=== PATIENT | male | born 1955 | race Caucasian/White ===

== ENCOUNTER 2020-07-25 09:22 | Outpatient (CLI) | payer MEDICARE, SELFPAY ==
--- NOTE | ~2020-07-25 | US_ITS ---
EXAMINATION: US renal BI EXAM DATE: 07/25/2020 09:47 INDICATION: Acquired absence of kidney. TECHNIQUE: Multiple grayscale and Doppler images of the kidneys were obtained (by a technologist who performed the scan) and subsequently reviewed. There is no prior study for comparison. FINDINGS: Right kidney: There is normal contour and echogenicity. It measures 12.1 x 5.1 x 6.4 centimeters. T here are no focal renal lesions identified. There is no hydronephrosis. Left kidney: There is normal contour and echogenicity. It measures 13.0 x 6.0 x 5.0 centimeters. Th ere are no focal renal lesions identified. There is no hydronephrosis. Bladder unremarkable. IMPRESSION: 1. Sonographically unremarkable kidneys. Reviewed, dictated and finalized at location B.
== END 2020-07-25 09:23 | disposition home or self-care (01) ==
LOC: CHSIMG 09:25
PROVIDERS: PCP Nurse Practitioner Family; Visit Provider Nurse Practitioner Family
DX: Z90.5 Acquired absence of kidney (principal)
CPT/HCPCS: 76775

== ENCOUNTER 2020-10-17 15:56 | Outpatient (NON) | payer MEDICARE, SELFPAY ==
[2020-10-17 16:56] LABS: Hemoglobin A1C 7.2 % (<5.7)
[2020-10-17 16:59] LABS: Alanine Aminotransferase 38 U/L (16-63); Albumin Level 4.1 g/dL (3.4-5.0); Alkaline Phosphatase 94 U/L (46-116); Anion Gap 11 mmol/L (8-16); Aspartate Amino Transferase 36 U/L (15-37); Bilirubin,Total 0.7 mg/dL (0.00-1.00); Blood Urea Nitrogen 20 mg/dL (7-18); Calcium 9.2 mg/dL (8.5-10.1); Carbon Dioxide 28 mmol/L (21-32); Chloride 104 mmol/L (98-108); Estimated Glomerular Filt Rate > 60; Glucose 115 mg/dL (70-99); Osmolality Calculated 299 mOsm/kg (285-295); Potassium 3.3 mmol/L (3.5-5.1); Sodium 143 mmol/L (136-145); Total Protein 7.6 g/dL (6.4-8.2)
== END 2020-10-17 15:57 ==
LOC: CHSLAB 15:58
PROVIDERS: Visit Provider Nurse Practitioner Family
DX: E11.9 Type 2 diabetes mellitus without complications (principal)
CPT/HCPCS: 36415; 80053; 83036

== ENCOUNTER 2021-01-15 13:58 | Outpatient (NON) | payer MEDICARE, SELFPAY ==
[2021-01-15 14:12] LABS: Basophils Absolute Auto 0.06 K/mm3 (0.00-0.10); Basophils Percent Auto 0.7 % (0.0-1.0); Eosinophils Absolute Auto 0.12 K/mm3 (0.02-0.50); Eosinophils Percent Auto 1.5 % (1.0-6.0); Hematocrit 50.6 % (40.0-54.0); Hemoglobin 17.3 g/dL (14.0-18.0); Immature Granulocyte Absolute 0.02 K/mm3 (0.00-0.00); Immature Granulocyte Percent A 0.2 % (0.0-0.0); Lymphocytes Absolute Auto 1.41 K/mm3 (1.10-4.50); Lymphocytes Percent Auto 17.6 % (18.0-42.0); Mean Corpuscular HGB Conc 34.2 g/dL (32.0-36.0); Mean Corpuscular Hemoglobin 32.2 pg (27.0-31.0); Mean Corpuscular Volume 94.1 fL (78.0-102.0); Mean Platelet Volume 11.2 fl (8.7-11.0); Monocytes Absolute Auto 0.69 K/mm3 (0.10-0.90); Monocytes Percent Auto 8.6 % (2.0-11.0); Neutrophils Absolute Auto 5.7 K/mm3 (1.7-7.2); Neutrophils Percent Auto 71.4 % (50.0-70.0); Platelet Count Result 148 K/mm3 (150-420); Red Blood Count 5.38 M/mm3 (4.70-6.10); Red Cell Distribution Width 12.7 % (11.6-14.4)
[2021-01-15 14:26] LABS: Hemoglobin A1C 7.8 % (<5.7)
[2021-01-15 15:03] LABS: Alanine Aminotransferase 47 U/L (16-63); Albumin Level 3.7 g/dL (3.4-5.0); Alkaline Phosphatase 157 U/L (46-116); Bilirubin,Total 1.1 mg/dL (0.00-1.00); Blood Urea Nitrogen 21 mg/dL (7-18); Calcium 9.2 mg/dL (8.5-10.1); Carbon Dioxide 30 mmol/L (21-32); Cholesterol 195 mg/dL (0-200); Estimated Glomerular Filt Rate 58; Glucose 233 mg/dL (70-99); HDL Direct 28 mg/dL (40-60); Total Protein 7.5 g/dL (6.4-8.2)
[2021-01-15 15:13] LABS: Anion Gap 10 mmol/L (8-16); Chloride 102 mmol/L (98-108); Osmolality Calculated 304 mOsm/kg (285-295); Potassium 3.9 mmol/L (3.5-5.1); Sodium 142 mmol/L (136-145)
[2021-01-15 15:56] LABS: Aspartate Amino Transferase 36 U/L (15-37)
[2021-01-15 16:05] LABS: LDL Cholesterol Calculated 50 mg/dL (<130); Triglycerides 587 mg/dL (0-150)
[2021-01-15 16:07] LABS: LDL Cholesterol Direct 61 mg/dL (0-130)
== END 2021-01-15 13:59 ==
LOC: CHSLAB 13:59
PROVIDERS: Visit Provider Nurse Practitioner Family
DX: E78.5 Hyperlipidemia, unspecified (principal); I10 Essential (primary) hypertension; E11.9 Type 2 diabetes mellitus without complications
CPT/HCPCS: 36415; 80053; 80061; 83036; 83721; 85025

== ENCOUNTER 2021-03-21 12:32 | Outpatient (CLI) | payer MEDICARE, SELFPAY ==
--- NOTE | 2021-03-21 12:42 | ECG_ITS ---
Measurements Intervals Tibbie Rate: 75 P: 68 IA: 195 QRS: 39 QRSD: 91 T: 30 QT: 381 QTc: 428 Interpretive Statements SINUS RHYTHM ANTERIOR INFARCT, AGE INDETERMINATE ABNORMAL ECG Electronically Signed On 03-21-2021 14:17:50 CDT by Francois Kamara D.O.
== END 2021-03-21 12:33 | disposition home or self-care (01) ==
LOC: CHSCARD 12:36
PROVIDERS: PCP Nurse Practitioner Family; Visit Provider Nurse Practitioner Family
DX: T78.40XA Allergy, unspecified, initial encounter (principal); Z86.79 Personal history of other diseases of the circulatory system
CPT/HCPCS: 36415; 82785; 86003; 93005

== ENCOUNTER 2021-04-08 07:34 | Outpatient (CLI) | payer MEDICARE, SELFPAY ==
--- NOTE | ~2021-04-08 | US_ITS ---
US abdomen limited INDICATION: Abnormal liver function tests PROCEDURE: Realtime right upper abdominal ultrasound. COMPARISON: No prior studies for comparison. FINDINGS: The pancreas is normal without focal mass or pancreatic ductal dilation. Liver echotexture is increased, consistent with fatty infiltration. There is normal directional flow in the portal ve in. The gallbladder is normal without stones, gallbladder wall thickening or pericholecystic fluid. Comm on bile duct measures 5 mm. No sonographic Minaya's sign. IMPRESSION: 1: Hepatic steatosis. Reviewed, dictated and finalized at location B. IMPRESSION: 1: Hepatic steatosis.
[2021-04-08 08:50] LABS: Alanine Aminotransferase 37 U/L (16-63); Albumin Level 3.7 g/dL (3.4-5.0); Alkaline Phosphatase 136 U/L (46-116); Anion Gap 9 mmol/L (8-16); Bilirubin,Total 0.6 mg/dL (0.00-1.00); Blood Urea Nitrogen 16 mg/dL (7-18); Calcium 8.8 mg/dL (8.5-10.1); Carbon Dioxide 30 mmol/L (21-32); Chloride 103 mmol/L (98-108); Estimated Glomerular Filt Rate > 60; Glucose 127 mg/dL (70-99); Osmolality Calculated 297 mOsm/kg (285-295); Sodium 142 mmol/L (136-145); Total Protein 7.2 g/dL (6.4-8.2)
[2021-04-08 08:59] LABS: Aspartate Amino Transferase 34 U/L (15-37)
== END 2021-04-08 07:35 | disposition home or self-care (01) ==
PROVIDERS: PCP Nurse Practitioner Family; Visit Provider Nurse Practitioner Family
DX: R94.5 Abnormal results of liver function studies (principal)
CPT/HCPCS: 36415; 76705; 80053

== ENCOUNTER 2021-04-17 14:59 | Outpatient (CLI) | payer MEDICARE, SELFPAY ==
--- NOTE | ~2021-04-17 | XR_ITS ---
XR lumbar spine 2-3V DATE: 04/17/2021 15:21 INDICATION: Back pain for one year. No injury. TECHNIQUE: AP, lateral, coned lateral lumbosacral views COMPARISON: None FINDINGS: There are 4 functional lumbar vertebrae. There is moderately severe degenerative disc disease throughout the lumbar spine. These include loss of interspace height, vacuum phenomenon and degenerative spurring. No fracture or bone destruction is evident. The lumbar pedicles are intact. No spondylolisthesis. IMPRESSION: Moderately severe degenerative disease of the lumbar spine Reviewed, dictated and finalized at location A.
== END 2021-04-17 15:00 | disposition home or self-care (01) ==
LOC: CHSIMG 15:01
PROVIDERS: PCP Nurse Practitioner Family; Visit Provider Nurse Practitioner Family
DX: M54.9 Dorsalgia, unspecified (principal)
CPT/HCPCS: 72100

== ENCOUNTER 2021-06-06 15:11 | Outpatient (NON) | payer MEDICARE, SELFPAY ==
[2021-06-06 15:30] LABS: Basophils Absolute Auto 0.08 K/mm3 (0.00-0.10); Basophils Percent Auto 1.1 % (0.0-1.0); Eosinophils Absolute Auto 0.21 K/mm3 (0.02-0.50); Eosinophils Percent Auto 2.8 % (1.0-6.0); Hematocrit 52.2 % (37.0-46.0); Immature Granulocyte Absolute 0.01 K/mm3 (0.00-0.00); Immature Granulocyte Percent A 0.1 % (0.0-0.0); Lymphocytes Absolute Auto 1.74 K/mm3 (1.10-4.50); Lymphocytes Percent Auto 23.2 % (18.0-42.0); Mean Corpuscular HGB Conc 34.5 g/dL (32.0-36.0); Mean Corpuscular Volume 92.7 fL (78.0-102.0); Mean Platelet Volume 10.5 fl (8.7-11.0); Monocytes Absolute Auto 0.64 K/mm3 (0.10-0.90); Monocytes Percent Auto 8.5 % (2.0-11.0); Neutrophils Absolute Auto 4.8 K/mm3 (1.7-7.2); Neutrophils Percent Auto 64.3 % (50.0-70.0); Platelet Count Result 132 K/mm3 (150-420); Red Blood Count 5.63 M/mm3 (4.70-6.10); Red Cell Distribution Width 12.9 % (11.6-14.4); White Blood Count 7.5 K/mm3 (4.8-10.8)
[2021-06-06 15:46] LABS: Alanine Aminotransferase 31 U/L (16-63); Albumin Level 3.7 g/dL (3.4-5.0); Alkaline Phosphatase 134 U/L (46-116); Anion Gap 18 mmol/L (8-16); Bilirubin,Total 0.7 mg/dL (0.00-1.00); Blood Urea Nitrogen 16 mg/dL (7-18); Calcium 8.8 mg/dL (8.5-10.1); Carbon Dioxide 21 mmol/L (21-32); Chloride 104 mmol/L (98-108); Cholesterol 219 mg/dL (0-200); Estimated Glomerular Filt Rate 57; Glucose 230 mg/dL (70-99); HDL Direct 27 mg/dL (40-60); Osmolality Calculated 304 mOsm/kg (285-295); Potassium 3.3 mmol/L (3.5-5.1); Sodium 143 mmol/L (136-145); Total Protein 7.8 g/dL (6.4-8.2)
[2021-06-06 15:55] LABS: Aspartate Amino Transferase 33 U/L (15-37)
[2021-06-06 16:07] LABS: Triglycerides 661 mg/dL (0-150)
[2021-06-06 16:08] LABS: LDL Cholesterol Calculated 60 mg/dL (<130)
[2021-06-06 16:09] LABS: LDL Cholesterol Direct 61 mg/dL (0-130)
== END 2021-06-06 15:12 | disposition home or self-care (01) ==
LOC: CHSLAB 15:13
PROVIDERS: Visit Provider Nurse Practitioner Family
DX: E78.5 Hyperlipidemia, unspecified (principal); Z00.00 Encounter for general adult medical examination without abnormal findings; I10 Essential (primary) hypertension
CPT/HCPCS: 36415; 80053; 80061; 83721; 85025; 85055

== ENCOUNTER 2021-09-16 10:26 | Outpatient (CLI) | payer MEDICARE, SELFPAY ==
[2021-09-16 11:13] LABS: Alanine Aminotransferase 36 U/L (16-63); Albumin Level 3.5 g/dL (3.4-5.0); Alkaline Phosphatase 139 U/L (46-116); Anion Gap 11 mmol/L (8-16); Bilirubin,Total 0.6 mg/dL (0.00-1.00); Blood Urea Nitrogen 17 mg/dL (7-18); Calcium 9.4 mg/dL (8.5-10.1); Carbon Dioxide 28 mmol/L (21-32); Chloride 102 mmol/L (98-108); Estimated Glomerular Filt Rate > 60; Glucose 182 mg/dL (70-99); Magnesium 1.8 mg/dL (1.8-2.4); Osmolality Calculated 298 mOsm/kg (285-295); Potassium 3.3 mmol/L (3.5-5.1); Sodium 141 mmol/L (136-145); Total Protein 6.9 g/dL (6.4-8.2)
[2021-09-16 11:20] LABS: Aspartate Amino Transferase 29 U/L (15-37)
== END 2021-09-16 10:27 | disposition home or self-care (01) ==
LOC: CHSLAB 10:29
PROVIDERS: PCP Nurse Practitioner Family; Visit Provider Nurse Practitioner Family
DX: R25.2 Cramp and spasm (principal)
CPT/HCPCS: 36415; 80053; 83735

== ENCOUNTER 2021-11-04 11:54 | Outpatient (CLI) | payer MEDICARE, SELFPAY ==
--- NOTE | ~2021-11-04 | US_ITS ---
EXAMINATION: US soft tissue groin RT, US soft tissue groin LT DATE: 11/04/2021 12:20 INDICATION: Localized pain, swelling, mass and lump at both the left and right groin TECHNIQUE: Multiple grayscale and Doppler ultrasound images of the regions of concern at both the lef t groin and right groin were obtained. COMPARISON: None FINDINGS/IMPRESSION: Provided images demonstrate no abnormal masses, fluid collections or hernias at the region of concern at either the left or right groin. Reviewed, dictated and finalized at location B. [employer]
== END 2021-11-04 11:55 | disposition home or self-care (01) ==
PROVIDERS: PCP Nurse Practitioner Family; Visit Provider Nurse Practitioner Family
DX: R22.43 Localized swelling, mass and lump, lower limb, bilateral (principal)
CPT/HCPCS: 76882

== ENCOUNTER 2021-11-25 12:11 | Outpatient (CLI) | payer MEDICARE, SELFPAY ==
[2021-11-25 13:31] LABS: Cholesterol 115 mg/dL (0-200); HDL Direct 30 mg/dL (40-60); LDL Cholesterol Calculated 61 mg/dL (<130); Triglycerides 122 mg/dL (0-150)
== END 2021-11-25 12:12 | disposition home or self-care (01) ==
LOC: CHSLAB 12:13
PROVIDERS: PCP Nurse Practitioner Family; Visit Provider Nurse Practitioner Family
DX: E78.5 Hyperlipidemia, unspecified (principal)
CPT/HCPCS: 36415; 80061

== ENCOUNTER 2021-12-17 14:10 | Outpatient (CLI) | payer MEDICARE, SELFPAY ==
[2021-12-17 14:22] LABS: Basophils Absolute Auto 0.03 K/mm3 (0.00-0.10); Basophils Percent Auto 0.4 % (0.0-1.0); Eosinophils Absolute Auto 0.22 K/mm3 (0.02-0.50); Eosinophils Percent Auto 2.6 % (1.0-6.0); Hematocrit 51.6 % (37.0-46.0); Hemoglobin 17.5 g/dL (12.4-15.3); Immature Granulocyte Absolute 0.03 K/mm3 (0.00-0.00); Immature Granulocyte Percent A 0.4 % (0.0-0.0); Lymphocytes Absolute Auto 1.53 K/mm3 (1.10-4.50); Lymphocytes Percent Auto 18.2 % (18.0-42.0); Mean Corpuscular HGB Conc 33.9 g/dL (32.0-36.0); Mean Corpuscular Hemoglobin 31.8 pg (27.0-31.0); Mean Corpuscular Volume 93.6 fL (78.0-102.0); Mean Platelet Volume 10.9 fl (8.7-11.0); Monocytes Absolute Auto 0.65 K/mm3 (0.10-0.90); Monocytes Percent Auto 7.7 % (2.0-11.0); Neutrophils Absolute Auto 5.9 K/mm3 (1.7-7.2); Neutrophils Percent Auto 70.7 % (50.0-70.0); Platelet Count Result 118 K/mm3 (150-420); Red Blood Count 5.51 M/mm3 (4.70-6.10); Red Cell Distribution Width 13.1 % (11.6-14.4); White Blood Count 8.4 K/mm3 (4.8-10.8)
[2021-12-17 14:43] LABS: Hemoglobin A1C 8.7 % (<5.7)
[2021-12-17 14:49] LABS: Albumin Level 3.4 g/dL (3.4-5.0); Alkaline Phosphatase 166 U/L (46-116); Anion Gap 12 mmol/L (8-16); Bilirubin,Total 0.6 mg/dL (0.00-1.00); Blood Urea Nitrogen 24 mg/dL (7-18); Calcium 8.5 mg/dL (8.5-10.1); Carbon Dioxide 26 mmol/L (21-32); Chloride 102 mmol/L (98-108); Estimated Glomerular Filt Rate > 60; Glucose 255 mg/dL (70-99); Osmolality Calculated 303 mOsm/kg (285-295); Potassium 3.3 mmol/L (3.5-5.1); Sodium 140 mmol/L (136-145); Total Protein 6.6 g/dL (6.4-8.2)
[2021-12-17 15:50] LABS: Alanine Aminotransferase 46 U/L (16-63); Aspartate Amino Transferase 31 U/L (15-37)
== END 2021-12-17 14:11 | disposition home or self-care (01) ==
LOC: CHSLAB 14:12
PROVIDERS: PCP Nurse Practitioner Family; Visit Provider Nurse Practitioner Family
DX: E11.9 Type 2 diabetes mellitus without complications (principal); I10 Essential (primary) hypertension; Z00.00 Encounter for general adult medical examination without abnormal findings
CPT/HCPCS: 36415; 80053; 83036; 85025; 85055

== ENCOUNTER 2022-02-20 12:40 | Outpatient (CLI) | payer MEDICARE, SELFPAY ==
--- NOTE | ~2022-02-20 | XR_ITS ---
EXAMINATION: XR lumbar spine 2-3V DATE: 02/20/2022 13:10 INDICATION: Low back pain TECHNIQUE: Anteroposterior and lateral views of the lumbar spine, and cone-down lateral view of the l umbosacral junction were obtained. COMPARISON: 04/17/2021 FINDINGS: There are 2 mm of stable retrolisthesis of L5 on S1. There is no fracture. There is mild ch ronic anterior wedging at L1 and L2. There is severe loss of intervertebral disc space height from L1 -2 through L5-S1. Small degenerative osteophytes project from the anterior endplates of multiple vert ebral bodies. There is moderate multilevel facet osteoarthritis. IMPRESSION: 1. Moderate to severe lumbar spondylosis without acute findings or significant interval change. Reviewed, dictated and finalized at location F.
== END 2022-02-20 12:41 | disposition home or self-care (01) ==
PROVIDERS: PCP Nurse Practitioner Family; Visit Provider Nurse Practitioner Family
DX: M54.50 Low back pain, unspecified (principal)
CPT/HCPCS: 72100

== ENCOUNTER 2022-02-28 08:14 | Outpatient (CLI) | payer MEDICARE, SELFPAY ==
--- NOTE | ~2022-02-28 | XR_ITS ---
EXAMINATION: XR barium swallow DATE: 02/28/2022 09:06 INDICATION: Dysphagia TECHNIQUE: The patient drank thick barium and gas producing crystals. Fluoroscopy of the hypopharynx and esophagus was performed. Fluoroscopy exposure time was 1.5 minutes. The DAP for this procedure wa s 15.29 Gycm2. COMPARISON: None. FINDINGS: There is no mass or stricture of the esophagus. Mild presbyesophagus is noted. There is no hiatal hernia. No gastroesophageal reflux was observed. Evaluation was limited due to patient mobilit y limitations. IMPRESSION: 1. Mild presbyesophagus. Reviewed, dictated and finalized at location B. IMPRESSION: 1. Mild presbyesophagus.
== END 2022-02-28 08:15 | disposition home or self-care (01) ==
LOC: CHSIMG 08:15
PROVIDERS: PCP Nurse Practitioner Family; Visit Provider Nurse Practitioner Family
DX: R13.10 Dysphagia, unspecified (principal)
CPT/HCPCS: 74220

== ENCOUNTER 2022-04-01 13:25 | Outpatient (CLI) | payer MEDICARE, SELFPAY ==
--- NOTE | ~2022-04-01 | CT_ITS ---
EXAMINATION: CT abdomen pelvis wo con DATE: 04/01/2022 13:57 INDICATION: Low abdominal pain. TECHNIQUE: Computed tomography (CT) of the abdomen and pelvis was performed without intravenous contr ast. Automated exposure control and iterative reconstruction technique were employed. The dose-length product was 1424.71 mGy-cm. COMPARISON: None. FINDINGS: The visualized portions of the lung bases demonstrate calcified right lung nodules and calc ified right hilar lymph nodes, consistent with old granulomatous disease. No pleural effusion. The he art size is normal. There are coronary artery calcifications. No pericardial effusion. The liver demo nstrates hypertrophy of left lateral segment and surface nodularity, consistent with cirrhosis. There are gallstones in the gallbladder, which is normal in size. There is mild splenomegaly. Calcificatio ns in the spleen are consistent with old granulomatous disease. There is a 13 mm rim-calcified saccul ar aneurysm of splenic artery. The pancreas, adrenal glands, and right kidney are normal. There are l ikely changes of partial left nephrectomy. There are small bilateral inguinal hernias containing fat. There are no dilated loops of bowel. The appendix is normal. Paraesophageal varices are noted. There are no pathologically enlarged lymph nodes. There is no free intraperitoneal fluid. There is severe lumbar spondylosis. IMPRESSION: 1. Bilateral inguinal hernias containing fat. 2. Cirrhosis of the liver with portal venous hypertension. Reviewed, dictated and finalized at location A.
[2022-04-01 13:59] LABS: Basophils Absolute Auto 0.05 K/mm3 (0.00-0.10); Basophils Percent Auto 0.6 % (0.0-1.0); Eosinophils Percent Auto 1.2 % (1.0-6.0); Hematocrit 53.4 % (37.0-46.0); Hemoglobin 18.6 g/dL (12.4-15.3); Immature Granulocyte Absolute 0.02 K/mm3 (0.00-0.00); Immature Granulocyte Percent A 0.2 % (0.0-0.0); Lymphocytes Absolute Auto 1.65 K/mm3 (1.10-4.50); Lymphocytes Percent Auto 19.3 % (18.0-42.0); Mean Corpuscular HGB Conc 34.8 g/dL (32.0-36.0); Mean Corpuscular Hemoglobin 31.7 pg (27.0-31.0); Mean Platelet Volume 9.6 fl (8.7-11.0); Monocytes Absolute Auto 0.64 K/mm3 (0.10-0.90); Monocytes Percent Auto 7.5 % (2.0-11.0); Neutrophils Absolute Auto 6.1 K/mm3 (1.7-7.2); Neutrophils Percent Auto 71.2 % (50.0-70.0); Platelet Count Result 155 K/mm3 (150-420); Red Blood Count 5.87 M/mm3 (4.70-6.10); Red Cell Distribution Width 12.2 % (11.6-14.4); White Blood Count 8.5 K/mm3 (4.8-10.8)
[2022-04-01 14:40] LABS: Alanine Aminotransferase 33 U/L (16-63); Albumin Level 3.9 g/dL (3.4-5.0); Alkaline Phosphatase 121 U/L (46-116); Anion Gap 7 mmol/L (8-16); Aspartate Amino Transferase 58 U/L (15-37); Bilirubin,Total 1.1 mg/dL (0.00-1.00); Blood Urea Nitrogen 11 mg/dL (7-18); Calcium 9.5 mg/dL (8.5-10.1); Carbon Dioxide 31 mmol/L (21-32); Chloride 99 mmol/L (98-108); Estimated Glomerular Filt Rate > 60; Free T4 Free Thyroxine 1.08 ng/dL (0.76-1.46); Glucose 150 mg/dL (70-99); Magnesium 1.7 mg/dL (1.8-2.4); Osmolality Calculated 286 mOsm/kg (285-295); Potassium 4.4 mmol/L (3.5-5.1); Sodium 137 mmol/L (136-145); Thyroid Stimulating Hormone 1.46 uIU/mL (0.36-3.74); Total Protein 7.6 g/dL (6.4-8.2)
[2022-04-03 19:31] LABS: Vitamin D 25 Hydroxy 14 ng/mL (30-100)
== END 2022-04-01 13:26 | disposition home or self-care (01) ==
LOC: CHSIMG 13:27
PROVIDERS: PCP Nurse Practitioner Family; Visit Provider Family Medicine
DX: R10.30 Lower abdominal pain, unspecified (principal); K40.90 Unilateral inguinal hernia, without obstruction or gangrene, not specified as recurrent; R53.83 Other fatigue; E11.9 Type 2 diabetes mellitus without complications; Z68.37 Body mass index [BMI] 37.0-37.9, adult
CPT/HCPCS: 36415; 74176; 80053; 82306; 83036; 83735; 84439; 84443; 85025

== ENCOUNTER 2022-06-24 13:39 | Outpatient (CLI) | payer MEDICARE, SELFPAY ==
[2022-06-24 13:53] LABS: Basophils Absolute Auto 0.05 K/mm3 (0.00-0.10); Basophils Percent Auto 0.6 % (0.0-1.0); Eosinophils Absolute Auto 0.11 K/mm3 (0.02-0.50); Eosinophils Percent Auto 1.4 % (1.0-6.0); Hematocrit 52.5 % (37.0-46.0); Hemoglobin 18.2 g/dL (12.4-15.3); Immature Granulocyte Absolute 0.05 K/mm3 (0.00-0.00); Immature Granulocyte Percent A 0.6 % (0.0-0.0); Lymphocytes Absolute Auto 1.65 K/mm3 (1.10-4.50); Lymphocytes Percent Auto 21.3 % (18.0-42.0); Mean Corpuscular HGB Conc 34.7 g/dL (32.0-36.0); Mean Corpuscular Hemoglobin 31.4 pg (27.0-31.0); Mean Corpuscular Volume 90.7 fL (78.0-102.0); Monocytes Absolute Auto 0.67 K/mm3 (0.10-0.90); Monocytes Percent Auto 8.7 % (2.0-11.0); Neutrophils Absolute Auto 5.2 K/mm3 (1.7-7.2); Neutrophils Percent Auto 67.4 % (50.0-70.0); Platelet Count Result 158 K/mm3 (150-420); Red Blood Count 5.79 M/mm3 (4.70-6.10); White Blood Count 7.7 K/mm3 (4.8-10.8)
[2022-06-24 14:10] LABS: Alanine Aminotransferase 25 U/L (16-63); Albumin Level 3.5 g/dL (3.4-5.0); Alkaline Phosphatase 131 U/L (46-116); Anion Gap 12 mmol/L (8-16); Aspartate Amino Transferase 16 U/L (15-37); Bilirubin,Total 0.6 mg/dL (0.00-1.00); Blood Urea Nitrogen 16 mg/dL (7-18); Calcium 9.3 mg/dL (8.5-10.1); Carbon Dioxide 25 mmol/L (21-32); Chloride 99 mmol/L (98-108); Estimated Glomerular Filt Rate > 60; Glucose 235 mg/dL (70-99); Osmolality Calculated 291 mOsm/kg (285-295); Potassium 3.6 mmol/L (3.5-5.1); Sodium 136 mmol/L (136-145); Total Protein 7.7 g/dL (6.4-8.2)
== END 2022-06-24 13:40 | disposition home or self-care (01) ==
LOC: CHSLAB 13:42
PROVIDERS: PCP Nurse Practitioner Family; Visit Provider Nurse Practitioner Family
DX: R53.83 Other fatigue (principal)
CPT/HCPCS: 36415; 80053; 85025

== ENCOUNTER 2022-07-22 13:53 | Outpatient (CLI) | payer MEDICARE, SELFPAY ==
[2022-07-22 14:17] LABS: Hematocrit 51.7 % (37.0-46.0); Hemoglobin 18.2 g/dL (12.4-15.3); Mean Corpuscular HGB Conc 35.2 g/dL (32.0-36.0); Mean Corpuscular Hemoglobin 32.6 pg (27.0-31.0); Mean Corpuscular Volume 92.5 fL (78.0-102.0); Platelet Count Result 151 K/mm3 (150-420); Red Blood Count 5.59 M/mm3 (4.70-6.10); Red Cell Distribution Width 12.7 % (11.6-14.4); White Blood Count 8.9 K/mm3 (4.8-10.8)
[2022-07-22 14:48] LABS: INR 1.1; Prothrombin Time 11.9 Seconds (9.50-12.10)
[2022-07-22 15:08] LABS: Alanine Aminotransferase 25 U/L (16-63); Albumin Level 3.7 g/dL (3.4-5.0); Alkaline Phosphatase 133 U/L (46-116); Anion Gap 8 mmol/L (8-16); Aspartate Amino Transferase 25 U/L (15-37); Bilirubin Direct 0.2 mg/dL (0-0.2); Bilirubin,Total 0.8 mg/dL (0.00-1.00); Blood Urea Nitrogen 15 mg/dL (7-18); Calcium 9.3 mg/dL (8.5-10.1); Carbon Dioxide 32 mmol/L (21-32); Chloride 100 mmol/L (98-108); Estimated Glomerular Filt Rate > 60; Ferritin 269 ng/mL (26-388); Glucose 200 mg/dL (70-99); Osmolality Calculated 296 mOsm/kg (285-295); Potassium 4.1 mmol/L (3.5-5.1); Sodium 140 mmol/L (136-145); Total Protein 7.6 g/dL (6.4-8.2)
[2022-07-22 15:13] LABS: Iron 101 ug/dL (65-175); Percent Iron Saturation 32 % (12-57)
[2022-07-24 11:32] LABS: Hepatitis A Antibody IgM Nonreactive; Hepatitis B Core Antibody Nonreactive (Nonreactive); Hepatitis B Surface Antigen Nonreactive (Nonreactive); Hepatitis C Signal to Cutoff 0.02 ratio (<1.00); Hepatitis C Virus Antibody Nonreactive (Nonreactive)
[2022-07-24 21:59] LABS: Mitochondrial (M2) Ab (IgG) <=20.0 U (<=20.0)
[2022-07-24 22:50] LABS: Actin Antibody (IgG) <20 U (<20); LKM 1 Antibody <=20.0 U (<=20.0)
[2022-07-25 19:46] LABS: Alpha-1-Antitrypsin, QN 164 mg/dL (83-199)
[2022-07-30 15:21] LABS: ALT 26 U/L (9-46); Alpha-2-Macroglobulin 351 mg/dL (106-279); Apolipoprotein A1 122 mg/dL (94-176); Fibrosis Score 0.78; Fibrosis Stage F4; GGT 57 U/L (3-70); Haptoglobin 97 mg/dL (43-212); Necroinflammat Act Grade A0-A1; Total Bilirubin 0.7 mg/dL (0.2-1.2)
== END 2022-07-22 13:54 | disposition home or self-care (01) ==
LOC: CHSLAB 13:54
PROVIDERS: PCP Nurse Practitioner Family; Visit Provider Nurse Practitioner
DX: K74.60 Unspecified cirrhosis of liver (principal); R94.5 Abnormal results of liver function studies
CPT/HCPCS: 36415; 80048; 80074; 80076; 81596; 82103; 82105; 82728; 83516; 83520; 83540; 83550; 85027; 85610; 86376

== ENCOUNTER 2022-08-29 07:04 | Outpatient (CLI) | payer MEDICARE, SELFPAY ==
--- NOTE | ~2022-08-29 | US_ITS ---
US abdomen limited INDICATION: Hepatic cirrhosis PROCEDURE: Realtime right upper abdominal ultrasound. COMPARISON: CT dated 04/01/2022 FINDINGS: The pancreas is normal without focal mass or pancreatic ductal dilation. Liver echotexture is increased, consistent with fatty infiltration. Liver is enlarged measuring 17.2 cm. There is norm al directional flow in the portal vein. There are small echogenic foci in the gallbladder lumen with subtle posterior shadowing, consistent w ith stones. Common bile duct measures 5 mm. No sonographic Minaya's sign. IMPRESSION: 1: Cholelithiasis. 2: Hepatomegaly. Reviewed, dictated and finalized at location B.
== END 2022-08-29 07:05 | disposition home or self-care (01) ==
LOC: CHSIMG 07:05
PROVIDERS: PCP Nurse Practitioner Family; Visit Provider Nurse Practitioner
DX: K74.60 Unspecified cirrhosis of liver (principal)
CPT/HCPCS: 76705

== ENCOUNTER 2022-09-08 00:38 | Day surgery (SDC) | payer MEDICARE, SELFPAY ==
[2022-09-02 10:10] VITALS: BMI 38.0
--- NOTE | 2022-09-02 12:18 | PC.NURSE ---
Spoke with pt. on phone regarding upcoming procedure. Very difficult to understand pt. Instructed on procedure date and time. Instructed to call medical provider, Lucia Paredes NP, to receive dosing instructions on insulin prior to procedure. Reiterated the importance of doing this due to no solid foods day before procedure. Pt. states he will call. Also instructed pt. on the need to take his Metroprolol the morning of procedure and to hold his Losartan the morning of procedure. Pt. understood directions to best of my knowledge. Pt seems to be a poor historian of his medical history when asked asked about health issues.
[2022-09-08 11:49] VITALS: BP 168/97; PULSE 107; RESP 20; TEMP 36.6; O2SAT 96; BMI 37.2
[2022-09-08 12:07] LABS: Glucose Point of Care 274 mg/dl (65-105)
[2022-09-08] MEDS: LACTATED RINGERS 1,000 ML 150 ML IV CONT (12:09)
--- NOTE | 2022-09-08 12:23 | WPDANESEPPF ---
Anes - Initial Pre Proc Eval Procedure: Operation Date: 09/08/22 13:00 Proposed Procedures p Esophagogastroduodenoscopy & Screening Colonoscopy - Valdemar Jones MD Date/Time: 09/08/22 12:23 Surgeon: Valdemar Jones MD Pre Op Diagnosis: GERD, Cirrhosis, Fam Hx of colon cancer Patient Data Age: 67 Gender: M Height: 1.75 m Weight: 114.4 kg Last Vital Signs Temp 97.9 F 09/08/22 11:49 Pulse 107 H 09/08/22 11:49 Resp 20 09/08/22 11:49 BP 168/97 H 09/08/22 11:49 Pulse Ox 96 09/08/22 11:49 O2 Del Method Room Air 09/08/22 11:49 Allergies Allergy/AdvReac Type Severity Reaction Status Date / Time tuna oil Allergy Severe Anaphylaxis Verified 09/08/22 11:47 Home Medications Medication Instructions Recorded Confirmed Type atorvastatin 40 mg tablet 40 mg PO DAILY 09/21/19 09/08/22 History metoprolol succinate 200 mg 200 mg PO DAILY 09/21/19 09/08/22 History tablet,extended release 24 hr acetaminophen 325 mg capsule 325 mg PO Q6H PRN Pain, Mild 09/27/19 09/08/22 History nitroglycerin 0.4 mg sublingual See Rx Instructions .Route 04/15/21 09/08/22 Rx tablet .COMPLEX #100 tabs ondansetron HCl 4 mg tablet 4 mg PO Q8H PRN nausea and 04/17/21 09/08/22 Rx (Zofran) vomiting #20 tabs budesonide 0.5 mg/2 mL suspension 0.5 mg (2 mL) inhalation BID #120 05/08/21 09/08/22 Rx for nebulization mL formoterol fumarate 20 mcg/2 mL 2 ml inhalation BID #120 mL 05/08/21 09/08/22 Rx solution for nebulization (Perforomist) mirtazapine 30 mg tablet See Rx Instructions .Route 08/22/21 09/08/22 Rx .COMPLEX #90 tabs albuterol sulfate 90 mcg/actuation 2 puff inhalation Q4H PRN 10/04/21 09/08/22 Rx aerosol inhaler (Ventolin HFA) shortness of breath or wheezing #8.5 grams hydrochlorothiazide 25 mg tablet See Rx Instructions .Route 12/09/21 09/08/22 Rx .COMPLEX #90 tabs ferrous sulfate 325 mg (65 mg See Rx Instructions .Route 01/08/22 09/08/22 Rx iron) tablet (FeroSul) .COMPLEX #180 tabs silver sulfadiazine 1 % topical 1 applic topical BID #50 grams 01/09/22 09/08/22 Rx cream (Silvadene) aspirin 81 mg tablet,delayed 81 mg PO DAILY 02/20/22 09/08/22 History release (Adult Aspirin Regimen) docusate sodium 100 mg capsule 100 mg PO BID 02/20/22 09/08/22 History dulaglutide 4.5 mg/0.5 mL 4.5 mg (0.5 mL) subcut WEEKLY #6 mL 02/25/22 09/08/22 Rx subcutaneous pen injector (Trulicity) empagliflozin 10 mg tablet See Rx Instructions .Route 02/25/22 09/08/22 Rx (Jardiance) .COMPLEX #90 tabs insulin glargine 100 unit/mL (3 See Rx Instructions .Route 02/25/22 09/08/22 Rx mL) subcutaneous pen (Basaglar .COMPLEX #15 mL KwikPen U-100 Insulin) lancets 30 gauge (TRUEplus Lancets) See Rx Instructions .Route 02/25/22 09/08/22 Rx .COMPLEX #200 ea losartan 50 mg tablet See Rx Instructions .Route 02/25/22 09/08/22 Rx .COMPLEX #90 tabs gabapentin 400 mg capsule See Rx Instructions .Route 03/17/22 09/08/22 Rx .COMPLEX #60 caps cholecalciferol (vitamin D3) 1,250 1,250 mcg PO WEEKLY #8 caps 04/07/22 09/08/22 Rx mcg (50,000 unit) capsule cyclobenzaprine 10 mg tablet 10 mg PO .HS PRN muscle spasm #30 04/14/22 09/08/22 Rx tabs diclofenac sodium 50 mg 50 mg PO TID PRN back pain #45 tabs 04/14/22 09/08/22 Rx tablet,delayed release famotidine 20 mg tablet See Rx Instructions .Route 06/13/22 09/08/22 Rx .COMPLEX #90 tabs nystatin 100,000 unit/gram topical 1 applic topical BID #30 grams 06/17/22 09/08/22 Rx cream niacin 50 mg tablet 50 mg PO BID #30 tabs 07/14/22 09/08/22 Rx duloxetine 60 mg capsule,delayed See Rx Instructions .Route 07/15/22 09/08/22 Rx release .COMPLEX #30 caps insulin aspart U-100 100 unit/mL See Rx Instructions .Route 07/16/22 09/08/22 Rx (3 mL) subcutaneous pen (Novolog .COMPLEX #15 mL Flexpen U-100 Insulin aspart) pantoprazole 40 mg tablet,delayed See Rx Instructions .Route 07/31/22 09/08/22 Rx release .COMPLEX #60 tabs
--- NOTE | 2022-09-08 12:34 | PM.HPGS ---
History of Present Illness History of Present Illness Consent: Risks, benefits, and alternatives have been discussed and questions answered. Patient agrees to proceed with procedure. Chief complaint: GERD, Cirrhosis, Fam Hx of colon cancer Narrative: Pawan Ibarra is a 67 year old male here for egd and colonoscopy, recent diagnosis of cirrhosis ? SWAN, also father had colon cancer. Review of Systems Constitutional: Constitutional: Denies headache(s) and Denies weakness Eyes: Eyes: Denies blurry vision ENT: Reports Normal hearing present, Denies headache(s) and Denies neck pain Cardiovascular: Cardiovascular: Denies chest pain and Denies dyspnea Respiratory: Respiratory: Denies dyspnea Gastrointestinal: Gastrointestinal: Reports no additional gastrointestinal complaints Genitourinary: Genitourinary: Denies dysuria Musculoskeletal: Musculoskeletal: Denies neck pain Integumentary/Breasts: Skin/Breast: Denies dry skin Neurologic: Reports Normal hearing present, Denies headache(s) and Denies weakness Psychiatric: Psychiatric: Denies anxiety Endocrine: Endocrine: Denies change in body appearance Hematologic/Lymphatic: Hematologic/Lymphatic: Denies easy bleeding Allergic/Immunologic: Allergic/Immunologic: Denies urticaria PMFSH Past Medical History Medical History Allergic reaction CAD (coronary artery disease) COPD (chronic obstructive pulmonary disease) Diabetes mellitus with neuropathy Family hx of colon cancer GERD (gastroesophageal reflux disease) Hyperlipemia Hypertension Overweight Parkinson disease Positive depression screening Type 2 diabetes mellitus Surgical History Surgical History H/O inguinal hernia repair right inguinal hernia repair H/O umbilical hernia repair History of heart bypass surgery Kidney mass hx of kidney mass removal Family History Family History Father Carcinoma of colon Social History Social History Smoking status: Never smoker Tobacco type: cigarettes Alcohol intake: former Substance use: never Substance use type: does not use Living arrangements: alone Spiritual care concerns: No Meds Home Medications and Allergies Home Medications Medication Instructions Recorded Confirmed Type atorvastatin 40 mg tablet 40 mg PO DAILY 09/21/19 09/08/22 History metoprolol succinate 200 mg 200 mg PO DAILY 09/21/19 09/08/22 History tablet,extended release 24 hr acetaminophen 325 mg capsule 325 mg PO Q6H PRN Pain, Mild 09/27/19 09/08/22 History nitroglycerin 0.4 mg sublingual See Rx Instructions .Route 04/15/21 09/08/22 Rx tablet .COMPLEX #100 tabs ondansetron HCl 4 mg tablet 4 mg PO Q8H PRN nausea and 04/17/21 09/08/22 Rx (Zofran) vomiting #20 tabs budesonide 0.5 mg/2 mL suspension 0.5 mg (2 mL) inhalation BID #120 05/08/21 09/08/22 Rx for nebulization mL formoterol fumarate 20 mcg/2 mL 2 ml inhalation BID #120 mL 05/08/21 09/08/22 Rx solution for nebulization (Perforomist) mirtazapine 30 mg tablet See Rx Instructions .Route 08/22/21 09/08/22 Rx .COMPLEX #90 tabs albuterol sulfate 90 mcg/actuation 2 puff inhalation Q4H PRN 10/04/21 09/08/22 Rx aerosol inhaler (Ventolin HFA) shortness of breath or wheezing #8.5 grams hydrochlorothiazide 25 mg tablet See Rx Instructions .Route 12/09/21 09/08/22 Rx .COMPLEX #90 tabs ferrous sulfate 325 mg (65 mg See Rx Instructions .Route 01/08/22 09/08/22 Rx iron) tablet (FeroSul) .COMPLEX #180 tabs silver sulfadiazine 1 % topical 1 applic topical BID #50 grams 01/09/22 09/08/22 Rx cream (Silvadene) aspirin 81 mg tablet,delayed 81 mg PO DAILY 02/20/22 09/08/22 History release (Adult Aspirin Regimen) docusate sodium 100 mg capsule 100 mg PO BID 02/20/22 09/08/22 History du
[2022-09-08 13:02] VITALS: BP 168/97; PULSE 88; RESP 18; TEMP 36.6; O2SAT 95
--- NOTE | 2022-09-08 13:02 | SUR.OPER ---
EGD START 1242, END 1245 COLONOSCOPY START 1249, END 125
[2022-09-08 13:12] VITALS: BP 151/88; PULSE 88; RESP 22; TEMP 36.6; O2SAT 95
[2022-09-08 13:22] VITALS: BP 165/67; PULSE 68; RESP 22; TEMP 36.6; O2SAT 100
[2022-09-08 13:53] LABS: Glucose Point of Care 224 mg/dl (65-105)
--- NOTE | 2022-09-08 14:05 | SUR.PHASEII ---
Discharge instructions given to pt. Instructed pt. to discontinue his Metroprolol per Dr. Morrison order and begin using Coreg instead. Instructed that new prescription is waiting at [facility] in [facility]. Pt. states understanding. Family members waiting outside. Assisted pt. to vehicle. Went over extensively his discharge instructions with Milo, his brother, and his [id number]. Instructed that Pawan needs to have his new medication picked up at pharmacy and for Pawan to stop using his Metroprolol. Discharge instructions and findings also explained to family members. Family verbalized understanding and states that his caregiver will be at house tomorrow to help with Pawan. No questions or concerns voiced.
== END 2022-09-08 14:04 | disposition home or self-care (01) ==
PROVIDERS: PCP Nurse Practitioner Family; Visit Provider Internal Medicine Gastroenterology
PROC: 0DJ08ZZ Inspection of Upper Intestinal Tract, Via Natural or Artificial Opening Endoscopic (ICD-10-PCS; CPT 43235; principal; 2022-09-08 13:00)
DX: Z12.11 Encounter for screening for malignant neoplasm of colon (principal); D12.0 Benign neoplasm of cecum; D12.3 Benign neoplasm of transverse colon; K64.8 Other hemorrhoids; Z80.0 Family history of malignant neoplasm of digestive organs; I85.00 Esophageal varices without bleeding; K29.70 Gastritis, unspecified, without bleeding; K21.9 Gastro-esophageal reflux disease without esophagitis; K31.7 Polyp of stomach and duodenum; K74.60 Unspecified cirrhosis of liver; I25.10 Atherosclerotic heart disease of native coronary artery without angina pectoris; J44.9 Chronic obstructive pulmonary disease, unspecified; E78.5 Hyperlipidemia, unspecified; I10 Essential (primary) hypertension; E11.40 Type 2 diabetes mellitus with diabetic neuropathy, unspecified; G20 Parkinson's disease
CPT/HCPCS: 43235; 45385; 82948; 88305; J2704; J7120

== ENCOUNTER 2022-09-10 11:20 | Outpatient (CLI) | payer MEDICARE, SELFPAY | END 2022-09-10 11:21 | disposition home or self-care (01) | PROVIDERS: PCP Nurse Practitioner Family; Visit Provider Otolaryngology | DX: H93.13 Tinnitus, bilateral (principal); H91.93 Unspecified hearing loss, bilateral | CPT/HCPCS: 92557; 92567 ==

== ENCOUNTER 2022-11-04 07:57 | Day surgery (SDC) | payer MEDICARE, MEDICAID, SELFPAY ==
--- NOTE | 2022-10-29 12:34 | PC.NURSE ---
Addendum entered by Lisa Paiz RN 10/29/22 13:07: PRE OP INSTRUCTIONS ALSO GIVEN TO BROTHER JONI PAT AND GIRLFRIEND ROSA ELENA Original Note: Report to the Outpatient Waiting Room, entrance under the green pavilion located off [facility], at time _1330 on date __11/04/22 . Planned Procedure Time: __1530 . Time changes happen often and if your time is changed the preop area will call you the afternoon before. - You and your visitor will be asked to self-screen and do not enter if you have any COVID symptoms. - Only one visitor is requested with a max of two and NO children visitors are allowed at this time. - The patient visitor may be requested to leave or wait in car when not with patient due to distancing restrictions. - A mask is optional within the hospital. Patients may have clear liquids (water, carbonated beverages, clear teas, apple juice) until 3 hours (12:30)prior to surgery with a maximum of 20 ounces. - No food from midnight until time of surgery - Infants may have breast milk until 4 hours before surgery, infant formula 6 hours prior to surgery. - Children will be allowed to drink immediately following surgery. If applicable, please bring a bottle or sippy cup to assist with drinking. Juice, water, soda, and popsicles are readily available. For infants on formula, please bring formula the day of surgery. Pacifiers are allowed. Take the following medications with a SIP of water the morning of surgery: _inhaler ,carvedilol,duloxetine,gabapentin Medications to discontinue per physician ____ALL VITAMINS AND SUPPLEMENTS 3 DAYS PRE OP LAST DOSE 10/31/22 Please no make-up, nail [place], hairspray, perfume, deodorant, or body powder the day of surgery. No jewelry (including any body piercings) or valuables the day of surgery, leave them at home. Please take a shower or bath the night before, or the morning of, surgery with an antibacterial soap. Wear comfortable, loose fitting clothing. Children are encouraged to wear pajamas. - Jewelry must be removed prior to entering the operating room. Rings and piercings that are not removed may be cut off. - The hospital will not accept responsibility for valuables. - Please leave all valuables, including medications, at home the day of surgery. If you are going home after surgery, a licensed personal driver must drive you home. - NO public transportation without another adult if you receive anesthesia. - We recommend that an adult stay with you for 24 hours following discharge. - We also recommend that you do not drive, make important decision, drink alcoholic beverages, or take any drugs that were not prescribed by your health care provider for at least 24 hours after your discharge time. Follow any additional instructions given to you from your surgeon. If you or anyone in your household have experienced Covid symptoms in the past week, please notify your surgeon or the nurse liaison at the phone number below for possible testing. Telephone instructions given to __PATIENT and asked if any additional questions and then verbalized understanding. Patient advised to call surgeon office or pre surgery nurse liaison [phone] if any additional questions.
[2022-10-29 13:13] VITALS: BMI 38.4
--- NOTE | 2022-10-29 13:24 | PC.NURSE ---
PT STATES NO LONGER TAKING CARBIDOPA-LEVODOPA. VERIFIED WITH [facility] [place]
--- NOTE | 2022-11-03 14:09 | PM.IMHP ---
H&P: HPI History of Present Illness Date/Time: 11/03/22 14:09 Chief Complaint: Eustachian tube dysfunction hearing loss Narrative: planned surgical procedure Review of Systems Review of Systems: All systems reviewed & are unremarkable except as noted in HPI and below [facility] Past Medical History Medical History Allergic reaction CAD (coronary artery disease) COPD (chronic obstructive pulmonary disease) Diabetes mellitus with neuropathy Esophageal varices Family hx of colon cancer GERD (gastroesophageal reflux disease) History of adenomatous polyp of colon Hyperlipemia Hypertension Obesity Overweight Parkinson disease Positive depression screening Type 2 diabetes mellitus Surgical History Surgical History H/O inguinal hernia repair right inguinal hernia repair H/O umbilical hernia repair History of heart bypass surgery Kidney mass hx of kidney mass removal Family History Family History Father Carcinoma of colon Social History Social History Smoking status: Never smoker Tobacco type: cigarettes Alcohol intake: former Substance use: never Substance use type: does not use Living arrangements: alone Spiritual care concerns: No Meds Home Medications and Allergies Home Medications Medication Instructions Recorded Confirmed Type atorvastatin 40 mg tablet 40 mg PO DAILY 09/21/19 10/28/22 History acetaminophen 325 mg capsule 325 mg PO Q6H PRN Pain, Mild 09/27/19 10/28/22 History nitroglycerin 0.4 mg sublingual See Rx Instructions .Route 04/15/21 10/28/22 Rx tablet .COMPLEX #100 tabs ondansetron HCl 4 mg tablet 4 mg PO Q8H PRN nausea and 04/17/21 10/28/22 Rx (Zofran) vomiting #20 tabs mirtazapine 30 mg tablet See Rx Instructions .Route 08/22/21 10/28/22 Rx .COMPLEX #90 tabs albuterol sulfate 90 mcg/actuation 2 puff inhalation Q4H PRN 10/04/21 10/28/22 Rx aerosol inhaler (Ventolin HFA) shortness of breath or wheezing #8.5 grams ferrous sulfate 325 mg (65 mg See Rx Instructions .Route 01/08/22 10/28/22 Rx iron) tablet (FeroSul) .COMPLEX #180 tabs silver sulfadiazine 1 % topical 1 applic topical BID #50 grams 01/09/22 10/28/22 Rx cream (Silvadene) aspirin 81 mg tablet,delayed 81 mg PO DAILY 02/20/22 10/28/22 History release (Adult Aspirin Regimen) docusate sodium 100 mg capsule 100 mg PO BID 02/20/22 10/28/22 History dulaglutide 4.5 mg/0.5 mL 4.5 mg (0.5 mL) subcut WEEKLY #6 mL 02/25/22 10/28/22 Rx subcutaneous pen injector (Trulicity) empagliflozin 10 mg tablet See Rx Instructions .Route 02/25/22 10/28/22 Rx (Jardiance) .COMPLEX #90 tabs lancets 30 gauge (TRUEplus Lancets) See Rx Instructions .Route 02/25/22 10/22/22 Rx .COMPLEX #200 ea losartan 50 mg tablet See Rx Instructions .Route 02/25/22 10/28/22 Rx .COMPLEX #90 tabs gabapentin 400 mg capsule See Rx Instructions .Route 03/17/22 10/28/22 Rx .COMPLEX #60 caps cholecalciferol (vitamin D3) 1,250 1,250 mcg PO WEEKLY #8 caps 04/07/22 10/28/22 Rx mcg (50,000 unit) capsule cyclobenzaprine 10 mg tablet 10 mg PO .HS PRN muscle spasm #30 04/14/22 10/28/22 Rx tabs nystatin 100,000 unit/gram topical 1 applic topical BID #30 grams 06/17/22 10/28/22 Rx cream niacin 50 mg tablet 50 mg PO BID #30 tabs 07/14/22 10/28/22 Rx insulin aspart U-100 100 unit/mL See Rx Instructions .Route 07/16/22 10/28/22 Rx (3 mL) subcutaneous pen (Novolog .COMPLEX #15 mL FlexPen U-100 Insulin aspart) pen needle, diabetic 32 gauge x #100 ea 07/31/22 10/22/22 Rx 1/4 (UltiCare Pen Needle) blood sugar diagnostic (OneTouch See Rx Instructions .Route 08/04/22 10/22/22 Rx Ultra Test strips) .COMPLEX #100 strips clotrimazole 1 % topical cream 1 applic topical Q12H 4 weeks #30 08/20/22
[2022-11-04] VITALS (11 sets, daily range): BP systolic 85–150; BP diastolic 52–76; PULSE 85–97; RESP 14–20; TEMP 36.4–37.4; O2SAT 94–98
--- NOTE | 2022-11-04 07:18 | WPDHPUPDATE1 ---
History and Physical Update Update Date/Time: 11/04/22 07:18 History and Physical has been reviewed, including an updated exam of the patient. There are NO changes in the patient's condition. Risks, benefits, and alternatives have been discussed and questions answered. Patient agrees to proceed with procedure.
--- NOTE | 2022-11-04 08:48 | WPDHPUPDATE1 ---
History and Physical Update Update Date/Time: 11/04/22 08:48 Only bmt, no nasal endoscopy, no eustachian tube balloon dilation
--- NOTE | 2022-11-04 10:11 | WPDANESEPPF ---
Anes - Initial Pre Proc Eval Procedure: Operation Date: 11/04/22 15:30 Proposed Procedures p Bilateral Myringotomy, Insertion Of Tubes - Leonides Shearer MD Date/Time: 11/04/22 10:11 Surgeon: Leonides Shearer MD Pre Op Diagnosis: bilat chronic otitis media Patient Data Age: 67 Gender: M Height: 1.75 m Weight: 117.95 kg Allergies Allergy/AdvReac Type Severity Reaction Status Date / Time tuna oil Allergy Severe Anaphylaxis Verified 11/04/22 14:18 Home Medications Medication Instructions Recorded Confirmed Type atorvastatin 40 mg tablet 40 mg PO DAILY 09/21/19 10/28/22 History acetaminophen 325 mg capsule 325 mg PO Q6H PRN Pain, Mild 09/27/19 10/28/22 History nitroglycerin 0.4 mg sublingual See Rx Instructions .Route 04/15/21 10/28/22 Rx tablet .COMPLEX #100 tabs ondansetron HCl 4 mg tablet 4 mg PO Q8H PRN nausea and 04/17/21 10/28/22 Rx (Zofran) vomiting #20 tabs mirtazapine 30 mg tablet See Rx Instructions .Route 08/22/21 10/28/22 Rx .COMPLEX #90 tabs albuterol sulfate 90 mcg/actuation 2 puff inhalation Q4H PRN 10/04/21 10/28/22 Rx aerosol inhaler (Ventolin HFA) shortness of breath or wheezing #8.5 grams ferrous sulfate 325 mg (65 mg See Rx Instructions .Route 01/08/22 10/28/22 Rx iron) tablet (FeroSul) .COMPLEX #180 tabs silver sulfadiazine 1 % topical 1 applic topical BID #50 grams 01/09/22 10/28/22 Rx cream (Silvadene) aspirin 81 mg tablet,delayed 81 mg PO DAILY 02/20/22 10/28/22 History release (Adult Aspirin Regimen) docusate sodium 100 mg capsule 100 mg PO BID 02/20/22 10/28/22 History dulaglutide 4.5 mg/0.5 mL 4.5 mg (0.5 mL) subcut WEEKLY #6 mL 02/25/22 10/28/22 Rx subcutaneous pen injector (Trulicity) empagliflozin 10 mg tablet See Rx Instructions .Route 02/25/22 10/28/22 Rx (Jardiance) .COMPLEX #90 tabs lancets 30 gauge (TRUEplus Lancets) See Rx Instructions .Route 02/25/22 10/22/22 Rx .COMPLEX #200 ea losartan 50 mg tablet See Rx Instructions .Route 02/25/22 10/28/22 Rx .COMPLEX #90 tabs gabapentin 400 mg capsule See Rx Instructions .Route 03/17/22 10/28/22 Rx .COMPLEX #60 caps cholecalciferol (vitamin D3) 1,250 1,250 mcg PO WEEKLY #8 caps 04/07/22 10/28/22 Rx mcg (50,000 unit) capsule cyclobenzaprine 10 mg tablet 10 mg PO .HS PRN muscle spasm #30 04/14/22 10/28/22 Rx tabs nystatin 100,000 unit/gram topical 1 applic topical BID #30 grams 06/17/22 10/28/22 Rx cream niacin 50 mg tablet 50 mg PO BID #30 tabs 07/14/22 10/28/22 Rx insulin aspart U-100 100 unit/mL See Rx Instructions .Route 07/16/22 10/28/22 Rx (3 mL) subcutaneous pen (Novolog .COMPLEX #15 mL FlexPen U-100 Insulin aspart) pen needle, diabetic 32 gauge x #100 ea 07/31/22 10/22/22 Rx 1/4 (UltiCare Pen Needle) blood sugar diagnostic (OneTouch See Rx Instructions .Route 08/04/22 10/22/22 Rx Ultra Test strips) .COMPLEX #100 strips clotrimazole 1 % topical cream 1 applic topical Q12H 4 weeks #30 08/20/22 10/28/22 Rx grams Melatonin Tab 5mg Sun 60 #1 ea 08/22/22 10/22/22 Rx fluticasone propionate 50 See Rx Instructions .Route 08/29/22 10/28/22 Rx mcg/actuation nasal .COMPLEX #16 grams spray,suspension carvedilol 12.5 mg tablet (Coreg) 12.5 mg PO Q12H #60 tabs 09/08/22 10/28/22 Rx hydrocortisone 1 % topical spray 1 applic topical TID PRN itching 09/11/22 10/28/22 Rx (Anti-Itch (hydrocortisone)) #85 grams budesonide 0.5 mg/2 mL suspension See Rx Instructions .Route 09/12/22 10/28/22 Rx for nebulization .COMPLEX #60 ea formoterol fumarate 20 mcg/2 mL See Rx Instructions .Route 09/12/22 10/28/22 Rx solution for nebulization .COMPLEX #60 ea (Perforomist) insulin glargine 100 unit/mL (3 See Rx Instructions .Route 09/23/22 10/28/22 Rx mL) subcutaneous pen (Basaglar .COMPLEX #15 mL KwikPen U-100 Insulin) pantoprazole 40 mg tablet,delayed See Rx Instructions .Route 10/02/22 10/28/22 Rx release .COMPLEX #60 tabs diclofenac sodium 50 mg See Rx Instructio
[2022-11-04 14:13] LABS: Glucose Point of Care 298 mg/dl (65-105)
[2022-11-04] MEDS: LACTATED RINGERS 1,000 ML 30 ML IV CONT ×2 (14:17→16:20)
--- NOTE | 2022-11-04 14:48 | SUR.PREOP ---
glcose [address] chowdary aware. no orders at this time.
[2022-11-04] MEDS: CIPROFLOXACIN HCL 0.3% OP SOLN 2.5 ML BTL 4 DROP EACH EAR (16:12)
--- NOTE | 2022-11-04 16:45 | SUR.PHASEI ---
1645- Notified TRACK MAINTAINER Mark Vences patient's BG remaining elevated at 286. Per TRACK MAINTAINER no new orders at this time, instruct patient to treat elevated blood glucose upon discharge home and follow closely.
[2022-11-04 16:47] LABS: Glucose Point of Care 286 mg/dl (65-105)
--- NOTE | 2022-11-04 17:04 | P.OP_ITS ---
Procedure Note - Detailed Date of Procedure 11/04/22 Pre-op Diagnosis bilat chronic otitis media, bilateral eustachian tube dysfunction Post-op Diagnosis Same Procedure Performed bilateral myringotomy tube insertion Surgeon Leonides Shearer MD Anesthesia General Indications see above Findings right severely retracted tube placed appropriately left severely retracted copious amounts of mucus middle ear. Tube placed appropriately. Description of Procedure Patient identified consent verified. Patient brought operating room. Time- out performed. General anesthesia induced. LMA secured. Patient prepped drape d position 2nd time-out performed. A microscope brought into the field right- sided viewed severely retracted myringotomy made difficult to place the tube deep to the eardrum given how retracted successful. Drops placed cotton ball placed. Left-sided myringotomy made copious amounts of lobe was retracted as well. Copious amounts of a thick mucus. Patient tolerated well. Drops placed cotton ball placed to placed successfully. T tubes. Care the patient given Anesthesiology no blood loss no complications I performed all dictated portions. Drains No Packing No Pathology None sent Complications No immediate complications Condition Stable Disposition PACU
== END 2022-11-04 18:18 | disposition home or self-care (01) ==
PROVIDERS: PCP Nurse Practitioner Family; Visit Provider Otolaryngology
PROC: (CPT 69436; principal; 2022-11-04 15:30)
DX: H66.93 Otitis media, unspecified, bilateral (principal); H69.83 Other specified disorders of Eustachian tube, bilateral; H91.93 Unspecified hearing loss, bilateral; I25.10 Atherosclerotic heart disease of native coronary artery without angina pectoris; J44.9 Chronic obstructive pulmonary disease, unspecified; K21.9 Gastro-esophageal reflux disease without esophagitis; K74.60 Unspecified cirrhosis of liver; G20 Parkinson's disease; E11.40 Type 2 diabetes mellitus with diabetic neuropathy, unspecified; E78.5 Hyperlipidemia, unspecified; E66.9 Obesity, unspecified; Z68.37 Body mass index [BMI] 37.0-37.9, adult; Z95.1 Presence of aortocoronary bypass graft; Z79.51 Long term (current) use of inhaled steroids; Z79.82 Long term (current) use of aspirin; Z79.899 Other long term (current) drug therapy; Z79.84 Long term (current) use of oral hypoglycemic drugs; Z79.4 Long term (current) use of insulin
CPT/HCPCS: 69436; 82948; J1100; J2250; J2405; J2704; J3010; J7120

== ENCOUNTER 2022-11-12 13:22 | Outpatient (CLI) | payer MEDICARE, MEDICAID, SELFPAY ==
[2022-11-12 13:40] LABS: Basophils Absolute Auto 0.05 K/mm3 (0.00-0.10); Basophils Percent Auto 0.7 % (0.0-1.0); Eosinophils Absolute Auto 0.11 K/mm3 (0.02-0.50); Eosinophils Percent Auto 1.5 % (1.0-6.0); Hematocrit 45.9 % (37.0-46.0); Hemoglobin 16.2 g/dL (12.4-15.3); Immature Granulocyte Absolute 0.02 K/mm3 (0.00-0.00); Immature Granulocyte Percent A 0.3 % (0.0-0.0); Immature Platelet Fraction Pct 3.1 % (1.0-7.0); Lymphocytes Absolute Auto 1.13 K/mm3 (1.10-4.50); Lymphocytes Percent Auto 15.9 % (18.0-42.0); Mean Corpuscular HGB Conc 35.3 g/dL (32.0-36.0); Mean Corpuscular Hemoglobin 32.6 pg (27.0-31.0); Mean Corpuscular Volume 92.4 fL (78.0-102.0); Mean Platelet Volume 10.3 fl (8.7-11.0); Monocytes Absolute Auto 0.52 K/mm3 (0.10-0.90); Monocytes Percent Auto 7.3 % (2.0-11.0); Neutrophils Absolute Auto 5.3 K/mm3 (1.7-7.2); Neutrophils Percent Auto 74.3 % (50.0-70.0); Platelet Count Result 121 K/mm3 (150-420); Red Blood Count 4.97 M/mm3 (4.70-6.10); Red Cell Distribution Width 12.6 % (11.6-14.4); White Blood Count 7.1 K/mm3 (4.8-10.8)
[2022-11-12 14:12] LABS: Alanine Aminotransferase 32 U/L (16-63); Albumin Level 3.5 g/dL (3.4-5.0); Alkaline Phosphatase 176 U/L (46-116); Anion Gap 7 mmol/L (8-16); Aspartate Amino Transferase 20 U/L (15-37); Bilirubin,Total 0.8 mg/dL (0.00-1.00); Blood Urea Nitrogen 13 mg/dL (7-18); Calcium 8.5 mg/dL (8.5-10.1); Carbon Dioxide 32 mmol/L (21-32); Chloride 97 mmol/L (98-108); Cholesterol 292 mg/dL (0-200); Estimated Glomerular Filt Rate > 60; HDL Direct 34 mg/dL (40-60); Osmolality Calculated 303 mOsm/kg (285-295); Potassium 3.7 mmol/L (3.5-5.1); Sodium 136 mmol/L (136-145); Total Protein 7.1 g/dL (6.4-8.2)
[2022-11-12 14:16] LABS: Glucose 473 mg/dL (70-99); LDL Cholesterol Calculated 129 mg/dL (<130); Triglycerides 643 mg/dL (0-150)
[2022-11-12 14:45] LABS: LDL Cholesterol Direct 104 mg/dL (0-130)
[2022-11-12 15:53] LABS: Hemoglobin A1C 9.4 % (<5.7)
[2022-11-16 17:29] LABS: Vitamin D 25 Hydroxy 15 ng/mL (30-100)
== END 2022-11-12 13:23 | disposition home or self-care (01) ==
LOC: CHSLAB 13:23
PROVIDERS: PCP Nurse Practitioner Family; Visit Provider Nurse Practitioner Family
DX: E78.5 Hyperlipidemia, unspecified (principal); E11.69 Type 2 diabetes mellitus with other specified complication; I10 Essential (primary) hypertension; I15.2 Hypertension secondary to endocrine disorders; E11.59 Type 2 diabetes mellitus with other circulatory complications; Z79.899 Other long term (current) drug therapy
CPT/HCPCS: 36415; 80053; 80061; 82306; 83036; 83721; 85025; 85055

== ENCOUNTER 2023-01-19 13:50 | Outpatient (CLI) | payer MEDICARE, MEDICAID, SELFPAY ==
[2023-01-19 14:13] LABS: Hematocrit 43.7 % (37.0-46.0); Immature Platelet Fraction Pct 2.9 % (1.0-7.0); Mean Corpuscular HGB Conc 34.3 g/dL (32.0-36.0); Mean Corpuscular Hemoglobin 32.5 pg (27.0-31.0); Mean Corpuscular Volume 94.6 fL (78.0-102.0); Mean Platelet Volume 9.8 fl (8.7-11.0); Platelet Count Result 130 K/mm3 (150-420); Red Blood Count 4.62 M/mm3 (4.70-6.10); Red Cell Distribution Width 12.6 % (11.6-14.4); White Blood Count 7.4 K/mm3 (4.8-10.8)
[2023-01-19 14:24] LABS: INR 1.1; Prothrombin Time 11.8 Seconds (9.50-12.10)
[2023-01-19 14:45] LABS: Alanine Aminotransferase 33 U/L (16-63); Albumin Level 3.8 g/dL (3.4-5.0); Alkaline Phosphatase 138 U/L (46-116); Aspartate Amino Transferase 27 U/L (15-37); Bilirubin Direct 0.3 mg/dL (0-0.2); Bilirubin,Total 1.2 mg/dL (0.00-1.00); Total Protein 7.4 g/dL (6.4-8.2)
[2023-01-21 21:17] LABS: Vitamin D 25 Hydroxy 27 ng/mL (30-100)
[2023-01-23 18:11] LABS: Alpha Fetoprotein Tumor Marker 3.4 ng/mL (<6.1)
== END 2023-01-19 13:51 | disposition home or self-care (01) ==
LOC: CHSAUDIO 13:55
PROVIDERS: Nurse Practitioner; PCP Nurse Practitioner Family; Visit Provider Otolaryngology
DX: K74.60 Unspecified cirrhosis of liver (principal); Z79.899 Other long term (current) drug therapy
CPT/HCPCS: 36415; 80076; 82105; 82306; 85027; 85055; 85610; 92557; 92567

== ENCOUNTER 2023-02-02 09:50 | Outpatient (CLI) | payer MEDICARE, MEDICAID, SELFPAY ==
--- NOTE | ~2023-02-02 | US_ITS ---
EXAMINATION: US abdomen limited DATE: 02/02/2023 10:50 INDICATION: Cirrhosis of the liver. TECHNIQUE: Multiple grayscale and Doppler ultrasound images of the abdomen were obtained. COMPARISON: Ultrasound 08/29/2022, CT abdomen and pelvis 04/01/22 FINDINGS: The pancreas is obscured by bowel gas. There is diffuse hepatic steatosis with focal sparin g in the gallbladder fossa. No visualized liver surface nodularity. There is normal flow in main port al vein. The gallbladder is normal in size and contains gallstones. No gallbladder wall thickening. T he common duct is normal and measures 5 mm . IMPRESSION: 1. Diffuse hepatic steatosis. 2. Cholelithiasis. No evidence of acute cholecystitis. Reviewed, dictated and finalized at location A.
--- NOTE | ~2023-02-02 | XR_ITS ---
EXAMINATION: XR barium swallow modified DATE: 02/02/2023 11:04 INDICATION: Dysphagia. TECHNIQUE: The patient was given barium-containing material of multiple consistencies to swallow by t he speech pathologist while I performed fluoroscopy. Fluoroscopy exposure time was 1.4 minutes. The n umber of fluoroscopy images saved to the PACS was 1. Dose-area product was 1 Gy-cm^2. FINDINGS: There is premature spill into the pharynx with solids. There is laryngeal penetration with thin fluid s. There is minimal vallecular residue. IMPRESSION: 1. Laryngeal penetration with thin liquids. 2. Please refer to the speech therapy report for recommendations. Reviewed, dictated and finalized at location A.
--- NOTE | 2023-02-02 12:47 | REHSTMBS ---
Assessment and note entered by Martha Guzman, SHELLFISH PROCESSING LABORER Modified Barium Swallow Evaluation Diagnosis Dysphagia Subjective Information Patient had some difficulty recalling history and current problem. Patient reported that he has had difficulty swallowing solid foods and ends up choking and having emesis. He reported that this does not occur daily but had difficulty reporting how often he has trouble. He reported no difficulty tolerating fluids but has difficulty swallowing pills occasionally. Feeding Type Recommended Oral Food Consistency Regular, Easy to Chew (7) Liquid Consistency Thin (0) Treatment Recommendations Effortful Swallow,Laryngeal Elevation Exerc,Tongue Base Exercise,Vocal Fold Adduction Exer ST Clinical Summary Patient was referred for a modified barium swallow study due to difficulty tolerating solids and pills. The patient had difficulty recalling detailed history but stated that he has been having trouble swallowing tough textured foods and has had some episodes of emesis due to difficulty . Patient was given trials of thin barium, puree and eleazar cracker during the study. Patient presented with deep laryngeal penetration with thin fluid via cup during the swallow but once modified to use of straw there was no laryngeal penetration noted. Premature spillage was noted with solid trials indicating decreased lingual base strength. Recommendation for patient to have outpatient ST to target compensatory techniques/ training and oral motor/laryngeal ex. to improve strength and decrease risk for swallowing difficulty. Handout was given to the patient with various compensatory techniques, recommendation for applesauce/pudding with pills and recommendation for outpatient ST.
== END 2023-02-02 09:51 | disposition home or self-care (01) ==
LOC: CHSIMG 09:51
PROVIDERS: PCP Nurse Practitioner Family; Visit Provider Nurse Practitioner
DX: R13.10 Dysphagia, unspecified (principal); R18.8 Other ascites; K74.60 Unspecified cirrhosis of liver; T17.320A Food in larynx causing asphyxiation, initial encounter; K76.0 Fatty (change of) liver, not elsewhere classified; K80.20 Calculus of gallbladder without cholecystitis without obstruction
CPT/HCPCS: 76705; 92611

== ENCOUNTER 2023-02-16 08:41 | Outpatient (RCR) | payer MEDICARE, MEDICAID, SELFPAY | END 2023-05-17 23:59 | disposition home or self-care (01) | LOC: CHSAUDIO 08:41 | PROVIDERS: PCP Nurse Practitioner Family; Visit Provider Otolaryngology | DX: Z46.1 Encounter for fitting and adjustment of hearing aid (principal) | CPT/HCPCS: 99199 ==

== ENCOUNTER 2023-02-16 09:28 | Outpatient (RCR) | payer MEDICARE, MEDICAID, SELFPAY ==
--- NOTE | 2023-02-16 12:52 | STOPEVAL1 ---
Assessment and note entered by Martha Guzman PLATE CONDITIONER Evaluation Information Assessment Status Evaluation Diagnosis Dysphagia R13.12 Onset a few years Subjective Information Patient reported that he is still having difficulty swallowing daily with potential nasopharyngeal reflux and residual stasis in valleculae. Patient reported that he is tolerating fluids better through use of a straw but still has trouble swallowing pills. Education regarding use of applesauce/pudding with pills to decrease risk for nasopharyngeal reflux. Reported Pain Level Pain Score 0: Self Report Assessment ST Clinical Summary Patient was referred for an ST evaluation for swallowing due to a recent MBS indicating deep laryngeal penetration with thin fluids and premature spillage with solid trials. Patient reported that he often has difficulty swallowing solids with residual sticking in the valleculae. He also has difficulty swallowing his medication with water (potential nasopharyngeal reflux due to previous cleft palate repair). Patient was seen with trials of cookie and thin water during the evaluation. He demonstrated decreased mastication strength with excessive mastication time, required 4+ swallows with single solid bolus, and reported that food felt stuck post deglutition with trials . Use of effortful swallow, straw with thin fluids , and head back position with fluids to clear stasis. Recommendation for ST to target oropharyngeal dysphagia R13.12 to improve patient' s ability to swallow solids/fluids and decrease risk for aspiration. Recommendation for ST 1x/week for 10 sessions. Plan of Care Interventions Treatment of Swallowing D ST Services Indicated Yes Treatment Frequency and 1x/week for 10 sessions Duration These treatments will address the objective and functional deficits as defined above. The patient will be advanced safely and appropriately in order for the patient to progress towards his/her prior level of function. Additional exercises will be introduced and as well as a comprehensive home exercise program upon discharge, if needed, ?to ensure carryover of functional gains achieved in the clinic. This treatment plan has been reviewed and agreement upon by the patient.
--- NOTE | 2023-02-26 14:33 | PCSTNOTE ---
Patient did not show up for scheduled appointment this date. He had car problems and called at 1400 today to reschedule.
--- NOTE | 2023-03-26 17:00 | BUSTOPDC ---
Assessment and note entered by OCTAVIO Dumont Evaluation Information Assessment Status Discharge - Pt Not Presen Diagnosis Dysphagia R13.12 Subjective Information Patient report at initial evaluation: Patient reported that he is still having difficulty swallowing daily with potential nasopharyngeal reflux and residual stasis in valleculae. Patient reported that he is tolerating fluids better through use of a straw but still has trouble swallowing pills. Education regarding use of applesauce/pudding with pills to decrease risk for nasopharyngeal reflux. Reported Pain Level Pain Score 0: Self Report Pain Score 0: Self Report Assessment ST Clinical Summary Patient was referred for an evaluation for swallowing due to a recent MBS indicating deep laryngeal penetration with thin fluids and premature spillage with solid trials. Patient reported that he often has difficulty swallowing solids with residual sticking in the valleculae. He also has difficulty swallowing his medication with water (potential nasopharyngeal reflux due to previous cleft palate repair). Patient was seen with trials of cookie and thin water during the evaluation. He demonstrated decreased mastication strength with excessive mastication time, required 4+ swallows with single solid bolus, and reported that food felt stuck post deglutition with trials . Use of effortful swallow, straw with thin fluids , and head back position with fluids to clear stasis. Patient was seen on 03-12-23 and demonstrated an improvement in tolerance of cookie with coughing noted 1x. Patient reported that he continues to have difficulty with pills but has not attempted pudding or applesauce with pills. Patient reported that he has had difficulty managing the drive to [facility] due to money and distance. Spoke with patient's care assistant and discussed patient transitioning to [facility] or care because it is closer. Patient will be seen for an initial evaluation for swallowing at [facility] next Thursday. Patient is discharged from at this location at this time. Plan of Care Interventions Treatment of Swallowing D Treatment Frequency and discharged Duration
== END 2023-03-12 18:44 | disposition home or self-care (01) ==
LOC: CHSST 09:28
PROVIDERS: Visit Provider Nurse Practitioner
DX: R13.12 Dysphagia, oropharyngeal phase (principal); T17.320A Food in larynx causing asphyxiation, initial encounter
CPT/HCPCS: 92526; 92610

== ENCOUNTER 2023-05-12 12:43 | Outpatient (CLI) | payer MEDICARE, SELFPAY ==
[2023-05-12 13:06] LABS: Basophils Absolute Auto 0.05 K/mm3 (0.00-0.10); Basophils Percent Auto 0.7 % (0.0-1.0); Eosinophils Absolute Auto 0.15 K/mm3 (0.02-0.50); Eosinophils Percent Auto 2.1 % (1.0-6.0); Hematocrit 45.5 % (37.0-46.0); Hemoglobin 15.6 g/dL (12.4-15.3); Immature Granulocyte Absolute 0.01 K/mm3 (0.00-0.00); Immature Granulocyte Percent A 0.1 % (0.0-0.0); Immature Platelet Fraction Pct 2.6 % (1.0-7.0); Lymphocytes Absolute Auto 1.29 K/mm3 (1.10-4.50); Lymphocytes Percent Auto 18.5 % (18.0-42.0); Mean Corpuscular HGB Conc 34.3 g/dL (32.0-36.0); Mean Corpuscular Hemoglobin 32.4 pg (27.0-31.0); Mean Corpuscular Volume 94.4 fL (78.0-102.0); Mean Platelet Volume 9.5 fl (8.7-11.0); Monocytes Absolute Auto 0.58 K/mm3 (0.10-0.90); Monocytes Percent Auto 8.3 % (2.0-11.0); Neutrophils Absolute Auto 4.9 K/mm3 (1.7-7.2); Neutrophils Percent Auto 70.3 % (50.0-70.0); Platelet Count Result 152 K/mm3 (150-420); Red Blood Count 4.82 M/mm3 (4.70-6.10); Red Cell Distribution Width 12.7 % (11.6-14.4)
[2023-05-12 13:12] LABS: Hemoglobin A1C 5.6 % (<5.7)
[2023-05-12 13:17] LABS: Prothrombin Time 11.3 Seconds (9.50-12.10)
[2023-05-12 13:53] LABS: Alanine Aminotransferase 38 U/L (16-63); Albumin Level 3.6 g/dL (3.4-5.0); Alkaline Phosphatase 129 U/L (46-116); Anion Gap 9 mmol/L (8-16); Aspartate Amino Transferase 28 U/L (15-37); Bilirubin,Total 0.6 mg/dL (0.00-1.00); Blood Urea Nitrogen 7 mg/dL (7-18); Calcium 8.7 mg/dL (8.5-10.1); Carbon Dioxide 30 mmol/L (21-32); Chloride 104 mmol/L (98-108); Cholesterol 226 mg/dL (0-200); Estimated Glomerular Filt Rate > 60; Glucose 70 mg/dL (70-99); HDL Direct 29 mg/dL (40-60); LDL Cholesterol Calculated 114 mg/dL (<130); Osmolality Calculated 292 mOsm/kg (285-295); Potassium 3.5 mmol/L (3.5-5.1); Sodium 143 mmol/L (136-145); Total Protein 8.1 g/dL (6.4-8.2); Triglycerides 416 mg/dL (0-150)
[2023-05-12 13:55] LABS: LDL Cholesterol Direct 106 mg/dL (0-130)
[2023-05-17 15:32] LABS: Alpha Fetoprotein Tumor Marker 2.8 ng/mL (<6.1)
[2023-05-17 17:29] LABS: Vitamin D 25 Hydroxy 28 ng/mL (30-100)
== END 2023-05-12 12:44 | disposition home or self-care (01) ==
LOC: CHSLAB 12:48
PROVIDERS: PCP Nurse Practitioner Family; Visit Provider Nurse Practitioner
DX: E11.59 Type 2 diabetes mellitus with other circulatory complications (principal); I10 Essential (primary) hypertension; I15.2 Hypertension secondary to endocrine disorders; Z79.899 Other long term (current) drug therapy; E11.69 Type 2 diabetes mellitus with other specified complication; E78.5 Hyperlipidemia, unspecified; Z13.6 Encounter for screening for cardiovascular disorders; K74.60 Unspecified cirrhosis of liver
CPT/HCPCS: 36415; 80053; 80061; 82105; 82306; 83036; 83721; 85025; 85055; 85610

== ENCOUNTER 2023-06-10 12:27 | Outpatient (CLI) | payer MEDICARE, MEDICAID, SELFPAY ==
--- NOTE | ~2023-06-10 | US_ITS ---
EXAMINATION: US soft tissue groin LT DATE: 06/10/2023 12:47 INDICATION: Intermittent left groin pain TECHNIQUE: Multiple grayscale and Doppler ultrasound images of the left groin were obtained. COMPARISON: CT dated 04/01/2022 FINDINGS: Normal appearance to the subcutaneous fat at the region of concern. No abnormal masses or fluid colle ctions identified. The small fat-containing direct inguinal hernia seen on prior CT is not appreciate d on the provided images. IMPRESSION: 1. Unremarkable study. The small fat-containing direct left inguinal hernia seen on prior CT is not i ilan in the current study. Reviewed, dictated and finalized at location B. IMPRESSION: 1. Unremarkable study. The small fat-containing direct left inguinal hernia see n on prior CT is not imaged in the current study.
== END 2023-06-10 12:28 | disposition home or self-care (01) ==
LOC: CHSIMG 12:28
PROVIDERS: PCP Nurse Practitioner Family; Visit Provider Nurse Practitioner Family
DX: R29.898 Other symptoms and signs involving the musculoskeletal system (principal); R10.32 Left lower quadrant pain; K40.90 Unilateral inguinal hernia, without obstruction or gangrene, not specified as recurrent
CPT/HCPCS: 76882

== ENCOUNTER 2023-06-10 14:41 | Emergency (ER) | payer MEDICARE, SELFPAY ==
[2023-06-10] VITALS (17 sets, daily range): BP systolic 98–129; BP diastolic 64–79; PULSE 76–84; RESP 18–20; TEMP 36.6–36.9; O2SAT 91–94
--- NOTE | ~2023-06-10 | XR_ITS ---
EXAMINATION: XR chest 1V portable Exam Date/Time: 06/10/2023 15:10 CDT HISTORY: LOW BP/NO CHEST COMPLAINTS Comparison: 04/04/2019. RESULT: Lines, tubes, and devices: None. Lungs and pleura: Mild senescent change, lungs otherwise clear. Right midlung granuloma. Cardiomediastinal silhouette: Stable. Right hilar granulomas. Other: No acute osseous or upper abdominal finding. IMPRESSION: No acute cardiopulmonary process. Reviewed, dictated and finalized at location K.
--- NOTE | 2023-06-10 14:59 | ED.GENADULT ---
HPI - General Adult General Chief complaint: Abdominal Pain Stated complaint: SOB/low BP Time Seen by Provider: 06/10/23 14:50 Source: patient Mode of arrival: ambulatory Limitations: no limitations History of Present Illness HPI narrative: 68-year-old male with a history of SWAN cirrhosis with portal hypertension, GERD, adenomatous polyp, CAD status post stents, COPD, diabetes mellitus, Parkinson's, cleft lip/ cleft palate status post repair,JESSE presented to his outpatient physician for -- erythematous rash on the back of his left extending over his shoulder and left back. He states he has had this rash for 2-3 weeks. Rash is itchy. 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 -- Difficulty swallowing which is chronic. he has a diagnosis of presbyesophagus The patient denies any chest pain or shortness of breath. No nausea/ vomiting /abdominal pain or diarrhea. No fever or chills patient had an ultrasound of the left groin which revealed fat containing direct left inguinal hernia. Onset (ago): week(s) Location: left and upper extremity Severity: moderate Quality: other ( itchy) Relieving factors: none Exacerbating factors: none Associated symptoms: denies other symptoms and rash Related Data Home Medications Medication Instructions Recorded Confirmed atorvastatin 40 mg tablet 40 mg PO DAILY 09/21/19 06/10/23 acetaminophen 325 mg capsule 325 mg PO Q6H PRN Pain, Mild 09/27/19 06/10/23 aspirin 81 mg tablet,delayed 81 mg PO DAILY 02/20/22 06/10/23 release (Adult Aspirin Regimen) docusate sodium 100 mg capsule 100 mg PO BID 02/20/22 06/10/23 flash glucose scanning reader 02/02/23 06/10/23 (FreeStyle Jan 2 [place]) flash glucose sensor (FreeStyle 02/02/23 06/10/23 Jan 2 Sensor kit) Allergies Allergy/AdvReac Type Severity Reaction Status Date / Time tuna oil Allergy Severe Anaphylaxis Verified 06/10/23 14:24 Review of Systems Review of Systems: All systems reviewed & are unremarkable except as noted in HPI and below Constitutional: Constitutional: Reports as per HPI and Reports no additional constitutional complaints Eyes: Eyes: Reports as per HPI and Reports no additional eye complaints ENT: Reports system reviewed and no additional complaints, except as documented and Reports as per HPI Cardiovascular: Cardiovascular: Reports as per HPI and Reports no additional cardiovascular complaints Respiratory: Respiratory: Reports as per HPI and Reports no additional respiratory complaints Gastrointestinal: Gastrointestinal: Reports as per HPI and Reports no additional gastrointestinal complaints Comments: difficulty swallowing Genitourinary: Genitourinary: Reports no additional male genitourinary complaints and Reports as per HPI Musculoskeletal: Musculoskeletal: Reports no additional musculoskeletal complaints and Reports as per HPI Integumentary/Breasts: Skin/Breast: Reports system reviewed and no additional complaints, except as docu and Reports as per HPI Comments: erythematous rash on the back of his left arm extending to the left shoulder and the left back. Itchy Neurologic: Reports system reviewed and no additional complaints, except as documented and Reports as per HPI Psychiatric: Psychiatric: Reports no additional psychiatric complaints and Reports as per HPI Endocrine: Endocrine: Reports no additional endocrine complaints and Reports as per HPI Hematologic/Lymphatic: Hematologic/Lymphatic: Reports no additional hematologic/lymphatic complaints and Reports as per HPI Allergic/Immunologic: Allergic/Immunologic: Reports no additional allergic/immunologic complaints PMFSH Past Medical History Medical History Abnormal liver function test Allergic reaction Ascites CAD (coronary artery disease) Choking due to food in larynx Cirrhosis COPD (chronic obstructive pulmonary
[2023-06-10 15:32] LABS: Basophils Absolute Auto 0.06 K/mm3 (0.00-0.10); Basophils Percent Auto 0.8 % (0.0-1.0); Eosinophils Absolute Auto 0.17 K/mm3 (0.02-0.50); Eosinophils Percent Auto 2.2 % (1.0-6.0); Hematocrit 45.5 % (37.0-46.0); Hemoglobin 15.4 g/dL (12.4-15.3); Immature Granulocyte Absolute 0.02 K/mm3 (0.00-0.00); Immature Granulocyte Percent A 0.3 % (0.0-0.0); Immature Platelet Fraction Pct 2.5 % (1.0-7.0); Lymphocytes Absolute Auto 1.79 K/mm3 (1.10-4.50); Lymphocytes Percent Auto 22.7 % (18.0-42.0); Mean Corpuscular HGB Conc 33.8 g/dL (32.0-36.0); Mean Corpuscular Hemoglobin 32.4 pg (27.0-31.0); Mean Corpuscular Volume 95.6 fL (78.0-102.0); Monocytes Absolute Auto 0.72 K/mm3 (0.10-0.90); Monocytes Percent Auto 9.1 % (2.0-11.0); Neutrophils Absolute Auto 5.1 K/mm3 (1.7-7.2); Neutrophils Percent Auto 64.9 % (50.0-70.0); Platelet Count Result 143 K/mm3 (150-420); Red Blood Count 4.76 M/mm3 (4.70-6.10); Red Cell Distribution Width 13.1 % (11.6-14.4); White Blood Count 7.9 K/mm3 (4.8-10.8)
[2023-06-10 15:44] LABS: Prothrombin Time 11.4 Seconds (9.50-12.10)
[2023-06-10 15:53] LABS: Alanine Aminotransferase 26 U/L (16-63); Albumin Level 3.5 g/dL (3.4-5.0); Alkaline Phosphatase 120 U/L (46-116); Anion Gap 11 mmol/L (8-16); Aspartate Amino Transferase 32 U/L (15-37); Bilirubin,Total 0.7 mg/dL (0.00-1.00); Blood Urea Nitrogen 24 mg/dL (7-18); Carbon Dioxide 26 mmol/L (21-32); Chloride 103 mmol/L (98-108); Estimated CRCL calculation 57 ml/min; Estimated Glomerular Filt Rate 51; Glucose 153 mg/dL (70-99); Osmolality Calculated 297 mOsm/kg (285-295); Potassium 3.8 mmol/L (3.5-5.1); Sodium 140 mmol/L (136-145); Total Protein 7.2 g/dL (6.4-8.2)
[2023-06-10 15:54] LABS: Ammonia 24 umol/L (11-32)
--- NOTE | 2023-06-10 16:42 | PC.NURSE ---
spoke with [facility] in [place]. states they were setting up medications. informed for order to stop diclofenac and hctz. will inform pharmacist
--- NOTE | 2023-06-10 16:59 | PC.NURSE ---
called brother kayce, spoke with him regarding medications. kayce states he is old enough he needs to take care of himself, we dont talk to him any more . call to [facility] to speak with darlene graham, message with staff and MED, SQUEEGEE TENDER will call to speak with dr wilian hollis
--- NOTE | 2023-06-10 17:13 | PC.NURSE ---
extensive instructions per doctor and this check writer for med changes and labs next week . pt voiced understanding.
== END 2023-06-10 17:15 | disposition home or self-care (01) ==
LOC: CHSED 16:39
PROVIDERS: Emergency Provider Internal Medicine Critical Care Medicine; PCP Nurse Practitioner Family
DX: R21 Rash and other nonspecific skin eruption (principal); N17.9 Acute kidney failure, unspecified; K74.60 Unspecified cirrhosis of liver; I25.10 Atherosclerotic heart disease of native coronary artery without angina pectoris; J44.9 Chronic obstructive pulmonary disease, unspecified; E11.9 Type 2 diabetes mellitus without complications; G20 Parkinson's disease; E78.5 Hyperlipidemia, unspecified; I10 Essential (primary) hypertension; Z79.82 Long term (current) use of aspirin; Z87.891 Personal history of nicotine dependence
CPT/HCPCS: 36415; 71045; 80053; 82140; 85025; 85055; 85610; 99283

== ENCOUNTER 2023-06-15 11:57 | Outpatient (CLI) | payer MEDICARE, SELFPAY ==
[2023-06-15 12:16] LABS: Appearance Urine Clear (Clear); Bilirubin Urine Negative (Negative); Blood Urine Negative (Negative); Color Urine Yellow (Yellow); Glucose Urine UA 3+ (Negative); Ketones Urine Negative (Negative); Leukocyte Esterase Ur Negative (Negative); Nitrate Urine Negative (Negative); Protein Urine Negative (Negative)
[2023-06-15 12:39] LABS: Add Urine Microscopic? YES; Bacteria Urine Trace /hpf; RBC Urine None seen /hpf (0-2); Squamous Epithelial Cell Urine Rare /hpf (Few); WBC Urine None seen /hpf (0-3)
== END 2023-06-15 11:58 | disposition home or self-care (01) ==
LOC: CHSLAB 11:59
PROVIDERS: PCP Nurse Practitioner Family; Visit Provider Nurse Practitioner Family
DX: N17.9 Acute kidney failure, unspecified (principal); R82.90 Unspecified abnormal findings in urine; Z91.148 Patient's other noncompliance with medication regimen for other reason
CPT/HCPCS: 81001; 87086; 87088

== ENCOUNTER 2023-06-17 14:03 | Outpatient (CLI) | payer MEDICARE, SELFPAY ==
[2023-06-17 14:18] LABS: Basophils Absolute Auto 0.05 K/mm3 (0.00-0.10); Basophils Percent Auto 0.7 % (0.0-1.0); Eosinophils Absolute Auto 0.14 K/mm3 (0.02-0.50); Eosinophils Percent Auto 1.9 % (1.0-6.0); Hematocrit 45.6 % (37.0-46.0); Hemoglobin 15.3 g/dL (12.4-15.3); Immature Granulocyte Absolute 0.03 K/mm3 (0.00-0.00); Immature Granulocyte Percent A 0.4 % (0.0-0.0); Lymphocytes Absolute Auto 1.38 K/mm3 (1.10-4.50); Lymphocytes Percent Auto 18.3 % (18.0-42.0); Mean Corpuscular HGB Conc 33.6 g/dL (32.0-36.0); Mean Corpuscular Hemoglobin 31.9 pg (27.0-31.0); Mean Corpuscular Volume 95.2 fL (78.0-102.0); Mean Platelet Volume 9.8 fl (8.7-11.0); Monocytes Absolute Auto 0.62 K/mm3 (0.10-0.90); Monocytes Percent Auto 8.2 % (2.0-11.0); Neutrophils Absolute Auto 5.3 K/mm3 (1.7-7.2); Neutrophils Percent Auto 70.5 % (50.0-70.0); Platelet Count Result 142 K/mm3 (150-420); Red Blood Count 4.79 M/mm3 (4.70-6.10); Red Cell Distribution Width 12.8 % (11.6-14.4); White Blood Count 7.6 K/mm3 (4.8-10.8)
[2023-06-17 14:28] LABS: Hemoglobin A1C 5.3 % (<5.7)
[2023-06-17 14:40] LABS: MALB Creatinine Ratio 10.7 mg/g (0-30); Microalbumin Urine Random 15.1 mg/L
[2023-06-17 14:50] LABS: Alanine Aminotransferase 32 U/L (16-63); Albumin Level 3.5 g/dL (3.4-5.0); Alkaline Phosphatase 132 U/L (46-116); Anion Gap 11 mmol/L (8-16); Aspartate Amino Transferase 27 U/L (15-37); Bilirubin,Total 0.7 mg/dL (0.00-1.00); Blood Urea Nitrogen 8 mg/dL (7-18); Calcium 8.6 mg/dL (8.5-10.1); Carbon Dioxide 27 mmol/L (21-32); Chloride 107 mmol/L (98-108); Cholesterol 220 mg/dL (0-200); Estimated Glomerular Filt Rate > 60; Glucose 72 mg/dL (70-99); HDL Direct 36 mg/dL (40-60); LDL Cholesterol Calculated 141 mg/dL (<130); Osmolality Calculated 297 mOsm/kg (285-295); Phosphorus 3.2 mg/dL (2.6-4.7); Potassium 3.6 mmol/L (3.5-5.1); Sodium 145 mmol/L (136-145); Total Protein 6.9 g/dL (6.4-8.2); Triglycerides 215 mg/dL (0-150)
[2023-06-22 21:16] LABS: Vitamin D 25 Hydroxy 29 ng/mL (30-100)
== END 2023-06-17 14:04 | disposition home or self-care (01) ==
LOC: CHSLAB 14:04
PROVIDERS: Nurse Practitioner Family; PCP Nurse Practitioner Family; Visit Provider Nurse Practitioner Family
DX: E78.5 Hyperlipidemia, unspecified (principal); E11.69 Type 2 diabetes mellitus with other specified complication; I15.2 Hypertension secondary to endocrine disorders; I10 Essential (primary) hypertension; E11.59 Type 2 diabetes mellitus with other circulatory complications; Z79.899 Other long term (current) drug therapy
CPT/HCPCS: 36415; 80053; 80061; 82043; 82306; 83036; 84100; 85025

== ENCOUNTER 2023-07-24 07:34 | Outpatient (CLI) | payer MEDICARE, MEDICAID, SELFPAY ==
--- NOTE | ~2023-07-24 | US_ITS ---
Limited Abdominal Sonogram: Real-time sonographic imaging of the right upper quadrant was performed. Clinical History: Cirrhosis Findings: The liver appears echogenic, with no evidence of mass lesion or bile duct dilatation. Main portal vein demonstrates normal direction of flow. The gallbladder is partially distended with proba ble small gallstone. No gallbladder wall thickening. The common bile duct measures 6 mm. The pancrea s, aorta, and IVC are obscured by bowel gas shadowing. Impression: Probable diffuse fatty infiltration of liver versus possibly other chronic liver disease. Correlate c linically. Probable small gallstone. Reviewed, dictated and finalized at location . Impression: Probable diffuse fatty infiltration of liver versus possibly other chronic live r disease. Correlate clinically. Probable small gallstone.
== END 2023-07-24 07:35 | disposition home or self-care (01) ==
LOC: CHSIMG 07:35
PROVIDERS: PCP Nurse Practitioner Family; Visit Provider Nurse Practitioner
DX: K74.60 Unspecified cirrhosis of liver (principal); R93.2 Abnormal findings on diagnostic imaging of liver and biliary tract
CPT/HCPCS: 76705

== ENCOUNTER 2023-09-10 10:56 | Outpatient (CLI) | payer MEDICARE, MEDICAID, SELFPAY ==
[2023-09-10 11:24] LABS: Hemoglobin A1C 6.5 % (<5.7)
[2023-09-10 11:59] LABS: Alanine Aminotransferase 25 U/L (16-63); Albumin Level 3.3 g/dL (3.4-5.0); Alkaline Phosphatase 133 U/L (46-116); Anion Gap 8 mmol/L (8-16); Aspartate Amino Transferase 21 U/L (15-37); Bilirubin Direct 0.2 mg/dL (0-0.2); Bilirubin,Total 0.7 mg/dL (0.00-1.00); Blood Urea Nitrogen 9 mg/dL (7-18); Calcium 9.1 mg/dL (8.5-10.1); Carbon Dioxide 30 mmol/L (21-32); Chloride 105 mmol/L (98-108); Cholesterol 152 mg/dL (0-200); Estimated Glomerular Filt Rate > 60; Glucose 150 mg/dL (70-99); HDL Direct 36 mg/dL (40-60); LDL Cholesterol Calculated 74 mg/dL (<130); Osmolality Calculated 297 mOsm/kg (285-295); Sodium 143 mmol/L (136-145); Total Protein 6.7 g/dL (6.4-8.2); Triglycerides 209 mg/dL (0-150)
[2023-09-10 13:13] LABS: Acetone Negative (Negative)
[2023-09-10 13:31] LABS: Appearance Urine Clear (Clear); Bilirubin Urine Negative (Negative); Blood Urine Negative (Negative); Color Urine Yellow (Yellow); Glucose Urine UA 3+ (Negative); Ketones Urine Negative (Negative); Leukocyte Esterase Ur Negative LEU/UL (Negative); Nitrate Urine Negative (Negative); Protein Urine Negative (Negative); Specific Grav Ur 1.015 (1.010-1.020); Urobilinogen Urine 0.2 mg/dL (0.2-1.0)
[2023-09-10 13:34] LABS: Lipase 27 U/L (16-77)
[2023-09-10 13:41] LABS: Add Urine Microscopic? YES; Bacteria Urine None seen /hpf; RBC Urine None seen /hpf (0-2); WBC Urine None seen /hpf (0-3)
== END 2023-09-10 10:57 | disposition home or self-care (01) ==
PROVIDERS: PCP Nurse Practitioner Family; Visit Provider Nurse Practitioner
DX: E11.9 Type 2 diabetes mellitus without complications (principal); E78.5 Hyperlipidemia, unspecified; R10.9 Unspecified abdominal pain; R53.83 Other fatigue; R82.4 Acetonuria
CPT/HCPCS: 36415; 80053; 80061; 81001; 82010; 82248; 83036; 83690

== ENCOUNTER 2023-09-29 12:11 | Outpatient (CLI) | payer MEDICARE, MEDICAID, SELFPAY ==
--- NOTE | ~2023-09-29 | US_ITS ---
EXAMINATION: US soft tissue groin LT DATE: 09/29/2023 12:45 INDICATION: Left inguinal hernia. TECHNIQUE: Multiple grayscale and Doppler ultrasound images of the left groin were obtained. COMPARISON: CT abdomen and pelvis 04/01/2022 FINDINGS: There is no abnormal mass, lymphadenopathy, or hernia in left inguinal region. IMPRESSION: 1. No abnormality visualized in left inguinal region. Reviewed, dictated and finalized at location A. WORKER
--- NOTE | ~2023-09-29 | US_ITS ---
EXAMINATION: US soft tissue groin RT DATE: 09/29/2023 12:45 INDICATION: Right inguinal hernia. TECHNIQUE: Multiple grayscale and Doppler ultrasound images of the right groin were obtained. COMPARISON: CT abdomen and pelvis 04/01/2022 FINDINGS: There is no abnormal mass, lymphadenopathy, or hernia in right inguinal region. IMPRESSION: 1. No abnormality in right inguinal region. Reviewed, dictated and finalized at location A. ITIAN THERAPEUTIC
== END 2023-09-29 12:12 | disposition home or self-care (01) ==
LOC: CHSIMG 12:13
PROVIDERS: PCP Nurse Practitioner Family; Visit Provider Nurse Practitioner Family
DX: K40.20 Bilateral inguinal hernia, without obstruction or gangrene, not specified as recurrent (principal)
CPT/HCPCS: 76882

== ENCOUNTER 2023-10-06 13:30 | Outpatient (RCR) | payer MEDICARE, MEDICAID, SELFPAY ==
--- NOTE | 2023-09-08 11:56 | OPREHPOC ---
Outpatient Therapy Plan of Care This is a Multidisciplinary Plan of Care that may contain components documented by all disciplines (PT, OT, and ST.) ST Problem 1 ST Problem #[address] Goal 1 Goal Patient will participate in education to improve carryover of home program in order to target swallowing deficits. Target Visit [address] Problem #[address] Goal 1 Goal Patient will complete home exercise program (per self report) by completing each prescribed exercise 10x each, 3x/day. Target Visit 4 ST Goal 2 Goal Patient will complete exercises targeting base of tongue strength with minimal cues to improve base of tongue retraction to reduce vallecular residue. Target Visit [address] Problem #[address] Goal 1 Goal Patient will complete laryngeal elevation exercises with minimal cues to improve laryngeal vestibule closure and reduce laryngeal penetration . Target Visit 4 ST Goal 2 Goal Patient will complete chin tuck against resistance exercises with minimal cues to improve bolus propulsion and increase efficiency and safety of swallow. Target Visit 4
--- NOTE | 2023-09-08 11:56 | STOPEVAL1 ---
Assessment and note entered by Anai Brownlee AWNING CRAFTSPERSON Evaluation Information Diagnosis Dysphagia Subjective Information Patient arrived to clinic and attended evaluation independently. Patient a poor historian to onset and details of swallowing difficulty, but was otherwise attentive throughout entire evaluation. Reported Pain Level Pain Score 0: Self Report Assessment ST Clinical Summary Pawan Ibarra is a 68 year old male with a medical history significant for Parkinson's disease, cleft palate and COPD. Pawan was referred to complete a swallowing evaluation due to continued difficulty consuming meals. Patient a poor historian for date of onset, but describes current difficulties in regurgitation ( approximately 1x/week), food getting stuck in throat, and occasional nasal cavity penetration when consuming medication. Patient was seen for outpatient ST services at [facility] and received a Modified Barium Swallow Study. Patient demonstrated no aspiration, but deep laryngeal penetration on thin liquid by cup. Laryngeal penetration was greatly reduced when using a straw . During the instrumental assessment, patient also demonstrated premature spillage and vallecular residue. It was recommended that he follow up with skilled treatment in order to improve base of tongue strength, base of tongue retraction, and laryngeal elevation. However, patient reported that he did not follow up, but could not explain why. Patient was re-educated on findings of the Modified Barium Swallow Study. Additionally, patient completed the EAT-10 Eating Assessment Tool with a score of 15, placing him outside of normal limits. Patient reported some instances of losing weight, going out to eat less often, requiring extra effort to eat/drink, and food sticking in throat due to swallowing problem. He also reported that the pleasure of eating is affected by his swallowing. Patient was provided a home exercise program on this date and was educated on each exercise. Patient to complete these exercises 10x each, 3x/ day. Patient was also
--- NOTE | 2023-10-06 13:39 | STOPDC ---
Assessment and note entered by Anai Brownlee SEWING SUPERVISOR Evaluation Information Assessment Status Discharge Reported Pain Level Pain Score 0: Self Report Assessment ST Clinical Summary Patient has completed 2 out of 4 scheduled treatment sessions for R13.12 Oropharyngeal dysphagia. Patient reports successful completion of home exercise program (10-15x each, 2-3x/day) and reports improvement in consuming meals. When asked what current difficulties he has, he reports approximately 1x/month water comes back up into his mouth that he is able to swallow successfully. He was advised to discuss this with his physician who may refer him to a gastrointestinal doctor. Patient participated in education regarding safe swallow strategies that were determined by his modified barium swallow study. Strategies included taking smaller bites and drinks, alternating bites and drinks, drinking from a straw only, and reducing distractions. To improve taking medications, he was advised to drink water before taking medications, placing whole pills in applesauce, and following chewable tablets with more water or applesauce. Patient was also educated on importance of oral care to reduce aspiration pneumonia and was advised to brush 2-3x /day for oral care rather than only rely on mouthwash to reduce bacteria. Patient has been provided a copy of all education and home exercise program to continue to follow. Patient will d/c from skilled ST services due to meeting/exceeding all set goals to improve swallow safety. Thank you for this referral. Plan of Care ST Services Indicated No
== END 2023-10-06 14:17 | disposition home or self-care (01) ==
LOC: ANHST 13:30
PROVIDERS: PCP Nurse Practitioner Family; Visit Provider Nurse Practitioner
DX: R13.12 Dysphagia, oropharyngeal phase (principal); T17.320A Food in larynx causing asphyxiation, initial encounter
CPT/HCPCS: 92526; 92610

== ENCOUNTER 2023-10-14 14:40 | Outpatient (NON) | payer MEDICARE, MEDICAID, SELFPAY | END 2023-10-14 14:41 | disposition home or self-care (01) | LOC: CHSLAB 14:42 | PROVIDERS: Visit Provider Family Medicine | DX: L98.9 Disorder of the skin and subcutaneous tissue, unspecified (principal); L82.1 Other seborrheic keratosis | CPT/HCPCS: 88305 ==

== ENCOUNTER 2023-12-07 10:16 | Outpatient (CLI) | payer MEDICARE, MEDICAID, SELFPAY ==
--- NOTE | 2023-12-07 10:31 | ECG_ITS ---
Measurements Intervals [place] Rate: 82 P: 79 AR: 193 QRS: 96 QRSD: 90 T: 62 QT: 347 QTc: 406 Interpretive Statements SINUS RHYTHM WITH OCCASIONAL SUPRAVENTRICULAR PREMATURE COMPLEXES PREVIOUS ANTERIOR WALL NC ABNORMAL ECG COMPARED TO ECG 03/21/2021 13:03:03 PREMATURE ATRIAL CONTRACTIONS ARE NOTED Electronically Signed On 12-07-2023 17:10:09 JIGGER CROWN POUNCING MACHINE OPERATOR by Mike Warner M.D.
[2023-12-07 10:35] LABS: Hematocrit 50.6 % (37.0-46.0); Hemoglobin 17.3 g/dL (12.4-15.3); Immature Platelet Fraction Pct 3.2 % (1.0-7.0); Mean Corpuscular HGB Conc 34.2 g/dL (32.0-36.0); Mean Corpuscular Hemoglobin 30.6 pg (27.0-31.0); Mean Corpuscular Volume 89.4 fL (78.0-102.0); Mean Platelet Volume 10.2 fl (8.7-11.0); Platelet Count Result 119 K/mm3 (150-420); Red Blood Count 5.66 M/mm3 (4.70-6.10); Red Cell Distribution Width 13.2 % (11.6-14.4); White Blood Count 7.6 K/mm3 (4.8-10.8)
[2023-12-07 10:47] LABS: INR 1.1; Prothrombin Time 11.9 Seconds (9.50-12.10)
[2023-12-07 10:50] LABS: Hemoglobin A1C 6.7 % (<5.7); Partial Thromboplastin Time 29.3 SEC (23.90-30.70)
[2023-12-07 11:07] LABS: Alanine Aminotransferase 28 U/L (16-63); Albumin Level 3.3 g/dL (3.4-5.0); Alkaline Phosphatase 144 U/L (46-116); Amylase 26 U/L (25-115); Anion Gap 10 mmol/L (8-16); Aspartate Amino Transferase 23 U/L (15-37); Bilirubin Direct 0.2 mg/dL (0-0.2); Bilirubin,Total 0.7 mg/dL (0.00-1.00); Blood Urea Nitrogen 11 mg/dL (7-18); Calcium 8.5 mg/dL (8.5-10.1); Carbon Dioxide 28 mmol/L (21-32); Chloride 104 mmol/L (98-108); Estimated Glomerular Filt Rate > 60; Glucose 143 mg/dL (70-99); Lipase 25 U/L (16-77); Osmolality Calculated 295 mOsm/kg (285-295); Potassium 3.6 mmol/L (3.5-5.1); Sodium 142 mmol/L (136-145); Total Protein 6.7 g/dL (6.4-8.2)
[2023-12-09 12:20] LABS: Vitamin D 25 Hydroxy 29 ng/mL (30-100)
== END 2023-12-07 10:17 | disposition home or self-care (01) ==
LOC: CHSLAB 10:19
PROVIDERS: Anesthesiology; PCP Nurse Practitioner Family; Visit Provider Surgery
DX: K80.20 Calculus of gallbladder without cholecystitis without obstruction (principal); K74.60 Unspecified cirrhosis of liver; E55.9 Vitamin D deficiency, unspecified; E11.69 Type 2 diabetes mellitus with other specified complication; Z79.4 Long term (current) use of insulin; I10 Essential (primary) hypertension; R94.31 Abnormal electrocardiogram [ECG] [EKG]
CPT/HCPCS: 36415; 80053; 82150; 82248; 82306; 83036; 83690; 85027; 85055; 85610; 85730; 93005

== ENCOUNTER 2023-12-15 12:52 | Observation (INO) | payer MEDICARE, MEDICAID, SELFPAY ==
[2023-12-02 08:17] VITALS: BMI 36.2
--- NOTE | 2023-12-02 08:31 | PC.NURSE ---
PRE-OP INSTRUCTIONS, PLEASE READ CAREFULLY Report to the Outpatient Waiting Room, entrance under the green pavilion located off [facility], at time _1000_ on date _12/14/23_. Planned Procedure Time: _1200_. PACK A SMALL OVERNIGHT BAG Time changes happen often and if your time is changed the preop area will call you the afternoon before. - You and your visitor will be asked to self-screen and do not enter if you have any COVID symptoms. - A mask is optional within the hospital at this time. -VISITING HOURS 8AM-8PM Patients may have clear liquids (water, carbonated beverages, clear teas, apple juice) until 3 hours prior to surgery with a maximum of 20 ounces. - No food from midnight until time of surgery Take the following medications with a SIP of water the morning of surgery: _CARVEDILOL, *1/2 OF AM INSULIN DOSE*, DULOXETINE, GABAPENTIN, NEBULIZER, NASAL SPRAY, & INHALER, PAIN MED IF NEEDED_ DO NOT STOP ANY OF YOUR OTHER PRESCRIPTION MEDICATIONS PRIOR TO SURGERY ?EXCEPT THE FOLLOWING Medications to discontinue per ANESTHESIA - _VITAMINS/SUPPLEMENTS 3 DAYS PRIOR TO SURGERY, Date to take last dose 12/10/23_ Please no make-up, nail north korean, hairspray, perfume, deodorant, or body powder the day of surgery. No jewelry (including any body piercings) or valuables the day of surgery, leave them at home. Please take a shower or bath the night before, or the morning of, surgery with an antibacterial soap. Wear comfortable, loose fitting clothing. - Jewelry must be removed prior to entering the operating room. Rings and piercings that are not removed may be cut off. - The hospital will not accept responsibility for valuables. - Please leave all valuables, including medications, at home the day of surgery. If you are going home after surgery, a licensed escort car driver must drive you home. - NO public transportation without another adult if you receive anesthesia. - We recommend that an adult stay with you for 24 hours following discharge. - We also recommend that you do not drive, make important decision, drink alcoholic beverages, or take any drugs that were not prescribed by your health care provider for at least 24 hours after your discharge time. Follow any additional instructions given to you from your surgeon. If you or anyone in your household have experienced Covid symptoms in the past week, please notify your surgeon or the nurse liaison at the phone number below for possible testing. Telephone instructions given/FAXED to _CARE COORDINATOR Dylan ARCOS_and asked if any additional questions and then verbalized understanding. Patient advised to call surgeon office or pre surgery nurse liaison [phone] if any additional questions.
[2023-12-14] VITALS (14 sets, daily range): BP systolic 142–175; BP diastolic 79–94; PULSE 82–102; RESP 12–24; TEMP 36.9–37.4; O2SAT 92–98
--- NOTE | 2023-12-14 08:31 | WPDANESEPPF ---
Anes - Initial Pre Proc Eval Procedure: Operation Date: 12/14/23 12:00 Proposed Procedures p Laparoscopic Cholecystectomy Possible Open - Bola Blanco DO Date/Time: 12/14/23 08:31 Surgeon: Bola Blanco DO Pre Op Diagnosis: symptomatic cholelithiasis Patient Data Age: 68 Gender: M Height: 1.75 m Weight: 111.3 kg Allergies Allergy/AdvReac Type Severity Reaction Status Date / Time tuna oil Allergy Severe Anaphylaxis Verified 12/14/23 09:48 Home Medications Medication Instructions Recorded Confirmed Type nitroglycerin 0.4 mg sublingual See Rx Instructions .Route 04/15/21 12/02/23 Rx tablet .COMPLEX #100 tabs aspirin 81 mg tablet,delayed 81 mg PO DAILY 02/20/22 12/02/23 History release (Adult Aspirin Regimen) flash glucose scanning reader 02/02/23 12/02/23 History (FreeStyle Jan 2 [place]) insulin glargine 100 unit/mL (3 See Rx Instructions .Route 05/11/23 12/02/23 Rx mL) subcutaneous pen (Lantus .COMPLEX #30 mL Solostar U-100 Insulin) lancets 30 gauge (TRUEplus Lancets) #200 ea 06/09/23 12/02/23 Rx pantoprazole 40 mg tablet,delayed See Rx Instructions .Route 06/09/23 12/02/23 Rx release .COMPLEX #60 tabs ferrous sulfate 325 mg (65 mg See Rx Instructions .Route 06/12/23 12/02/23 Rx iron) tablet (FeroSul) .COMPLEX #180 tabs blood sugar diagnostic (FreeStyle #100 ea 06/17/23 12/02/23 Rx Test strips) albuterol sulfate 90 mcg/actuation 2 puff inhalation Q4H PRN 07/02/23 12/02/23 Rx aerosol inhaler (Ventolin HFA) shortness of breath or wheezing #8.5 grams losartan 50 mg tablet See Rx Instructions .Route 07/14/23 12/02/23 Rx .COMPLEX #90 tabs budesonide 0.5 mg/2 mL suspension See Rx Instructions .Route 07/31/23 12/02/23 Rx for nebulization .COMPLEX #60 ea formoterol fumarate 20 mcg/2 mL See Rx Instructions .Route 07/31/23 12/02/23 Rx solution for nebulization .COMPLEX #60 ea (Perforomist) Melatonin Tab 5mg Sun 60 See Rx Instructions .Route 08/07/23 12/02/23 Rx .COMPLEX #30 ea blood sugar diagnostic (OneTouch #100 strips 08/07/23 12/02/23 Rx Ultra Test strips) insulin lispro 100 unit/mL See Rx Instructions .Route 08/07/23 12/02/23 Rx subcutaneous pen .COMPLEX #30 mL pen needle, diabetic 32 gauge x #100 ea 08/07/23 12/02/23 Rx 1/4 (UltiCare Pen Needle) carvedilol 12.5 mg tablet See Rx Instructions .Route 09/04/23 12/02/23 Rx .COMPLEX #60 tabs cholecalciferol (vitamin D3) 50 See Rx Instructions .Route 09/04/23 12/02/23 Rx mcg (2,000 unit) capsule .COMPLEX #30 caps cyclobenzaprine 10 mg tablet See Rx Instructions .Route 09/04/23 12/02/23 Rx .COMPLEX #30 tabs dulaglutide 4.5 mg/0.5 mL See Rx Instructions .Route 09/10/23 12/02/23 Rx subcutaneous pen injector .COMPLEX #6 mL (Trulicity) dicyclomine 10 mg capsule See Rx Instructions .Route 09/22/23 12/02/23 Rx .COMPLEX #120 caps flash glucose sensor (FreeStyle #1 ea 09/22/23 12/02/23 Rx Jan 14 Day Sensor kit) duloxetine 60 mg capsule,delayed See Rx Instructions .Route 11/04/23 12/02/23 Rx release .COMPLEX #30 caps empagliflozin 25 mg tablet See Rx Instructions .Route 11/04/23 12/02/23 Rx (Jardiance) .COMPLEX #90 tabs atorvastatin 80 mg tablet See Rx Instructions .Route 12/03/23 Rx .COMPLEX #90 tabs gabapentin 400 mg capsule See Rx Instructions .Route 12/03/23 Rx .COMPLEX #60 caps fluticasone propionate 50 See Rx Instructions .Route 12/09/23 Rx mcg/actuation nasal .COMPLEX #16 grams spray,suspension Patient hx anesthesia problems: none Family hx anesthesia problems: none Results Review: All pre-operative results and documents have been reviewed as part of the pre-operative evaluation. [facility] Past Medical History Medical History Abdominal pain Abnormal liver function test Allergic reaction Ascites CAD (coronary artery disease) Choking due to food in larynx Cholelithiasis Cirrhosis
[2023-12-14] MEDS: ACETAMINOPHEN 500 MG TABLET 1000 MG PO (09:55)
[2023-12-14] MEDS: LACTATED RINGERS 1,000 ML 30 ML IV CONT ×2 (10:17→14:03)
[2023-12-14] MEDS: KETOROLAC 15 MG/ML VIAL (*BKC) IV PUSH (10:18)
--- NOTE | 2023-12-14 11:28 | SUR.PREOP ---
Discussed delay of about an hour with patient. Says he understands.
[2023-12-14 11:42] LABS: Glucose Point of Care 135 mg/dl (65-105)
--- NOTE | 2023-12-14 12:16 | PM.IMHP ---
H&P: HPI History of Present Illness Date/Time: 12/14/23 12:16 Chief Complaint: Symptomatic cholelithiasis Narrative: 68 yo man presents for lap abelino. He reports no changes since last seen in office. Review of Systems Review of Systems: All systems reviewed & are unremarkable except as noted in HPI and below Constitutional: Constitutional: Denies chills, Denies fever(s), Denies headache(s) and Denies weight loss Eyes: Eyes: Denies change in vision ENT: Denies dizziness, Denies headache(s), Denies neck mass and Denies throat swelling Cardiovascular: Cardiovascular: Denies chest pain, Denies lightheadedness and Denies dyspnea Respiratory: Respiratory: Denies cough, Denies dyspnea and Denies wheezing Gastrointestinal: Gastrointestinal: Denies abdominal pain, Denies change in bowel habits, Denies nausea and Denies vomiting Genitourinary: Genitourinary: Denies hematuria and Denies dysuria Musculoskeletal: Musculoskeletal: Reports as per HPI Integumentary/Breasts: Skin/Breast: Reports as per HPI Neurologic: Denies dizziness and Denies headache(s) Allergic/Immunologic: Allergic/Immunologic: Denies throat swelling and Denies wheezing [facility] Past Medical History Medical History Abdominal pain Abnormal liver function test Allergic reaction Ascites CAD (coronary artery disease) Choking due to food in larynx Cholelithiasis Cirrhosis COPD (chronic obstructive pulmonary disease) Diabetes mellitus with neuropathy Dysphagia, oropharyngeal phase Esophageal varices Family hx of colon cancer Gallstone GERD (gastroesophageal reflux disease) History of adenomatous polyp of colon History of atrial fibrillation Hyperlipidemia associated with type 2 diabetes mellitus Hypertension associated with diabetes IBS (irritable bowel syndrome) Obesity Parkinson disease Positive depression screening Sleep apnea Type 2 diabetes mellitus Surgical History Surgical History H/O inguinal hernia repair right inguinal hernia repair H/O umbilical hernia repair History of heart bypass surgery Kidney mass hx of kidney mass removal Family History Family History Father Carcinoma of colon Social History Social History Smoking status: Never smoker Tobacco type: cigarettes Second hand tobacco smoke exposure: No Alcohol intake: former Substance use: never Substance use type: does not use Lack of Transportation: No Lack of Food: Never True Current Housing: I Have Housing Concerned About Future Housing: No Difficulty Paying Gas/Electric Bills: No Difficulty Paying for Meds: No Currently Unemployed: No Education: High School Diploma/GED Difficulty w/ Childcare or Family Care: No Living arrangements: alone Additional living arrangements comments: 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 Occupation/Education: retired Spiritual care concerns: No Meds Home Medications and Allergies Home Medications Medication Instructions Recorded Confirmed Type nitroglycerin 0.4 mg sublingual See Rx Instructions .Route 04/15/21 12/02/23 Rx tablet .COMPLEX #100 tabs aspirin 81 mg tablet,delayed 81 mg PO DAILY 02/20/22 12/02/23 History release (Adult Aspirin Regimen) flash glucose scanning reader 02/02/23 12/02/23 History (FreeStyle Jan 2 [place]) insulin glargine 100 unit/mL (3 See Rx Instructions .Route 05/11/23 12/02/23 Rx mL) subcutaneous pen (Lantus .COMPLEX #30 mL Solostar U-100 Insulin) lancets 30 gauge (TRUEplus Lancets) #200 ea 06/09/23 12/02/23 Rx pantoprazole 40 mg tablet,delayed See Rx Instructions .Route 06/09/23 12/02/23 Rx release .COMPLEX #60 tabs ferrous sulfate 325 mg (65 mg See Rx Instructions .Route 06/12/23 12/02/23 Rx iron) tablet (FeroSul) .COMPLEX #180 tabs
--- NOTE | 2023-12-14 12:21 | WPDHPUPDATE1 ---
History and Physical Update Update Date/Time: 12/14/23 12:21 History and Physical has been reviewed, including an updated exam of the patient. There are NO changes in the patient's condition. Risks, benefits, and alternatives have been discussed and questions answered. Patient agrees to proceed with procedure.
[2023-12-14] MEDS: ceFAZolin 2 GM/D5W 50 ML 2 GM/50 ML BAG IVPB (12:49)
[2023-12-14] MEDS: BUPIVACAINE/EPINEPHRINE 0.5% 30 ML VIAL INFILTRATE (13:12)
--- NOTE | 2023-12-14 13:57 | W.PM.PROC2 ---
Procedure Note - Detailed Date of Procedure 12/14/23 Pre-op Diagnosis symptomatic cholelithiasis Post-op Diagnosis Same Procedure Performed Laparoscopic Cholecystectomy Surgeon Bola Blanco, DO Anesthesia General and Local (0.5% bupivacaine) Indications This is a 68-year-old man who presented with recurrent right upper quadrant abdominal pains. This has been going on for about 4 or 5 months. He underwent right upper quadrant ultrasound which showed evidence of probable gallstone. Discussions were made with the patient about treatment options and decision was made to proceed with laparoscopic cholecystectomy, possible open. Findings Laparoscopic cholecystectomy was performed. The patient did have some adhesions up to the midline abdominal wall just superior to the umbilicus. May initial port was placed in the superior umbilical region, but there were omental adhesions all around this area. I then placed another port in the left upper quadrant was able to visualize the upper abdomen which appeared free of adhesions. I then moved my umbilical port just a little further superior and was able to be clear of any other adhesions. The patient's liver appeared to have evidence of cirrhosis. There were otherwise no other significant abdominal findings. The gallbladder was slightly distended and appeared to likely contain a gallstone. The cystic duct appeared normal in size. The gallbladder was removed and sent to the lab for pathology. Description of Procedure Procedure as well as risks, benefits, and alternatives were discussed with patient. Written consent was obtained and placed in chart prior to procedure. The patient was brought back to surgical suite. Patient was placed in supine position on operating table. Time-out was done to confirm patient and procedure. Patient was then intubated by the anesthesia department. Abdomen was prepped and draped in sterile fashion using chlorhexidine prep. 0.5% bupivacaine with epinephrine was infiltrated at each site of incision. A 5 millimeter incision was made near the umbilicus, and a 5 millimeter Optiview trocar was advanced through the abdominal layers under direct visualization. Once inside the abdominal cavity, carbon dioxide was insufflated to create a pneumoperitoneum. The camera was inserted and the abdomen was inspected. There were adhesions which limited my visualization with the port this region. I then placed another 5 mm incision and 5 mm port in the left upper quadrant and then was able to identify an area free of adhesions in the upper abdomen. I then moved the 5 mm superior umbilical port about 3 more cm cephalad in an area that was free of adhesions. The patient was placed in reverse Trendelenburg position and rotated slightly to the left. An 11 millimeter incision was made in the subxiphoid region, and an 11 millimeter trocar was inserted under direct visualization. Two 5 millimeter incisions were made in the right upper quadrant, and two 5 millimeter trocars were inserted under direct visualization. The gallbladder was identified and grasped at the fundus and retracted superiorly. It was then grasped at the infundibulum retracted laterally. Careful dissection around the neck of the gallbladder was performed using blunt dissection with a [place] grasper and hook electrocautery. The cystic duct was identified, and a window was created behind it. The cystic artery was also identified and a window was created behind it. The critical view of safety was identified, visualizing the cystic duct running directly into the neck of the gallbladder, and the cystic artery running directly into the wall of the gallbladder. A 5 millimeter clip mast maker was then used to place 2 clips proximally and 1 clip distally on both the cystic duct and cystic artery. They were then both transected using endoscopic scissors. Once safely away from the becki hepatitis, the gallbladder was dissected free from the l
[2023-12-14 14:14] LABS: Glucose Point of Care 182 mg/dl (65-105)
--- NOTE | 2023-12-14 15:48 | ADMGEN ---
This patient, Pawan Ibarra, was admitted to 3 [facility] Surg Room 307-01. Patient/family oriented to hospital policies and general routines including ID bracelet, bed and alarms, visiting hours, pain management, procedures, bathroom and other care routines, personal items, smoking policy, room service/diet, and visiting hours. Information on how to activate the Rapid Response Team has been discussed. Patient/Family are encouraged to report perceived risks to care and to ask questions if they do not understand what they are told or what they should do.
[2023-12-14 16:23] LABS: Glucose Point of Care 210 mg/dl (65-105)
[2023-12-14] MEDS: HYDROcodone/acetaminophen (*CRX) 5-325 MG TABLET 1 TAB PO ×2 (17:00→22:30)
--- NOTE | 2023-12-14 21:14 | WPDCN ---
Assessment and Plan Assessment and plan (1) Symptomatic cholelithiasis: Code(s): K80.20 - Calculus of gallbladder without cholecystitis without obstruction Status: Acute Assessment and Plan: Postoperative day 0 status post laparoscopic cholecystectomy. Wound care, pain control, and DVT prophylaxis deferred to Dr. Blanco. 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 Resume basal insulin. Initiate sliding scale insulin, Accu-Cheks, and hypoglycemic protocol. (3) Hypertension: Code(s): I10 - Essential (primary) hypertension Status: Acute Assessment and Plan: Blood pressures were reviewed and they have been running in the 140s to 150s postoperatively. Continue losartan 50 mg daily and monitor closely. (4) Obstructive sleep apnea on CPAP: Code(s): G47.33 - Obstructive sleep apnea (adult) (pediatric) Status: Acute Assessment and Plan: CPAP will be provided for the patient to use while hospitalized. (5) Chronic obstructive pulmonary disease: Code(s): J44.9 - Chronic obstructive pulmonary disease, unspecified Status: Acute Assessment and Plan: No evidence of acute exacerbation. Continue maintenance inhalers. Plan Thank you for allowing us to participate in this patient's care. Please do not hesitate to contact us with any questions. HPI Data of Consult Date/Time: 12/14/23 22:15 Requesting Physician: Bola Blanco DO Consult Narrative Reason for consult: Medical management. Narrative: This is a 68-year-old male with coronary artery disease, hypertension, chronic obstructive pulmonary disease, obstructive sleep apnea on CPAP, cirrhosis, chronic anemia, type 2 diabetes mellitus, and other comorbidities who presented today for elective cholecystectomy per Dr. Blanco for symptomatic cholelithiasis. The hospitalist service has been consulted in this setting for help managing her medical conditions. Surgery was performed under general and local anesthesia with no immediate complications documented an estimated blood loss of 10 mL. At the time my evaluation he is resting comfortably. He tells me that he has no pain whatsoever. He denies postoperative fever, chills, sweats, chest pain, shortness a breath, nausea, and vomiting. Regarding his chronic medical conditions: He believes his hypertension and diabetes are well controlled. He is compliant with his CPAP at nighttime. Review of Systems Review of Systems: Twelve systems were reviewed and are negative except for as per HPI. [facility] Past Medical History Medical History (Updated 12/14/23 @ 23:34 by Tracy Covarrubias PA-C) Adenomatous colon polyp Cholelithiasis Chronic obstructive pulmonary disease Cirrhosis Secondary to SWAN. Coronary artery disease Diabetic peripheral neuropathy Esophageal varices Gastroesophageal reflux disease Hyperlipidemia Hypertension Irritable bowel syndrome Non-alcoholic fatty liver disease Obesity Obstructive sleep apnea on CPAP Paroxysmal atrial fibrillation Type 2 diabetes mellitus Surgical History Surgical History (Updated 12/14/23 @ 21:22 by Tracy Covarrubias PA-C) History of bilateral inguinal hernia repair History of cardiac catheterization History of colonoscopy with polypectomy History of coronary artery stent placement History of laparoscopic cholecystectomy (12/14/23) History of partial nephrectomy Removal of benign left kidney tumor. History of repair of congenital cleft palate History of umbilical he
[2023-12-14 22:28] LABS: Glucose Point of Care 290 mg/dl (65-105)
[2023-12-14] MEDS: carvediloL 12.5 MG TABLET BY MOUTH (22:30)
[2023-12-14] MEDS: MELATONIN 5 MG TABLET PO (22:31)
[2023-12-14] MEDS: INSULIN ASPART (*BKC) 100 UNITS/ML SUB-Q (22:35)
[2023-12-14] MEDS: INSULIN GLARGINE (*BKC) 100 UNITS/ML 50 UNITS SUB-Q (22:35)
[2023-12-14] MEDS: PANTOPRAZOLE 40 MG TABLET BY MOUTH (22:35)
[2023-12-15] VITALS (11 sets, daily range): BP systolic 119–144; BP diastolic 67–81; PULSE 72–89; RESP 17–22; TEMP 36.2–37.1; O2SAT 92–97
[2023-12-15 07:06] LABS: Hematocrit 50.8 % (42.0-52.0); Immature Platelet Fraction Pct 4.5 % (0.9-11.2); Mean Corpuscular HGB Conc 33.5 g/dl (32-36); Mean Corpuscular Hemoglobin 30.7 pg (26-34); Mean Corpuscular Volume 91.7 fl (80-100); Mean Platelet Volume 10.1 fl (7.4-10.4); Platelet Count Result 115 k/mm3 (150-375); Red Blood Count 5.54 M/mm3 (4.6-6.20); Red Cell Distribution Width 13.2 % (11.5-14.5); White Blood Count 8.9 K/mm3 (4.5-10.0)
[2023-12-15 07:18] LABS: Alanine Aminotransferase 24 U/L (6-50); Albumin Level 3.7 g/dL (3.5-5.1); Alkaline Phosphatase 100 U/L (38-126); Anion Gap 5 mmol/L (8-16); Aspartate Amino Transferase 34 U/L (17-59); Blood Urea Nitrogen 12 mg/dL (9-20); Calcium 8.9 mg/dL (8.4-10.2); Carbon Dioxide 28 mmol/L (22-30); Chloride 107 mmol/L (98-107); Estimated CRCL calculation 108 ml/min; Estimated Glomerular Filt Rate > 60; Glucose 142 mg/dL (65-110); Magnesium 1.8 mg/dL (1.6-2.3); Potassium 3.6 mmol/L (3.4-5.0); Sodium 140 mmol/L (137-145)
[2023-12-15 07:58] LABS: Glucose Point of Care 166 mg/dl (65-105)
[2023-12-15] MEDS: ASPIRIN 81 MG ENTERIC TABLET PO (09:02)
[2023-12-15] MEDS: HYDROcodone/acetaminophen (*CRX) 5-325 MG TABLET 2 TAB PO ×3 (09:02→18:40)
[2023-12-15] MEDS: carvediloL 12.5 MG TABLET BY MOUTH ×2 (09:03→20:10)
[2023-12-15] MEDS: LOSARTAN POTASSIUM 50 MG TABLET BY MOUTH (09:03)
[2023-12-15] MEDS: PANTOPRAZOLE 40 MG TABLET BY MOUTH ×2 (09:03→18:41)
[2023-12-15] MEDS: EMPAGLIFLOZIN 25 MG TABLET PO (09:03)
[2023-12-15] MEDS: DULoxetine HCL 60 MG CAPSULE.DR PO (09:03)
[2023-12-15] MEDS: INSULIN GLARGINE (*BKC) 100 UNITS/ML 50 UNITS SUB-Q ×2 (09:05→20:36)
[2023-12-15] MEDS: BUDESONIDE RESPULE NEB 0.5 MG/2 ML AMP INHALATION ×2 (09:36→22:27)
[2023-12-15 11:15] LABS: Glucose Point of Care 204 mg/dl (65-105)
--- NOTE | 2023-12-15 11:18 | PM.PNGS ---
Progress Note: A&P Assessment and Plan (1) Symptomatic cholelithiasis: Code(s): K80.20 - Calculus of gallbladder without cholecystitis without obstruction Status: Acute Assessment and Plan: Doing well postop day 1. Advanced to a low-fat diet. Will increase activity and ambulation today. Patient lives at home alone. Nursing is going to ambulate patient and may need to get PT/OT to evaluate him prior to discharge if needed. Possibly discharge in the next 1-2 days if he continues to improve. Plan I have discussed the patient's case and plan of care with Dr. Blanco. Subjective Subjective Date/Time Seen: 12/15/23 11:18 Post Op day: 1 (Laparoscopic cholecystectomy) Patient reports: tolerating liquids well (Full liquids), voiding w/o difficulty, flatus, no bowel movement and afebrile Interval history: Patient doing well today. He does report some right upper quadrant abdominal pain. Per nursing, he has some swelling in his right lateral trocar incision. No nausea or vomiting. He was able to get up to the chair and tolerated this well. He did feel shaky and a little weak. Review of Systems Review of Systems: All systems reviewed & are unremarkable except as noted in HPI and below Exam Const: General: comfortable and no acute distress GI: Inspection: non-distended GI Palp: Yes Soft to palpation, Yes Tenderness to palpation present (GI) (Tenderness in the right upper quadrant near the right lateral incision) and No Guarding due to palpation present (GI) Auscultation: normal bowel sounds Other: Right upper quadrant trocar incision with swelling and slight bruising, glue intact with no drainage. All other incisions healing well and dry. Neuro: General: moves all extremities and no focal motor deficits Extrem: General: no calf tenderness and no edema Psych: Mental Status: mental status grossly normal Insight: Good insight present (Psych) Objective Data Vital Signs Vital Signs: Vital Signs - 24 hr 12/14/23 14:03 12/14/23 14:20 12/14/23 14:35 Temperature 99.2 F Pulse Rate 82 89 93 Respiratory Rate 24 H 22 H 18 Blood Pressure 142/79 H 162/86 H 157/91 H Pulse Oximetry 92 95 93 Oxygen Delivery Simple Face Mask Simple Face Mask Nasal Cannula Oxygen Flow Rate 8 8 3 12/14/23 14:50 12/14/23 15:05 12/14/23 15:20 Temperature Pulse Rate 91 88 92 Respiratory Rate 16 12 16 Blood Pressure 153/94 H 154/89 H 153/89 H Pulse Oximetry 95 95 93 Oxygen Delivery Nasal Cannula Nasal Cannula Nasal Cannula Oxygen Flow Rate 2 2 2 12/14/23 15:31 12/14/23 15:47 12/14/23 16:17 Temperature 98.4 F 98.4 F Pulse Rate 91 102 H 89 Respiratory Rate 14 15 16 Blood Pressure 157/86 H 147/85 H 149/94 H Pulse Oximetry 94 92 98 Oxygen Delivery Nasal Cannula Oxygen Flow Rate 2 12/14/23 17:42 12/14/23 20:00 12/14/23 21:17 Temperature 98.4 F Pulse Rate 89 89 96 Respiratory Rate 16 16 20 Blood Pressure 152/90 H Pulse Oximetry 98 98 98 Oxygen Delivery Nasal Cannula Nasal Cannula Oxygen Flow Rate 2 2 12/15/23 01:17 12/14/23 21:26 12/15/23 05:17 Temperature 98.7 F 97.1 F L Pulse Rate 76 89 Respiratory Rate 20 23 H 18 Blood Pressure 144/81 H 119/73 Pulse Oximetry 93 92 92 Oxygen Delivery CPAP Oxygen Flow Rate 12/15/23 09:03 12/15/23 09:39 Temperature Pulse Rate 88 72 Respiratory Rate 20 Blood Pressure Pulse Oximetry Oxygen Delivery Oxygen Flow Rate Intake/Output Intake/Output: Intake & Output 12/12/23 12/13/23 12/14/23 12/15/23 23:59 23:59 23:59 23:59 Intake Total 990 1800 Output Total 1200 1200 Balance -210 600 Meds/Results Medications: Active Medications Generic Name Dose Route Start Last Admin Trade Name Freq PRN Reason Stop Dose Admin Acetaminophen 500 mg 12/14/23 15:32 Acetaminophen 500 Mg Tablet PO Q6H PRN Mild Pain (1-3) or Fever Hydrocodone Bitart/Acetaminophen 1 tab 12/14/23 15:32 12/14/23 22:30
--- NOTE | 2023-12-15 11:40 | PM.IMCN ---
Assessment and Plan Assessment and plan (1) Symptomatic cholelithiasis: Code(s): K80.20 - Calculus of gallbladder without cholecystitis without obstruction Status: Acute Assessment and Plan: Postoperative day 1 status post laparoscopic cholecystectomy. Wound care, pain control, and DVT prophylaxis deferred to Dr. Blanco. (2) Type 2 diabetes mellitus: Qualifiers: Diabetes mellitus bed bug exterminator insulin use: with bed bug exterminator use Diabetes mellitus complication status: with other specified complication Qualified Code(s): E11.69 - Type 2 diabetes mellitus with other specified complication; Z79.4 - ocean transportation intermediary (current) use of insulin Code(s): E11.9 - Type 2 diabetes mellitus without complications Status: Chronic Assessment and Plan: Recent hemoglobin A1c was 6.1%. Resume basal insulin. Initiate sliding scale insulin, Accu-Cheks, and hypoglycemic protocol. (3) Hypertension: Code(s): I10 - Essential (primary) hypertension Status: Chronic Assessment and Plan: Blood pressures were reviewed and they have been running in the 140s to 150s postoperatively. Continue losartan 50 mg daily and monitor closely. (4) Obstructive sleep apnea on CPAP: Code(s): G47.33 - Obstructive sleep apnea (adult) (pediatric) Status: Chronic Assessment and Plan: CPAP will be provided for the patient to use while hospitalized. (5) Chronic obstructive pulmonary disease: Code(s): J44.9 - Chronic obstructive pulmonary disease, unspecified Status: Chronic Assessment and Plan: No evidence of acute exacerbation. Continue maintenance inhalers. Plan Thank you for allowing us to participate in this patient's care. Please do not hesitate to contact us with any questions. Hospitalist Medicine is signing off. If any further needs, please do not hesitate to contact us. HPI Date of Consult Consult date: 12/15/23 Requesting Physician: Bola Blanco DO Primary Care Provider: Marry Villafuerte APRN Consult Narrative Narrative: Pawan Ibarra is a 68 year old male who is POD #1 and is examined at the bedside today in interval assessment. He has some post-operative pain but is tolerating Full Liquid diet without difficulty. He has no other complaints at this time. 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 Coronary artery disease Diabetic peripheral neuropathy Esophageal varices Gastroesophageal reflux disease Hyperlipidemia Hypertension Irritable bowel syndrome Non-alcoholic fatty liver disease Obesity Obstructive sleep apnea on CPAP Paroxysmal atrial fibrillation Type 2 diabetes mellitus Surgical History Surgical History History of bilateral inguinal hernia repair History of cardiac catheterization History of colonoscopy with polypectomy History of coronary artery stent placement History of laparoscopic cholecystectomy (12/14/23) History of partial nephrectomy Removal of benign left kidney tumor. History of repair of congenital cleft palate History of umbilical hernia repair Family History Family History Father Carcinoma of colon Social History Social History Social History: Surrogate medical decision maker: Milo Ibarra, sibling. Code status: Full code Smoking status: Never smoker Second hand tobacco smoke exposure: No Alcohol intake: former Substance use: never Substance use type: does not use Do You Feel Safe in your Home?: Yes Lack of Tr
--- NOTE | 2023-12-15 11:42 | WPDANESPN ---
Anes - Prog Note Post-Op Date/Time: 12/15/23 11:42 Cardiovascular status: normal Respiratory status: normal Airway patency: baseline Mental status: baseline Post-Op hydration status: normal Vital Signs: Last Vital Signs Temp 36.2 C L 12/15/23 05:17 Pulse 72 12/15/23 09:39 Resp 20 12/15/23 09:39 BP 119/73 12/15/23 05:17 Pulse Ox 92 12/15/23 05:17 O2 Del Method CPAP 12/14/23 21:26 O2 Flow Rate 2 12/14/23 20:00 Pain Score (VAS): 01/09 I/O: Intake & Output 12/14/23 12/15/23 12/15/23 23:59 07:59 15:59 Intake Total 840 1800 Output Total 400 700 500 Balance 440 -700 1300 Laboratory Tests 12/15/23 06:58 12/15/23 06:58 12/14/23 12/14/23 12/14/23 11:40 14:08 16:11 WBC RBC Hgb Hct MCV MCH MCHC RDW Plt Count MPV % Immature Plt Fraction Sodium Potassium Chloride Carbon Dioxide Anion Gap BUN Creatinine Estim Creat Clear Calc Estimated GFR Glucose POC Capillary Glucose 135 H 182 H 210 H Calcium Magnesium Total Bilirubin Direct Bilirubin AST ALT Alkaline Phosphatase Total Protein Albumin 12/14/23 12/15/23 12/15/23 22:26 06:58 07:56 WBC 8.9 RBC 5.54 Hgb 17.0 Hct 50.8 MCV 91.7 MCH 30.7 MCHC 33.5 RDW 13.2 Plt Count 115 L MPV 10.1 % Immature Plt Fraction 4.5 Sodium 140 Potassium 3.6 Chloride 107 Carbon Dioxide 28 Anion Gap 5 L BUN 12 Creatinine 0.70 Estim Creat Clear Calc 108 Estimated GFR > 60 Glucose 142 H POC Capillary Glucose 290 H 166 H Calcium 8.9 Magnesium 1.8 Total Bilirubin 1.0 Direct Bilirubin 0.0 AST 34 ALT 24 Alkaline Phosphatase 100 Total Protein 7.0 Albumin 3.7 12/15/23 11:06 WBC RBC Hgb Hct MCV MCH MCHC RDW Plt Count MPV % Immature Plt Fraction Sodium Potassium Chloride Carbon Dioxide Anion Gap BUN Creatinine Estim Creat Clear Calc Estimated GFR Glucose POC Capillary Glucose 204 H Calcium Magnesium Total Bilirubin Direct Bilirubin AST ALT Alkaline Phosphatase Total Protein Albumin Post-procedural complaints: none Patient Feedback: Patient satisfied with anesthetic care.
[2023-12-15] MEDS: INSULIN ASPART (*BKC) 100 UNITS/ML SUB-Q (13:17)
[2023-12-15 16:21] LABS: Glucose Point of Care 153 mg/dl (65-105)
[2023-12-15] MEDS: GABAPENTIN 400 MG CAPSULE PO (18:40)
[2023-12-15] MEDS: CHOLECALCIFEROL 1,000 UNITS TABLET 2000 UNITS PO (18:41)
[2023-12-15] MEDS: ATORVASTATIN 40 MG TABLET 80 MG PO (18:41)
[2023-12-15] MEDS: MELATONIN 5 MG TABLET PO (20:10)
[2023-12-15 20:56] LABS: Glucose Point of Care 197 mg/dl (65-105)
[2023-12-16] VITALS (7 sets, daily range): BP systolic 136; BP diastolic 79–80; PULSE 67–89; RESP 18–19; TEMP 36.3–36.9; O2SAT 92–96
[2023-12-16] MEDS: HYDROcodone/acetaminophen (*CRX) 5-325 MG TABLET 2 TAB PO (06:50)
[2023-12-16 07:21] LABS: Glucose Point of Care 106 mg/dl (65-105)
[2023-12-16] MEDS: BUDESONIDE RESPULE NEB 0.5 MG/2 ML AMP INHALATION (08:04)
[2023-12-16] MEDS: ATORVASTATIN 40 MG TABLET 80 MG PO (08:54)
[2023-12-16] MEDS: DULoxetine HCL 60 MG CAPSULE.DR PO (08:54)
[2023-12-16] MEDS: carvediloL 12.5 MG TABLET BY MOUTH (08:54)
[2023-12-16] MEDS: CHOLECALCIFEROL 1,000 UNITS TABLET 2000 UNITS PO (08:54)
[2023-12-16] MEDS: GABAPENTIN 400 MG CAPSULE PO (08:54)
[2023-12-16] MEDS: LOSARTAN POTASSIUM 50 MG TABLET BY MOUTH (08:55)
[2023-12-16] MEDS: PANTOPRAZOLE 40 MG TABLET BY MOUTH (08:55)
[2023-12-16] MEDS: EMPAGLIFLOZIN 25 MG TABLET PO (08:55)
[2023-12-16] MEDS: ASPIRIN 81 MG ENTERIC TABLET PO (08:55)
[2023-12-16] MEDS: INSULIN GLARGINE (*BKC) 100 UNITS/ML 50 UNITS SUB-Q (08:56)
[2023-12-16] MEDS: FLUTICASONE PROPIONATE 0.05% NA SPR 16 GM BTL (*BKC) 2 SPRAY NASAL (08:56)
--- NOTE | 2023-12-16 11:11 | PM.DS ---
DS: Admitting Diagnosis Discharge Date 12/16/2023 Admitting Diagnosis Symptomatic cholelithiasis, obstructive sleep apnea, hypertension, coronary artery disease, type 2 diabetes with neuropathy DS: Discharge Diagnosis Discharge Diagnosis (1) Symptomatic cholelithiasis: Code(s): K80.20 - Calculus of gallbladder without cholecystitis without obstruction Status: Acute (2) Obstructive sleep apnea on CPAP: Code(s): G47.33 - Obstructive sleep apnea (adult) (pediatric) Status: Chronic (3) Coronary artery disease: Code(s): I25.10 - Atherosclerotic heart disease of [place] coronary artery without angina pectoris Status: Acute (4) Hypertension: Code(s): I10 - Essential (primary) hypertension Status: Chronic (5) Diabetes mellitus with neuropathy: Qualifiers: Diabetes mellitus type: type 2 Diabetes mellitus director long term care insulin use: with director long term care use Qualified Code(s): E11.40 - Type 2 diabetes mellitus with diabetic neuropathy, unspecified; Z79.4 - termite control servicer (current) use of insulin Code(s): E11.40 - Type 2 diabetes mellitus with diabetic neuropathy, unspecified Status: Chronic DS: Summary Hospital Course Reason for hospitalization: Recovery after laparoscopic cholecystectomy Hospital Course: This is a 68-year-old man who presented for laparoscopic cholecystectomy 12/14/2023. Patient has multiple comorbidities and was high risk for perioperative complications therefore he was placed in hospital postoperatively for recovery. Surgery was uncomplicated and he was placed in hospital for further treatment and recovery. His diet was slowly advanced as tolerated and his pain was controlled with IV and p.o. pain medication. On postop day 1 he was still experiencing some pain and had only advanced to a full liquid diet by lunch time. He was not ambulating much yet either. Decision was made to keep him 1 more day. On postop day 2 he was tolerating a low-fat diet is better controlled. He was discharged on postop day 2. Status at Discharge Functional status at discharge: uses cane/walker Overall status at discharge: patient is progressing back to baseline Time Spent with Patient Time attestation: Total time spent providing and/or coordinating discharge services: Time spent: Less than 30 minutes Exam Const: General: comfortable, no acute distress and alert Resp: Effort & Inspection: normal respiratory effort Auscultation: clear to auscultation bilaterally Cardio: Rate: regular rate Rhythm: regular rhythm Heart sounds: S1 normal heart sound present and S2 normal heart sound present GI: Inspection: incision (Intact with glue, mild bruising) and obesity GI Palp: Yes Soft to palpation, Yes Tenderness to palpation present (GI) (Incisional) and No Guarding due to palpation present (GI) Auscultation: normal bowel sounds DS: Data Data Completed and Pending Completed studies during hospitalization: Pending at discharge 12/14/23 13:05 Surgical [PTH] Routine Labs on day of discharge: Labs from last 24 hours 12/16/23 12/15/23 12/15/23 07:18 20:34 16:17 POC Capillary Glucose 106 H 197 H 153 H 12/15/23 11:06 POC Capillary Glucose 204 H Discharge Plan Discharge Attending physician on discharge: Bola Martinez Consulting providers: Brandi Collins; Tracy Covarrubias Discharging Clinician: Bola Martinez Patient Disposition: Home, Self-Care Activity: other - see discharge instructions Diet: low fat Wound Care Instructions: other - see discharge instructions Discharge Instructions: DISCHARGE INSTRUCTION SHEET FOR HERNIA, GALLBLADDER AND APPENDIX SURGERIES DR. MARTINEZ PATIENT TO TAKE HOME 1. May shower, no soaking in bath x 2weeks. 2. Call office for: Wound increasingly painful or bleeding Vomiting Fever of greater than 101 degrees 3. If no bowel movement for three days, take 1 oz. (30 ml) Milk
[2023-12-16 11:26] LABS: Glucose Point of Care 148 mg/dl (65-105)
== END 2023-12-16 15:25 | disposition home or self-care (01) ==
LOC: ANHSURGERY 12:55 → ANH3MEDSUR 12:56
PROVIDERS: Physician Assistant; Admitting Provider Surgery; PCP Nurse Practitioner Family; Referring Provider Nurse Practitioner Family; Visit Provider Surgery
PROC: 0FT44ZZ Resection of Gallbladder, Percutaneous Endoscopic Approach (ICD-10-PCS; CPT 47562; principal; 2023-12-14 12:00)
DX: K80.10 Calculus of gallbladder with chronic cholecystitis without obstruction (principal); G47.33 Obstructive sleep apnea (adult) (pediatric); Z99.89 Dependence on other enabling machines and devices; I25.10 Atherosclerotic heart disease of native coronary artery without angina pectoris; Z95.1 Presence of aortocoronary bypass graft; E11.40 Type 2 diabetes mellitus with diabetic neuropathy, unspecified; K74.60 Unspecified cirrhosis of liver; J44.9 Chronic obstructive pulmonary disease, unspecified; K21.9 Gastro-esophageal reflux disease without esophagitis; E78.5 Hyperlipidemia, unspecified; I10 Essential (primary) hypertension; D64.9 Anemia, unspecified; I48.91 Unspecified atrial fibrillation; E66.9 Obesity, unspecified; Z68.36 Body mass index [BMI] 36.0-36.9, adult; K58.9 Irritable bowel syndrome, unspecified; G20.A1 Parkinson's disease without dyskinesia, without mention of fluctuations; Z79.82 Long term (current) use of aspirin; Z79.4 Long term (current) use of insulin; Z79.51 Long term (current) use of inhaled steroids; Z79.85 Long-term (current) use of injectable non-insulin antidiabetic drugs; Z79.84 Long term (current) use of oral hypoglycemic drugs; Z79.899 Other long term (current) drug therapy
CPT/HCPCS: 47562; 36415; 80048; 80076; 82948; 83735; 85027; 85055; 88304; 94640; A9270; G0378; J0330; J0461; J0690; J1100; J1815; J1885; J2250; J2371; J2405; J2704; J3010; J7120

== ENCOUNTER 2023-12-28 15:01 | Outpatient (CLI) | payer MEDICARE, MEDICAID, SELFPAY ==
[2023-12-28 15:59] LABS: Hemoglobin A1C 6.4 % (<5.7)
[2023-12-28 16:24] LABS: Thyroid Stimulating Hormone 1.49 uIU/mL (0.36-3.74); Vitamin B12 325 pg/mL (193-986)
[2023-12-30 13:04] LABS: Red Blood Cell Folate 359 ng/mL RBC (>280)
[2023-12-31 11:28] LABS: Vitamin D 1,25 (OH)2 Total 41 pg/mL (18-72); Vitamin D2 1,25 (OH)2 <8 pg/mL; Vitamin D3 1,25 (OH)2 41 pg/mL
== END 2023-12-28 15:02 | disposition home or self-care (01) ==
LOC: CHSLAB 15:03
PROVIDERS: PCP Family Medicine; Visit Provider Psychiatry & Neurology Neurology
DX: E55.9 Vitamin D deficiency, unspecified (principal); Z79.4 Long term (current) use of insulin; R20.2 Paresthesia of skin; R13.10 Dysphagia, unspecified; M54.9 Dorsalgia, unspecified; M54.17 Radiculopathy, lumbosacral region; E11.40 Type 2 diabetes mellitus with diabetic neuropathy, unspecified; R29.898 Other symptoms and signs involving the musculoskeletal system
CPT/HCPCS: 36415; 82607; 82652; 82747; 83036; 84443

== ENCOUNTER 2023-12-31 10:53 | Outpatient (RCR) | payer MEDICARE, MEDICAID, SELFPAY ==
--- NOTE | 2023-12-31 11:50 | OPREHPOC ---
Outpatient Therapy Plan of Care This is a Multidisciplinary Plan of Care that may contain components documented by all disciplines (PT, OT, and ST.) PT Problem 1 PT Problem #1 Knowledge Deficit PT Goal 1 Goal 1. independent and compliant with HEP Target Visit 4 PT Problem 2 PT Problem #2 Pain PT Goal 1 Goal 1. decrease pain at worst to 4/10 or less in the lower back Target Visit 9 PT Problem 3 PT Problem #3 Impaired Flexibility PT Goal 1 Goal 1. improve bilateral hamstrings tightness to 30 degrees or less per the 90/90 test. 2. mild or less bilateral piriformis mm tightness Target Visit 9 PT Problem 4 PT Problem #4 Impaired Strength PT Goal 1 Goal 1. improve bilateral hip strength to 4/5 or better overall 2. improve bilateral knee strength to 4+/5 or better overall 3. improve bilateral ankle DF to 4+/5 or better Target Visit 9 PT Problem 5 PT Problem #5 Impaired Functional Mobil PT Goal 1 Goal 1. oswestry to display 2. patient to tolerate standing to 15 minutes in therapy prior to needing to sit Target Visit 9
--- NOTE | 2023-12-31 11:50 | PTOPEVAL1 ---
Assessment and note entered by JT File, PT Evaluation Information Assessment Status Evaluation Diagnosis lumbar radiculopathy, dorsalgia Onset 12/28/23 Subjective Information patient reports he is coming to therapy for his back. he reports he has some arthritis in his back . patient has difficulty with speech and is hard to understand. he does have orders for dysphagia. therapy will talk with speech therapist about taking on his case to improve his speech. he does report he has increased pain in the lower back when the weather is colder. he does report he has pain in both legs at times. patient reports he has seen a chiropractor in the past. Reported Pain Level Pain Score 3: Self Report Assessment PT Clinical Summary mr. bonilla is a 68 yo man who presents to skilled PT services for evaluation and treatment of lower back pain. he is a poor historian and a bit difficult to understand due to his dysphagia. however, he displays signs and symptoms consistent with lumbar stenosis/DDD. he displays decreased lumbar rom, poor posture, decreased core and LE strength (especially proximal LE strength), and pain that radiates into the bilateral LE's. he would benefit from continued skilled PT to address his objective/functional deficits and decrease pain to improve his quality of life. Plan of Care Interventions Electrical Stimulation,Gait Training,Hot Pack/Cold Pack,Manual Therapy,Mechanical Traction,Neuro Re- education,Patient/Caregiver Educati,Therapeutic Activities,Therapeutic Exercise PT Services Indicated Yes Treatment Frequency and 3x weekly for 9 visits Duration These treatments will address the objective and functional deficits as defined above. The patient will be advanced safely and appropriately in order for the patient to progress towards his/her prior level of function. Additional exercises will be introduced and as well as a comprehensive home exercise program upon discharge, if needed, ?to ensure carryover of functional gains achieved in the clinic. This treatment plan has been reviewed and agreement upon by the patient.
--- NOTE | 2024-01-22 13:45 | OPREHPOC ---
Outpatient Therapy Plan of Care This is a Multidisciplinary Plan of Care that may contain components documented by all disciplines (PT, OT, and ST.) PT Problem 1 PT Problem #1 Knowledge Deficit PT Goal 1 Goal 1. independent and compliant with HEP Target Visit 4 Progress Met PT Problem 2 PT Problem #2 Pain PT Goal 1 Goal 1. decrease pain at worst to 4/10 or less in the lower back Target Visit 9 Progress Not Met PT Problem 3 PT Problem #3 Impaired Flexibility PT Goal 1 Goal 1. improve bilateral hamstrings tightness to 30 degrees or less per the 90/90 test. 2. mild or less bilateral piriformis mm tightness Target Visit 9 Progress Not Met PT Problem 4 PT Problem #4 Impaired Strength PT Goal 1 Goal 1. improve bilateral hip strength to 4/5 or better overall 2. improve bilateral knee strength to 4+/5 or better overall 3. improve bilateral ankle DF to 4+/5 or better Target Visit 9 Progress Met PT Problem 5 PT Problem #5 Impaired Functional Mobil PT Goal 1 Goal 1. oswestry to display 2. patient to tolerate standing to 15 minutes in therapy prior to needing to sit Target Visit 9 Progress Not Met
--- NOTE | 2024-01-22 13:45 | PTOPDC ---
Assessment and note entered by JT File, PT Evaluation Information Assessment Status Discharge Diagnosis lumbar radiculopathy, dorsalgia Onset 12/28/23 Subjective Information patient reports he has not seen much improvement from therapy. he reports he still has pain in the lower back and down the L LE. he reports he is unsure of what makes it worse. Reported Pain Level Pain Score 5: Self Report Assessment PT Clinical Summary mr. boinlla presents to skilled PT services for his 9th skilled therapy visit today. his pain has continued at the same level, and subjectively he reports seeing no improvement. he has met goals for HEP education and mm strength improvements, but all other goals are unmet at this time. he will DC skilled PT today, and continue with HEP independent at home. he was instructed to follow up as needed with any regression in quality of life/increased symptoms. Plan of Care PT Services Indicated Yes
== END 2024-01-22 14:00 | disposition home or self-care (01) ==
LOC: CHSPT 10:53
PROVIDERS: Visit Provider Psychiatry & Neurology Neurology
DX: M54.17 Radiculopathy, lumbosacral region (principal); M54.9 Dorsalgia, unspecified; E11.40 Type 2 diabetes mellitus with diabetic neuropathy, unspecified; R13.10 Dysphagia, unspecified; R29.898 Other symptoms and signs involving the musculoskeletal system; R20.2 Paresthesia of skin
CPT/HCPCS: 97014; 97110; 97150; 97161; 97530; G0283

== ENCOUNTER 2024-01-09 09:37 | Outpatient (CLI) | payer MEDICARE, MEDICAID, SELFPAY ==
--- NOTE | ~2024-01-09 | MR_ITS ---
EXAMINATION: MR lumbar spine wo con DATE: 01/09/2024 13:06 INDICATION: Lumbosacral radiculopathy. Low back pain. TECHNIQUE: Magnetic resonance imaging (MRI) of the lumbar spine was performed without intravenous con trast. Sequences included sagittal T2-weighted FSE, sagittal T2-weighted FS FSE, sagittal T1-weighted FSE, and axial T2-weighted FSE. COMPARISON: Lumbar spine radiographs 02/20/22 FINDINGS: Bone alignment is normal. There is mild chronic anterior wedging of T12-L5 vertebral bodies associated with Schmorl's nodes. There is mildly decreased disc height at L1-L2, severely decreased disc height at L2-L3, moderately decreased disc height at L3-L4 and L4-L5, and severely decreased dis c at L5-S1. The distal spinal cord signal intensity is normal. The conus medullaris is at L1-L2. The following disc levels are specifically discussed: L1-L2: The disc is bulging. There is mild bilateral facet joint osteoarthritis. There is mild bilater al neural foraminal stenosis. There is mild central canal stenosis. L2-L3: The disc is bulging and has an annular fissure. There is mild right and moderate left facet yo int osteoarthritis. There is moderate right and severe left neural foraminal stenosis. There is moder ate central canal stenosis. L3-L4: The disc is bulging and has an annular fissure. There is severe bilateral facet joint osteoart hritis. There is moderate bilateral neural foraminal stenosis. There is mild central canal stenosis. L4-L5: The disc is bulging and has an annular fissure. There is severe bilateral facet joint osteoart hritis. There is moderate bilateral neural foraminal stenosis. There is mild central canal stenosis. L5-S1: The disc is bulging and has an annular fissure. There is severe bilateral facet joint osteoart hritis. There is moderate bilateral neural foraminal stenosis. There is mild central canal stenosis. IMPRESSION: 1. Severe lumbar spondylosis. Reviewed, dictated and finalized at location E. GRAM AND LETTER PASTER
== END 2024-01-09 09:38 | disposition home or self-care (01) ==
PROVIDERS: PCP Nurse Practitioner Family; Visit Provider Psychiatry & Neurology Neurology
DX: R29.898 Other symptoms and signs involving the musculoskeletal system (principal); R20.2 Paresthesia of skin; R13.10 Dysphagia, unspecified; M54.9 Dorsalgia, unspecified; E11.40 Type 2 diabetes mellitus with diabetic neuropathy, unspecified; M54.17 Radiculopathy, lumbosacral region; M43.06 Spondylolysis, lumbar region
CPT/HCPCS: 72148

== ENCOUNTER 2024-01-13 13:54 | Outpatient (NON) | payer MEDICARE, MEDICAID, SELFPAY | END 2024-01-13 13:55 | disposition home or self-care (01) | LOC: CHSLAB 13:56 | PROVIDERS: Visit Provider Nurse Practitioner Family | DX: L03.90 Cellulitis, unspecified (principal) | CPT/HCPCS: 87070; 87075; 87147; 87181; 87205 ==

== ENCOUNTER 2024-02-03 13:40 | Outpatient (NON) | payer MEDICARE, MEDICAID, SELFPAY | END 2024-02-03 13:41 | disposition home or self-care (01) | LOC: CHSLAB 13:43 | PROVIDERS: Visit Provider Family Medicine | DX: D48.5 Neoplasm of uncertain behavior of skin (principal); C44.319 Basal cell carcinoma of skin of other parts of face | CPT/HCPCS: 88305 ==

== ENCOUNTER 2024-02-18 12:06 | Outpatient (CLI) | payer MEDICARE, MEDICAID, SELFPAY ==
--- NOTE | ~2024-02-18 | XR_ITS ---
EXAM: XR lumbar spine 2-3V DATE: 02/18/2024 12:23 HISTORY: FALL X2WK AGO,LBP RADIATES DOWN LT LEG, LT KNEE PAIN . COMPARISON: None available. FINDINGS: Cholecystectomy clips. 4 nonrib-bearing lumbar-type vertebral bodies, sacralization of L5 w ith a rudimentary disc at L5-S1. Pedicles intact. Normal vertebral body alignment. Mild anterior wedg e deformity at T12 and L1. Disc space narrowing and marginal osteophytosis at all levels. Vacuum phen omenon at L1-2, L2-3, and L4-5. Moderate-severe facet hypertrophy and sclerosis at all lumbar levels. IMPRESSION: Transitional anatomy. Multilevel severe degenerative disc disease. Multilevel severe face t arthropathy. Reviewed, dictated and finalized at location K. IMPRESSION: Transitional anatomy. Multilevel severe degenerative disc disease. Multilevel severe facet arthropathy.
--- NOTE | ~2024-02-18 | XR_ITS ---
Left Knee Technique: AP and lateral views were obtained. Clinical History: Pain Findings: No fracture or dislocation is seen. Osseous alignment is anatomic. Joint spaces are preserv ed without degenerative or erosive change. Soft tissues are unremarkable. No joint effusion is seen. Impression: Unremarkable left knee radiographs. Reviewed, dictated and finalized at location . Impression: Unremarkable left knee radiographs.
== END 2024-02-18 12:07 | disposition home or self-care (01) ==
LOC: CHSIMG 12:08
PROVIDERS: PCP Nurse Practitioner Family; Visit Provider Nurse Practitioner Family
DX: M54.17 Radiculopathy, lumbosacral region (principal); M25.562 Pain in left knee; M51.36 Other intervertebral disc degeneration, lumbar region; M12.88 Other specific arthropathies, not elsewhere classified, other specified site
CPT/HCPCS: 72100; 73560

== ENCOUNTER → 2024-03-01 11:07 | Outpatient (REF) | payer MEDICARE, MEDICAID, SELFPAY | LOC: ANHLAB 11:07 | PROVIDERS: PCP Nurse Practitioner Family; Visit Provider Plastic Surgery | DX: C44.319 Basal cell carcinoma of skin of other parts of face (principal) | CPT/HCPCS: 88305 ==

== ENCOUNTER 2024-03-25 09:04 | Outpatient (CLI) | payer MEDICARE, MEDICAID, SELFPAY ==
--- NOTE | ~2024-03-25 | US_ITS ---
Limited Abdominal Sonogram: Real-time sonographic imaging of the right upper quadrant was performed. Clinical History: Nonalcoholic steatohepatitis Findings: The liver appears echogenic, with no evidence of mass lesion or bile duct dilatation. Main portal vein demonstrates normal direction of flow. The gallbladder is absent, compatible prior abelino cystectomy. The common bile duct measures 4 mm. The visualized pancreas, aorta, and IVC are unremark able. Impression: Diffuse fatty infiltration of the liver. Status post cholecystectomy. Reviewed, dictated and finalized at location M. Impression: Diffuse fatty infiltration of the liver. Status post cholecystectomy.
[2024-03-25 09:32] LABS: Hematocrit 52.4 % (37.0-46.0); Hemoglobin 18.1 g/dL (12.4-15.3); Immature Platelet Fraction Pct 4.5 % (1.0-7.0); Mean Corpuscular HGB Conc 34.5 g/dL (32-36); Mean Corpuscular Hemoglobin 31.7 pg (27.0-31.0); Mean Corpuscular Volume 91.8 fL (78.0-102.0); Mean Platelet Volume 10.4 fl (8.7-11.0); Platelet Count Result 104 K/mm3 (150-420); Red Blood Count 5.71 M/mm3 (4.70-6.10); Red Cell Distribution Width 13.1 % (11.6-14.4); White Blood Count 7.4 K/mm3 (4.8-10.8)
[2024-03-25 09:36] LABS: INR 1.1; Prothrombin Time 12.3 Seconds (9.50-12.1)
[2024-03-25 09:41] LABS: Hemoglobin A1C 5.9 % (<5.7)
[2024-03-25 09:48] LABS: Alanine Aminotransferase 34 U/L (16-63); Albumin Level 3.8 g/dL (3.4-5.0); Alkaline Phosphatase 119 U/L (46-116); Anion Gap 8 mmol/L (4-12); Aspartate Amino Transferase 32 U/L (15-37); Blood Urea Nitrogen 11 mg/dL (7-18); Calcium 8.4 mg/dL (8.5-10.1); Carbon Dioxide 31 mmol/L (21-32); Chloride 105 mmol/L (98-108); Estimated Glomerular Filt Rate > 60; Glucose 89 mg/dL (70-99); Osmolality Calculated 296 mOsm/kg (285-295); Potassium 4.2 mmol/L (3.5-5.1); Sodium 144 mmol/L (136-145); Total Protein 7.1 g/dL (6.4-8.2)
[2024-03-29 07:48] LABS: Alpha Fetoprotein Tumor Marker 2.9 ng/mL (<6.1)
== END 2024-03-25 09:05 | disposition home or self-care (01) ==
LOC: CHSIMG 09:05
PROVIDERS: Nurse Practitioner Family; PCP Nurse Practitioner Family; Visit Provider Nurse Practitioner
DX: I85.00 Esophageal varices without bleeding (principal); Z79.4 Long term (current) use of insulin; E11.40 Type 2 diabetes mellitus with diabetic neuropathy, unspecified; K75.81 Nonalcoholic steatohepatitis (NASH); K76.0 Fatty (change of) liver, not elsewhere classified; Z90.49 Acquired absence of other specified parts of digestive tract; K74.60 Unspecified cirrhosis of liver
CPT/HCPCS: 36415; 76705; 80053; 82105; 83036; 85027; 85055; 85610

== ENCOUNTER 2024-05-12 01:45 | Day surgery (SDC) | payer MEDICARE, MEDICAID, SELFPAY ==
[2024-05-03 15:43] VITALS: BMI 35.4
--- NOTE | 2024-05-04 12:43 | PC.NURSE ---
05/03/2024 Interview done with patient and last office visit reviewed for history also as patient is a poor historian. He does state it is okay for me to call his contact Nora Coughlin and give her the information for the procedure as she will be driving him. Message left on Nora's voicemail to call regarding pts appt. 05/04/24 Nora called back today and states she is driving patients- instructions given. She also asked that I call his nurse Lidia to tell her what meds he needs to take and hold. Lidia was called and is the office nurse at [facility]. She speaks with patient almost daily and will review meds with him and what he should take am of proc. and NPO after midnight.
[2024-05-12 12:01] VITALS: BP 186/94; PULSE 95; RESP 20; TEMP 36.1; O2SAT 95; BMI 35.6
[2024-05-12] MEDS: LACTATED RINGERS 1,000 ML 150 ML IV CONT (12:14)
[2024-05-12 12:20] VITALS: BP 140/94
--- NOTE | 2024-05-12 12:24 | WPDANESEPPF ---
Anes - Initial Pre Proc Eval Procedure: Operation Date: 05/12/24 13:00 Proposed Procedures p Esophagogastroduodenoscopy - Valdemar Jones MD Date/Time: 05/12/24 12:24 Surgeon: Valdemar Jones MD Pre Op Diagnosis: SWAN, Cirrhosis of liver, Esophageal varices Patient Data Age: 68 Gender: M Height: 1.75 m Weight: 109.7 kg Last Vital Signs Temp 97 F L 05/12/24 12:01 Pulse 95 05/12/24 12:01 Resp 20 05/12/24 12:01 BP 140/94 H 05/12/24 12:20 Pulse Ox 95 05/12/24 12:01 O2 Del Method Room Air 05/12/24 12:01 Allergies Allergy/AdvReac Type Severity Reaction Status Date / Time tuna oil Allergy Severe Anaphylaxis Verified 05/12/24 11:47 Home Medications Medication Instructions Recorded Confirmed Type nitroglycerin 0.4 mg sublingual See Rx Instructions .Route 04/15/21 05/12/24 Rx tablet .COMPLEX #100 tabs aspirin 81 mg tablet,delayed 81 mg PO DAILY 02/20/22 05/12/24 History release (Adult Aspirin Regimen) flash glucose scanning reader 02/02/23 04/12/24 History (FreeStyle Jan 2 Sterling) lancets 30 gauge (TRUEplus Lancets) #200 ea 06/09/23 04/12/24 Rx blood sugar diagnostic (FreeStyle #100 ea 06/17/23 04/12/24 Rx Test strips) albuterol sulfate 90 mcg/actuation 2 puff inhalation Q4H PRN 07/02/23 05/12/24 Rx aerosol inhaler (Ventolin HFA) shortness of breath or wheezing #8.5 grams budesonide 0.5 mg/2 mL suspension See Rx Instructions .Route 07/31/23 05/12/24 Rx for nebulization .COMPLEX #60 ea formoterol fumarate 20 mcg/2 mL See Rx Instructions .Route 07/31/23 05/12/24 Rx solution for nebulization .COMPLEX #60 ea (Perforomist) Melatonin Tab 5mg Sun 60 See Rx Instructions .Route 08/07/23 05/12/24 Rx .COMPLEX #30 ea blood sugar diagnostic (OneTouch #100 strips 08/07/23 04/12/24 Rx Ultra Test strips) pen needle, diabetic 32 gauge x #100 ea 08/07/23 04/12/24 Rx 1/4 (UltiCare Pen Needle) empagliflozin 25 mg tablet See Rx Instructions .Route 11/04/23 05/12/24 Rx (Jardiance) .COMPLEX #90 tabs atorvastatin 80 mg tablet See Rx Instructions .Route 12/03/23 05/12/24 Rx .COMPLEX #90 tabs losartan 50 mg tablet See Rx Instructions .Route 01/07/24 05/12/24 Rx .COMPLEX #90 tabs flash glucose sensor (FreeStyle #1 ea 01/15/24 04/12/24 Rx Jan 14 Day Sensor kit) insulin glargine 100 unit/mL (3 See Rx Instructions .Route 01/27/24 05/12/24 Rx mL) subcutaneous pen (Lantus .COMPLEX #30 mL Solostar U-100 Insulin) cyclobenzaprine 10 mg tablet 10 mg PO .Bedtime #30 tabs 02/09/24 05/12/24 Rx hydrocodone 5 mg-acetaminophen 325 1 tablet PO QHS PRN pain #10 tabs 02/18/24 05/12/24 Rx mg tablet duloxetine 60 mg capsule,delayed See Rx Instructions .Route 03/04/24 05/12/24 Rx release .COMPLEX #30 caps gabapentin 400 mg capsule See Rx Instructions .Route 03/04/24 05/12/24 Rx .COMPLEX #60 caps cholecalciferol (vitamin D3) 50 See Rx Instructions .Route 03/07/24 05/12/24 Rx mcg (2,000 unit) capsule .COMPLEX #30 caps ferrous sulfate 325 mg (65 mg See Rx Instructions .Route 03/18/24 05/12/24 Rx iron) tablet .COMPLEX #180 tabs dulaglutide 4.5 mg/0.5 mL See Rx Instructions .Route 03/21/24 05/12/24 Rx subcutaneous pen injector .COMPLEX #6 mL (Trulicity) carvedilol 12.5 mg tablet See Rx Instructions .Route 03/22/24 05/12/24 Rx .COMPLEX #60 tabs dicyclomine 10 mg capsule See Rx Instructions .Route 03/22/24 05/12/24 Rx .COMPLEX #120 caps pantoprazole 40 mg tablet,delayed See Rx Instructions .Route 03/22/24 05/12/24 Rx release .COMPLEX #60 tabs fluticasone propionate 50 See Rx Instructions .Route 04/18/24 05/12/24 Rx mcg/actuation nasal .COMPLEX #16 grams spray,suspension naproxen 500 mg tablet See Rx Instructions .Route 04/25/24 05/12/24 Rx .COMPLEX #60 tabs insulin lispro 100 unit/mL See Rx Instructions .Route 05/10/24 05/12/24 Rx subcutaneous pen .COMPLEX #30 mL Lactobacillus acidophilus 1,000 mmu cell
--- NOTE | 2024-05-12 12:32 | PM.HPGS ---
History of Present Illness History of Present Illness Consent: Risks, benefits, and alternatives have been discussed and questions answered. Patient agrees to proceed with procedure. Chief complaint: TOLENTINO, Cirrhosis of liver, Esophageal varices Narrative: Pawan Ibarra is a 68 year old male with tolentino cirrhosis, last EGD 2021 with small size EV, no changes. Review of Systems Review of Systems: All systems reviewed & are unremarkable except as noted in HPI and below PMFSH Past Medical History Medical History Adenomatous colon polyp Cholelithiasis Chronic obstructive pulmonary disease Cirrhosis Secondary to TOLENTINO. Coronary artery disease Diabetic peripheral neuropathy Esophageal varices Gastroesophageal reflux disease Hyperlipidemia Hypertension Irritable bowel syndrome Lumbosacral radiculopathy Non-alcoholic fatty liver disease Obesity Obstructive sleep apnea on CPAP Paroxysmal atrial fibrillation Right hand paresthesia Type 2 diabetes mellitus Surgical History Surgical History History of bilateral inguinal hernia repair History of cardiac catheterization History of colonoscopy with polypectomy History of coronary artery stent placement History of laparoscopic cholecystectomy (12/14/23) History of partial nephrectomy Removal of benign left kidney tumor. History of repair of congenital cleft palate History of umbilical hernia repair Hx laparoscopic cholecystectomy 12/14/23 Dr. Blanco Family History Family History Father Carcinoma of colon Social History Social History Social History: Surrogate medical decision maker: Milo Ibarra, sibling. Code status: Full code Caffeine-tea Smoking status: Never smoker Second hand tobacco smoke exposure: No Alcohol intake: former Substance use: never Substance use type: does not use Do You Feel Safe in your Home?: No Lack of Transportation: No Lack of Food: Never True Current Housing: Decline to Answer Concerned About Future Housing: Decline to Answer Difficulty Paying Gas/Electric Bills: No Difficulty Paying for Meds: No Currently Unemployed: No Education: High School Diploma/GED Difficulty w/ Childcare or Family Care: No Living arrangements: alone Additional living arrangements comments: The patient lives in his own home. He has caregivers 5 days a week for 2 hours each day. Occupation/Education: retired Spiritual care concerns: No Meds Home Medications and Allergies Home Medications Medication Instructions Recorded Confirmed Type nitroglycerin 0.4 mg sublingual See Rx Instructions .Route 04/15/21 05/12/24 Rx tablet .COMPLEX #100 tabs aspirin 81 mg tablet,delayed 81 mg PO DAILY 02/20/22 05/12/24 History release (Adult Aspirin Regimen) flash glucose scanning reader 02/02/23 04/12/24 History (FreeStyle Jan 2 [place]) lancets 30 gauge (TRUEplus Lancets) #200 ea 06/09/23 04/12/24 Rx blood sugar diagnostic (FreeStyle #100 ea 06/17/23 04/12/24 Rx Test strips) albuterol sulfate 90 mcg/actuation 2 puff inhalation Q4H PRN 07/02/23 05/12/24 Rx aerosol inhaler (Ventolin HFA) shortness of breath or wheezing #8.5 grams budesonide 0.5 mg/2 mL suspension See Rx Instructions .Route 07/31/23 05/12/24 Rx for nebulization .COMPLEX #60 ea formoterol fumarate 20 mcg/2 mL See Rx Instructions .Route 07/31/23 05/12/24 Rx solution for nebulization .COMPLEX #60 ea (Perforomist) Melatonin Tab 5mg Sun 60 See Rx Instructions .Route 08/07/23 05/12/24 Rx .COMPLEX #30 ea blood sugar diagnostic (OneTouch #100 strips 08/07/23 04/12/24 Rx Ultra Test strips) pen needle, diabetic 32 gauge x #100 ea 08/07/23 04/12/24 Rx 1/4 (UltiCare Pen Needle) empagliflozin 25 mg tablet See
[2024-05-12 12:53] VITALS: BP 145/83; PULSE 82; RESP 20; O2SAT 95
[2024-05-12 13:03] VITALS: BP 147/90; PULSE 77; RESP 13; O2SAT 100
[2024-05-12 13:05] LABS: Glucose Point of Care 87 mg/dl (65-105)
[2024-05-12 13:09] LABS: Glucose Point of Care 98 mg/dl (65-105)
[2024-05-12 13:13] VITALS: BP 157/95; PULSE 73; RESP 12; O2SAT 100
--- NOTE | 2024-05-12 13:29 | SUR.PHASEII ---
Pt was assisted in dressing
== END 2024-05-12 13:28 | disposition home or self-care (01) ==
PROVIDERS: PCP Nurse Practitioner Family; Referring Provider Nurse Practitioner; Visit Provider Internal Medicine Gastroenterology
PROC: 0DJ08ZZ Inspection of Upper Intestinal Tract, Via Natural or Artificial Opening Endoscopic (ICD-10-PCS; CPT 43235; principal; 2024-05-12 13:00)
DX: K74.60 Unspecified cirrhosis of liver (principal); I85.00 Esophageal varices without bleeding; K75.81 Nonalcoholic steatohepatitis (NASH); I10 Essential (primary) hypertension; E78.5 Hyperlipidemia, unspecified; K58.9 Irritable bowel syndrome, unspecified; E11.9 Type 2 diabetes mellitus without complications; J44.9 Chronic obstructive pulmonary disease, unspecified; I25.10 Atherosclerotic heart disease of native coronary artery without angina pectoris; K21.9 Gastro-esophageal reflux disease without esophagitis; G47.33 Obstructive sleep apnea (adult) (pediatric); Z79.82 Long term (current) use of aspirin; Z79.51 Long term (current) use of inhaled steroids; Z79.84 Long term (current) use of oral hypoglycemic drugs; Z79.4 Long term (current) use of insulin; Z79.891 Long term (current) use of opiate analgesic; Z79.85 Long-term (current) use of injectable non-insulin antidiabetic drugs; Z79.1 Long term (current) use of non-steroidal anti-inflammatories (NSAID); Z99.89 Dependence on other enabling machines and devices; I48.0 Paroxysmal atrial fibrillation; Z86.010 Personal history of colon polyps; Z98.890 Other specified postprocedural states; Z95.5 Presence of coronary angioplasty implant and graft; Z90.49 Acquired absence of other specified parts of digestive tract; Z80.0 Family history of malignant neoplasm of digestive organs
CPT/HCPCS: 43235; 82948; J2704; J7120

== ENCOUNTER 2024-06-06 15:38 | Outpatient (CLI) | payer MEDICARE, MEDICAID, SELFPAY ==
[2024-06-06 16:16] LABS: Add Urine Microscopic? YES; Appearance Urine Clear (Clear); Bilirubin Urine 2+ (Negative); Blood Urine Negative (Negative); Color Urine Dark Yellow (Yellow); Glucose Urine UA 3+ (Negative); Ketones Urine Trace (Negative); Leukocyte Esterase Ur Negative LEU/UL (Negative); Nitrate Urine Negative (Negative); Protein Urine Trace (Negative); Specific Grav Ur >= 1.030 (1.010-1.020)
[2024-06-06 16:19] LABS: Basophils Absolute Auto 0.04 K/mm3 (0.00-0.10); Basophils Percent Auto 0.6 % (0.0-1.0); Eosinophils Absolute Auto 0.19 K/mm3 (0.02-0.50); Eosinophils Percent Auto 2.9 % (1.0-6.0); Hematocrit 46.1 % (37.0-46.0); Immature Granulocyte Absolute 0.04 K/mm3 (0.00-0.00); Immature Granulocyte Percent A 0.6 % (0.0-0.0); Lymphocytes Absolute Auto 1.53 K/mm3 (1.10-4.50); Mean Corpuscular HGB Conc 34.7 g/dL (32-36); Mean Corpuscular Hemoglobin 31.7 pg (27.0-31.0); Mean Corpuscular Volume 91.5 fL (78.0-102.0); Mean Platelet Volume 11.4 fl (8.7-11.0); Monocytes Absolute Auto 0.56 K/mm3 (0.10-0.90); Monocytes Percent Auto 8.4 % (2.0-11.0); Neutrophils Absolute Auto 4.28 K/mm3 (1.70-7.20); Neutrophils Percent Auto 64.5 % (50.0-70.0); Platelet Count Result 101 K/mm3 (150-420); Red Blood Count 5.04 M/mm3 (4.70-6.10); Red Cell Distribution Width 13.2 % (11.6-14.4); White Blood Count 6.6 K/mm3 (4.8-10.8)
[2024-06-06 17:02] LABS: Bacteria Urine Trace /hpf; Mucus Urine Heavy /lpf; RBC Urine None seen /hpf (0-2); Squamous Epithelial Cell Urine Moderate /hpf (Few); WBC Urine None seen /hpf (0-3)
[2024-06-07 18:36] LABS: Alanine Aminotransferase 29 U/L (16-63); Albumin Level 3.7 g/dL (3.4-5.0); Alkaline Phosphatase 119 U/L (46-116); Anion Gap 8 mmol/L (4-12); Aspartate Amino Transferase 26 U/L (15-37); Bilirubin,Total 0.7 mg/dL (0.00-1.00); Blood Urea Nitrogen 10 mg/dL (7-18); Calcium 8.7 mg/dL (8.5-10.1); Carbon Dioxide 28 mmol/L (21-32); Chloride 108 mmol/L (98-108); Estimated Glomerular Filt Rate > 60; Glucose 73 mg/dL (70-99); Osmolality Calculated 296 mOsm/kg (285-295); Potassium 4.4 mmol/L (3.5-5.1); Sodium 144 mmol/L (136-145); Total Protein 6.4 g/dL (6.4-8.2)
[2024-06-07 18:46] LABS: CRP < 0.5 mg/dL (0.0-0.9)
[2024-06-07 18:56] LABS: Creatinine Urine 385.19 mg/dL (40-278); MALB Creatinine Ratio 11.5 mg/g (0-30); Microalbumin Urine Random 44.5 mg/L
[2024-06-07 20:06] LABS: Hemoglobin A1C 5.7 % (<5.7)
== END 2024-06-06 15:39 | disposition home or self-care (01) ==
LOC: CHSLAB 15:40
PROVIDERS: PCP Nurse Practitioner Family; Visit Provider Nurse Practitioner Family
DX: E11.40 Type 2 diabetes mellitus with diabetic neuropathy, unspecified (principal); Z79.4 Long term (current) use of insulin; R10.31 Right lower quadrant pain; R42 Dizziness and giddiness
CPT/HCPCS: 36415; 80053; 81001; 82043; 83036; 85025; 85055; 86140

== ENCOUNTER 2024-07-22 13:11 | Outpatient (CLI) | payer MEDICARE, SELFPAY ==
[2024-07-22 13:24] LABS: Basophils Absolute Auto 0.03 K/mm3 (0.00-0.10); Basophils Percent Auto 0.4 % (0.0-1.0); Eosinophils Percent Auto 2.6 % (1.0-6.0); Hematocrit 47.2 % (37.0-46.0); Hemoglobin 16.4 g/dL (12.4-15.3); Immature Granulocyte Absolute 0.02 K/mm3 (0.00-0.00); Immature Granulocyte Percent A 0.3 % (0.0-0.0); Immature Platelet Fraction Pct 4.4 % (1.0-7.0); Lymphocytes Absolute Auto 1.34 K/mm3 (1.10-4.50); Lymphocytes Percent Auto 17.7 % (18.0-42.0); Mean Corpuscular HGB Conc 34.7 g/dL (32-36); Mean Corpuscular Hemoglobin 31.7 pg (27.0-31.0); Mean Corpuscular Volume 91.3 fL (78.0-102.0); Mean Platelet Volume 10.7 fl (8.7-11.0); Monocytes Absolute Auto 0.65 K/mm3 (0.10-0.90); Monocytes Percent Auto 8.6 % (2.0-11.0); Neutrophils Absolute Auto 5.31 K/mm3 (1.70-7.20); Neutrophils Percent Auto 70.4 % (50.0-70.0); Platelet Count Result 128 K/mm3 (150-420); Red Blood Count 5.17 M/mm3 (4.70-6.10); Red Cell Distribution Width 13.4 % (11.6-14.4); White Blood Count 7.6 K/mm3 (4.8-10.8)
[2024-07-22 14:14] LABS: Alanine Aminotransferase 45 U/L (16-63); Albumin Level 3.7 g/dL (3.4-5.0); Alkaline Phosphatase 132 U/L (46-116); Anion Gap 7 mmol/L (4-12); Aspartate Amino Transferase 36 U/L (15-37); Bilirubin,Total 0.8 mg/dL (0.00-1.00); Blood Urea Nitrogen 15 mg/dL (7-18); Carbon Dioxide 32 mmol/L (21-32); Chloride 102 mmol/L (98-108); Estimated Glomerular Filt Rate > 60; Glucose 97 mg/dL (70-99); Osmolality Calculated 292 mOsm/kg (285-295); Potassium 3.7 mmol/L (3.5-5.1); Sodium 141 mmol/L (136-145); Total Protein 6.8 g/dL (6.4-8.2)
== END 2024-07-22 13:12 | disposition home or self-care (01) ==
LOC: CHSLAB 13:12
PROVIDERS: PCP Nurse Practitioner Family; Visit Provider Nurse Practitioner Family
DX: N17.9 Acute kidney failure, unspecified (principal)
CPT/HCPCS: 36415; 80053; 85025; 85055

== ENCOUNTER 2024-09-02 11:57 | Outpatient (CLI) | payer MEDICARE, SELFPAY ==
[2024-09-02 12:26] LABS: Creatinine Urine 141.46 mg/dL (40-278); Ur Ttl Prot Creatinine Ratio 0.19 mg/mg (0-0.20)
[2024-09-02 12:31] LABS: Hemoglobin A1C 5.1 % (<5.7)
[2024-09-02 12:41] LABS: Albumin Level 3.6 g/dL (3.4-5.0); Anion Gap 7 mmol/L (4-12); Blood Urea Nitrogen 15 mg/dL (7-18); Calcium 8.6 mg/dL (8.5-10.1); Carbon Dioxide 32 mmol/L (21-32); Chloride 109 mmol/L (98-108); Estimated Glomerular Filt Rate > 60; Glucose 87 mg/dL (70-99); Osmolality Calculated 305 mOsm/kg (285-295); Phosphorus 3.6 mg/dL (2.6-4.7); Potassium 3.8 mmol/L (3.5-5.1); Sodium 148 mmol/L (136-145)
[2024-09-04 07:43] LABS: Complement C3 151 mg/dL (82-185)
[2024-09-04 09:32] LABS: Creatinine, Random Urine 129 mg/dL (20-320); Total Prot/Creat ratio mg/mg 0.109 (0.025-0.148); Total Protein/Creatinine Ratio 109 mg/g creat (25-148)
[2024-09-05 10:54] LABS: Anti Glomerular Basement Memb <1.0 AI
[2024-09-06 05:48] LABS: Protein, Total 6.6 g/dL (6.1-8.1)
[2024-09-06 15:39] LABS: Albumin 3.7 g/dL (3.8-4.8); Alpha 1 Globulin 0.3 g/dL (0.2-0.3); Alpha 2 Globulin 0.8 g/dL (0.5-0.9); Beta 1 Globulin 0.5 g/dL (0.4-0.6); Gamma Globulin 0.9 g/dL (0.8-1.7)
== END 2024-09-02 11:58 | disposition home or self-care (01) ==
LOC: CHSLAB 11:58
PROVIDERS: PCP Nurse Practitioner Family; Visit Provider Internal Medicine Nephrology
DX: E11.69 Type 2 diabetes mellitus with other specified complication (principal); Z79.4 Long term (current) use of insulin; R80.9 Proteinuria, unspecified; E11.29 Type 2 diabetes mellitus with other diabetic kidney complication
CPT/HCPCS: 36415; 80069; 82570; 83036; 83520; 84155; 84156; 84165; 84166; 86036; 86038; 86039; 86160; 86225

== ENCOUNTER 2024-09-07 11:50 | Outpatient (CLI) | payer MEDICARE, MEDICAID, SELFPAY ==
--- NOTE | ~2024-09-07 | US_ITS ---
Renal-Bladder ultrasound Clinical History: Diabetes Technique: Real-time sonographic imaging of the kidneys and urinary bladder was performed. Findings: The right kidney measures 10.4 cm in length and the left kidney measures 12.5 cm. There is no hydronephrosis or renal calculus identified. Renal cortical echogenicity is within normal limits. No renal mass lesion is identified. The urinary bladder is moderately distended at the time of this exam. No intraluminal echoes are iden tified. No abnormal wall thickening is seen. Enlarged spleen incidentally noted, measuring 16 cm in length. Impression: Unremarkable ultrasound of the kidneys and urinary bladder. Splenomegaly incidentally noted. Reviewed, dictated and finalized at location . CIATE PROFESSOR OF ARCHAEOLOGY Impression: Unremarkable ultrasound of the kidneys and urinary bladder. Splenomegaly incidentally noted.
== END 2024-09-07 11:51 | disposition home or self-care (01) ==
PROVIDERS: PCP Nurse Practitioner Family; Visit Provider Internal Medicine Nephrology
DX: R80.9 Proteinuria, unspecified (principal); E11.29 Type 2 diabetes mellitus with other diabetic kidney complication; R16.1 Splenomegaly, not elsewhere classified
CPT/HCPCS: 76775

== ENCOUNTER 2024-10-04 14:44 | Outpatient (RCR) | payer MEDICARE, MEDICAID, SELFPAY ==
--- NOTE | 2024-10-04 15:44 | OPREHPOC ---
Outpatient Therapy Plan of Care This is a Multidisciplinary Plan of Care that may contain components documented by all disciplines (PT, OT, and ST.) PT Problem 1 PT Problem #1 Knowledge Deficit PT Goal 1 Goal / Goal Update 1. independent and compliant with HEP Target Visit 6 PT Problem 2 PT Problem #2 Impaired Strength PT Goal 1 Goal / Goal Update 1. improve bilateral hip strength to 4+/5 or better overall 2. improve bilateral knee strength to 5/5 Target Visit 12 PT Problem 3 PT Problem #3 Impaired Balance PT Goal 1 Goal / Goal Update 1. TUG to be safely completed in 20 seconds or less 2. 5x sit to stand to be safely completed in under 15 seconds 3. tinetti to display low fall risk Target Visit 12 PT Problem 4 PT Problem #4 Impaired Functional Mobil PT Goal 1 Goal / Goal Update 1. patient to achieve 900ft ambulation in 6 minutes with WW and no rest breaks 2. patient to report no falls during time receiving skilled PT Target Visit 12
--- NOTE | 2024-10-04 15:44 | PTOPEVAL1 ---
Assessment and note entered by JT File, PT Evaluation Information Assessment Status Evaluation ICD-10 Condition Codes (PT) Repeated falls R29.6,Difficulty Walking R26.2, Weakness R53.1 Other ICD-10 Condition Codes ( W19.XXXA PT) Onset 09/21/24 Subjective Information patient reports he is coming to therapy for issues with his balance and walking. he has had several falls, and most recently fell yesterday. he reports his falls have resulted in bruises and skin injuries to the LE's. however, he has not his his head. he reports he lives in an apartment. he reports he is planning to move in to [facility] in december of next year. Reported Pain Level Pain Score 0: Self Report Assessment PT Clinical Summary mr. bonilla is a 69 yo man who presents to skilled PT services for evaluation and treatment of balance deficits and frequent falls. he presents today with a moderate fall risk per the tinetti, increased fall risk per the TUG and 5x sit to stand, and weakness of the LE's. he would benefit from continued skilled PT to improve his objective /functional deficits and improve his safety/ decrease fall risk to allow patient a greater quality of life. Plan of Care Interventions Gait Training,Neuro Re-education,Patient/Caregiver Educati,Therapeutic Activities,Therapeutic Exercise PT Services Indicated Yes Treatment Frequency and continue skilled PT 3x weekly for 12 visits Duration These treatments will address the objective and functional deficits as defined above. The patient will be advanced safely and appropriately in order for the patient to progress towards his/her prior level of function. Additional exercises will be introduced and as well as a comprehensive home exercise program upon discharge, if needed, ?to ensure carryover of functional gains achieved in the clinic. This treatment plan has been reviewed and agreement upon by the patient.
--- NOTE | 2024-10-07 14:46 | PCPTNOTE ---
Patient did not show up for scheduled appointment this date.
--- NOTE | 2024-10-24 16:18 | PTOPPROG ---
Assessment and note entered by [facility] Evaluation Information Assessment Status Progress ICD-10 Condition Codes (PT) Repeated falls R29.6,Difficulty Walking R26.2, Weakness R53.1 Other ICD-10 Condition Codes ( W19.XXXA PT) Onset 09/21/24 Subjective Information Pt. reports that he is doing better. He notices improved strength and denies any recent loss of balance. Assessment PT Clinical Summary Mr. Ibarra has attended a total of 10 treatment sessions. He has demonstrated improvements in balance and gait efficiency at this time. He has 2 remaining sessions on his POC. Recommend continued treatment per POC focusing on l.e. strength, balance and endurance Plan of Care Interventions Gait Training,Neuro Re-education,Patient/Caregiver Education,Therapeutic Activities,Therapeutic Exercise PT Services Indicated Yes Treatment Frequency and Continue with 2 remaining sessions on POC focusing Duration on strength and balance. These treatments will address the objective and functional deficits as defined above. The patient will be advanced safely and appropriately in order for the patient to progress towards his/her prior level of function. Additional exercises will be introduced and as well as a comprehensive home exercise program upon discharge, if needed, ?to ensure carryover of functional gains achieved in the clinic. This treatment plan has been reviewed and agreement upon by the patient.
--- NOTE | 2024-11-03 15:17 | OPREHPOC ---
Outpatient Therapy Plan of Care This is a Multidisciplinary Plan of Care that may contain components documented by all disciplines (PT, OT, and ST.) PT Problem 1 PT Problem #1 Knowledge Deficit PT Goal 1 Goal / Goal Update 1. independent and compliant with HEP Target Visit 6 Progress Met PT Problem 2 PT Problem #2 Impaired Strength PT Goal 1 Goal / Goal Update 1. improve bilateral hip strength to 4+/5 or better overall 2. improve bilateral knee strength to 5/5 Target Visit 12 Progress Partially Met PT Problem 3 PT Problem #3 Impaired Balance PT Goal 1 Goal / Goal Update 1. TUG to be safely completed in 20 seconds or less. met 2. 5x sit to stand to be safely completed in under 15 seconds. not met 3. tinetti to display low fall risk Target Visit 12 Progress Partially Met PT Problem 4 PT Problem #4 Impaired Functional Mobility PT Goal 1 Goal / Goal Update 1. patient to achieve 900ft ambulation in 6 minutes with WW and no rest breaks. not met 2. patient to report no falls during time receiving skilled PT. met Target Visit 12 Progress Partially Met
--- NOTE | 2024-11-03 15:17 | PTOPDC ---
Assessment and note entered by JT File, PT Evaluation Information Assessment Status Discharge ICD-10 Condition Codes (PT) Repeated falls R29.6,Difficulty Walking R26.2, Weakness R53.1 Other ICD-10 Condition Codes ( W19.XXXA PT) Onset 09/21/24 Subjective Information patient reports he feels Good today. he reports he has no pain. he reports he has had no falls since starting PT. Reported Pain Level Pain Score 0: Self Report Assessment PT Clinical Summary mr. bonilla presents to skilled PT services for his 12th skilled PT visit today. he displays improved balance and gait efficiency while having no falls since beginning PT treatments. patient het met HEP goal, and partially met all other goals. he will DC skilled PT to an independent HEP at this time. Plan of Care PT Services Indicated Yes
== END 2024-11-03 15:46 | disposition home or self-care (01) ==
LOC: CHSPT 14:44
PROVIDERS: Visit Provider Nurse Practitioner Family
DX: R53.1 Weakness (principal); W19.XXXA Unspecified fall, initial encounter
CPT/HCPCS: 97110; 97112; 97116; 97150; 97161; 97530

== ENCOUNTER 2024-10-13 06:11 | Outpatient (CLI) | payer MEDICARE, MEDICAID, SELFPAY ==
--- NOTE | ~2024-10-13 | US_ITS ---
Limited Abdominal Sonogram: Real-time sonographic imaging of the right upper quadrant was performed. Clinical History: Cirrhosis of liver Findings: The liver appears heterogeneous, with no evidence of mass lesion or bile duct dilatation. Main portal vein demonstrates normal direction of flow. The gallbladder is absent, compatible prior c holecystectomy. The common bile duct measures 3 mm. The visualized pancreas, aorta, and IVC are unre markable. Impression: Heterogeneous hepatic echotexture could reflect fatty infiltration or other chronic liver disease. Status post cholecystectomy. Reviewed, dictated and finalized at location . EL RIB MATTING MACHINE OPERATOR Impression: Heterogeneous hepatic echotexture could reflect fatty infiltration or other chr onic liver disease. Status post cholecystectomy.
== END 2024-10-13 06:12 | disposition home or self-care (01) ==
LOC: CHSIMG 06:13
PROVIDERS: PCP Family Medicine; Visit Provider Internal Medicine Gastroenterology
DX: K74.60 Unspecified cirrhosis of liver (principal); Z90.49 Acquired absence of other specified parts of digestive tract
CPT/HCPCS: 76705

== ENCOUNTER 2024-10-24 14:11 | Outpatient (CLI) | payer MEDICARE, MEDICAID, SELFPAY ==
--- NOTE | 2024-10-24 14:25 | ECG_ITS ---
Test Date: 2024-10-24 14:49:27 Measurements Intervals [place] Rate: 67 P: 71 MO: 188 QRS: 65 QRSD: 95 T: 73 QT: 388 QTc: 410 Interpretive Statements SINUS RHYTHM POSSIBLE ANTERIOR MYOCARDIAL INFARCTION , OF INDETERMINATE AGE [30 ms Q WAVE IN V3/V4, OR R < 0.2 mV IN V4] No previous ECG available for comparison Electronically Signed On 10-25-2024 15:05:01 FIRE RANGE TECHNICIAN by Davis Wetzel M.D.
[2024-10-24 14:26] LABS: Hematocrit 49.9 % (37.0-46.0); Hemoglobin 17.4 g/dL (12.4-15.3); Immature Platelet Fraction Pct 3.6 % (1.0-7.0); Mean Corpuscular HGB Conc 34.9 g/dL (32-36); Mean Corpuscular Hemoglobin 31.6 pg (27.0-31.0); Mean Corpuscular Volume 90.7 fL (78.0-102.0); Mean Platelet Volume 10.3 fl (8.7-11.0); Platelet Count Result 112 K/mm3 (150-420); Red Cell Distribution Width 12.6 % (11.6-14.4); White Blood Count 8.1 K/mm3 (4.8-10.8)
[2024-10-24 14:42] LABS: INR 1.2
[2024-10-24 14:46] LABS: Alanine Aminotransferase 31 U/L (16-63); Alkaline Phosphatase 123 U/L (46-116); Anion Gap 8 mmol/L (4-12); Aspartate Amino Transferase 23 U/L (15-37); Blood Urea Nitrogen 10 mg/dL (7-18); Calcium 9.2 mg/dL (8.5-10.1); Carbon Dioxide 32 mmol/L (21-32); Chloride 106 mmol/L (98-108); Estimated Glomerular Filt Rate > 60; Glucose 101 mg/dL (70-99); Osmolality Calculated 301 mOsm/kg (285-295); Potassium 4.4 mmol/L (3.5-5.1); Sodium 146 mmol/L (136-145); Total Protein 6.9 g/dL (6.4-8.2)
[2024-10-24 14:51] LABS: Troponin I 12.3 ng/L (0.00-60.4)
== END 2024-10-24 14:12 | disposition home or self-care (01) ==
LOC: CHSLAB 14:14
PROVIDERS: Internal Medicine Gastroenterology; PCP Family Medicine; Visit Provider Nurse Practitioner Family
DX: K74.60 Unspecified cirrhosis of liver (principal); E11.40 Type 2 diabetes mellitus with diabetic neuropathy, unspecified; Z79.4 Long term (current) use of insulin; R07.89 Other chest pain; R00.1 Bradycardia, unspecified
CPT/HCPCS: 36415; 80053; 84484; 85027; 85055; 85610; 93005

== ENCOUNTER 2024-11-09 16:43 | Outpatient (CLI) | payer MEDICARE, MEDICAID, SELFPAY ==
[2024-11-09 17:46] LABS: Alanine Aminotransferase 27 U/L (16-63); Albumin Level 4.1 g/dL (3.4-5.0); Alkaline Phosphatase 139 U/L (46-116); Anion Gap 6 mmol/L (4-12); Aspartate Amino Transferase 23 U/L (15-37); Bilirubin,Total 0.8 mg/dL (0.00-1.00); Blood Urea Nitrogen 11 mg/dL (7-18); Carbon Dioxide 32 mmol/L (21-32); Chloride 108 mmol/L (98-108); Estimated Glomerular Filt Rate > 60; Glucose 131 mg/dL (70-99); Osmolality Calculated 303 mOsm/kg (285-295); Potassium 4.7 mmol/L (3.5-5.1); Sodium 146 mmol/L (136-145); Total Protein 6.8 g/dL (6.4-8.2)
== END 2024-11-09 16:44 | disposition home or self-care (01) ==
LOC: CHSLAB 16:44
PROVIDERS: PCP Nurse Practitioner Family; Visit Provider Nurse Practitioner Family
DX: E87.8 Other disorders of electrolyte and fluid balance, not elsewhere classified (principal)
CPT/HCPCS: 36415; 80053

== ENCOUNTER 2024-12-26 15:05 | Outpatient (CLI) | payer MEDICARE, MEDICAID, SELFPAY ==
[2024-12-26 16:03] LABS: Add Urine Microscopic? YES; Appearance Urine Cloudy (Clear); Bilirubin Urine Negative (Negative); Blood Urine 2+ (Negative); Color Urine Red (Yellow); Glucose Urine UA 3+ (Negative); Ketones Urine Negative (Negative); Leukocyte Esterase Ur Trace (Negative); Nitrate Urine Positive (Negative); Protein Urine 1+ (Negative); Urobilinogen Urine 0.2 mg/dL (0.2-1.0)
[2024-12-26 16:09] LABS: RBC Urine >75 /hpf (0-2); Squamous Epithelial Cell Urine Rare /hpf (Few)
[2024-12-26 16:10] LABS: Bacteria Urine 1+ /hpf
--- OUTSIDE RECORDS SUMMARY | 2024-12-26 17:40 | XMS_ITS ---
Author Organization [facility] Address [address] [facility] [address] [place] [address] Care Team Providers Care Production Machine Computer Operator Name Role Phone Jose Caballero [phone] Encounters Encounter Location Date Provider Diagnosis [facility] Diabetes & Metabolism [address] [facility] [address] [place] [address] 11/18/2024 Jose Irlandakane Plan Of Treatment Next Appt Details Provider Name:Jose Caballero, 0 03/15/2025 11:45:00 AM, [address] [facility] [address], [place], [address], Provider Name:Jose Caballero, 0 04/06/2025 09:30:00 AM, [address] [facility] [address], [place], [address], Progress Notes * JOI PATDOB:[birth year] (69 yo F)Acc No.[id number]:11/18/2024 Patient: JOI ADEN Provider: Anastasia Caballero MD :1955 A ge:69 Y S ex:Female Date:11/18/2024 Address:[address] [facility], [place] Subjective: * Chief Complaints: * * Medical History: Objective: * Vitals: Assessment: Plan: * Treatment: * * Electronic signature of Jose Caballero MD on 12/26/2024 at 06:40 PM EST Sign off status: Pending * Provider: Anastasia Caballero MD Date: 0 11/18/2024 Generated for Printi ng/Faxing/eTransmitting on: 0 12/26/2024 06:40 PM EST
--- OUTSIDE RECORDS SUMMARY | 2024-12-26 17:40 | XMS_ITS | Encounter Summary ---
Author Organization [facility] Address [address] [place] [address] Care Team Providers Care Manager Medical Name Role Phone Raffy Ziegler MD Unavailable [phone] Evert Welch ROUTE RIDER SUPERVISOR Unavailable [phone] Mark Holbrook MD Unavailable [phone] Mikey Avendano DO Unavailable [phone] Lucia Paredes FISH TECHNOLOGIST Unavailable [phone] Lucia Paredes FISH TECHNOLOGIST Primary Care Provider [phone] Karina PIERSON MD, Gold Murphy Unavailable [phone] Encounter Details Date Type Department Care Team (Late st Contact Info) Description 12/01/2022 Abstract [facility] [address] [place], [place] [address] Evert Welch, ROUTE RIDER SUPERVISOR [address] [facility] [address] [address] Social History Tobacco Use Types Packs/Day Years Used Date Smoking Tobacco: Never Smokeless Tobacco: Never Alcohol Use Standard Drinks/Week Comments No 0 (1 standard drink = 0.6 oz pur e alcohol) Sex and Gender Information Value Date Recorded Sex Assigned at Male 12/13/2024 9:48 AM PAYROLL MASTER Legal Sex Male 6:15 PM CDT Gender Identity Not on file Sexual Orientation Not on file Occupation Industry Job Start Date Job End Date Retired Not on file Not on file Not on file Not on file Not on file Not on file Not on file documented as of this encounter Functional Status * RETIRED Are you deaf or do you have serious difficulty hearing Answer Date of Assessment Author Status No 12/15/2018 1:05 AM PAYROLL MASTER Activ e * RETIRED Are you blind or do you have serious difficulty seeing, even when wearing glasses? Answer Date of Assessment Author Status No 12/15/2018 1:05 AM PAYROLL MASTER Activ e * Do you have serious difficulty walking or climbing stairs? Answer Date of Assessment Author Status Yes 12/15/2018 1:05 AM Drew Kaiser RN Active * Do you have difficulty dressing or bathing? Answer Date of Assessment Author Status No 12/15/2018 1:05 AM Drew Kaiser RN Active * Because of a physical, mental, or emotional condition, do you have difficulty doing errands alone such as visiting a doctor's office or shopping? Answer Date of Assessment Author Status No 12/15/2018 1:05 AM Drew Kaiser RN Active documented as of this encounter Mental Status * Because of a physical, mental, or emotional condition, do you have serious difficulty concentrating, remembering, or making decisions? Answer Entry Date Author Status Yes 12/15/2018 1:05 AM Drew Kaiser RN Active documented in this encounter Plan of Treatment Upcoming Encounters Date Type Department Care Team (Late st Contact Info) Description 02/23/2025 3:00 PM CDT Office Visit [facility] [address] [place] [address] Christian Schaefer MD [address] [place] [address] documented as of this encounter Procedures Procedure Name Priority Date/Time Associated Diagnosis Comments CMP (ABSTRACTED LAB) Routine 11/12/2022 LIPID PANEL Routine 11/12/2022 CBC W/DIFF AUTOMATED Routine 11/12/2022 documented in this encounter Results * CBC W/DIFF AUTOMATED (11/12/2022) WBC 7.1 4.8 - 10.8 RBC 4.97 4.70 - 6.10 HGB 16.2 12.4 - 15.3 HCT 45.9 37.0 - 46.0 MCV 92.4 78 - 102 MCH 32.6 27 - 31 MCHC 35.3 32 - 36 RDW 12.6 11.6 - 14.4 PLT 121 150 - 420 MPV 10.3 8.7 - 11.0 NEUTROPHILS % 74.3 50 - 70 LYMPHOCYTES % 15.9 18 - 42 MONOCYTES % 7.3 2 - 11 EOSINOPHILS % 1.5 1.0 - 6.0 BASOPHILS % 0.7 0.0 - 1.0 MID CELLS % - - ABS. NEUTROPHILS 5.3 1.7 - 7.2 ABS. LYMPHOCYTES 1.13 1.10 - 4.50 ABS. MONOCYTES 0.52 0.10 - 0.90 ABS. BASOPHILS 0.05 0.00 - 0.10 ABS. MID CELLS - - 11/12/2022 us Default History Genericprovider LABORATORY Final Result * LIPID PANEL (11/12/2022) Pathologist [facility] CHOLESTEROL 292 0 - 200 HDL 34 40 - 60 TRIGLYCERIDES 643 0 - 150 NON HDL CHOLESTEROL - - CHOL/HDL RATIO - - LDL (CALCULATED) 129 <130 VLDL CALCULATION - - 11/12/2022 us Default History Genericprovider LABORATORY Final Result * CMP (ABSTRACTED LAB) (11/12/2022) Pathologist [facility] SODIUM S/P/B 136 136 - 145 POTASSIUM S/P/B 3.7 3.5 - 5.1 CHLORIDE S/P/B 97 98 - 108 CO2 32 21 - 32 BUN 13 7 - 18 CREATININE S/P/B 1.11 0.7 - 1.3 EGFR AFR. AMER. - <=90 EGFR NON-AFR. AMER. >60 <=90 CALCIUM S/P/B 8.5 GLUCOSE 473 70 - 99 mg/dL TOTAL PROTEIN S/P/B 7.1 6.4 - 8.2 ALBUMIN S/P/B 3.5 3.5 - 5.0 AST 20 3.4 - 5.0 ALT 32 16 - 63 ALKALINE PHOSPHATASE S/P/B 176 46 - 116 BILIRUBIN TOTAL S/P/B 0.8 0.00 - 1.00 11/12/2022 us Default History Genericprovider LAB-OUTSIDE/ABST RACTED Final Result documented in this encounter Visit Diagnoses Not on filedocumented in this encounter Care Teams Manager Medical Relationship Specialty Start Date End Date Mark Holbrook MD [address] [place] [address] PCP - Med Group - MSSP Attributed Provider 08/02/17 Lucia Paredes FNP [address] [place] [address] PCP - General NURSE PRACTITIONER 09/11/21 Raffy Ziegler MD [address] [place] [address] CARDIOVASCULAR DISEASE 05/07/16 Evert Welch APRN [address] [facility] [address] [address] Nurse Practitioner NURSE PRACTITIONER 04/27/19 Mikey Avendano DO [address] [place] [address] UROLOGY 06/18/20 Lucia Paredes FNP [address] [place] [address] NURSE PRACTITIONER 07/18/20 Gold Collins III, MD [address] [place] [id number] Consulting Physician Pain Medicine 02/15/24 documented as of this encounter
--- OUTSIDE RECORDS SUMMARY | 2024-12-26 17:40 | XMS_ITS | Clinical Summary ---
Author Organization [facility] Address [address] [place] [address] Care Team Providers Care Scientific Recruiter Name Role Phone Raffy Ziegler MD Unavailable [phone] Evert Welch APRN Unavailable [phone] Mark Holbrook MD Unavailable [phone] Mikey Avendano DO Unavailable [phone] Lucia Paredes GAS ATTENDANT Unavailable [phone] Lucia Paredes GAS ATTENDANT Primary Care Provider [phone] Karina PIERSON MD, Gold Murphy Unavailable [phone] Allergies Active Allergy Reactions Criticality Noted Date Comments Fish Oil Anaphylaxis High 02/06/2021 Tuna, not just tuna oil. Fish-Derived Products Shortness of Breath High 10/10 Medications pantoprazole 40 MG tablet Take 1 tablet (40 mg total) by mouth 2 (two) times daily. 4 11/11/19 17 Active naproxen 500 MG tablet Take 1 tablet (500 mg total) by mouth 2 (two) times daily. 3 11/14/19 17 Active mirtazapine 30 MG tablet Take 1 tablet (30 mg total) by mouth nightly at bedtime. at bedtime 3 10/09/20 16 Active ferrous sulfate 325 (65 FE) MG tablet Take 1 tablet (325 mg total) by mouth 2 (two) times daily. 4 11/14/19 17 Active gabapentin 400 MG capsule Take 1 capsule (400 mg total) by mouth 2 (two) times daily. 4 10/09/20 16 Active carbidopa-levod opa (SINEMET) 25-100 MG tabletIndicatio ns:1 tablet every 6 hour while awake Take 1 tablet by mouth. Indications: 1 tablet every 6 hour while awake 01/18/20 15 Active aspirin 325 MG tablet Take 1 tablet (325 mg total) by mouth daily. Active acetaminophen 325 MG tabletIndicatio ns:pain Take 500 mg by mouth every 6 (six) hours as needed for Pain. 12/19/19 19 Active betamethasone valerate cream 0.1 % cream 2 (two) times daily as needed. 9 11/16/19 18 Active fluticasone propionate 50 MCG/ACT nasal spray 2 sprays by Nasal route daily. 3 11/11/19 18 Active triamcinolone 0.1 % cream 2 (two) times daily. 0 0 18 Active VENTOLIN HFA 108 (90 Base) MCG/ACT inhaler inhale 2 puffs EVERY SIX HOURS NEEDED 3 06/15/20 18 Active insulin glargine 100 UNIT/ML injection (PEN)Indication s:160 units in the morning, 80 units at bedtime Inject 60 Units into the skin 2 (two) times daily. 12 pen 12/17/19 19 Active Additional Information Patient taking differently: 50 UnitsSubcutaneous 2 times daily,(No indications reported), Reported on 10/23/2022 insulin lispro 100 UNIT/ML injection (PEN)Indication s:70 units with breakfast, 70 units with lunch, 60 units with dinner Inject 40 Units into the skin 3 (three) times daily before meals. 12 pen 12/17/19 19 Active senna-docusate (SENOKOT-S) 8.6-50 MG tablet Take 1 tablet by mouth 2 (two) times daily. 04/06/20 17 Active losartan 50 MG tablet Take 1 tablet (50 mg total) by mouth daily. 11 05/17/20 19 Active hydrochlorothia zide 25 MG tablet Take 1 tablet (25 mg total) by mouth daily. 3 05/30/20 19 Active ranitidine 150 MG tablet Take 1 tablet (150 mg total) by mouth daily. 02/25/20 16 Active Insulin Aspart FlexPen 100 UNIT/ML Solution Pen-injector 32 Units 3 (three) times daily. Prior to meals 06/21/20 21 Active BIPAP MACHINEIndicati ons:Obstructive sleep apnea (adult) (pediatric) BiPAP. Inspiration pressure 23. Expiration pressure 16. Obstructive sleep apnea. G 47.33. Please provide patient with mask, harness, tubing, humidity and all supplies for BiPAP machine. 1 Units 07/14/20 21 Active OXYGEN CONCENTRATOR SUPPLY, DME,Indications :Chronic combined systolic and diastolic congestive heart failure ([facility]) Patient says he gets oxygen from the company. Please provide patient with lightweight portable oxygen concentrator 2 L/min for activity. 1 Device 07/31/20 22 Active empagliflozin (JARDIANCE) 25 MG tablet Take 1 tablet (25 mg total) by mouth daily. Active dulaglutide (TRULICITY) 4.5 MG/0.5ML injection (PEN) Inject 4.5 mg into the skin every 7 days. Active atorvastatin (LIPITOR) 80 MG tablet Take 1 tablet (80 mg total) by mouth nightly at bedtime. Activ e carvedilol (COREG) 12.5 MG tablet Take 1 tablet (12.5 mg total) by mouth 2 (two) times daily. 11/03/19 24 Active cetirizine (ZYRTEC) 10 MG tablet Take 1 tablet (10 mg total) by mouth daily. at bedtime 09/10/20 23 Active Cholecalciferol (VITAMIN D3) 50 MCG (1999) Cap Take 1 capsule by mouth daily. 11/03/19 24 Active Active Problems Problem Noted Date Diagnosed Date Chest discomfort 04/06/2024 Morbid (severe) obesity due to excess calories ([facility]) 12/11/2022 Dependence on supplemental oxygen 07/28/2022 COPD (chronic obstructive pu lmonary disease) ([facility]) 01/31/2021 GERD (gastroesophageal reflux disease) Hyperlipidemia 01/31/2021 Type 2 diabetes mellitus ([facility]) 01/31 Spondylosis without myelopat hy or radiculopathy, lumbar region 01/11/2021 Lumbar spondylosis 06/14/2020 Diastolic dysfunction 06/01/2019 Pulmonary hypertension ([facility]) 019 Physical deconditioning 06/01/2019 Adult BMI 40.0-44.9 kg/sq m ([facility]) Noncompliance with CPAP treatment 06/01/2019 Lateral epicondylitis of left elbow 04/21/2019 Sepsis ([facility]) 12/15/2018 SARBJIT (acute kidney injury) 12/15/2018 Orthostasis 12/15/2018 Acute encephalopathy 12/15/2018 Obstructive sleep apnea (adult) (pediatric) 11/04 Cor pulmonale (chronic) ([facility]) 2018 Stiffness of left hip, not elsewhere classified 08/11/2018 Chronic respiratory failure with hypoxia, on home O2 therapy ([facility]) 07/07/2018 Excessive daytime sleepiness 06/02/2018 Nocturnal hypoxia 06/02/2018 Elbow pain 04/19/2018 Pain in wrist 04/19/2018 Dyspnea on exertion 03/03/2018 Acute foot pain, left 12/02/2017 Degenerative tear of medial meniscus of left kne e 12/23/2016 Overview (11/06/2023): Transitioned From: Left knee pain Trigger middle finger of left hand 11/13/2016 Chronic hand pain, left 07/09/2016 Overview (11/06/2023): Transitioned From: Hand pain Osteoarthritis of hand, left 07/01/2016 DVT (deep venous thrombosis) ([facility]) 0 05/28/2016 Overview (11/06/2023): Transitioned From: Blood clot of vein in shoulder area, left; Description: LEFT arm Shoulder impingement, left 05/28/2016 Pain in left shoulder 08/09/2015 Lumbar pain 07/13/2015 Shoulder strain 06/11/2015 Acute carpal tunnel syndrome of right wrist 07/2015 Cervical radiculopathy 12/11/2014 Cervicalgia 11/14/2014 Numbness and tingling in right hand 11/14/2014 Adhesive bursitis of right shoulder 09/13/2014 Aftercare following surgery to body system 09/13 Biceps tendonitis on right 09/13/2014 Tachycardia Hypertension Dyslipidemia CAD (coronary artery disease) Resolved Problems Problem Noted Date Diagnosed Date Resolved Date Left heart failure with pres erved LV function ([facility]) 06/01/2019 07/11/2024 Intolerance of continuous po sitive airway pressure (CPAP) ventilation 06/01/2019 07/13/2020 Chronic systolic heart failu re ([facility]) 12/01/2018 07/11/2024 Encounter for counseling on use of CPAP 12/01/2018 07/13/2020 Difficulty with CPAP use 07/07/201806/2024 CHF (congestive heart failur e) ([facility]) 07/11/2024 Carotid artery disease 07/11 Encounters Date Type Department Care Team Description 12/20/2024 [facility] [address] [place] [address] Evert Welch, ACTIMIZE ARCHITECT Appointment Request 12/13/2024 10:00 AM LEGAL RESEARCHER Office Visit [place] [facility] [address] [place] [address] Evert Welch, ACTIMIZE ARCHITECT Follow Up (CAD, HTN, DLD) 12/13/2024 Travel 11/21/2024 Telephone [facility] [address] [place] [address] Evert Welch, ACTIMIZE ARCHITECT Information 11/08/2024 Telephone [id number] [address] [place] [address] Raffy Ziegler MD Reschedule 10/28/2024 Telephone [facility] [address] [place] [address] Raffy Ziegler MD Information 10/24/2024 Scan [facility] [address] [place] [address] Scanned, Doc Pccl ECG (SCAN); Lab (SCAN) from Last 3 Months Immunizations Name Administration Dates Next Due Influenza (Generic) 10/17/2012 Influenza Adult (Generic) 09/02/2018,08/14/2017 Pneumococcal (Pneumovax 23) 12/16/2018, 8,10/17/2012 Family History Medical History Relation Comments No Known Problems Brother 1 No Known Problems Brother 2 Cancer Father Heart Disease Father pacemaker Father Hyperlipidemia Mother Hypertension Mother No Known Problems Sister 1 No Known Problems Sister 2 No Known Problems Sister 3 Relation Status Comments Brother 1 Alive Brother 2 Alive Father (Age 80) Mother Alive Sister 1 Alive Sister 2 Alive Sister 3 Alive Social History Tobacco Use Types Packs/Day Years Used Date Smoking Tobacco: Never Smokeless Tobacco: Never Tobacco Cessation:Counseling Given: Not Answered Alcohol Use Standard Drinks/Week Comments No 0 (1 standard drink = 0.6 oz pur e alcohol) Sex and Gender Information Value Date Recorded Sex Assigned at Male 12/13/2024 9:48 AM LEGAL RESEARCHER Legal Sex Male 6:15 PM CDT Gender Identity Not on file Sexual Orientation Not on file Occupation Industry Job Start Date Job End Date Retired Not on file Not on file Not on file Not on file Not on file Not on file Not on file Last Filed Vital Signs Vital Sign Reading Time Taken Comments Blood Pressure 122/72 12/13/2024 10:36 AM LEGAL RESEARCHER Pulse 77 12/13/2024 9:59 AM LEGAL RESEARCHER Temperature 36.2 C (97.2 F) 01/01/2024 4:07 PM LEGAL RESEARCHER Respiratory Rate 18 12/13/2024 9:59 AM LEGAL RESEARCHER Oxygen Saturation 98% 12/13/2024 9:59 AM LEGAL RESEARCHER Inhaled Oxygen Concentration - - Weight 101.6 kg (224 lb) 12/13/2024 9:59 AM LEGAL RESEARCHER Height 175.3 cm (5' 9 ) 12/13/2024 9:59 AM LEGAL RESEARCHER Body Mass Index 33.08 12/13/2024 9:59 AM LEGAL RESEARCHER Plan of Treatment Upcoming Encounters Date Type Department Care Team (Late st Contact Info) Description 02/23/2025 3:00 PM CDT Office Visit [facility] Medical [facility] [place] [facility] [place] [place] [address] Christian Schaefer MD [address] [place] [address] Health Maintenance Due Date Last Done Comments ASCVD Statin 1955 Colorectal Cancer Screening Colonoscopy (10 Years) 1956 Kidney Health Evaluation 1956 Diabetes: Retinopathy Eye Exam 1974 DTaP, Tdap and Td Vaccines (1 - Tdap) 1975 Zoster Vaccines (1 of 2) 2006 RSV Immunization or 60+ Years (1 - Risk 60-74 years 1-dose series) 2016 Hemoglobin A1C 09/10/2019 03/10/2019, 12/03, 08/27/2018, Additional history exists Pneumococcal Vaccine: 65+ Years (2 of 2 - PCV) 12/16/2019 12/16/2018, 09/02/2018, 10/17/2012 Annual Medicare Wellness Visit 2021 COVID-19 Vaccine ( season) 2024 Influenza Adult (#1) 2024 09/02/2018, 08/14/2017, 10/17/2012 PHQ-2 (Physician [place]) 11/02/2024 Lipid Panel 07/16/2025 07/16/2024, 11/02, 11/25/2021, Additional history exists Hepatitis C Completed 02/06/2021, 08/27/2018 Meningococcal B Vaccine Aged Out No l onger eligible based on patient's age to complete this topic Meningococcal Vaccine Aged Out No patricio umang eligible based on patient's age to complete this topic RSV Immunizations Under 20 Months Aged Out No longer eligible based on patient's age to complete this topic Procedures Procedure Name Priority Date/Time Associated Diagnosis Comments ECG GENERIC (SCAN ORDER) Routine 10/24/2024 OUTSIDE LAB (SCAN ORDER) Routine 10/24/2024 LIPID PANEL Routine 07/16/2024 9:58 AM CDT Dyslipidemia HEMOGLOBIN, GLYCOSYLATED Routine 03/10/2019 11:55 AM CDT HEPATITIS PANEL,ACUTE Routine 08/27/2018 2:36 PM CDT from Last 3 Months or Most Recently Relevant to Health Maintenance Results * ECG (10/24/2024) us Doc Pccl Scanned SCANNING Final Result [facility] ON[facility] * OUTSIDE LAB (10/24/2024) 10/24/2024 us Doc Pccl Scanned SCANNING Final Result [facility] * (ABNORMAL) LIPID PANEL (07/16/2024 9:58 AM CDT) CHOLESTEROL 120 MG/DL 07/17/2024 11:[address] [facility] Comment:DESIRABLE: <200 TRIGLYCERIDES 122 MG/DL 07/17/2024 11:[address] [facility] Comment:<150 NORMAL HDL 37(L) >39 MG/DL 07/17/2024 11:[address] [facility] LDL-C 59 MG/DL 07/17/2024 11:[address] [facility] Comment:<100 OPTIMAL VLDL CALCULATION 24 MG/DL 07/17/20 24 11:[address] [facility] Comment:REFERENCE RANGE NOT ESTABLISHED CHOL/HDL RATIO 3.2 07/17/2024 11:[address] [facility] Comment:REFERENCE RANGE NOT ESTABLISHED LDL/HDL 1.6 07/17/2024 11:[address] [facility] Comment:REFERENCE RANGE NOT ESTABLISHED NON HDL CHOLESTEROL 83 MG/DL 07/17/2024 11:[address] [facility] Comment:REFERENCE RANGE NOT ESTABLISHED 07/16/2024 9:58 AM CDT Evert Welch ACTIMIZE ARCHITECT LABORATORY Final R esult [facility] [address] [place] [address], [id number] * (ABNORMAL) HEMOGLOBIN, GLYCOSYLATED (03/10/2019 11:55 AM CDT) HGB A1C 7.7(H) <5.7 % 03/10/2019 12:12 PM CDT [facility] Comment: 5.7 TO 6.4% INCREASED RISK OF DIABETES> OR = 6.5% CONSISTENT WITH DIABETESPER ADA GUIDELINES ESTIMATED AVG GLUCOSE 174(H) 70 - 140 MG/DL 03/10/2019 12:12 PM CDT [facility] 03/10/2019 11:5 5 AM CDT 03/10/2019 11:56 AM CDT us Generic Conversion Md [facility] Final R esult [facility] [address] [place] [address], * HEPATITIS PANEL,ACUTE (08/27/2018 2:36 PM CDT) HEPATITIS B SURFACE AG NON-REACT BEHZAD NON-REACT BEHZAD 08/30/2018 11:[address] [facility] Comment:HBsAg NOT DETECTED. HEP B CORE IGM NON-REACT BEHZAD NON-REACT BEHZAD 08/30/2018 11:[address] [facility] Comment: IgM ANTI HBc NOT DETECTED. DOES NOT EXCLUDE THE POSSIBILITY OF EXPOSURE TO OR INFECTION WITH HBV. NO RETEST REQUIRED.HIGH DOSES OF BIOTIN MAY INTERFERE WITH THIS TEST RESULT. CORRELATION TO CLINICAL HISTORY AND PRESENTATION RECOMMENDED. HAV IGM NON-REACT BEHZAD NON-REACT BEHZAD 08/30/2018 11:[address] [facility] Comment: IgM ANTI HAV NOT DETECTED. DOES NOT EXCLUDE THE POSSIBILITY OF EXPOSURE TO OR INFECTION WITH HAV. LEVELS OF IgM ANTI HAV MAY BE BELOW THE CUTOFF IN EARLY INFECTION. HEPATITIS C AB NON-REACT BEHZAD NON-REACT BEHZAD 08/30/2018 11:[address] [facility] Comment: ANTIBODIES TO HCV NOT DETECTED. DOES NOT EXCLUDE THE POSSIBILITY OF EXPOSURE TO HCV. 08/27/2018 2:36 PM CDT 08/27/2018 2:46 PM CDT us Generic Conversion Md [facility] Final R esult [facility] [address] [place] [address], [id number] from Last 3 Months or Most Recently Relevant to Health Maintenance Insurance [facility] Advance Directives * Full Code (Latest Code Status on File) Date Activated Date Inactivated Comments 12/15/2018 7:36 AM 12/18/2018 12:18 AM Care Teams Scientific Recruiter Relationship Specialty Start Date End Date Mark Holbrook MD [address] [place] [address] PCP - Med Group - MSSP Attributed Provider 08/02/17 Lucia Paredes FNP [address] [place] [address] PCP - General NURSE PRACTITIONER 09/11/21 Raffy Ziegler MD [address] [place] [address] CARDIOVASCULAR DISEASE 05/07/16 Evert Welch APRN [address] [facility] [address] [place] [address] Nurse Practitioner NURSE PRACTITIONER 04/27/19 Mikey Avendano DO [address] [place] [address] UROLOGY 06/18/20 Lucia Paredes FNP [address] [place] [address] NURSE PRACTITIONER 07/18/20 Gold Collins III, MD [address] [place] [address] Consulting Physician Pain Medicine 02/15/24
--- OUTSIDE RECORDS SUMMARY | 2024-12-26 17:41 | XMS_ITS | Encounter Summary ---
Author Organization [facility] Address [address] [place] [address] Care Team Providers Care Stereotype Finisher Name Role Phone Raffy Ziegler MD Unavailable +[phone] Evert Welch GUN TESTER Unavailable + [phone] Mark Holbrook MD Unavailable [phone] Mikey Avendano DO Unavailable +[phone] Lucia Paredes BAG SHAKER Unavailable +[phone] Lucia Paredes BAG SHAKER Primary Care Provider +[phone] Karina PIERSON MD, Gold Murphy Unavailable [phone] Encounter Details Date Type Department Care Team (Late st Contact Info) Description 12/03/2021 Abstract [facility] [address] [place], [place] [address] Evert Welch, GUN TESTER [address] [facility] [address] [address] Social History Tobacco Use Types Packs/Day Years Used Date Smoking Tobacco: Never Smokeless Tobacco: Never Alcohol Use Standard Drinks/Week Comments No 0 (1 standard drink = 0.6 oz pur e alcohol) Sex and Gender Information Value Date Recorded Sex Assigned at Male 12/13/2024 9:48 AM PRODUCT DESIGN MANAGER Legal Sex Male 6:15 PM CDT Gender Identity Not on file Sexual Orientation Not on file Occupation Industry Job Start Date Job End Date Retired Not on file Not on file Not on file Not on file Not on file Not on file Not on file COVID-19 Exposure Response Date Recorded In the last month, have you been in contact with someone who was confirmed or suspected to have Coronavirus / COVID-19? No / Unsure 11/13/2021 2:42 PM PRODUCT DESIGN MANAGER documented as of this encounter Functional Status * RETIRED Are you deaf or do you have serious difficulty hearing Answer Date of Assessment Author Status No 12/15/2018 1:05 AM PRODUCT DESIGN MANAGER Activ e * RETIRED Are you blind or do you have serious difficulty seeing, even when wearing glasses? Answer Date of Assessment Author Status No 12/15/2018 1:05 AM PRODUCT DESIGN MANAGER Activ e * Do you have serious [...] Description 02/23/2025 3:00 PM CDT Office Visit [facility] Medical [facility] [address] [place] [address] Christian Schaefer MD [address] [place] [address] documented as of this encounter Procedures Procedure Name Priority Date/Time Associated Diagnosis Comments LIPID PANEL Routine 11/25/2021 documented in this encounter Results * LIPID PANEL (11/25/2021) CHOLESTEROL 115 0 - 200 HDL 30 40 - 60 TRIGLYCERIDES 122 0 - 150 NON HDL CHOLESTEROL -- CHOL/HDL RATIO -- LDL (CALCULATED) 61 <130 VLDL CALCULATION -- 11/25/2021 us Doc [facility] Final Result documented in this encounter Visit Diagnoses Not on filedocumented in this encounter Care Teams Stereotype Finisher Relationship Specialty Start Date End Date Mark Holbrook MD [address] [place] [address] PCP - Med Group - MSSP Attributed Provider 08/02/17 Lucia Paredes FNP [address] [place] [address] PCP - General NURSE PRACTITIONER 09/11/21 Raffy Ziegler MD [address] [place] [address] CARDIOVASCULAR DISEASE 05/07/16 Evert Welch APRN 9 [facility] [address] [address] Nurse Practitioner NURSE PRACTITIONER 04/27/19 Mikey Avendano DO [address] [place] [address] UROLOGY 06/18/20 Lucia Paredes FNP [address] [place] [address] NURSE PRACTITIONER 07/18/20 Gold Collins III, MD [address] [place] [phone] Consulting Physician Pain Medicine 02/15/24 documented as of this encounter
--- OUTSIDE RECORDS SUMMARY | 2024-12-26 17:41 | XMS_ITS ---
Author Organization [facility] Address [address] [facility] [address] [place] [address] Care Team Providers Care Pipe Line Repairer Name Role Phone Jose Caballero [phone] Encounters Encounter Location Date Provider Diagnosis [facility] Endocrinology Diabetes & Metabolism [address] [facility] [address] [place] [address] 09/28/2024 Jose Ada Plan Of Treatment Next Appt Details Provider Name:Jose Caballero, 0 03/15/2025 11:45:00 AM, [address] [facility] [address], [address], [place], [address], Provider Name:Joes Caballero, 0 04/06/2025 09:30:00 AM, [address] [facility] [address], [address], [place], [address], Progress Notes * JOI PATDOB:[birth year] (69 yo F)Acc No.[id number]:09/28/2024 Patient: JOI ADEN Provider: Anastasia Caballero MD :1955 A ge:69 Y S ex:Female Date:09/28/2024 Address:[address] [facility], [address], [place] Subjective: * Chief Complaints: * * Medical History: Objective: * Vitals: Assessment: Plan: * Treatment: * * Electronic signature of Jose Caballero MD on 12/26/2024 at 06:41 PM EST Sign off status: Pending * Provider: Anastasia Caballero MD Date: 1 11/28/2023 Generated for Printi ng/Faxing/eTransmitting on: 0 12/26/2024 06:41 PM EST
--- OUTSIDE RECORDS SUMMARY | 2024-12-26 17:41 | XMS_ITS ---
Author Organization [facility]in[facility] Diabetes [facility] Address [address] [facility] [address] [place] [address] Care Team Providers Care Labor Relations Analyst Name Role Phone Jose Caballero [phone] Encounters Encounter Location Date Provider Diagnosis [facility] Endocrinology Diabetes & Metabolism [address] [facility] [address] [place] [address] 05/18/2024 Jose Ada Plan Of Treatment Next Appt Details Provider Name:Jose Caballero, 0 03/15/2025 11:45:00 AM, [address] [facility] [address], [address], [place], [address], Provider Name:Jose Caballero, 0 04/06/2025 09:30:00 AM, [address] [facility] [address], [address], [place], [address], Progress Notes * JOI PATDOB:[birth year] (69 yo F)Acc No.[id number]:05/18/2024 Patient: JOI ADEN Provider: Anastasia Caballero MD :1955 A ge:68 Y S ex:Female Date:05/18/2024 Address:[address] [facility], [address], [place] Subjective: * Chief Complaints: * * Medical History: Objective: * Vitals: Assessment: Plan: * Treatment: * * Electronic signature of Jose Caballero MD on 12/26/2024 at 06:40 PM EST Sign off status: Pending * Provider: Anastasia Caballero MD Date: 0 05/18/2024 Generated for Printi ng/Faxing/eTransmitting on: 0 12/26/2024 06:40 PM EST
--- OUTSIDE RECORDS SUMMARY | 2024-12-26 17:41 | XMS_ITS | Encounter Summary ---
Author Organization [facility] Address [address] [place] [address] Care Team Providers Care Keg Washer Name Role Phone Raffy Ziegler MD Unavailable [phone] Evert Welch TAFE REGISTRAR Unavailable [phone] Mark Holbrook MD Unavailable [phone] Mikey Avendano DO Unavailable [phone] Lucia Paredes SENIOR ENGINEERING MANAGER Unavailable +[phone] Lucia Paredes SENIOR ENGINEERING MANAGER Primary Care Provider [phone] Karina PIERSON MD, Gold Murphy Unavailable [phone] Encounter Details Date Type Department Care Team (Late st Contact Info) Description 01/10/2016 Abstract [facility] [address] [place] [address] Shelli Coronel NP [address] [place] [address] Social History Tobacco Use Types Packs/Day Years Used Date Smoking Tobacco: Never Alcohol Use Standard Drinks/Week Comments No 0 (1 standard drink = 0.6 oz pur e alcohol) Sex and Gender Information Value Date Recorded Sex Assigned at Male 12/13/2024 9:48 AM PLANER OPERATOR Legal Sex Male 6:15 PM CDT Gender Identity Not on file Sexual Orientation Not on file Occupation Industry Job Start Date Job End Date Retired Not on file Not on file Not on file documented as of this encounter Plan of Treatment Upcoming Encounters Date Type Department Care Team (Late st Contact Info) Description 02/23/2025 3:00 PM CDT Office Visit [facility] Medical [facility] Pul[facility]ty Clinic [address] [place] [address] Christian Schaefer MD [address] [place] [address] documented as of this encounter Visit Diagnoses Not on filedocumented in this encounter Care Teams Keg Washer Relationship Specialty Start Date End Date Mark Holbrook MD [address] [place] [address] PCP - Med Group - MSSP Attributed Provider 08/02/17 Lucia Paredes FNP [address] [place] [address] PCP - General NURSE PRACTITIONER 09/11/21 Raffy Ziegler MD [address] [place] [address] CARDIOVASCULAR DISEASE 05/07/16 Evert Welch APRN [address] [facility] [address] [place] [address] Nurse Practitioner NURSE PRACTITIONER 04/27/19 Mikey Avendano DO [address] [place] [address] UROLOGY 06/18/20 Lucia Paredes FNP [address] [place] [address] NURSE PRACTITIONER 07/18/20 Gold Collins III, MD [address] [place] [phone] Consulting Physician Pain Medicine 02/15/24 documented as of this encounter
--- OUTSIDE RECORDS SUMMARY | 2024-12-26 17:41 | XMS_ITS | Encounter Summary ---
Author Organization [facility] Address [address] [place] [address] Care Team Providers Care Civil Engineer Helper Name Role Phone Raffy Ziegler MD Unavailable + [phone] Evert eWlch AVIATION OPERATIONS SPECIALIST Unavailable [phone] Mark Holbrook MD Unavailable [phone] Mikey Avendano DO Unavailable [phone] Lucia Paredes TRIM MOUNTER Unavailable +[phone] Lucia Paredes TRIM MOUNTER Primary Care Provider [phone] Karina PIERSON MD, Gold Murphy Unavailable [phone] Encounter Details Date Type Department Care Team (Late Contact Info) Description 01/16/2018 Abstract [facility] [address] [place] [address] , Rose Mary Lenz MD Social History Tobacco Use Types Packs/Day Years Used Date Smoking Tobacco: Never Smokeless Tobacco: Never Alcohol Use Standard Drinks/Week Comments No 0 (1 standard drink = 0.6 oz pur e alcohol) Sex and Gender Information Value Date Recorded Sex Assigned at Male 12/13/2024 9:48 AM RESISTANCE WELDING MACHINE OPERATOR Legal Sex Male 6:15 PM CDT Gender Identity Not on file Sexual Orientation Not on file Occupation Industry Job Start Date Job End Date Retired Not on file Not on file Not on file Not on file Not on file Not on file Not on file documented as of this encounter Plan of Treatment Upcoming Encounters Date Type Department Care Team (Late Contact Info) Description 02/23/2025 3:00 PM CDT Office Visit [facility] Medical Group Pulmonology Specialty Clinic [place] [address] [place] [place] [address] Christian Schaefer MD [address] [place] [address] documented as of this encounter Visit Diagnoses Not on filedocumented in this encounter Care Teams Civil Engineer Helper Relationship Specialty Start Date End Date Mark Holbrook MD [address] [place] [address] PCP - Med Group - MSSP Attributed Provider 08/02/17 Lucia Paredes FNP [address] [place] [address] PCP - General NURSE PRACTITIONER 09/11/21 Raffy Ziegler MD [address] [place] [address] CARDIOVASCULAR DISEASE 05/07/16 Evert Welch APRN 9 [facility] [address] [address] Nurse Practitioner NURSE PRACTITIONER 04/27/19 Mikey Avendano DO [address] [place] [address] UROLOGY 06/18/20 Lucia Paredes FNP [address] [place] [address] NURSE PRACTITIONER 07/18/20 Gold Collins III, MD [address] [place] [address] Consulting Physician Pain Medicine 02/15/24 documented as of this encounter
--- OUTSIDE RECORDS SUMMARY | 2024-12-26 17:41 | XMS_ITS | Encounter Summary ---
Author Organization [facility] Address [address] [place] [address] Care Team Providers Care Remote Sensing Scientist Name Role Phone Raffy Ziegler MD Unavailable + [phone] Evert Welch APRN Unavailable [phone] Mark Holbrook MD Unavailable [phone] Mikey Avendano DO Unavailable [phone] Lucia Paredes INSTRUMENT REPAIR SUPERVISOR Unavailable +[phone] Lucia Paredes INSTRUMENT REPAIR SUPERVISOR Primary Care Provider [phone] Karina PIERSON MD, Gold Murphy Unavailable [phone] Encounter Details Date Type Department Care Team (Latest Contact Info) Description 06/30/2018 Abstract [facility] Medical Group Mark Holbrook MD [address] [place], [place] [address] Social History Tobacco Use Types Packs/Day Years Used Date Smoking Tobacco: Never Smokeless Tobacco: Never Alcohol Use Standard Drinks/Week Comments No 0 (1 standard drink = 0.6 oz pur e alcohol) Sex and Gender Information Value Date Recorded Sex Assigned at Male 12/13/2024 9:48 AM CIRCUIT WALKER Legal Sex Male 6:15 PM CDT Gender Identity Not on file Sexual Orientation Not on file Occupation Industry Job Start Date Job End Date Retired Not on file Not on file Not on file Not on file Not on file Not on file Not on file documented as of this encounter Plan of Treatment Upcoming Encounters Date Type Department Care Team ( st Contact Info) Description 02/23/2025 3:00 PM CDT Office Visit [facility] Medical Group Pul[facility] [address] [facility] [place] [address] Christian Schaefer MD [address] [place] [address] documented as of this encounter Visit Diagnoses Not on filedocumented in this encounter Care Teams Remote Sensing Scientist Relationship Specialty Start Date End Date Mark Holbrook MD [address] [place] [address] PCP - Med Group - MSSP Attributed Provider 08/02/17 Lucia Paredes FNP [address] [place] [address] PCP - General NURSE PRACTITIONER 09/11/21 Raffy Ziegler MD [address] [place] [address] CARDIOVASCULAR DISEASE 05/07/16 Evert Welch APRN 619 [facility] [address] [place] [address] Nurse Practitioner NURSE PRACTITIONER 04/27/19 Mikey Avendano DO [address] [place] [address] UROLOGY 06/18/20 Lucia Paredes FNP [address] [place] [address] NURSE PRACTITIONER 07/18/20 Gold Collins III, MD [address] [place] [phone] Consulting Physician Pain Medicine 02/15/24 documented as of this encounter
--- OUTSIDE RECORDS SUMMARY | 2024-12-26 17:41 | XMS_ITS | Patient Health Record ---
Author Organization [facility] Address [address] [facility] [address] [place] [address] Care Team Providers Care Wireless Watcher Name Role Phone Jose Caballero Unavailable [phone] Reason For Referral No Information Encounters Encounter Location Date Provider Diagnosis [facility] Endocrinology Diabetes & Metabolism [address] [facility] [address] [place] [address] 02/01/2024 Jose Caballero [facility] Endocrinology Diabetes & Metabolism [address] [facility] [address] [place] [address] 11/18/2024 Jose Caballero Plan Of Treatment Next Appt Details Provider Name:Jose Caballero, Nayely 03/15/2025 11:45:00 AM, [address] [place] [address], [address], [place], [address], Provider Name:Jose Caballero 0 04/06/2025 09:30:00 AM, [address] [place] [address], [address], [place], [address],
--- OUTSIDE RECORDS SUMMARY | 2024-12-26 17:41 | XMS_ITS | Encounter Summary ---
Author Organization [facility] Address [address] [place] [address] Care Team Providers Care Postal Superintendent Name Role Phone Raffy Ziegler MD Unavailable + [phone] Evert Welch ANTHROPOLOGY AND ARCHEOLOGY INSTRUCTOR Unavailable + [phone] Mark Holbrook MD Unavailable [phone] Mikey Avendano DO Unavailable [phone] Lucia Paredes COORDINATOR MINING PRODUCTS Unavailable [phone] Lucia Paredes COORDINATOR MINING PRODUCTS Primary Care Provider [phone] Karina PIERSON MD, Gold Murphy Unavailable + [phone] Encounter Details Date Type Department Care Team (Late st Contact Info) Description 04/09/2019 Abstract [facility] [address] [place] [address] , Generic MD Yoanna Social History Tobacco Use Types Packs/Day Years Used Date Smoking Tobacco: Never Smokeless Tobacco: Never Alcohol Use Standard Drinks/Week Comments No 0 (1 standard drink = 0.6 oz pur e alcohol) Sex and Gender Information Value Date Recorded Sex Assigned at Male 12/13/2024 9:48 AM MACHINIST BRAKE Legal Sex Male 6:15 PM CDT Gender [...] Assessment Author Status No 12/15/2018 1:05 AM MACHINIST BRAKE Activ e * RETIRED Are you blind or do you have serious difficulty seeing, even when wearing glasses? Answer Date of Assessment Author Status No 12/15/2018 1:05 AM MACHINIST BRAKE Activ e * Do you have serious [...] Description 02/23/2025 3:00 PM CDT Office Visit [facility] Medical Group Pul[facility]ty Clinic [address] [place] [address] Christian Schaefer MD [address] [place] [address] documented as of this encounter Visit Diagnoses Not on filedocumented in this encounter Care Teams Postal Superintendent Relationship Specialty Start Date End Date Mark Holbrook MD [address] [place] [address] PCP - Med Group - MSSP Attributed Provider 08/02/17 Lucia Paredes FNP [address] [place] [address] PCP - General NURSE PRACTITIONER 09/11/21 Raffy Ziegler MD [address] [place] [address] CARDIOVASCULAR DISEASE 05/07/16 Evert Welch APRN [address] [facility] [address] [place] [address] Nurse Practitioner NURSE PRACTITIONER 04/27/19 Mikey Avendano DO [address] [place] [address] UROLOGY 06/18/20 Lucia Paredes FNP [address] [place] [address] NURSE PRACTITIONER 07/18/20 Gold Collins III, MD [address] [place] [address] Consulting Physician Pain Medicine 02/15/24 documented as of this encounter
== END 2024-12-26 15:06 | disposition home or self-care (01) ==
LOC: CHSLAB 15:06
PROVIDERS: PCP Nurse Practitioner Family; Visit Provider Nurse Practitioner Family
DX: R31.9 Hematuria, unspecified (principal)
CPT/HCPCS: 81001

== ENCOUNTER 2025-01-09 10:40 | Outpatient (CLI) | payer MEDICARE, MEDICAID, SELFPAY ==
[2025-01-09 11:10] LABS: Add Urine Microscopic? NO; Appearance Urine Clear (Clear); Bilirubin Urine Negative (Negative); Blood Urine Negative (Negative); Color Urine Light Yellow (Yellow); Glucose Urine UA 3+ (Negative); Ketones Urine Negative (Negative); Leukocyte Esterase Ur Negative LEU/UL (Negative); Nitrate Urine Negative (Negative); Protein Urine Negative (Negative); Urobilinogen Urine 0.2 mg/dL (0.2-1.0)
--- OUTSIDE RECORDS SUMMARY | 2025-01-09 12:35 | XMS_ITS ---
Author Organization [facility]ocrinolog [facility] Diabetes & Met[facility] Address [address] [facility] [address] [place] [address] Care Team Providers Care Auto Driver Name Role Phone Jose Caballero [phone] Encounters Encounter Location Date Provider Diagnosis [facility] Endocrinology Diabetes & Metabolism [address] [facility] [address] [place] [address] 09/28/2024 Olayinkaluis fernando Caballero Plan Of Treatment Next Appt Details Provider Name:Jose Caballero, 0 03/15/2025 11:45:00 AM, [address] [facility] [address], [place], [address], Provider Name:Jose Caballero, 0 04/06/2025 09:30:00 AM, [address] [facility] [address], [place], [address], Progress Notes * JOI PATDOB:[birth year] (69 yo F)Acc No.[id number]:09/28/2024 Patient: JOI ADEN Provider: Anastasia Caballero MD :1955 A ge:69 Y S ex:Female Date:09/28/2024 Address:[address] [facility], [address], [place] Subjective: * Chief Complaints: * * Medical History: Objective: * Vitals: Assessment: Plan: * Treatment: * * Electronic signature of Jose Caballero MD on 01/09/2025 at 01:35 PM EDT Sign off status: Pending * Provider: Anastasia Caballero MD Date: 1 11/28/2023 Generated for Printi ng/Faxing/eTransmitting on: 0 01/09/2025 01:35 PM EDT
--- OUTSIDE RECORDS SUMMARY | 2025-01-09 12:35 | XMS_ITS ---
Author Organization [facility] Diabetes [facility] Address [address] [facility] [address] [place] [address] Care Team Providers Care Brilliandeer Lopper Name Role Phone Jose Caballero [phone] Encounters Encounter Location Date Provider Diagnosis [facility] Endocrinology Diabetes & Metabolism [address] [facility] [address] [place] [address] 05/18/2024 Olayinkaluis fernando Caballero Plan Of Treatment Next Appt Details Provider Name:Jose Caballero, 0 03/15/2025 11:45:00 AM, [address] [facility] [address], [place], [address], Provider Name:Jose Caballero, 0 04/06/2025 09:30:00 AM, [address] [facility] [address], [place], [address], Progress Notes * JOI PATDOB:[birth year] (69 yo F)Acc No.[id number]:05/18/2024 Patient: JOI ADEN Provider: Anastasia Caballero MD :1955 A ge:68 Y S ex:Female Date:05/18/2024 Address:[address] [facility], [place] Subjective: * Chief Complaints: * * Medical History: Objective: * Vitals: Assessment: Plan: * Treatment: * * Electronic signature of Joes Caballero MD on 01/09/2025 at 01:35 PM EDT Sign off status: Pending * Provider: Anastasia Caballero MD Date: 0 05/18/2024 Generated for Printi ng/Faheaveng/eTransmitting on: 0 01/09/2025 01:35 PM EDT
--- OUTSIDE RECORDS SUMMARY | 2025-01-09 12:35 | XMS_ITS | Clinical Summary ---
Author Organization [facility] Address [address] [place] [address] Care Team Providers Care Field Training Agent Name Role Phone Raffy Ziegler MD Unavailable [phone] Evert Welch APRN Unavailable [phone] Mark Holbrook MD Unavailable +[phone] Mikey Avendano DO Unavailable +[phone] Lucia Paredes RAISE DRILLER Unavailable +[phone] Lucia Paredes RAISE DRILLER Primary Care Provider [phone] Karina PIERSON MD, Gold Murphy Unavailable +-[phone] [...] combined systolic and diastolic congestive heart failure ([facility]) Patient says he gets oxygen from the [...] Morbid (severe) obesity due to excess calories 0 12/11/2022 Dependence on supplemental oxygen 07/28/2022 COPD (chronic obstructive pu lmonary disease) ([facility]) 01/31/2021 GERD (gastroesophageal reflux disease) Hyperlipidemia 01/31/2021 Type 2 diabetes mellitus ([facility]) 01/31 Spondylosis without myelopat hy or radiculopathy, lumbar region 01/11/2021 Lumbar spondylosis 06/14/2020 Diastolic dysfunction 06/01/2019 Pulmonary hypertension ([facility]) 019 Physical deconditioning 06/01/2019 Adult BMI 40.0-44.9 kg/sq m 06/01/2019 Noncompliance with CPAP treatment 06/01/2019 Lateral epicondylitis of left elbow 04/21/2019 Sepsis ([facility]) 12/15/2018 SARBJIT (acute kidney injury) 12/15/2018 Orthostasis 12/15/2018 Acute encephalopathy 12/15/2018 Obstructive sleep apnea (adult) (pediatric) 11/04 Cor pulmonale (chronic) ([facility]) 2018 Stiffness of left hip, not elsewhere classified 08/11/2018 Chronic respiratory failure with hypoxia, on home O2 therapy ([facility]) 07/07/2018 Excessive daytime sleepiness 06/02/2018 Nocturnal hypoxia [...] hand, left 07/01/2016 DVT (deep venous thrombosis) ([facility]) 0 05/28/2016 Overview (11/06/2023): Transitioned From: Blood [...] heart failure with pres erved LV function ([facility]) 06/01/2019 07/11/2024 Intolerance of continuous po sitive airway pressure (CPAP) ventilation 06/01/2019 07/13/2020 Chronic systolic heart failu re ([facility]) 12/01/2018 07/11/2024 Encounter for counseling on use of CPAP 12/01/2018 07/13/2020 Difficulty with CPAP use 07/07/201806/2024 CHF (congestive heart failur e) ([facility]) 07/11/2024 Carotid artery disease 07/11 Encounters Date Type Department Care Team Description 12/20/2024 [employer]phone [employer] [facility] [address] [place] [address] Evert Welch, CLIENT SERVICES MANAGER Appointment Request 12/13/2024 10:00 AM SOFTWARE ENGINEER INTERN Office Visit [facility] [address] [place] [address] Evert Welch, CLIENT SERVICES MANAGER Follow Up (CAD, HTN, DLD) 12/13/2024 Travel 11/21/2024 Telephone [facility] [facility] [address] [place] [address] Evert Welch, CLIENT SERVICES MANAGER Information 11/08/2024 Telephone [facility] [facility] [address] [place] [address] Raffy Ziegler MD Reschedule 10/28/2024 Telephone [facility] [address] [place] [address] Raffy Ziegler MD Information 10/24/2024 [employer] [facility] [address] [place] [address] Scanned, Doc Pccl ECG (SCAN); Lab (SCAN) [...] Sex Assigned at Male 12/13/2024 9:48 AM SOFTWARE ENGINEER INTERN Legal Sex Male 6:15 PM CDT Gender Identity Not on file Sexual Orientation Not on file Occupation Industry Job Start Date Job End Date Retired Not on file Not on file Not on file Not on file Not on file Not on file Not on file Last Filed Vital Signs Vital Sign Reading Time Taken Comments Blood Pressure 122/72 12/13/2024 10:36 AM SOFTWARE ENGINEER INTERN Pulse 77 12/13/2024 9:59 AM SOFTWARE ENGINEER INTERN Temperature 36.2 C (97.2 F) 01/01/2024 4:07 PM SOFTWARE ENGINEER INTERN Respiratory Rate 18 12/13/2024 9:59 AM SOFTWARE ENGINEER INTERN Oxygen Saturation 98% 12/13/2024 9:59 AM SOFTWARE ENGINEER INTERN Inhaled Oxygen Concentration - - Weight 101.6 kg (224 lb) 12/13/2024 9:59 AM SOFTWARE ENGINEER INTERN Height 175.3 cm (5' 9 ) 12/13/2024 9:59 AM SOFTWARE ENGINEER INTERN Body Mass Index 33.08 12/13/2024 9:59 AM SOFTWARE ENGINEER INTERN Plan of Treatment Upcoming Encounters Date Type Department Care Team (Late st Contact Info) Description 02/23/2025 3:00 PM CDT Office Visit [facility] [place] [address] [place] [address] Christian Schaefer MD [address] [place] [address] Health Maintenance Due Date Last [...] Medicare Wellness Visit 2021 COVID-19 Vaccine ( - season) 2024 Influenza Adult (#1) 2024 09/02/2018, 08/14/2017, 10/17/2012 PHQ-2 (Physician [place]) 11/02/2024 Lipid Panel 07/16/2025 07/16/2024, 11/02, 11/25/2021, [...] us Doc Pccl Scanned SCANNING Final Result [facility] * OUTSIDE LAB (10/24/2024) 10/24/2024 us Doc Pccl Scanned SCANNING Final Result [facility] * (ABNORMAL) LIPID PANEL (07/16/2024 9:58 AM CDT) CHOLESTEROL 120 MG/DL 07/17/2024 11:54 AM CDT [facility] Comment:DESIRABLE: <200 TRIGLYCERIDES 122 MG/DL 07/17/2024 11:54 AM CDT [facility] Comment:<150 NORMAL HDL 37(L) >39 MG/DL 07/17/2024 11:54 AM CDT [facility] LDL-C 59 MG/DL 07/17/2024 11:54 AM CDT [facility] Comment:<100 OPTIMAL VLDL CALCULATION 24 MG/DL 07/17/20 24 11:54 AM CDT [facility] Comment:REFERENCE RANGE NOT ESTABLISHED CHOL/HDL RATIO 3.2 07/17/2024 11:54 AM CDT [facility] Comment:REFERENCE RANGE NOT ESTABLISHED LDL/HDL 1.6 07/17/2024 11:54 AM CDT [facility] Comment:REFERENCE RANGE NOT ESTABLISHED NON HDL CHOLESTEROL 83 MG/DL 07/17/2024 11:54 AM CDT [facility] Comment:REFERENCE RANGE NOT ESTABLISHED 07/16/2024 9:58 AM CDT us Evert Oliveiraworth CLIENT SERVICES MANAGER LABORATORY Final R esult [facility] [address] [place] [address], [id number] * (ABNORMAL) HEMOGLOBIN, GLYCOSYLATED (03/10/2019 11:55 AM CDT) HGB A1C 7.7(H) <5.7 % 03/10/2019 12:12 PM CDT [facility] Comment: 5.7 TO 6.4% INCREASED RISK OF DIABETES> OR = 6.5% CONSISTENT WITH DIABETESPER ADA GUIDELINES ESTIMATED AVG GLUCOSE 174(H) 70 - 140 MG/DL 03/10/2019 12:12 PM CDT [facility] 03/10/2019 11:5 5 AM CDT 03/10/2019 11:56 AM CDT us Generic Conversion Md [facility] Final R esult [facility] [address] [place] [address], * HEPATITIS PANEL,ACUTE (08/27/2018 2:36 PM CDT) HEPATITIS B SURFACE AG NON-REACT BEHZAD NON-REACT BEHZAD 08/30/2018 11:34 AM CDT [facility] Comment:HBsAg NOT DETECTED. HEP B CORE IGM NON-REACT BEHZAD NON-REACT BEHZAD 08/30/2018 11:34 AM CDT [facility] Comment: IgM ANTI HBc NOT DETECTED. DOES NOT EXCLUDE THE POSSIBILITY OF EXPOSURE TO OR INFECTION WITH HBV. NO RETEST REQUIRED.HIGH DOSES OF BIOTIN MAY INTERFERE WITH THIS TEST RESULT. CORRELATION TO CLINICAL HISTORY AND PRESENTATION RECOMMENDED. HAV IGM NON-REACT BEHZAD NON-REACT BEHZAD 08/30/2018 11:34 AM CDT [facility] Comment: IgM ANTI HAV NOT DETECTED. DOES NOT EXCLUDE THE POSSIBILITY OF EXPOSURE TO OR INFECTION WITH HAV. LEVELS OF IgM ANTI HAV MAY BE BELOW THE CUTOFF IN EARLY INFECTION. HEPATITIS C AB NON-REACT BEHZAD NON-REACT BEHZAD 08/30/2018 11:34 AM CDT [facility] Comment: ANTIBODIES TO HCV NOT DETECTED. DOES NOT EXCLUDE THE POSSIBILITY OF EXPOSURE TO HCV. 08/27/2018 2:36 PM CDT 08/27/2018 2:46 PM CDT us Generic Conversion Md [facility] Final R esult [facility] [address] [place] [address], [id number] from Last 3 Months or Most Recently Relevant to Health Maintenance Insurance [facility] Advance Directives * Full Code (Latest Code Status on File) Date Activated Date Inactivated Comments 12/15/2018 7:36 AM 12/18/2018 12:18 AM Care Teams Field Training Agent Relationship Specialty Start Date End Date Mark Holbrook MD [address] [place] [address] PCP - Med Group - MSSP Attributed Provider 08/02/17 Lucia Paredes FNP [address] [place] [address] PCP - General NURSE PRACTITIONER 09/11/21 Raffy Ziegler MD [address] [place] [address] CARDIOVASCULAR DISEASE 05/07/16 Evert Welch APRN [address] [facility] [address] [place] [address] Nurse Practitioner NURSE PRACTITIONER 04/27/19 Mikey Avendano DO [address] [place] [address] UROLOGY 06/18/20 Lucia Paredes FNP [address] [place] [address] NURSE PRACTITIONER 07/18/20 Gold Collins III, MD [address] [place] [address] Consulting Physician Pain Medicine 02/15/24
--- OUTSIDE RECORDS SUMMARY | 2025-01-09 12:35 | XMS_ITS | Encounter Summary ---
Author Organization [facility] Address [address] [place] [address] Care Team Providers Care Motorcycle Mechanic Apprentice Name Role Phone Raffy Ziegler MD Unavailable + [phone] Evert Welch HEAD BELLHOP CAPTAIN Unavailable + [phone] Mark Holbrook MD Unavailable [phone] Mikey Avendano DO Unavailable [phone] Lucia Paredes LEAK HUNTER Unavailable +[phone] Lucia Paredes LEAK HUNTER Primary Care Provider [phone] Karina PIERSON MD, Gold Murphy Unavailable [phone] Encounter Details Date Type Department Care Team (Late st Contact Info) Description 12/01/2022 Abstract [facility] [address] [place], [place] [address] Evert Welch, HEAD BELLHOP CAPTAIN [address] [facility] [address] [address] Social History Tobacco Use Types Packs/Day Years Used Date Smoking Tobacco: Never Smokeless Tobacco: Never Alcohol Use Standard Drinks/Week Comments No 0 (1 standard drink = 0.6 oz pur e alcohol) Sex and Gender Information Value Date Recorded Sex Assigned at Male 12/13/2024 9:48 AM GOLD BURNISHER Legal Sex Male 6:15 PM CDT Gender [...] Assessment Author Status No 12/15/2018 1:05 AM GOLD BURNISHER Activ e * RETIRED Are you blind or do you have serious difficulty seeing, even when wearing glasses? Answer Date of Assessment Author Status No 12/15/2018 1:05 AM GOLD BURNISHER Activ e * Do you have serious [...] Description 02/23/2025 3:00 PM CDT Office Visit [facility] [address] [place] [address] Christian Schaefer MD [address] [place] [address] documented as of this encounter [...] Final Result * LIPID PANEL (11/12/2022) Pathologist [facility] CHOLESTEROL 292 0 - 200 HDL 34 40 - 60 TRIGLYCERIDES 643 0 - 150 NON HDL CHOLESTEROL - - CHOL/HDL RATIO - - LDL (CALCULATED) 129 <130 VLDL CALCULATION - - 11/12/2022 us Default History Genericprovider LABORATORY Final Result * CMP (ABSTRACTED LAB) (11/12/2022) Pathologist [facility] SODIUM S/P/B 136 136 - 145 POTASSIUM [...] on filedocumented in this encounter Care Teams Motorcycle Mechanic Apprentice Relationship Specialty Start Date End Date Mark Holbrook MD [address] [place] [address] PCP - Med Group - MSSP Attributed Provider 08/02/17 Lucia Paredes FNP [address] [place] [address] PCP - General NURSE PRACTITIONER 09/11/21 Raffy Ziegler MD [address] [place] [address] CARDIOVASCULAR DISEASE 05/07/16 Evert Welch APRN 6[address] [facility] [address] [address] Nurse Practitioner NURSE PRACTITIONER 04/27/19 Mikey Avendano DO [address] [place] [address] UROLOGY 06/18/20 Lucia Paredes FNP [address] [place] [address] NURSE PRACTITIONER 07/18/20 Gold Collins III, MD [address] [place] [address] Consulting Physician Pain Medicine 02/15/24 documented as of this encounter
--- OUTSIDE RECORDS SUMMARY | 2025-01-09 12:35 | XMS_ITS | Encounter Summary ---
Author Organization [facility] Address [address] [place] [address] Care Team Providers Care Truck Crane Operator Name Role Phone Raffy Ziegler MD Unavailable + [phone] Evert Welch PRICING LEAD Unavailable [phone] Mark Holbrook MD Unavailable [phone] Mikey Avendano DO Unavailable [phone] Lucia Paredes MANAGER OF ENGINEERING Unavailable [phone] Lucia Paredes MANAGER OF ENGINEERING Primary Care Provider [phone] Karina PIERSON MD, Gold Murphy Unavailable + [phone] Encounter Details Date Type Department Care Team (Late Contact Info) Description 01/16/2018 Abstract [facility] [address] [place] [address] , Rose Mary Lnez MD Social History Tobacco Use Types Packs/Day Years Used Date Smoking Tobacco: Never Smokeless Tobacco: Never Alcohol Use Standard Drinks/Week Comments No 0 (1 standard drink = 0.6 oz pur e alcohol) Sex and Gender Information Value Date Recorded Sex Assigned at Male 12/13/2024 9:48 AM INDUSTRIAL GAS SERVICER SUPERVISOR Legal Sex Male 6:15 PM CDT Gender [...] Description 02/23/2025 3:00 PM CDT Office Visit [facility] [place] [address] [facility] [place] [address] Christian Schaefer MD [address] [place] [address] documented as of this encounter Visit Diagnoses Not on filedocumented in this encounter Care Teams Truck Crane Operator Relationship Specialty Start Date End Date Mark Holbrook MD [address] [place] [address] PCP - Med Group - MSSP Attributed Provider 08/02/17 Lucia Paredes FNP [address] [place] [address] PCP - General NURSE PRACTITIONER 09/11/21 Raffy Ziegler MD [address] [place] [address] CARDIOVASCULAR DISEASE 05/07/16 Evert Welch APRN 9 [facility] [address] [address] Nurse Practitioner NURSE PRACTITIONER 04/27/19 Mikey Avendano DO [address] [place] [address] UROLOGY 06/18/20 Lucia Paredes FNP [address] [place] [address] NURSE PRACTITIONER 07/18/20 Gold Collins III, MD [address] [place] [address] Consulting Physician Pain Medicine 02/15/24 documented as of this encounter
--- OUTSIDE RECORDS SUMMARY | 2025-01-09 12:35 | XMS_ITS ---
Author Organization [facility] Address [address] [facility] [address] [place] [address] Care Team Providers Care Extended Day Teacher Name Role Phone Jose Caballero [phone] Encounters Encounter Location Date Provider Diagnosis [facility] [address] [place] [address] 11/18/2024 Jose Irlandakane Plan Of Treatment Next Appt Details Provider Name:Jose Caballero, 0 03/15/2025 11:45:00 AM, [address] [facility] [address], [place], [address], Provider Name:Jose Caballero, 0 04/06/2025 09:30:00 AM, [address] [facility] [address], [place], [address], Progress Notes * JOI PATDOB:[birth year] (69 yo F)Acc No.[id number]:11/18/2024 Patient: JOI ADEN Provider: Anastasia Caballero MD :1955 A ge:69 Y S ex:Female Date:11/18/2024 Address:[address] [facility], [place] Subjective: * Chief Complaints: * * Medical History: Objective: * Vitals: Assessment: Plan: * Treatment: * * Electronic signature of Jose Caballero MD on 01/09/2025 at 01:35 PM EDT Sign off status: Pending * Provider: Anastasia Caballero MD Date: 0 11/18/2024 Generated for Printi ng/Faheaveng/eTransmitting on: 0 01/09/2025 01:35 PM EDT
--- OUTSIDE RECORDS SUMMARY | 2025-01-09 12:35 | XMS_ITS | Patient Health Record ---
Author Organization [facility] Address [address] [facility] [address] [place] [address] Care Team Providers Care Ell Teacher Name Role Phone Jose Caballero Unavailable [phone] Reason For Referral No Information Encounters Encounter Location Date Provider Diagnosis [facility] [address] [facility] [address] [place] [address] 02/01/2024 Jose Caballero [facility]ocr[facility] Diabetes & Metabolism [address] [facility] [address] [place] [address] 11/18/2024 Jose Caballero Plan Of Treatment Next Appt Details Provider Name:Nayely Solis 03/15/2025 11:45:00 AM, [address] [place] [address], [address], [place], [address], Provider Name:Jose Caballero 0 04/06/2025 09:30:00 AM, [address] [place] [address], [address], [place], [address],
--- OUTSIDE RECORDS SUMMARY | 2025-01-09 12:35 | XMS_ITS | Encounter Summary ---
Author Organization [facility] Address [address] [place] [address] Care Team Providers Care Territory Development Manager Name Role Phone Raffy Ziegler MD Unavailable + [phone] Evert Welch APRN Unavailable [phone] Mark Holbrook MD Unavailable [phone] Mikey Avendano DO Unavailable [phone] Lucia Paredes ELECTRONICS WORKER Unavailable [phone] Lucia Paredes ELECTRONICS WORKER Primary Care Provider [phone] Karina PIERSON MD, Gold Murphy Unavailable [phone] Encounter Details Date Type Department Care Team (Latest Contact Info) Description 06/30/2018 Abstract [facility] Medical Group Mark Holbrook MD [address] [place], [place] [address] Social History Tobacco Use Types Packs/Day Years Used Date Smoking Tobacco: Never Smokeless Tobacco: Never Alcohol Use Standard Drinks/Week Comments No 0 (1 standard drink = 0.6 oz pur e alcohol) Sex and Gender Information Value Date Recorded Sex Assigned at Male 12/13/2024 9:48 AM ADJUNCT PROFESSOR OF LAW Legal Sex Male 6:15 PM CDT Gender [...] Description 02/23/2025 3:00 PM CDT Office Visit [facility] [place] [address] [facility] [place] [address] Christian Schaefer MD [address] [place] [address] documented as of this encounter Visit Diagnoses Not on filedocumented in this encounter Care Teams Territory Development Manager Relationship Specialty Start Date End Date Mark Holbrook MD [address] [place] [address] PCP - Med Group - MSSP Attributed Provider 08/02/17 Lucia Paredes FNP [address] [place] [address] PCP - General NURSE PRACTITIONER 09/11/21 Raffy Ziegler MD [address] [place] [address] CARDIOVASCULAR DISEASE 05/07/16 Evert Welch APRN [address] [facility] [address] [place] [address] Nurse Practitioner NURSE PRACTITIONER 04/27/19 Mikey Avendano DO [address] [place] [address] UROLOGY 06/18/20 Lucia Paredes FNP [address] [place] [address] NURSE PRACTITIONER 07/18/20 Gold Collins III, MD [address] [place] [address] Consulting Physician Pain Medicine 02/15/24 documented as of this encounter
--- OUTSIDE RECORDS SUMMARY | 2025-01-09 12:35 | XMS_ITS | Encounter Summary ---
Author Organization [facility] Address [address] [place] [address] Care Team Providers Care Compo Conveyor Operator Name Role Phone Raffy Ziegler MD Unavailable + [phone] Evert Welch ROOF PAINTER Unavailable + [phone] Mark Holbrook MD Unavailable [phone] Mikey Avendano DO Unavailable [phone] Lucia Paredes [place] Unavailable [phone] Lucia Paredes [place] Primary Care Provider [phone] Karina PIERSON MD, Gold Murphy Unavailable [phone] Encounter Details Date Type Department Care Team (Late st Contact Info) Description 12/03/2021 Abstract [facility] [address] [place], [place] [address] Evert Welch, ROOF PAINTER [address] [facility] [address] [address] Social History Tobacco Use Types Packs/Day Years Used Date Smoking Tobacco: Never Smokeless Tobacco: Never Alcohol Use Standard Drinks/Week Comments No 0 (1 standard drink = 0.6 oz pur e alcohol) Sex and Gender Information Value Date Recorded Sex Assigned at Male 12/13/2024 9:48 AM SPEED BELT SANDER Legal Sex Male 6:15 PM CDT Gender [...] COVID-19? No / Unsure 11/13/2021 2:42 PM SPEED BELT SANDER documented as of this encounter Functional Status * RETIRED Are you deaf or do you have serious difficulty hearing Answer Date of Assessment Author Status No 12/15/2018 1:05 AM SPEED BELT SANDER Activ e * RETIRED Are you blind or do you have serious difficulty seeing, even when wearing glasses? Answer Date of Assessment Author Status No 12/15/2018 1:05 AM SPEED BELT SANDER Activ e * Do you have serious [...] [facility] [address] [place] [address] Christian Schaefer MD [address] [place] [address] documented as of this encounter [...] on filedocumented in this encounter Care Teams Compo Conveyor Operator Relationship Specialty Start Date End Date Mark Holbrook MD [address] [place] [address] PCP - Med Group - MSSP Attributed Provider 08/02/17 Lucia Paredes FNP [address] [place] [address] PCP - General NURSE PRACTITIONER 09/11/21 Raffy Ziegler MD [address] [place] [address] CARDIOVASCULAR DISEASE 05/07/16 Evert Welch APRN 9 [facility] [address] [address] Nurse Practitioner NURSE PRACTITIONER 04/27/19 Mikey Avendano DO [address] [place] [address] UROLOGY 06/18/20 Lucia Paredes FNP [address] [place] [address] NURSE PRACTITIONER 07/18/20 Gold Collins III, MD [address] [place] [address] Consulting Physician Pain Medicine 02/15/24 documented as of this encounter
--- OUTSIDE RECORDS SUMMARY | 2025-01-09 12:35 | XMS_ITS | Encounter Summary ---
Author Organization [facility] Address [address] [place] [address] Care Team Providers Care Clinical Education Consultant Name Role Phone Raffy Ziegler MD Unavailable [phone] Evert Welch CRANE LADLE PERSON Unavailable [phone] Mark Holbrook MD Unavailable [phone] Mikey Avendano DO Unavailable [phone] Lucia Paredes FISHER HAND LINE Unavailable +[phone] Lucia Paredes FISHER HAND LINE Primary Care Provider +[phone] Karina PIERSON MD, Gold Murphy Unavailable +[phone] Encounter Details Date Type Department Care Team (Late st Contact Info) Description 01/10/2016 Abstract [facility] [address] [place] [address] Shelli Coronel NP [address] [place] [address] Social History Tobacco Use Types Packs/Day Years Used Date Smoking Tobacco: Never Alcohol Use Standard Drinks/Week Comments No 0 (1 standard drink = 0.6 oz pur e alcohol) Sex and Gender Information Value Date Recorded Sex Assigned at Male 12/13/2024 9:48 AM TIRE SERVICER Legal Sex Male 6:15 PM CDT Gender Identity Not on file Sexual Orientation Not on file Occupation Industry Job Start Date Job End Date Retired Not on file Not on file Not on file documented as of this encounter Plan of Treatment Upcoming Encounters Date Type Department Care Team (Late st Contact Info) Description 02/23/2025 3:00 PM CDT Office Visit [facility] [address] [place] [address] Christian Schaefer MD [address] [place] [address] documented as of this encounter Visit Diagnoses Not on filedocumented in this encounter Care Teams Clinical Education Consultant Relationship Specialty Start Date End Date Mark Holbrook MD [address] [place] [address] PCP - Med Group - MSSP Attributed Provider 08/02/17 Lucia Paredes FNP [address] [place] [address] PCP - General NURSE PRACTITIONER 09/11/21 Raffy Ziegler MD [address] [place] [address] CARDIOVASCULAR DISEASE 05/07/16 Evert Welch APRN [address] [facility] [address] [place] [address] Nurse Practitioner NURSE PRACTITIONER 04/27/19 Mikey Avendano DO [address] [place] [address] UROLOGY 06/18/20 Lucia Paredes FNP [address] [place] [address] NURSE PRACTITIONER 07/18/20 Gold Collins III, MD [address] [place] [phone] Consulting Physician Pain Medicine 02/15/24 documented as of this encounter
--- OUTSIDE RECORDS SUMMARY | 2025-01-09 12:35 | XMS_ITS | Encounter Summary ---
Author Organization [facility] Address [address] [place] [address] Care Team Providers Care Chief Commercial Officer Name Role Phone Raffy Ziegler MD Unavailable + [phone] Evert Welch SELECTOR PACKER Unavailable [phone] Mark Holbrook MD Unavailable [phone] Mikey Avendano DO Unavailable [phone] Lucia Paredes AQUATICS INSTRUCTOR Unavailable +[phone] Lucia Paredes AQUATICS INSTRUCTOR Primary Care Provider [phone] Karina PIERSON MD, Gold Murphy Unavailable + [phone] Encounter Details Date Type Department Care Team (Late st Contact Info) Description 04/09/2019 Abstract [facility] [address] [place] [address] , Generic MD Yoanna Social History Tobacco Use Types Packs/Day Years Used Date Smoking Tobacco: Never Smokeless Tobacco: Never Alcohol Use Standard Drinks/Week Comments No 0 (1 standard drink = 0.6 oz pur e alcohol) Sex and Gender Information Value Date Recorded Sex Assigned at Male 12/13/2024 9:48 AM ACID TESTER Legal Sex Male 6:15 PM CDT Gender [...] Assessment Author Status No 12/15/2018 1:05 AM ACID TESTER Activ e * RETIRED Are you blind or do you have serious difficulty seeing, even when wearing glasses? Answer Date of Assessment Author Status No 12/15/2018 1:05 AM ACID TESTER Activ e * Do you have serious [...] Description 02/23/2025 3:00 PM CDT Office Visit [facility] [address] [place] [address] Christian Schaefer MD [address] [place] [address] documented as of this encounter Visit Diagnoses Not on filedocumented in this encounter Care Teams Chief Commercial Officer Relationship Specialty Start Date End Date Mark Holbrook MD [address] [place] [address] PCP - Med Group - MSSP Attributed Provider 08/02/17 Lucia Paredes FNP [address] [place] [address] PCP - General NURSE PRACTITIONER 09/11/21 Raffy Ziegler MD [address] [place] [address] CARDIOVASCULAR DISEASE 05/07/16 Evert Welch APRN 619 [facility] [address] [place] [address] Nurse Practitioner NURSE PRACTITIONER 04/27/19 Mikey Avendano DO [address] [place] [address] UROLOGY 06/18/20 Lucia Paredes FNP [address] [place] [address] NURSE PRACTITIONER 07/18/20 Gold Collins III, MD [address] [place] [phone] Consulting Physician Pain Medicine 02/15/24 documented as of this encounter
== END 2025-01-09 10:41 | disposition home or self-care (01) ==
LOC: CHSLAB 10:41
PROVIDERS: PCP Nurse Practitioner Family; Visit Provider Nurse Practitioner Family
DX: N39.0 Urinary tract infection, site not specified (principal)
CPT/HCPCS: 81003

== ENCOUNTER 2025-01-10 13:44 | Outpatient (CLI) | payer MEDICARE, MEDICAID, SELFPAY ==
--- NOTE | ~2025-01-10 | US_ITS ---
US soft tissue abdomen Ordering provider: Marry Villafuerte APRN History: . R22.2 - Localized swelling, mass and lump, trunk . Comparison: None. Technique: Ultrasound subcutaneous tissue in the lower abdomen Findings/impression: Hypoechoic area measuring 1.3 x 1.4 x 0.6 cm with color flow is noted in the subcutaneous tissues of the mid/lower abdomen which may indicate a lymph node versus hematoma versus a mass. Further evaluati on and follow-up advised. Reviewed, dictated and finalized at location A.
--- OUTSIDE RECORDS SUMMARY | 2025-01-10 15:26 | XMS_ITS | Encounter Summary ---
Author Organization [facility] Address [address] [place] [address] Care Team Providers Care Adhesive Sprayer Name Role Phone Raffy Ziegler MD Unavailable + [phone] Evert Welch PROFESSOR OF COMMUNICATION Unavailable + [phone] Mark Holbrook MD Unavailable [phone] Mikey Avendano DO Unavailable [phone] Lucia Paredes EXPLOSIVE OPERATOR BOMB Unavailable [phone] Lucia Paredes EXPLOSIVE OPERATOR BOMB Primary Care Provider [phone] Karina PIERSON MD, Gold Murphy Unavailable [phone] Encounter Details Date Type Department Care Team (Late st Contact Info) Description 01/10/2016 Abstract [facility] [address] [place] [phone] Shelli Coronel NP [address] [place] [address] Social History Tobacco Use Types Packs/Day Years Used Date Smoking Tobacco: Never Alcohol Use Standard Drinks/Week Comments No 0 (1 standard drink = 0.6 oz pur e alcohol) Sex and Gender Information Value Date Recorded Sex Assigned at Male 12/13/2024 9:48 AM BUSINESS SOLUTIONS DIRECTOR Legal Sex Male 6:15 PM CDT Gender Identity Not on file Sexual Orientation Not on file Occupation Industry Job Start Date Job End Date Retired Not on file Not on file Not on file documented as of this encounter Plan of Treatment Upcoming Encounters Date Type Department Care Team (Late st Contact Info) Description 02/23/2025 3:00 PM CDT Office Visit [facility] [address] [place] [phone] Christian Schaefer MD [address] [place] [address] documented as of this encounter Visit Diagnoses Not on filedocumented in this encounter Care Teams Adhesive Sprayer Relationship Specialty Start Date End Date Mark Holbrook MD [address] [place] [address] PCP - Med Group - MSSP Attributed Provider 08/02/17 Lucia Paredes FNP [address] [place] [address] PCP - General NURSE PRACTITIONER 09/11/21 Raffy Ziegler MD CARDIOVASCULAR DISEASE 05/07/16 Evert Welch APRN [address] [address] Nurse Practitioner NURSE PRACTITIONER 04/27/19 Mikey Avendano DO [address] [place] [address] UROLOGY 06/18/20 Lucia Paredes FNP [address] [place] [address] NURSE PRACTITIONER 07/18/20 Gold Collins III, MD [address] [place] [phone] Consulting Physician Pain Medicine 02/15/24 documented as of this encounter
--- OUTSIDE RECORDS SUMMARY | 2025-01-10 15:26 | XMS_ITS ---
Author Organization [facility] Address [address] [facility] [address] [place] [address] Care Team Providers Care Landscape Specialist Name Role Phone Jose Caballero [phone] Encounters Encounter Location Date Provider Diagnosis [facility] Endocr[facility]ology Diabetes & Metabolism [address] [facility] [address] [place] [address] 09/28/2024 Olayinkaluis fernando Caballero Plan Of Treatment Next Appt Details Provider Name:Jose Caballero, 0 03/15/2025 11:45:00 AM, [address] [facility] [address], [place], [address], Provider Name:Jose Caballero, 0 04/06/2025 09:30:00 AM, [address] [facility] [address], [place], [address], Progress Notes * JOI PATDOB:[birth year] (69 yo F)Acc No.[id number]:09/28/2024 Patient: JOI ADEN Provider: Anastasia Caballero MD :1955 A ge:69 Y S ex:Female Date:09/28/2024 Address:[address] [facility] [address], [place] Subjective: * Chief Complaints: * * Medical History: Objective: * Vitals: Assessment: Plan: * Treatment: * * Electronic signature of Jose Caballero MD on 01/10/2025 at 04:26 PM EDT Sign off status: Pending * Provider: Anastasia Caballero MD Date: 1 11/28/2023 Generated for Printi ng/Faheaveng/eTransmitting on: 0 01/10/2025 04:26 PM EDT
--- OUTSIDE RECORDS SUMMARY | 2025-01-10 15:26 | XMS_ITS ---
Author Organization [facility] Endocrinolog y Diabetes & Metabolism Address [address] [facility] [address] [place] [address] Care Team Providers Care Golf Course Keeper Name Role Phone Jose Caballero [phone] Encounters Encounter Location Date Provider Diagnosis [facility] Endocrinology Diabetes & Metabolism [address] [facility] [address] [place] [address] 05/18/2024 Olayinkaluis fernando Caballero Plan Of Treatment Next Appt Details Provider Name:Jose Caballero, 0 03/15/2025 11:45:00 AM, [address] [facility] [address], [place], [address], Provider Name:Jose Caballero, 0 04/06/2025 09:30:00 AM, [address] [facility] [address], [place], [address], Progress Notes * JOI PATDOB:[birth year] (69 yo F)Acc No.[id number]:05/18/2024 Patient: JOI ADEN Provider: Anastasia Caballero MD :1955 A ge:68 Y S ex:Female Date:05/18/2024 Address:[address] [facility], [address], [phone] Subjective: * Chief Complaints: * * Medical History: Objective: * Vitals: Assessment: Plan: * Treatment: * * Electronic signature of Jose Caballero MD on 01/10/2025 at 04:26 PM EDT Sign off status: Pending * Provider: Anastasia Caballero MD Date: 0 05/18/2024 Generated for Printi ng/Faheaveng/eTransmitting on: 0 01/10/2025 04:26 PM EDT
--- OUTSIDE RECORDS SUMMARY | 2025-01-10 15:26 | XMS_ITS ---
Author Organization [facility] Endocrinolog y Diabetes & Metabolism Address [address] [facility] [address] [place] [address] Care Team Providers Care Jig Grinder Name Role Phone Jose Caballero [phone] Encounters Encounter Location Date Provider Diagnosis [facility] Endocrinology Diabetes & Metabolism [address] [facility] [address] [place] [address] 11/18/2024 Jose Irlandakane Plan Of Treatment Next Appt Details Provider Name:Jose Caballero, 0 03/15/2025 11:45:00 AM, [address] [facility] [address], [place], [address], Provider Name:Jose Caballero, 0 04/06/2025 09:30:00 AM, [address] [facility] [address], [place], [address], Progress Notes * JOI PATDOB:[birth year] (69 yo F)Acc No.[id number]:11/18/2024 Patient: JOI ADEN Provider: Anastasia Caballero MD :1955 A ge:69 Y S ex:Female Date:11/18/2024 Address:[address] [facility], [address], [phone] Subjective: * Chief Complaints: * * Medical History: Objective: * Vitals: Assessment: Plan: * Treatment: * * Electronic signature of Jose Caballero MD on 01/10/2025 at 04:26 PM EDT Sign off status: Pending * Provider: Anastasia Caballero MD Date: 0 11/18/2024 Generated for Printi ng/Faheaveng/eTransmitting on: 0 01/10/2025 04:26 PM EDT
--- OUTSIDE RECORDS SUMMARY | 2025-01-10 15:26 | XMS_ITS | Patient Health Record ---
Author Organization [facility] Address [address] [facility] [address] [place] [address] Care Team Providers Care Tunnel Elastic Operator Zigzag Name Role Phone Jose Caballero Unavailable [phone] Reason For Referral No Information Encounters Encounter Location Date Provider Diagnosis [facility] Endocrinology Diabetes & Metabolism [address] [facility] [address] [place] [address] 02/01/2024 Jose Caballero [facility] Endocrinology Diabetes & Metabolism [address] [facility] [address] [place] [address] 11/18/2024 Jose Caballero Plan Of Treatment Next Appt Details Provider Name:Nayely Solis 03/15/2025 11:45:00 AM, [address] [place] [address], [address], [place], [address], Provider Name:Jose Caballero 0 04/06/2025 09:30:00 AM, [address] [place] [address], [address], [place], [address],
--- OUTSIDE RECORDS SUMMARY | 2025-01-10 15:26 | XMS_ITS | Clinical Summary ---
Author Organization [facility] Address [address] [place] [address] Care Team Providers Care Fitness And Wellness Manager Name Role Phone Raffy Ziegler MD Unavailable [phone] Evert Welch MONITOR CAR OPERATOR Unavailable + [phone] Mark Holbrook MD Unavailable [phone] Mikey Avendano DO Unavailable [phone] Lucia Paredes HOG SLAUGHTERER Unavailable +[phone] Lucia Paredes HOG SLAUGHTERER Primary Care Provider [phone] Karina PIERSON MD, Gold Murphy Unavailable +[phone] Allergies Active Allergy Reactions Criticality Noted Date [...] combined systolic and diastolic congestive heart failure ([facility]) Patient says he gets oxygen from [...] 07/28/2022 COPD (chronic obstructive pu lmonary disease) ([facility]) 01/31/2021 GERD (gastroesophageal reflux disease) Hyperlipidemia 01/31/2021 Type 2 diabetes mellitus ([facility]) 01/31 Spondylosis without myelopat hy or radiculopathy, lumbar region 01/11/2021 Lumbar spondylosis 06/14/2020 Diastolic dysfunction 06/01/2019 Pulmonary hypertension ([facility]) 019 Physical deconditioning 06/01/2019 Adult BMI 40.0-44.9 kg/sq m 06/01/2019 Noncompliance with CPAP treatment 06/01/2019 Lateral epicondylitis of left elbow 04/21/2019 Sepsis ([facility]) 12/15/2018 SARBJIT (acute kidney injury) 12/15/2018 Orthostasis 12/15/2018 Acute encephalopathy 12/15/2018 Obstructive sleep apnea (adult) (pediatric) 11/04 Cor pulmonale (chronic) ([facility]) 2018 Stiffness of left hip, not elsewhere classified 08/11/2018 Chronic respiratory failure with hypoxia, on home O2 therapy ([facility]) 07/07/2018 Excessive daytime sleepiness 06/02/2018 Nocturnal [...] hand, left 07/01/2016 DVT (deep venous thrombosis) ([facility]) 0 05/28/2016 Overview (11/06/2023): Transitioned From: [...] heart failure with pres erved LV function ([facility]) 06/01/2019 07/11/2024 Intolerance of continuous po sitive airway pressure (CPAP) ventilation 06/01/2019 07/13/2020 Chronic systolic heart failu re ([facility]) 12/01/2018 07/11/2024 Encounter for counseling on use of CPAP 12/01/2018 07/13/2020 Difficulty with CPAP use 07/07/201806/2024 CHF (congestive heart failur e) ([facility]) 07/11/2024 Carotid artery disease 07/11 Encounters Date Type Department Care Team Description 12/20/2024 Telephone [employer] [facility] [address] [place] [address] Evert Welch, MONITOR CAR OPERATOR Appointment Request 12/13/2024 10:00 AM GENERAL OPHTHALMOLOGIST Office Visit [employer] [place] [facility] [address] [place] [address] Evert Welch, MONITOR CAR OPERATOR Follow Up (CAD, HTN, DLD) 12/13/2024 Travel 11/21/2024 Telephone [employer] [place] [facility] [address] [place] [address] Evert Welch, MONITOR CAR OPERATOR Information 11/08/2024 Telephone [employer] [place] [facility] [address] [place] [address] Raffy Ziegler MD Reschedule 10/28/2024 Telephone [facility] [address] [place] [address] Raffy Ziegler MD Information 10/24/2024 Scan [employer] [place] [facility] [address] [place] [address] Scanned, Doc Pccl ECG (SCAN); Lab (SCAN) [...] Sex Assigned at Male 12/13/2024 9:48 AM GENERAL OPHTHALMOLOGIST Legal Sex Male 6:15 PM CDT Gender Identity Not on file Sexual Orientation Not on file Occupation Industry Job Start Date Job End Date Retired Not on file Not on file Not on file Not on file Not on file Not on file Not on file Last Filed Vital Signs Vital Sign Reading Time Taken Comments Blood Pressure 122/72 12/13/2024 10:36 AM GENERAL OPHTHALMOLOGIST Pulse 77 12/13/2024 9:59 AM GENERAL OPHTHALMOLOGIST Temperature 36.2 C (97.2 F) 01/01/2024 4:07 PM GENERAL OPHTHALMOLOGIST Respiratory Rate 18 12/13/2024 9:59 AM GENERAL OPHTHALMOLOGIST Oxygen Saturation 98% 12/13/2024 9:59 AM GENERAL OPHTHALMOLOGIST Inhaled Oxygen Concentration - - Weight 101.6 kg (224 lb) 12/13/2024 9:59 AM GENERAL OPHTHALMOLOGIST Height 175.3 cm (5' 9 ) 12/13/2024 9:59 AM GENERAL OPHTHALMOLOGIST Body Mass Index 33.08 12/13/2024 9:59 AM GENERAL OPHTHALMOLOGIST Plan of Treatment Upcoming Encounters Date Type Department Care Team (Late st Contact Info) Description 02/23/2025 3:00 PM CDT Office Visit [facility] [place] [address] [place] [address] Christian Schaefer MD [address] [place] [address] Health Maintenance Due Date Last [...] (#1) 2024 09/02/2018, 08/14/2017, 10/17/2012 PHQ-2 (Physician Hodges) 11/02/2024 Lipid Panel 07/16/2025 07/16/2024, 11/02, 11/25/2021, [...] us Doc Pccl Scanned SCANNING Final Result [facility] * OUTSIDE LAB (10/24/2024) 10/24/2024 us Doc Pccl Scanned SCANNING Final Result [facility] * (ABNORMAL) LIPID PANEL (07/16/2024 9:58 AM CDT) CHOLESTEROL 120 MG/DL 07/17/2024 11:54 AM CDT [facility] Comment:DESIRABLE: <200 TRIGLYCERIDES 122 MG/DL 07/17/2024 11:54 AM CDT [facility] Comment:<150 NORMAL HDL 37(L) >39 MG/DL 07/17/2024 11:54 AM CDT [facility] LDL-C 59 MG/DL 07/17/2024 11:54 AM CDT [facility] Comment:<100 OPTIMAL VLDL CALCULATION 24 MG/DL 07/17/20 24 11:54 AM CDT [facility] Comment:REFERENCE RANGE NOT ESTABLISHED CHOL/HDL RATIO 3.2 07/17/2024 11:54 AM CDT [facility] Comment:REFERENCE RANGE NOT ESTABLISHED LDL/HDL 1.6 07/17/2024 11:54 AM CDT [facility] Comment:REFERENCE RANGE NOT ESTABLISHED NON HDL CHOLESTEROL 83 MG/DL 07/17/2024 11:54 AM CDT [facility] Comment:REFERENCE RANGE NOT ESTABLISHED 07/16/2024 9:58 AM CDT us Evert [place] MONITOR CAR OPERATOR LABORATORY Final R esult [facility] [address] [place] [address], [phone] * (ABNORMAL) HEMOGLOBIN, GLYCOSYLATED (03/10/2019 11:55 AM CDT) HGB A1C 7.7(H) <5.7 % 03/10/2019 12:12 PM CDT [facility] Comment: 5.7 TO 6.4% INCREASED RISK OF DIABETES> OR = 6.5% CONSISTENT WITH DIABETESPER ADA GUIDELINES ESTIMATED AVG GLUCOSE 174(H) 70 - 140 MG/DL 03/10/2019 12:12 PM CDT [facility] 03/10/2019 11:5 5 AM CDT 03/10/2019 11:56 AM CDT us Generic Conversion Md [facility] Final R esult [facility] [address] [place] [address], * HEPATITIS PANEL,ACUTE (08/27/2018 2:36 PM CDT) HEPATITIS B SURFACE AG NON-REACT BEHZAD NON-REACT BEHZAD 08/30/2018 11:34 AM CDT [facility] Comment:HBsAg NOT DETECTED. HEP B CORE IGM NON-REACT BEHZAD NON-REACT BEHZAD 08/30/2018 11:34 AM CDT [facility] Comment: IgM ANTI HBc NOT DETECTED. DOES NOT EXCLUDE THE POSSIBILITY OF EXPOSURE TO OR INFECTION WITH HBV. NO RETEST REQUIRED.HIGH DOSES OF BIOTIN MAY INTERFERE WITH THIS TEST RESULT. CORRELATION TO CLINICAL HISTORY AND PRESENTATION RECOMMENDED. HAV IGM NON-REACT BEHZAD NON-REACT BEHZAD 08/30/2018 11:34 AM CDT [facility] Comment: IgM ANTI HAV NOT DETECTED. DOES NOT EXCLUDE THE POSSIBILITY OF EXPOSURE TO OR INFECTION WITH HAV. LEVELS OF IgM ANTI HAV MAY BE BELOW THE CUTOFF IN EARLY INFECTION. HEPATITIS C AB NON-REACT BEHZAD NON-REACT BEHZAD 08/30/2018 11:34 AM CDT [facility] Comment: ANTIBODIES TO HCV NOT DETECTED. DOES NOT EXCLUDE THE POSSIBILITY OF EXPOSURE TO HCV. 08/27/2018 2:36 PM CDT 08/27/2018 2:46 PM CDT us Generic Conversion Md [facility] Final R esult [facility] [address] [place] [address], [phone] from Last 3 Months or Most Recently Relevant to Health Maintenance Insurance [facility] Advance Directives * Full Code (Latest Code Status on File) Date Activated Date Inactivated Comments 12/15/2018 7:36 AM 12/18/2018 12:18 AM Care Teams Fitness And Wellness Manager Relationship Specialty Start Date End Date Mark Holbrook MD [address] [place] [address] PCP - Med Group - MSSP Attributed Provider 08/02/17 Lucia Paredes FNP [address] [place] [address] PCP - General NURSE PRACTITIONER 09/11/21 Raffy Ziegler MD CARDIOVASCULAR DISEASE 05/07/16 Evert Welch APRN [address] [facility] [address] [place] [address] Nurse Practitioner NURSE PRACTITIONER 04/27/19 Mikey Avendano DO [address] [place] [address] UROLOGY 06/18/20 Lucia Paredes FNP [address] [place] [address] NURSE PRACTITIONER 07/18/20 Gold Collins III, MD [address] [place] [phone] Consulting Physician Pain Medicine 02/15/24
--- OUTSIDE RECORDS SUMMARY | 2025-01-10 15:26 | XMS_ITS | Encounter Summary ---
Author Organization [facility] Address [address] [place] [address] Care Team Providers Care Digital Community Manager Name Role Phone Raffy Ziegler MD Unavailable + [phone] Evert Welch MOTORS ASSEMBLER Unavailable +[phone] Mark Holbrook MD Unavailable +[phone] Mikey Avendano DO Unavailable +[phone] Lucia Paredes AGRICULTURAL INSPECTOR Unavailable +[phone] Lucia Paredes AGRICULTURAL INSPECTOR Primary Care Provider +[phone] Karina PIERSON MD, Gold Murphy Unavailable +[phone] Encounter Details Date Type Department Care Team (Late st Contact Info) Description 12/03/2021 Abstract [facility] [address] [place], [place] [address] Evert Welch, MOTORS ASSEMBLER 619 [facility] [address] [address] Social History Tobacco Use Types Packs/Day Years Used Date Smoking Tobacco: Never Smokeless Tobacco: Never Alcohol Use Standard Drinks/Week Comments No 0 (1 standard drink = 0.6 oz pur e alcohol) Sex and Gender Information Value Date Recorded Sex Assigned at Male 12/13/2024 9:48 AM CALENDER LET OFF OPERATOR Legal Sex Male 6:15 PM CDT [...] COVID-19? No / Unsure 11/13/2021 2:42 PM CALENDER LET OFF OPERATOR documented as of this encounter Functional Status * RETIRED Are you deaf or do you have serious difficulty hearing Answer Date of Assessment Author Status No 12/15/2018 1:05 AM CALENDER LET OFF OPERATOR Activ e * RETIRED Are you blind or do you have serious difficulty seeing, even when wearing glasses? Answer Date of Assessment Author Status No 12/15/2018 1:05 AM CALENDER LET OFF OPERATOR Activ e * Do you have serious [...] Description 02/23/2025 3:00 PM CDT Office Visit [facility] [address] [place] [address] Christian Schaefer MD [address] [place] [address] documented as of this encounter [...] on filedocumented in this encounter Care Teams Digital Community Manager Relationship Specialty Start Date End Date Mark Holbrook MD [address] [place] [address] PCP - Med Group - MSSP Attributed Provider 08/02/17 Lucia Paredes FNP [address] [place] [address] PCP - General NURSE PRACTITIONER 09/11/21 Raffy Ziegler MD CARDIOVASCULAR DISEASE 05/07/16 Evert Welch APRN 9 [facility] [address] [address] Nurse Practitioner NURSE PRACTITIONER 04/27/19 Mikey Avendano DO [address] [place] [address] UROLOGY 06/18/20 Lucia Paredes FNP [address] [place] [address] NURSE PRACTITIONER 07/18/20 Gold Collins III, MD [address] [place] [address] Consulting Physician Pain Medicine 02/15/24 documented as of this encounter
--- OUTSIDE RECORDS SUMMARY | 2025-01-10 15:26 | XMS_ITS | Encounter Summary ---
Author Organization [facility] Address [address] [place] [address] Care Team Providers Care Certified Medicine Aide Name Role Phone Raffy Ziegler MD Unavailable + [phone] Evert Welch DATA CENTER PROJECT MANAGER Unavailable +[phone] Mark Holbrook MD Unavailable +[phone] Mikey Avendano DO Unavailable +[phone] Lucia Paredes BUSINESS LIAISON OFFICER Unavailable +[phone] Lucia Paredes BUSINESS LIAISON OFFICER Primary Care Provider +[phone] Karina PIERSON MD, Gold Murphy Unavailable +[phone] Encounter Details Date Type Department Care Team (Late st Contact Info) Description 12/01/2022 Abstract [facility] [address] [place], [place] [address] Evert Welch, DATA CENTER PROJECT MANAGER 619 [facility] [address] [address] Social History Tobacco Use Types Packs/Day Years Used Date Smoking Tobacco: Never Smokeless Tobacco: Never Alcohol Use Standard Drinks/Week Comments No 0 (1 standard drink = 0.6 oz pur e alcohol) Sex and Gender Information Value Date Recorded Sex Assigned at Male 12/13/2024 9:48 AM HEEL DIPPER Legal Sex Male 6:15 PM CDT Gender [...] Assessment Author Status No 12/15/2018 1:05 AM HEEL DIPPER Activ e * RETIRED Are you blind or do you have serious difficulty seeing, even when wearing glasses? Answer Date of Assessment Author Status No 12/15/2018 1:05 AM HEEL DIPPER Activ e * Do you have serious [...] Description 02/23/2025 3:00 PM CDT Office Visit [facility] [address] [place] [address] Christian Schaefer MD [address] [place] [address] documented as of this encounter [...] Final Result * LIPID PANEL (11/12/2022) Pathologist [facility] CHOLESTEROL 292 0 - 200 HDL 34 40 - 60 TRIGLYCERIDES 643 0 - 150 NON HDL CHOLESTEROL - - CHOL/HDL RATIO - - LDL (CALCULATED) 129 <130 VLDL CALCULATION - - 11/12/2022 us Default History Genericprovider LABORATORY Final Result * CMP (ABSTRACTED LAB) (11/12/2022) Pathologist [facility] SODIUM S/P/B 136 136 - 145 POTASSIUM [...] on filedocumented in this encounter Care Teams Certified Medicine Aide Relationship Specialty Start Date End Date Mark Holbrook MD [address] [place] [address] PCP - Med Group - MSSP Attributed Provider 08/02/17 Lucia Paredes FNP [address] [place] [address] PCP - General NURSE PRACTITIONER 09/11/21 Raffy Ziegler MD CARDIOVASCULAR DISEASE 05/07/16 Evert Welch APRN [address] [address] Nurse Practitioner NURSE PRACTITIONER 04/27/19 Mikey Avendano DO [address] [place] [address] UROLOGY 06/18/20 Lucia Paredes FNP [address] [place] [address] NURSE PRACTITIONER 07/18/20 Gold Collins III, MD [address] [place] [address] Consulting Physician Pain Medicine 02/15/24 documented as of this encounter
--- OUTSIDE RECORDS SUMMARY | 2025-01-10 15:27 | XMS_ITS | Encounter Summary ---
Author Organization [facility] Address [address] [place] [address] Care Team Providers Care Automotive Machinist Apprentice Name Role Phone Raffy Ziegler MD Unavailable + [phone] Evert Welch CREW TRUCK DRIVER Unavailable + [phone] Mark Holbrook MD Unavailable +[phone] Mikey Avendano DO Unavailable +[phone] Lucia Paredes TECHNICAL ACCOUNT REPRESENTATIVE Unavailable +[phone] Lucia Paredes TECHNICAL ACCOUNT REPRESENTATIVE Primary Care Provider +[phone] Karina PIERSON MD, Gold Murphy Unavailable + [phone] Encounter Details Date Type Department Care Team (Late st Contact Info) Description 04/09/2019 Abstract [facility] [address] [place] [address] , Generic MD Yoanna Social History Tobacco Use Types Packs/Day Years Used Date Smoking Tobacco: Never Smokeless Tobacco: Never Alcohol Use Standard Drinks/Week Comments No 0 (1 standard drink = 0.6 oz pur e alcohol) Sex and Gender Information Value Date Recorded Sex Assigned at Male 12/13/2024 9:48 AM INWEAVER Legal Sex Male 6:15 PM CDT Gender [...] Assessment Author Status No 12/15/2018 1:05 AM INWEAVER Activ e * RETIRED Are you blind or do you have serious difficulty seeing, even when wearing glasses? Answer Date of Assessment Author Status No 12/15/2018 1:05 AM INWEAVER Activ e * Do you have serious [...] Description 02/23/2025 3:00 PM CDT Office Visit [facility] [address] [place] [address] Christian Schaefer MD [address] [place] [address] documented as of this encounter Visit Diagnoses Not on filedocumented in this encounter Care Teams Automotive Machinist Apprentice Relationship Specialty Start Date End Date Mark Holbrook MD [address] [place] [address] PCP - Med Group - MSSP Attributed Provider 08/02/17 Lucia Paredes FNP [address] [place] [address] PCP - General NURSE PRACTITIONER 09/11/21 Raffy Ziegler MD CARDIOVASCULAR DISEASE 05/07/16 Evert Welch APRN 619 [facility] [address] [place] [address] Nurse Practitioner NURSE PRACTITIONER 04/27/19 Mikey Avendano DO [address] [place] [address] UROLOGY 06/18/20 Lucia Paredes FNP [address] [place] [address] NURSE PRACTITIONER 07/18/20 Gold Collins III, MD [address] [place] [address] Consulting Physician Pain Medicine 02/15/24 documented as of this encounter
--- OUTSIDE RECORDS SUMMARY | 2025-01-10 15:27 | XMS_ITS | Encounter Summary ---
Author Organization [facility] Address [address] [place] [address] Care Team Providers Care Fuel Island Attendant Name Role Phone Raffy Ziegler MD Unavailable + [phone] Evert Welch AGRICULTURAL LABOR CAMP MANAGER Unavailable + [phone] Mark Holbrook MD Unavailable +[phone] Mikey Avendano DO Unavailable [phone] Lucia Paredes MOLD BUILDER Unavailable +[phone] Lucia Paredes MOLD BUILDER Primary Care Provider +[phone] Karina PIERSON MD, Gold Murphy Unavailable +[phone] Encounter Details Date Type Department Care Team (Latest Contact Info) Description 06/30/2018 Abstract [facility] Mark Holbrook MD [address] [place], [place] [address] Social History Tobacco Use Types Packs/Day Years Used Date Smoking Tobacco: Never Smokeless Tobacco: Never Alcohol Use Standard Drinks/Week Comments No 0 (1 standard drink = 0.6 oz pur e alcohol) Sex and Gender Information Value Date Recorded Sex Assigned at Male 12/13/2024 9:48 AM ERP BUSINESS ANALYST Legal Sex Male 6:15 PM CDT Gender [...] Description 02/23/2025 3:00 PM CDT Office Visit [facility] [place] [address] [place] [address] Christian Schaefer MD [address] [place] [address] documented as of this encounter Visit Diagnoses Not on filedocumented in this encounter Care Teams Fuel Island Attendant Relationship Specialty Start Date End Date Mark Holbrook MD [address] [place] [address] PCP - Med Group - MSSP Attributed Provider 08/02/17 Lucia Paredes FNP [address] [place] [address] PCP - General NURSE PRACTITIONER 09/11/21 Raffy Ziegler MD CARDIOVASCULAR DISEASE 05/07/16 Evert Welch APRN 619 [facility] [address] [address] Nurse Practitioner NURSE PRACTITIONER 04/27/19 Mikey Avendano DO [address] [place] [address] UROLOGY 06/18/20 Lucia Paredes FNP [address] [place] [address] NURSE PRACTITIONER 07/18/20 Gold Collins III, MD [address] [place] [address] Consulting Physician Pain Medicine 02/15/24 documented as of this encounter
--- OUTSIDE RECORDS SUMMARY | 2025-01-10 15:27 | XMS_ITS | Encounter Summary ---
Author Organization [facility] Address [address] [place] [address] Care Team Providers Care Airline Operations Agent Name Role Phone Raffy Ziegler MD Unavailable + [phone] Evert Welch AUTOMOBILE DEALER Unavailable + [phone] Mark Holbrook MD Unavailable +[phone] Mikey Avendano DO Unavailable [phone] Lucia Paredes UTILIZATION REVIEW SPECIALIST Unavailable +[phone] Lucia Paredes UTILIZATION REVIEW SPECIALIST Primary Care Provider [phone] Karina PIERSON MD, Gold Murphy Unavailable + [phone] Encounter Details Date Type Department Care Team (Late Contact Info) Description 01/16/2018 Abstract [facility] [address] [place] [address] , Rose Mary Lenz MD Social History Tobacco Use Types Packs/Day Years Used Date Smoking Tobacco: Never Smokeless Tobacco: Never Alcohol Use Standard Drinks/Week Comments No 0 (1 standard drink = 0.6 oz pur e alcohol) Sex and Gender Information Value Date Recorded Sex Assigned at Male 12/13/2024 9:48 AM BULK FLUIDS HANDLER Legal Sex Male 6:15 PM CDT Gender [...] [facility] Medical [facility] [place] [address] [place] [address] Christian Schaefer MD [address] [place] [address] documented as of this encounter Visit Diagnoses Not on filedocumented in this encounter Care Teams Airline Operations Agent Relationship Specialty Start Date End Date Mark Holbrook MD [address] [place] [address] PCP - Med Group - MSSP Attributed Provider 08/02/17 Lucia Paredes FNP [address] [place] [address] PCP - General NURSE PRACTITIONER 09/11/21 Raffy Ziegler MD CARDIOVASCULAR DISEASE 05/07/16 Evert Welch APRN 619 [facility] [address] [place] [address] Nurse Practitioner NURSE PRACTITIONER 04/27/19 Mikey Avendano DO [address] [place] [address] UROLOGY 06/18/20 Lucia Paredes FNP [address] [place] [address] NURSE PRACTITIONER 07/18/20 Gold Collins III, MD [address] [place] [address] Consulting Physician Pain Medicine 02/15/24 documented as of this encounter
== END 2025-01-10 13:45 | disposition home or self-care (01) ==
LOC: CHSIMG 13:45
PROVIDERS: PCP Nurse Practitioner Family; Visit Provider Nurse Practitioner Family
DX: R22.2 Localized swelling, mass and lump, trunk (principal)
CPT/HCPCS: 76705

== ENCOUNTER 2025-01-17 14:38 | Outpatient (CLI) | payer MEDICARE, SELFPAY ==
[2025-01-17 14:59] LABS: Hematocrit 48.7 % (37.0-46.0); Hemoglobin 16.1 g/dL (12.4-15.3); Immature Platelet Fraction Pct 3.4 % (1.0-7.0); Mean Corpuscular HGB Conc 33.1 g/dL (32-36); Mean Corpuscular Hemoglobin 30.7 pg (27.0-31.0); Mean Corpuscular Volume 92.8 fL (78.0-102.0); Mean Platelet Volume 10.5 fl (8.7-11.0); Platelet Count Result 106 K/mm3 (150-420); Red Blood Count 5.25 M/mm3 (4.70-6.10); Red Cell Distribution Width 13.4 % (11.6-14.4); White Blood Count 7.5 K/mm3 (4.8-10.8)
[2025-01-17 15:24] LABS: INR 1.1; Prothrombin Time 12.1 Seconds (9.50-12.1)
[2025-01-17 15:32] LABS: Alanine Aminotransferase 45 U/L (16-63); Albumin Level 3.5 g/dL (3.4-5.0); Alkaline Phosphatase 138 U/L (46-116); Ammonia 71 umol/L (11-32); Anion Gap 8 mmol/L (4-12); Aspartate Amino Transferase 34 U/L (15-37); Bilirubin,Total 0.7 mg/dL (0.00-1.00); Blood Urea Nitrogen 18 mg/dL (7-18); Calcium 8.5 mg/dL (8.5-10.1); Carbon Dioxide 32 mmol/L (21-32); Chloride 110 mmol/L (98-108); Estimated Glomerular Filt Rate > 60; Glucose 89 mg/dL (70-99); Osmolality Calculated 310 mOsm/kg (285-295); Potassium 3.9 mmol/L (3.5-5.1); Sodium 150 mmol/L (136-145); Total Protein 7.1 g/dL (6.4-8.2)
--- OUTSIDE RECORDS SUMMARY | 2025-01-17 16:31 | XMS_ITS | Encounter Summary ---
Author Organization [facility] Address [address] [place] [address] Care Team Providers Care Dupligraph Operator Name Role Phone Raffy Ziegler MD Unavailable + [phone] Evert Welch SEAM SEWER Unavailable +[phone] Mark Holbrook MD Unavailable [phone] Mikey Avendano DO Unavailable +[phone] Lucia Paredes WOOD TYPE FINISHER Unavailable +[phone] Lucia Paredes WOOD TYPE FINISHER Primary Care Provider +[phone] Karina PIERSON MD, Gold Murphy Unavailable + [phone] Encounter Details Date Type Department Care Team (Late st Contact Info) Description 12/01/2022 Abstract [facility] [address] [place] [address] Evert Welch, SEAM SEWER [address] [address] Social History Tobacco Use Types Packs/Day Years Used Date Smoking Tobacco: Never Smokeless Tobacco: Never Alcohol Use Standard Drinks/Week Comments No 0 (1 standard drink = 0.6 oz pur e alcohol) Sex and Gender Information Value Date Recorded Sex Assigned at Male 12/13/2024 9:48 AM SUPERVISOR GRAPHITE Legal Sex Male 6:15 PM CDT Gender [...] Assessment Author Status No 12/15/2018 1:05 AM SUPERVISOR GRAPHITE Activ e * RETIRED Are you blind or do you have serious difficulty seeing, even when wearing glasses? Answer Date of Assessment Author Status No 12/15/2018 1:05 AM SUPERVISOR GRAPHITE Activ e * Do you have serious [...] Description 02/23/2025 3:00 PM CDT Office Visit [facility] [address] [place] [address] Christian Schaefer MD [address] [place] [address] documented as of this encounter Procedures Procedure Name Priority Date/Time Associated Diagnosis Comments CMP (ABSTRACTED LAB) Routine 11/12/2022 LIPID PANEL Routine 11/12/2022 CBC W/DIFF AUTOMATED Routine 11/12/2022 documented in this encounter Results * CBC W/DIFF AUTOMATED (11/12/2022) [facility] WBC 7.1 4.8 - 10.8 RBC 4.97 [...] LABORATORY Final Result * LIPID PANEL (11/12/2022) CHOLESTEROL 292 0 - 200 HDL 34 40 - 60 TRIGLYCERIDES 643 0 - 150 NON HDL CHOLESTEROL - - CHOL/HDL RATIO - - LDL (CALCULATED) 129 <130 VLDL CALCULATION - - 11/12/2022 us Default History Genericprovider LABORATORY Final Result * CMP (ABSTRACTED LAB) (11/12/2022) SODIUM S/P/B 136 136 - 145 POTASSIUM [...] on filedocumented in this encounter Care Teams Dupligraph Operator Relationship Specialty Start Date End Date Mark Holbrook MD [address] [place] [address] PCP - Med Group - MSSP Attributed Provider 08/02/17 Lucia Paredes FNP [address] [place] [address] PCP - General NURSE PRACTITIONER 09/11/21 Rfafy Ziegler MD CARDIOVASCULAR DISEASE 05/07/16 Evert Welch APRN Nurse Practitioner NURSE PRACTITIONER 04/27/19 Mikey Avendano DO [address] [place] [address] UROLOGY 06/18/20 Lucia Paredes FNP [address] [place] [address] NURSE PRACTITIONER 07/18/20 Gold Collins III, MD [address] [place] [address] Consulting Physician Pain Medicine 02/15/24 documented as of this encounter
--- OUTSIDE RECORDS SUMMARY | 2025-01-17 16:31 | XMS_ITS | Encounter Summary ---
Author Organization [facility] Address [address] [place] [address] Care Team Providers Care Pharmaceutical Officer Name Role Phone Raffy Ziegler MD Unavailable + [phone] Evert Welch PHOTOCOMPOSING MACHINE OPERATOR Unavailable + [phone] Mark Holbrook MD Unavailable [phone] Mikey Avendano DO Unavailable +[phone] Lucia Paredes TERRA COTTA ROOFER HELPER Unavailable +[phone] Lucia Paredes TERRA COTTA ROOFER HELPER Primary Care Provider +[phone] Karina PIERSON MD, Gold Murphy Unavailable +[phone] Encounter Details Date Type Department Care Team (Latest Contact Info) Description 06/30/2018 Abstract [facility] Group Mark Holbrook MD [address] [place], [place] [address] Social History Tobacco Use Types Packs/Day Years Used Date Smoking Tobacco: Never Smokeless Tobacco: Never Alcohol Use Standard Drinks/Week Comments No 0 (1 standard drink = 0.6 oz pur e alcohol) Sex and Gender Information Value Date Recorded Sex Assigned at Male 12/13/2024 9:48 AM SENIOR PACKAGING ENGINEER Legal Sex Male 6:15 PM CDT Gender [...] Description 02/23/2025 3:00 PM CDT Office Visit [facility] [place] [address] [place] [address] Christian Schaefer MD [address] [place] [address] documented as of this encounter Visit Diagnoses Not on filedocumented in this encounter Care Teams Pharmaceutical Officer Relationship Specialty Start Date End Date Mark Holbrook MD [address] [place] [address] PCP - Med Group - MSSP Attributed Provider 08/02/17 Lucia Paredes FNP [address] [place] [address] PCP - General NURSE PRACTITIONER 09/11/21 Raffy Ziegler MD CARDIOVASCULAR DISEASE 05/07/16 Evert Welch APRN Nurse Practitioner NURSE PRACTITIONER 04/27/19 Mikey Avendano DO [address] [place] [address] UROLOGY 06/18/20 Lucia Paredes FNP [address] [place] [address] NURSE PRACTITIONER 07/18/20 Gold Collins III, MD [address] [place] [address] Consulting Physician Pain Medicine 02/15/24 documented as of this encounter
--- OUTSIDE RECORDS SUMMARY | 2025-01-17 16:31 | XMS_ITS | Encounter Summary ---
Author Organization [facility] Address [address] [place] [address] Care Team Providers Care Hand Tacker Name Role Phone Raffy Ziegler MD Unavailable + [phone] Evert Welch DIFFERENTIAL REPAIRER Unavailable +[phone] Mark Holbrook MD Unavailable [phone] Mikey Avendano DO Unavailable [phone] Lucia Paredes WILLOW MACHINE OPERATOR Unavailable +[phone] Lucia Paredes WILLOW MACHINE OPERATOR Primary Care Provider +[phone] Karina PIERSON MD, Gold Murphy Unavailable + [phone] Encounter Details Date Type Department Care Team (Late st Contact Info) Description 04/09/2019 Abstract [facility] [address] [place] [address] , Generic MD Yoanna Social History Tobacco Use Types Packs/Day Years Used Date Smoking Tobacco: Never Smokeless Tobacco: Never Alcohol Use Standard Drinks/Week Comments No 0 (1 standard drink = 0.6 oz pur e alcohol) Sex and Gender Information Value Date Recorded Sex Assigned at Male 12/13/2024 9:48 AM CAMPGROUND CLEANING ATTENDANT Legal Sex Male 6:15 PM CDT Gender [...] Assessment Author Status No 12/15/2018 1:05 AM CAMPGROUND CLEANING ATTENDANT Activ e * RETIRED Are you blind or do you have serious difficulty seeing, even when wearing glasses? Answer Date of Assessment Author Status No 12/15/2018 1:05 AM CAMPGROUND CLEANING ATTENDANT Activ e * Do you have serious [...] Assessment Author Status No 12/15/2018 1:05 AM Markie Kaiser RN Active documented as of this [...] Description 02/23/2025 3:00 PM CDT Office Visit [facility] [address] [place] [address] Christian Schaefer MD [address] [place] [address] documented as of this encounter Visit Diagnoses Not on filedocumented in this encounter Care Teams Hand Tacker Relationship Specialty Start Date End Date Mark Holbrook MD [address] [place] [address] PCP - Med Group - MSSP Attributed Provider 08/02/17 Lucia Paredes FNP [address] [place] [address] PCP - General NURSE PRACTITIONER 09/11/21 Raffy Ziegler MD CARDIOVASCULAR DISEASE 05/07/16 Evert Welch APRN Nurse Practitioner NURSE PRACTITIONER 04/27/19 Mikey Avendano DO [address] [place] [address] UROLOGY 06/18/20 Lucia Paredes, BEULAH [address] [place], [place] [address] NURSE PRACTITIONER 07/18/20 Gold Collins III, MD [address] [place] [address] Consulting Physician Pain Medicine 02/15/24 documented as of this encounter
--- OUTSIDE RECORDS SUMMARY | 2025-01-17 16:31 | XMS_ITS | Encounter Summary ---
Author Organization [facility] Address [address] [place] [address] Care Team Providers Care Washer Machine Name Role Phone Raffy Ziegler MD Unavailable + [phone] Evert Welch PESTICIDE CHEMIST Unavailable +[phone] Mark Holbrook MD Unavailable [phone] Mikey Avendano DO Unavailable +[phone] Lucia Paredes BAG SHOP WORKER Unavailable [phone] Lucia Paredes BAG SHOP WORKER Primary Care Provider +[phone] Karina PIERSON MD, Gold Murphy Unavailable + [phone] Encounter Details Date Type Department Care Team (Late Contact Info) Description 01/16/2018 Abstract [facility] [address] [place] [address] , Rose Mary Lenz MD Social History Tobacco Use Types Packs/Day Years Used Date Smoking Tobacco: Never Smokeless Tobacco: Never Alcohol Use Standard Drinks/Week Comments No 0 (1 standard drink = 0.6 oz pur e alcohol) Sex and Gender Information Value Date Recorded Sex Assigned at Male 12/13/2024 9:48 AM PAVILION CUTTER Legal Sex Male 6:15 PM CDT Gender [...] Description 02/23/2025 3:00 PM CDT Office Visit [facility] [place] [address] [place] [address] Christian Schaefer MD [address] [place] [address] documented as of this encounter Visit Diagnoses Not on filedocumented in this encounter Care Teams Washer Machine Relationship Specialty Start Date End Date Mark Holbrook MD [address] [place] [address] PCP - Med Group - MSSP Attributed Provider 08/02/17 Lucia Paredes FNP [address] [place] [address] PCP - General NURSE PRACTITIONER 09/11/21 Raffy Ziegler MD CARDIOVASCULAR DISEASE 05/07/16 Evert Welch APRN Nurse Practitioner NURSE PRACTITIONER 04/27/19 Mikey Avendano DO [address] [place] [address] UROLOGY 06/18/20 Lucia Paredes FNP [address] [place] [address] NURSE PRACTITIONER 07/18/20 Gold Collins III, MD [address] [place] [address] Consulting Physician Pain Medicine 02/15/24 documented as of this encounter
--- OUTSIDE RECORDS SUMMARY | 2025-01-17 16:31 | XMS_ITS ---
Author Organization [facility] Address [address] [place] [address] Care Team Providers Care Umbrella Tipper Hand Name Role Phone Jose Caballero [phone] Encounters Encounter Location Date Provider Diagnosis [facility] [address] [place] [address] 09/28/2024 Jose Ada Plan Of Treatment Next Appt Details Provider Name:Jose Caballero, 0 03/15/2025 11:45:00 AM, [address], [place], [address], Provider Name:Jose Caballero, 0 04/06/2025 09:30:00 AM, [address], [place], [address], Progress Notes * JOI PATDOB:[birth year] (69 yo F)Acc No.[id number]:09/28/2024 Patient: JOI ADEN Provider: Anastasia Caballero MD :1955 A ge:69 Y S ex:Female Date:09/28/2024 Address:[address] [facility], [place] Subjective: * Chief Complaints: * * Medical History: Objective: * Vitals: Assessment: Plan: * Treatment: * * Electronic signature of Jose Caballero MD on 01/17/2025 at 04:39 PM EDT Sign off status: Pending * Provider: Anastasia Caballero MD Date: 1 11/28/2023 Generated for Printi ng/Faxing/eTransmitting on: 0 01/17/2025 04:39 PM EDT
--- OUTSIDE RECORDS SUMMARY | 2025-01-17 16:31 | XMS_ITS | Encounter Summary ---
Author Organization [facility] Address [address] [place] [address] Care Team Providers Care Chemical Dependency Counselor Name Role Phone Raffy Ziegler MD Unavailable + [phone] Evert Welch CAKE PRESS OPERATOR HELPER Unavailable +[phone] Mark Holbrook MD Unavailable [phone] Mikey Avendano DO Unavailable +[phone] Lucia Paredes BUILDING ATTENDANT Unavailable +[phone] Lucia Paredes BUILDING ATTENDANT Primary Care Provider +[phone] Karina PIERSON MD, Gold Murphy Unavailable + [phone] Encounter Details Date Type Department Care Team (Late st Contact Info) Description 12/03/2021 [facility] [address] [place] [address] Evert Welch, CAKE PRESS OPERATOR HELPER [address] [address] Social History Tobacco Use Types Packs/Day Years Used Date Smoking Tobacco: Never Smokeless Tobacco: Never Alcohol Use Standard Drinks/Week Comments No 0 (1 standard drink = 0.6 oz pur e alcohol) Sex and Gender Information Value Date Recorded Sex Assigned at Male 12/13/2024 9:48 AM SUBMARINE OPERATOR Legal Sex Male 6:15 PM CDT [...] COVID-19? No / Unsure 11/13/2021 2:42 PM SUBMARINE OPERATOR documented as of this encounter Functional Status * RETIRED Are you deaf or do you have serious difficulty hearing Answer Date of Assessment Author Status No 12/15/2018 1:05 AM SUBMARINE OPERATOR Activ e * RETIRED Are you blind or do you have serious difficulty seeing, even when wearing glasses? Answer Date of Assessment Author Status No 12/15/2018 1:05 AM SUBMARINE OPERATOR Activ e * Do you have [...] Description 02/23/2025 3:00 PM CDT Office Visit [facility] [address] [place] [address] Christian Schaefer MD [address] [place] [address] documented as of this encounter [...] on filedocumented in this encounter Care Teams Chemical Dependency Counselor Relationship Specialty Start Date End Date Mark Holbrook MD [address] [place] [address] PCP - Med Group - MSSP Attributed Provider 08/02/17 Lucia Paredes FNP [address] [place] [address] PCP - General NURSE PRACTITIONER 09/11/21 Raffy Ziegler MD CARDIOVASCULAR DISEASE 05/07/16 Evert Welch APRN Nurse Practitioner NURSE PRACTITIONER 04/27/19 Mikey Avendano DO [address] [place] [address] UROLOGY 06/18/20 Lucia Paredes FNP [address] [place] [address] NURSE PRACTITIONER 07/18/20 Gold Collins III, MD [address] [place] [address] Consulting Physician Pain Medicine 02/15/24 documented as of this encounter
--- OUTSIDE RECORDS SUMMARY | 2025-01-17 16:31 | XMS_ITS | Encounter Summary ---
Author Organization [facility] Address [address] [place] [address] Care Team Providers Care Medicine Man Name Role Phone Raffy Ziegler MD Unavailable + [phone] Evert Welch AMBULATORY TECHNOLOGIST Unavailable +[phone] Mark Holbrook MD Unavailable [phone] Mikey Avendano DO Unavailable +[phone] Lucia Paredes MEAT GRINDER Unavailable +[phone] Lucia Paredes MEAT GRINDER Primary Care Provider +[phone] Karina PIERSON MD, Gold Murphy Unavailable + [phone] Encounter Details Date Type Department Care Team (Late st Contact Info) Description 01/10/2016 Abstract [facility] [address] [place] [phone] Shelli Coronel NP [address] [place] [address] Social History Tobacco Use Types Packs/Day Years Used Date Smoking Tobacco: Never Alcohol Use Standard Drinks/Week Comments No 0 (1 standard drink = 0.6 oz pur e alcohol) Sex and Gender Information Value Date Recorded Sex Assigned at Male 12/13/2024 9:48 AM CORPORATE MANAGER Legal Sex Male 6:15 PM CDT Gender Identity Not on file Sexual Orientation Not on file Occupation Industry Job Start Date Job End Date Retired Not on file Not on file Not on file documented as of this encounter Plan of Treatment Upcoming Encounters Date Type Department Care Team (Late st Contact Info) Description 02/23/2025 3:00 PM CDT [facility] [address] [place] [address] Christian Schaefer MD [address] [place] [address] documented as of this encounter Visit Diagnoses Not on filedocumented in this encounter Care Teams Medicine Man Relationship Specialty Start Date End Date Mark Holbrook MD [address] [place], [place] [phone] PCP - Med Group - MSSP Attributed Provider 08/02/17 Lucia Paredes FNP [address] [place] [address] PCP - General NURSE PRACTITIONER 09/11/21 Raffy Ziegler MD CARDIOVASCULAR DISEASE 05/07/16 Evert Welch APRN Nurse Practitioner NURSE PRACTITIONER 04/27/19 Mikey Avendano DO [address] [place] [address] UROLOGY 06/18/20 Lucia Paredes FNP [address] [place] [address] NURSE PRACTITIONER 07/18/20 Gold Collins III, MD [address] [place] [address] Consulting Physician Pain Medicine 02/15/24 documented as of this encounter
--- OUTSIDE RECORDS SUMMARY | 2025-01-17 16:31 | XMS_ITS | Clinical Summary ---
Author Organization [facility] Address [address] [place] [address] Care Team Providers Care Steam Distribution Supervisor Name Role Phone Raffy Ziegler MD Unavailable + [phone] Evert Welch FIRM ADMINISTRATOR Unavailable [phone] Mark Holbrook MD Unavailable [phone] Mikey Avendano DO Unavailable [phone] Lucia Paredes SERVICE PLANNER Unavailable +[phone] Lucia Paredes SERVICE PLANNER Primary Care Provider [phone] Karina PIERSON MD, Gold Murphy Unavailable +[phone] Allergies Active Allergy Reactions Criticality Noted Date [...] combined systolic and diastolic congestive heart failure ([facility]) Patient says he gets oxygen [...] 07/28/2022 COPD (chronic obstructive pu lmonary disease) ([facility]) 01/31/2021 GERD (gastroesophageal reflux disease) Hyperlipidemia 01/31/2021 Type 2 diabetes mellitus ([facility]) 01/31 Spondylosis without myelopat hy or radiculopathy, lumbar region 01/11/2021 Lumbar spondylosis 06/14/2020 Diastolic dysfunction 06/01/2019 Pulmonary hypertension ([facility]) 019 Physical deconditioning 06/01/2019 Adult BMI 40.0-44.9 kg/sq m 06/01/2019 Noncompliance with CPAP treatment 06/01/2019 Lateral epicondylitis of left elbow 04/21/2019 Sepsis ([facility]) 12/15/2018 SARBJIT (acute kidney injury) 12/15/2018 Orthostasis 12/15/2018 Acute encephalopathy 12/15/2018 Obstructive sleep apnea (adult) (pediatric) 11/04 Cor pulmonale (chronic) ([facility]) 2018 Stiffness of left hip, not elsewhere classified 08/11/2018 Chronic respiratory failure with hypoxia, on home O2 therapy ([facility]) 07/07/2018 Excessive daytime sleepiness 06/02/2018 [...] hand, left 07/01/2016 DVT (deep venous thrombosis) ([facility]) 0 05/28/2016 Overview (11/06/2023): Transitioned [...] heart failure with pres erved LV function ([facility]) 06/01/2019 07/11/2024 Intolerance of continuous po sitive airway pressure (CPAP) ventilation 06/01/2019 07/13/2020 Chronic systolic heart failu re ([facility]) 12/01/2018 07/11/2024 Encounter for counseling on use of CPAP 12/01/2018 07/13/2020 Difficulty with CPAP use 07/07/201806/2024 CHF (congestive heart failur e) ([facility]) 07/11/2024 Carotid artery disease 07/11 Encounters Date Type Department Care Team Description 12/20/2024 Telephone [facility] [address] [place] [address] Evert Welch, FIRM ADMINISTRATOR Appointment Request 12/13/2024 10:00 AM FRUIT HARVEST MACHINE OPERATOR [facility] [address] [place] [address] Evert Welch, FIRM ADMINISTRATOR Follow Up (CAD, HTN, DLD) 12/13/2024 Travel 11/21/2024 Telephone [facility] [address] [place] [address] Evert Welch, FIRM ADMINISTRATOR Information 11/08/2024 Telephone [facility] [address] [place] [address] Raffy Ziegler MD Reschedule 10/28/2024 [facility]phone [facility] [address] [place] [address] Raffy Ziegler MD Information 10/24/2024 Scan [facility] [address] [place] [address] Scanned, Doc Pccl ECG (SCAN); Lab (SCAN) [...] Sex Assigned at Male 12/13/2024 9:48 AM FRUIT HARVEST MACHINE OPERATOR Legal Sex Male 6:15 PM [...] Comments Blood Pressure 122/72 12/13/2024 10:36 AM FRUIT HARVEST MACHINE OPERATOR Pulse 77 12/13/2024 9:59 AM FRUIT HARVEST MACHINE OPERATOR Temperature 36.2 C (97.2 F) 01/01/2024 4:07 PM FRUIT HARVEST MACHINE OPERATOR Respiratory Rate 18 12/13/2024 9:59 AM FRUIT HARVEST MACHINE OPERATOR Oxygen Saturation 98% 12/13/2024 9:59 AM FRUIT HARVEST MACHINE OPERATOR Inhaled Oxygen Concentration - - Weight 101.6 kg (224 lb) 12/13/2024 9:59 AM FRUIT HARVEST MACHINE OPERATOR Height 175.3 cm (5' 9 ) 12/13/2024 9:59 AM FRUIT HARVEST MACHINE OPERATOR Body Mass Index 33.08 12/13/2024 9:59 AM FRUIT HARVEST MACHINE OPERATOR Plan of Treatment Upcoming Encounters Date Type Department Care Team (Late st Contact Info) Description 02/23/2025 3:00 PM CDT Office Visit [facility] [place] [address] [place] [address] Christian Schaefer MD [address] [place] [address] Health Maintenance Due Date Last [...] (#1) 2024 09/02/2018, 08/14/2017, 10/17/2012 PHQ-2 (Physician [place]) 11/02/2024 Lipid Panel 07/16/2025 07/16/2024, 11/02, 11/25/2021, [...] us Doc Pccl Scanned SCANNING Final Result [facility] * OUTSIDE LAB (10/24/2024) 10/24/2024 us Doc Pccl Scanned SCANNING Final Result [facility] * (ABNORMAL) LIPID PANEL (07/16/2024 9:58 AM CDT) CHOLESTEROL 120 MG/DL 07/17/2024 11:54 AM CDT [facility] Comment:DESIRABLE: <200 TRIGLYCERIDES 122 MG/DL 07/17/2024 11:54 AM CDT [facility] Comment:<150 NORMAL HDL 37(L) >39 MG/DL 07/17/2024 11:54 AM CDT [facility] LDL-C 59 MG/DL 07/17/2024 11:54 AM CDT [facility] Comment:<100 OPTIMAL VLDL CALCULATION 24 MG/DL 07/17/20 24 11:54 AM CDT [facility] Comment:REFERENCE RANGE NOT ESTABLISHED CHOL/HDL RATIO 3.2 07/17/2024 11:54 AM CDT [facility] Comment:REFERENCE RANGE NOT ESTABLISHED LDL/HDL 1.6 07/17/2024 11:54 AM CDT [facility] Comment:REFERENCE RANGE NOT ESTABLISHED NON HDL CHOLESTEROL 83 MG/DL 07/17/2024 11:54 AM CDT [facility] Comment:REFERENCE RANGE NOT ESTABLISHED 07/16/2024 9:58 AM CDT us Evert [place] FIRM ADMINISTRATOR LABORATORY Final R esult [facility] [address] [place] [address], [id number] * (ABNORMAL) HEMOGLOBIN, GLYCOSYLATED (03/10/2019 11:55 AM CDT) HGB A1C 7.7(H) <5.7 % 03/10/2019 12:12 PM CDT [facility] Comment: 5.7 TO 6.4% INCREASED RISK OF DIABETES> OR = 6.5% CONSISTENT WITH DIABETESPER ADA GUIDELINES ESTIMATED AVG GLUCOSE 174(H) 70 - 140 MG/DL 03/10/2019 12:12 PM CDT [facility] 03/10/2019 11:5 5 AM CDT 03/10/2019 11:56 AM CDT us Generic Conversion Md [facility] Final R esult [facility] [address] [place] [address], * HEPATITIS PANEL,ACUTE (08/27/2018 2:36 PM CDT) HEPATITIS B SURFACE AG NON-REACT BEHZAD NON-REACT BEHZAD 08/30/2018 11:34 AM CDT [facility] Comment:HBsAg NOT DETECTED. HEP B CORE IGM NON-REACT BEHZAD NON-REACT BEHZAD 08/30/2018 11:34 AM CDT [facility] Comment: IgM ANTI HBc NOT DETECTED. DOES NOT EXCLUDE THE POSSIBILITY OF EXPOSURE TO OR INFECTION WITH HBV. NO RETEST REQUIRED.HIGH DOSES OF BIOTIN MAY INTERFERE WITH THIS TEST RESULT. CORRELATION TO CLINICAL HISTORY AND PRESENTATION RECOMMENDED. HAV IGM NON-REACT BEHZAD NON-REACT BEHZAD 08/30/2018 11:34 AM CDT [facility] Comment: IgM ANTI HAV NOT DETECTED. DOES NOT EXCLUDE THE POSSIBILITY OF EXPOSURE TO OR INFECTION WITH HAV. LEVELS OF IgM ANTI HAV MAY BE BELOW THE CUTOFF IN EARLY INFECTION. HEPATITIS C AB NON-REACT BEHZAD NON-REACT BEHZAD 08/30/2018 11:34 AM CDT [facility] Comment: ANTIBODIES TO HCV NOT DETECTED. DOES NOT EXCLUDE THE POSSIBILITY OF EXPOSURE TO HCV. 08/27/2018 2:36 PM CDT 08/27/2018 2:46 PM CDT us Generic Conversion Md [facility] Final R esult [facility] [address] [place] [address], [id number] from Last 3 Months or Most Recently Relevant to Health Maintenance Insurance [facility] Advance Directives * Full Code (Latest Code Status on File) Date Activated Date Inactivated Comments 12/15/2018 7:36 AM 12/18/2018 12:18 AM Care Teams Steam Distribution Supervisor Relationship Specialty Start Date End Date Mark Holbrook MD [address] [place] [address] PCP - Med Group - MSSP Attributed Provider 08/02/17 Lucia Paredes FNP [address] [place] [phone] PCP - General NURSE PRACTITIONER 09/11/21 Raffy Ziegler MD CARDIOVASCULAR DISEASE 05/07/16 Evert Welch APRN Nurse Practitioner NURSE PRACTITIONER 04/27/19 Mikey Avendano DO [address] [place] [address] UROLOGY 06/18/20 Lucia Paredes FNP [address] [place] [address] NURSE PRACTITIONER 07/18/20 Gold Collins III, MD [address] [place] [address] Consulting Physician Pain Medicine 02/15/24
== END 2025-01-17 14:39 | disposition home or self-care (01) ==
LOC: CHSLAB 14:39
PROVIDERS: PCP Nurse Practitioner Family; Visit Provider Nurse Practitioner
DX: K74.60 Unspecified cirrhosis of liver (principal); I85.00 Esophageal varices without bleeding; K75.81 Nonalcoholic steatohepatitis (NASH)
CPT/HCPCS: 36415; 80053; 82105; 82140; 85027; 85055; 85610

== ENCOUNTER 2025-03-04 09:45 | Outpatient (CLI) | payer MEDICARE, SELFPAY ==
[2025-03-04 11:02] LABS: Anion Gap 9 mmol/L (4-12); Blood Urea Nitrogen 22 mg/dL (7-18); Calcium 8.7 mg/dL (8.5-10.1); Carbon Dioxide 29 mmol/L (21-32); Chloride 104 mmol/L (98-108); Estimated Glomerular Filt Rate > 60; Glucose 280 mg/dL (70-99); Osmolality Calculated 307 mOsm/kg (285-295); Potassium 3.8 mmol/L (3.5-5.1); Sodium 142 mmol/L (136-145)
--- OUTSIDE RECORDS SUMMARY | 2025-03-04 16:10 | XMS_ITS | Encounter Summary ---
Author Organization [facility] Address [address] [place] [address] Care Team Providers Care Stave Log Cut Off Saw Operator Name Role Phone Raffy Ziegler MD Unavailable + [phone] Evert Welch DIPPER OPERATOR Unavailable [phone] Mark Holbrook MD Unavailable [phone] Mikey Avendano DO Unavailable +[phone] Lucia Paredes AIRLINE CUSTOMER SERVICE AGENT Unavailable +[phone] Lucia Paredes AIRLINE CUSTOMER SERVICE AGENT Primary Care Provider [phone] Karina PIERSON MD, Gold Murphy Unavailable + [phone] Encounter Details Date Type Department Care Team (Late st Contact Info) Description 01/10/2016 Abstract [facility] [address] [place] [phone] Shelli Coronel NP [address] [place] [address] Social History Tobacco Use Types Packs/Day Years Used Date Smoking Tobacco: Never Alcohol Use Standard Drinks/Week Comments No 0 (1 standard drink = 0.6 oz pur e alcohol) Sex and Gender Information Value Date Recorded Sex Assigned at Male 12/13/2024 9:48 AM TRAINING GENERALIST Legal Sex Male 6:15 PM CDT Gender Identity Not on file Sexual Orientation Not on file Occupation Industry Job Start Date Job End Date Retired Not on file Not on file Not on file documented as of this encounter Plan of Treatment Not on file documented as of this encounter Visit Diagnoses Not on filedocumented in this encounter Care Teams Stave Log Cut Off Saw Operator Relationship Specialty Start Date End Date Mark Holbrook MD [address] [place] [address] PCP - Med Group - MSSP Attributed Provider 08/02/17 Lucia Paredes FNP [address] [place] [address] PCP - General NURSE PRACTITIONER 09/11/21 Raffy Ziegler MD CARDIOVASCULAR DISEASE 05/07/16 Evert Welch APRN Nurse Practitioner NURSE PRACTITIONER 04/27/19 Mikey Avendano DO [address] [place] [address] UROLOGY 06/18/20 Lucia Paredes FNP [address] [place] [address] NURSE PRACTITIONER 07/18/20 Gold Collins III, MD [address] [place] [address] Consulting Physician Pain Medicine 02/15/24 documented as of this encounter
--- OUTSIDE RECORDS SUMMARY | 2025-03-04 16:10 | XMS_ITS | Encounter Summary ---
Author Organization [facility] Address [address] [place] [address] Care Team Providers Care Route Sales Person Name Role Phone Raffy Ziegler MD Unavailable + [phone] Evert Welch MUTUEL MACHINE OPERATOR Unavailable [phone] Mark Holbrook MD Unavailable [phone] Mikey Avendano DO Unavailable [phone] Lucia Paredes FAMILY COACH Unavailable +[phone] Lucia Paredes FAMILY COACH Primary Care Provider [phone] Karina PIERSON MD, Gold Murphy Unavailable + [phone] Encounter Details Date Type Department Care Team (Late st Contact Info) Description 12/01/2022 [facility] [address] [place] [address] Evert Welch, MUTUEL MACHINE OPERATOR [address] [place] [address] Social History Tobacco Use Types Packs/Day Years Used Date Smoking Tobacco: Never Smokeless Tobacco: Never Alcohol Use Standard Drinks/Week Comments No 0 (1 standard drink = 0.6 oz pur e alcohol) Sex and Gender Information Value Date Recorded Sex Assigned at Male 12/13/2024 9:48 AM ETHANOL OPERATOR Legal Sex Male 6:15 PM CDT [...] Assessment Author Status No 12/15/2018 1:05 AM ETHANOL OPERATOR Activ e * RETIRED Are you blind or do you have serious difficulty seeing, even when wearing glasses? Answer Date of Assessment Author Status No 12/15/2018 1:05 AM ETHANOL OPERATOR Activ e * Do you have [...] documented in this encounter Plan of Treatment Not on file documented as of this encounter Procedures Procedure [...] 129 <130 VLDL CALCULATION - - 11/12/2022 Default History Genericprovider LABORATORY Final Result * [...] on filedocumented in this encounter Care Teams Route Sales Person Relationship Specialty Start Date End Date Mark Holbrook MD [address] [place] [address] PCP - Med Group - MSSP Attributed Provider 08/02/17 Lucia Paredes FNP [address] [place] [address] PCP - General NURSE PRACTITIONER 09/11/21 Raffy Ziegler MD CARDIOVASCULAR DISEASE 05/07/16 Evert Welch APRN Nurse Practitioner NURSE PRACTITIONER 04/27/19 Mikey Avendano DO [address] [place] [address] UROLOGY 06/18/20 Lucia Paredes FNP [address] [place] [address] NURSE PRACTITIONER 07/18/20 Gold Collins III, MD [address] [place] [address] Consulting Physician Pain Medicine 02/15/24 documented as of this encounter
--- OUTSIDE RECORDS SUMMARY | 2025-03-04 16:10 | XMS_ITS | Clinical Summary ---
Author Organization [facility] Address [address] [place] [address] Care Team Providers Care Daycare Worker Name Role Phone Raffy Ziegler MD Unavailable + [phone] Evert Welch COMMERCIAL LINES ACCOUNT ASSISTANT Unavailable +[phone] Mark Holbrook MD Unavailable +[phone] Mikey Avendano DO Unavailable +[phone] Lucia Paredes PROTOZOOLOGIST Unavailable +[phone] Lucia Paredes PROTOZOOLOGIST Primary Care Provider [phone] Karina PIERSON MD, Gold Murphy Unavailable +[phone] Allergies Active Allergy Reactions Criticality Noted Date [...] combined systolic and diastolic congestive heart failure ([facility]) Patient says he gets oxygen from the [...] 07/28/2022 COPD (chronic obstructive pu lmonary disease) ([facility]) 01/31/2021 GERD (gastroesophageal reflux disease) Hyperlipidemia 01/31/2021 Type 2 diabetes mellitus ([facility]) 01/31 Spondylosis without myelopat hy or radiculopathy, lumbar region 01/11/2021 Lumbar spondylosis 06/14/2020 Diastolic dysfunction 06/01/2019 Pulmonary hypertension ([facility]) 019 Physical deconditioning 06/01/2019 Adult BMI 40.0-44.9 kg/sq m 06/01/2019 Noncompliance with CPAP treatment 06/01/2019 Lateral epicondylitis of left elbow 04/21/2019 Sepsis ([facility]) 12/15/2018 SARBJIT (acute kidney injury) 12/15/2018 Orthostasis 12/15/2018 Acute encephalopathy 12/15/2018 Obstructive sleep apnea (adult) (pediatric) 11/04 Cor pulmonale (chronic) ([facility]) 2018 Stiffness of left hip, not elsewhere classified 08/11/2018 Chronic respiratory failure with hypoxia, on home O2 therapy ([facility]) 07/07/2018 Excessive daytime sleepiness 06/02/2018 Nocturnal hypoxia [...] hand, left 07/01/2016 DVT (deep venous thrombosis) ([facility]) 0 05/28/2016 Overview (11/06/2023): Transitioned From: Blood [...] heart failure with pres erved LV function ([facility]) 06/01/2019 07/11/2024 Intolerance of continuous po sitive airway pressure (CPAP) ventilation 06/01/2019 07/13/2020 Chronic systolic heart failu re ([facility]) 12/01/2018 07/11/2024 Encounter for counseling on use of CPAP 12/01/2018 07/13/2020 Difficulty with CPAP use 07/07/201806/2024 CHF (congestive heart failur e) ([facility]) 07/11/2024 Carotid artery disease 07/11 Encounters Date Type Department Care Team Description 12/20/2024 Telephone [facility] [address] [place] [address] Evert Welch, COMMERCIAL LINES ACCOUNT ASSISTANT Appointment Request 12/13/2024 10:00 AM ORDER DESK CLERK Office Visit [facility] [address] [place] [address] Evert Welch, COMMERCIAL LINES ACCOUNT ASSISTANT Follow Up (CAD, HTN, DLD) 12/13/2024 Travel from Last 3 Months Immunizations Immunization Administration Dates Next Due Influenza (Generic) 10/17/2012 [...] Sex Assigned at Male 12/13/2024 9:48 AM ORDER DESK CLERK Legal Sex Male 6:15 PM CDT Gender Identity Not on file Sexual Orientation Not on file Occupation Industry Job Start Date Job End Date Retired Not on file Not on file Not on file Not on file Not on file Not on file Not on file Last Filed Vital Signs Vital Sign Reading Time Taken Comments Blood Pressure 122/72 12/13/2024 10:36 AM ORDER DESK CLERK Pulse 77 12/13/2024 9:59 AM ORDER DESK CLERK Temperature 36.2 C (97.2 F) 01/01/2024 4:07 PM ORDER DESK CLERK Respiratory Rate 18 12/13/2024 9:59 AM ORDER DESK CLERK Oxygen Saturation 98% 12/13/2024 9:59 AM ORDER DESK CLERK Inhaled Oxygen Concentration - - Weight 101.6 kg (224 lb) 12/13/2024 9:59 AM ORDER DESK CLERK Height 175.3 cm (5' 9 ) 12/13/2024 9:59 AM ORDER DESK CLERK Body Mass Index 33.08 12/13/2024 9:59 AM ORDER DESK CLERK Plan of Treatment Health Maintenance Due Date Last Done Comments [...] 12/03, 08/27/2018, Additional history exists Pneumococcal Vaccine: 50+ Years (2 of 2 - PCV) 12/16/2019 12/16/2018, 09/02/2018, 10/17/2012 Annual Medicare Wellness Visit 2021 COVID-19 Vaccine ( season) 2024 PHQ-2 (Physician [place]) 11/02/2024 Lipid Panel 07/16/2025 07/16/2024, 11/02, 11/25/2021, [...] Date/Time Associated Diagnosis Comments LIPID PANEL Routine 07/16/2024 9:58 AM CDT Dyslipidemia HEMOGLOBIN, GLYCOSYLATED Routine 03/10/2019 11:55 AM CDT HEPATITIS PANEL,ACUTE Routine 08/27/2018 2:36 PM CDT from Last 3 Months or Most Recently Relevant to Health Maintenance Results * (ABNORMAL) LIPID PANEL (07/16/2024 9:58 AM CDT) CHOLESTEROL 120 MG/DL 07/17/2024 11:54 AM CDT [facility] Comment:DESIRABLE: <200 TRIGLYCERIDES 122 MG/DL 07/17/2024 11:54 AM CDT [facility] Comment:<150 NORMAL HDL 37(L) >39 MG/DL 07/17/2024 11:54 AM CDT [facility] LDL-C 59 MG/DL 07/17/2024 11:54 AM CDT [facility] Comment:<100 OPTIMAL VLDL CALCULATION 24 MG/DL 07/17/20 24 11:54 AM CDT [facility] Comment:REFERENCE RANGE NOT ESTABLISHED CHOL/HDL RATIO 3.2 07/17/2024 11:54 AM CDT [facility] Comment:REFERENCE RANGE NOT ESTABLISHED LDL/HDL 1.6 07/17/2024 11:54 AM CDT [facility] Comment:REFERENCE RANGE NOT ESTABLISHED NON HDL CHOLESTEROL 83 MG/DL 07/17/2024 11:54 AM CDT [facility] Comment:REFERENCE RANGE NOT ESTABLISHED 07/16/2024 9:58 AM CDT us Evert Welch COMMERCIAL LINES ACCOUNT ASSISTANT LABORATORY Final R esult [facility] [address] [place] [address], [phone] * (ABNORMAL) HEMOGLOBIN, GLYCOSYLATED (03/10/2019 11:55 AM CDT) HGB A1C 7.7(H) <5.7 % 03/10/2019 12:12 PM CDT [facility] Comment: 5.7 TO 6.4% INCREASED RISK OF DIABETES> OR = 6.5% CONSISTENT WITH DIABETESPER ADA GUIDELINES ESTIMATED AVG GLUCOSE 174(H) 70 - 140 MG/DL 03/10/2019 12:12 PM CDT [facility] 03/10/2019 11:5 5 AM CDT 03/10/2019 11:56 AM CDT us Generic Conversion Md [facility] Final R esult [facility] [address] [email or web address] [address], * HEPATITIS PANEL,ACUTE (08/27/2018 2:36 PM CDT) HEPATITIS B SURFACE AG NON-REACT BEHZAD NON-REACT BEHZAD 08/30/2018 11:34 AM CDT [facility] Comment:HBsAg NOT DETECTED. HEP B CORE IGM NON-REACT BEHZAD NON-REACT BEHZAD 08/30/2018 11:34 AM CDT [facility] Comment: IgM ANTI HBc NOT DETECTED. DOES NOT EXCLUDE THE POSSIBILITY OF EXPOSURE TO OR INFECTION WITH HBV. NO RETEST REQUIRED.HIGH DOSES OF BIOTIN MAY INTERFERE WITH THIS TEST RESULT. CORRELATION TO CLINICAL HISTORY AND PRESENTATION RECOMMENDED. HAV IGM NON-REACT BEHZAD NON-REACT BEHZAD 08/30/2018 11:34 AM CDT [facility] Comment: IgM ANTI HAV NOT DETECTED. DOES NOT EXCLUDE THE POSSIBILITY OF EXPOSURE TO OR INFECTION WITH HAV. LEVELS OF IgM ANTI HAV MAY BE BELOW THE CUTOFF IN EARLY INFECTION. HEPATITIS C AB NON-REACT BEHZAD NON-REACT BEHZAD 08/30/2018 11:34 AM CDT [facility] Comment: ANTIBODIES TO HCV NOT DETECTED. DOES NOT EXCLUDE THE POSSIBILITY OF EXPOSURE TO HCV. 08/27/2018 2:36 PM CDT 08/27/2018 2:46 PM CDT us Generic Conversion Md [facility] Final R esult [facility] [address] [place] [address], [phone] from Last 3 Months or Most Recently Relevant to Health Maintenance Insurance [facility] Advance Directives * Full Code (Latest Code Status on File) Date Activated Date Inactivated Comments 12/15/2018 7:36 AM 12/18/2018 12:18 AM Care Teams Daycare Worker Relationship Specialty Start Date End Date Mark Holbrook MD [address] [place] [address] PCP - Med Group - MSSP Attributed Provider 08/02/17 Lucia Paredes FNP [address] [place] [address] PCP - General NURSE PRACTITIONER 09/11/21 Raffy Ziegler MD CARDIOVASCULAR DISEASE 05/07/16 Evert Welch, COMMERCIAL LINES ACCOUNT ASSISTANT Nurse Practitioner NURSE PRACTITIONER 04/27/19 Mikey Avendano DO [address] [place] [address] UROLOGY 06/18/20 Lucia Paredes, PROTOZOOLOGIST [address] [place] [address] NURSE PRACTITIONER 07/18/20 Gold Collins III, MD [address] [place] [phone] Consulting Physician Pain Medicine 02/15/24
--- OUTSIDE RECORDS SUMMARY | 2025-03-04 16:10 | XMS_ITS ---
Author Organization [facility] Address [address] [facility] [address] [place] [address] Care Team Providers Care Behavioral Specialist Name Role Phone Jose Caballero [phone] Encounters Encounter Location Date Provider Diagnosis [facility] [address] [place] [address] 11/18/2024 Jose Irlandakane Plan Of Treatment Next Appt Details Provider Name:Jose Caballero, 0 03/15/2025 11:45:00 AM, [address], [place], [address], Provider Name:Jose Caballero, 0 04/06/2025 09:30:00 AM, [address], [place], [address], Progress Notes * JOI PATDOB:[birth year] (69 yo F)Acc No.[id number]:11/18/2024 Patient: JOI ADEN Provider: Anastasia Caballero MD :1955 A ge:69 Y S ex:Female Date:11/18/2024 Address:[address] [facility], [place] Subjective: * Chief Complaints: * * Medical History: Objective: * Vitals: Assessment: Plan: * Treatment: * * Electronic signature of Jose Caballero MD on 03/04/2025 at 05:10 PM EDT Sign off status: Pending * Provider: Anastasia Caballero MD Date: 0 11/18/2024 Generated for Printi ng/Faheaveng/eTransmitting on: 0 03/04/2025 05:10 PM EDT
--- OUTSIDE RECORDS SUMMARY | 2025-03-04 16:10 | XMS_ITS | Encounter Summary ---
Author Organization [facility] Address [address] [place] [address] Care Team Providers Care Manager Studio Name Role Phone Raffy Ziegler MD Unavailable + [phone] Evert Welch PREPARER Unavailable [phone] Mark Holbrook MD Unavailable [phone] Mikey Avendano DO Unavailable [phone] Lucia Paredes INTELLIGENCE CONSULTANT Unavailable [phone] Lucia Paredes INTELLIGENCE CONSULTANT Primary Care Provider [phone] Karina PIERSON MD, Gold Murphy Unavailable + [phone] Encounter Details Date Type Department Care Team (Late st Contact Info) Description 12/03/2021 [facility] [address] [place] [address] Evert Welch, PREPARER [address] [place] [address] Social History Tobacco Use Types Packs/Day Years Used Date Smoking Tobacco: Never Smokeless Tobacco: Never Alcohol Use Standard Drinks/Week Comments No 0 (1 standard drink = 0.6 oz pur e alcohol) Sex and Gender Information Value Date Recorded Sex Assigned at Male 12/13/2024 9:48 AM CRM TECHNICAL LEAD Legal Sex Male 6:15 PM CDT Gender [...] COVID-19? No / Unsure 11/13/2021 2:42 PM CRM TECHNICAL LEAD documented as of this encounter Functional Status * RETIRED Are you deaf or do you have serious difficulty hearing Answer Date of Assessment Author Status No 12/15/2018 1:05 AM CRM TECHNICAL LEAD Activ e * RETIRED Are you blind or do you have serious difficulty seeing, even when wearing glasses? Answer Date of Assessment Author Status No 12/15/2018 1:05 AM CRM TECHNICAL LEAD Activ e * Do you have serious [...] filedocumented in this encounter Care Teams Manager Studio Relationship Specialty Start Date End Date Mark Holbrook MD [address] [place] [address] PCP - Med Group - MSSP Attributed Provider 08/02/17 Lucia Paredes FNP [address] [place] [address] PCP - General NURSE PRACTITIONER 09/11/21 Raffy Ziegler MD CARDIOVASCULAR DISEASE 05/07/16 Evert Welch APRN Nurse Practitioner NURSE PRACTITIONER 04/27/19 Mikey Avendano DO [address] [place] [address] UROLOGY 06/18/20 Lucia Paredes FNP [address] [place] [address] NURSE PRACTITIONER 07/18/20 Gold Collisn III, MD [address] [place] [address] Consulting Physician Pain Medicine 02/15/24 documented as of this encounter
--- OUTSIDE RECORDS SUMMARY | 2025-03-04 16:11 | XMS_ITS | Encounter Summary ---
Author Organization [facility] Address [address] [place] [address] Care Team Providers Care Financial Solutions Advisor Name Role Phone Raffy Ziegler MD Unavailable + [phone] Evert Welch CHILD SUPPORT INVESTIGATOR Unavailable [phone] Mark Holbrook MD Unavailable [phone] Mikey Avendano DO Unavailable + [phone] Lucia Paredes ECOLOGIST TECHNICIAN Unavailable +[phone] Lucia Paredes ECOLOGIST TECHNICIAN Primary Care Provider [phone] Karina PIERSON MD, Gold Murphy Unavailable + [phone] Encounter Details Date Type Department Care Team (Late st Contact Info) Description 01/16/2018 Abstract [facility] [address] [place] [address] , Rose Mary Lenz MD Social History Tobacco Use Types Packs/Day Years Used Date Smoking Tobacco: Never Smokeless Tobacco: Never Alcohol Use Standard Drinks/Week Comments No 0 (1 standard drink = 0.6 oz pur e alcohol) Sex and Gender Information Value Date Recorded Sex Assigned at Male 12/13/2024 9:48 AM DIRECTOR OF BUSINESS OPERATIONS Legal Sex Male 6:15 PM CDT Gender [...] on filedocumented in this encounter Care Teams Financial Solutions Advisor Relationship Specialty Start Date End Date Mark Holbrook MD [address] [place] [address] PCP - Med Group - MSSP Attributed Provider 08/02/17 Lucia Paredes FNP [address] [place] [address] PCP - General NURSE PRACTITIONER 09/11/21 Raffy Ziegler MD CARDIOVASCULAR DISEASE 05/07/16 Evert Welch APRN Nurse Practitioner NURSE PRACTITIONER 04/27/19 Mikey Avendano DO [address] [place] [address] UROLOGY 06/18/20 Lucia Paredes FNP [address] [place] [address] NURSE PRACTITIONER 07/18/20 Gold Collins III, MD [address] [place] [address] Consulting Physician Pain Medicine 02/15/24 documented as of this encounter
--- OUTSIDE RECORDS SUMMARY | 2025-03-04 16:11 | XMS_ITS | Encounter Summary ---
Author Organization [facility] Address [address] [place] [address] Care Team Providers Care Hand Pleater Name Role Phone Raffy Ziegler MD Unavailable + [phone] Evert Welch HONING MACHINE OPERATOR Unavailable + [phone] Mark Holbrook MD Unavailable [phone] Mikey Avendano DO Unavailable [phone] Lucia Paredes GLUE MACHINE OPERATOR Unavailable +[phone] Lucia Paredes GLUE MACHINE OPERATOR Primary Care Provider [phone] Karina PIERSON MD, Gold Murphy Unavailable +[phone] Encounter Details Date Type Department Care Team (Latest Contact Info) Description 06/30/2018 Abstract [facility] Mark Holbrook MD [address] [place], [place] [address] Social History Tobacco Use Types Packs/Day Years Used Date Smoking Tobacco: Never Smokeless Tobacco: Never Alcohol Use Standard Drinks/Week Comments No 0 (1 standard drink = 0.6 oz pur e alcohol) Sex and Gender Information Value Date Recorded Sex Assigned at Male 12/13/2024 9:48 AM CONTROL CENTER OPERATOR Legal Sex Male 6:15 PM CDT [...] filedocumented in this encounter Care Teams Hand Pleater Relationship Specialty Start Date End Date Mark Holbrook MD [address] [place] [address] PCP - Med Group - MSSP Attributed Provider 08/02/17 Lucia Paredes FNP [address] [place] [address] PCP - General NURSE PRACTITIONER 09/11/21 Raffy Ziegler MD CARDIOVASCULAR DISEASE 05/07/16 Evert Welch APRN Nurse Practitioner NURSE PRACTITIONER 04/27/19 Mikey Avendano DO [address] [place] [address] UROLOGY 06/18/20 Lucia Paredes FNP [address] [place] [address] NURSE PRACTITIONER 07/18/20 Gold Collins III, MD [address] [place] [phone] Consulting Physician Pain Medicine 02/15/24 documented as of this encounter
--- OUTSIDE RECORDS SUMMARY | 2025-03-04 16:11 | XMS_ITS ---
Author Organization [facility] Address [address] [facility] [address] [place] [address] Care Team Providers Care Oscillograph Technician Name Role Phone Jose Caballero [phone] Encounters Encounter Location Date Provider Diagnosis [facility] [address] [place] [address] 09/28/2024 Jose Ada Plan Of Treatment Next Appt Details Provider Name:Jose Caballero, 0 03/15/2025 11:45:00 AM, [address], [place], [address], Provider Name:Jose Caballero, 0 04/06/2025 09:30:00 AM, [address] [facility] [facility], [place], [address], Progress Notes * JOI PATDOB:[birth year] (69 yo F)Acc No.[id number]:09/28/2024 Patient: JOI ADEN Provider: Anastasia Caballero MD :1955 A ge:69 Y S ex:Female Date:09/28/2024 Address:[address] [facility], [place] Subjective: * Chief Complaints: * * Medical History: Objective: * Vitals: Assessment: Plan: * Treatment: * * Electronic signature of Jose Caballero MD on 03/04/2025 at 05:10 PM EDT Sign off status: Pending * Provider: Anastasia Caballero MD Date: 1 11/28/2023 Generated for Printi ng/Faxing/eTransmitting on: 0 03/04/2025 05:10 PM EDT
--- OUTSIDE RECORDS SUMMARY | 2025-03-04 16:11 | XMS_ITS | Clinical Summary ---
Author Organization [facility] Address [address] [place] [address] Phone Care Team Providers Care Admissions Assistant Name Role Phone Provider, None Primary Care Provider Unavailabl e Allergies Active Allergy Reactions Criticality Noted Date Comments Fish Oil Unknown 02/23/2025 Per PCP Medications Dulaglutide (TRULICITY SC) 4.5 mg by Subcutaneous route once a week. Active aspirin 81 MG Chewable Tablet Take 81 mg by mouth daily. 02/08/20 21 Active atorvastatin (LIPITOR) 80 MG Tablet Take 80 mg by mouth daily. Active carvedilol (COREG) 12.5 MG Tablet Take 12.5 mg by mouth 2 times daily. 11/03/19 24 Active ferrous sulfate 325 (65 Fe) MG Tablet Take 325 mg by mouth 2 times daily. 11/14/19 17 Active empagliflozin (JARDIANCE) 25 MG Tablet Take 25 mg by mouth daily. Active pantoprazole (PROTONIX) 40 MG Tablet Delayed Response Take 40 mg by mouth 2 times daily. 11/11/19 17 Active docusate sodium (COLACE) 100 MG Capsule Take 100 mg by mouth daily. Active divalproex (DEPAKOTE) 250 MG Tablet Delayed Response Take 1 tablet in the morning and 2 tablets in the evening 90 Tablet 03/01/20 25 Active traZODone (DESYREL) 50 MG Tablet Take 1 Tablet by mouth nightly as needed for Sleep for up to 30 days. 30 Tablet 03/01/20 25 2024 Active insulin glargine (LANTUS) 100 UNIT/ML Solution 70 Units by Subcutaneous route nightly. 21 mL 03/01/20 25 Active ARIPiprazole (ABILIFY) 10 MG Tablet Take 1 Tablet by mouth daily for 30 days. 30 Tablet 03/01/20 25 2024 Active naproxen (NAPROSYN) 500 MG Tablet Take 500 mg by mouth 2 times daily. 11/14/19 17 2024 Discontinued(M ed List Clean Up) fluticasone (FLONASE) 50 MCG/ACT Suspension 2 Sprays by Nasal route daily. 11/11/19 18 2024 Discontinued(M ed List Clean Up) cetirizine (ZyrTEC) 10 MG Tablet Take 10 mg by mouth nightly. 09/10/20 23 2024 Discontinued(M ed List Clean Up) gabapentin (NEURONTIN) 400 MG Capsule Take 400 mg by mouth 2 times daily. 10/09/20 16 2024 Discontinued(M ed List Clean Up) losartan (COZAAR) 50 MG Tablet Take 50 mg by mouth daily. 05/17/20 19 2024 Discontinued(N on-compliance) Cholecalcifer ol (Vitamin D3) 2000 UNIT Capsule Take 1 Capsule by mouth daily. 11/03/19 24 2024 Discontinued(M ed List Clean Up) HYDROcodone-a cetaminophen (NORCO) 5-325 MG Tablet Take 1 Tablet by mouth nightly as needed for Moderate or more severe pain. 2024 Discontinued(M ed List Clean Up) Magnesium Chloride-Calc ium 64-106 MG Tablet Delayed Response Take 1 Tablet by mouth nightly. 2024 Discontinued(M ed List Clean Up) cyclobenzapri ne (FLEXERIL) 10 MG Tablet Take 10 mg by mouth nightly. 2024 Discontinued(M ed List Clean Up) DULoxetine (CYMBALTA) [address] Particles Take 60 mg by mouth daily. 2024 Discontinued(M ed List Clean Up) dicyclomine (BENTYL) 10 MG Capsule Take 10 mg by mouth every 6 hours as needed for Other. 2024 Discontinued(N on-compliance) insulin glargine (LANTUS) 100 UNIT/ML Solution 80 Units by Subcutaneous route nightly. 2024 Discontinued gabapentin (NEURONTIN) 300 MG Capsule Take 300 mg by mouth 3 times daily. 2024 Discontinued(M ed List Clean Up) Xifaxan 550 MG Tablet Take 550 mg by mouth 2 times daily. 02/24/20 25 2024 Discontinued(M ed List Clean Up) ARIPiprazole extended release (ABILIFY MAINTENA) 400 MG Prefilled Syringe 400 mg by Intramuscular route every 28 days for 1 dose. 1 Each 03/01/20 25 2024 Active Problems Problem Noted Date Diagnosed Date Suicidal ideation 02/23/2025 Bipolar disorder, current ep isode depressed, severe, without psychotic features 02/23/2025 Encounters Date Type Department Care Team Description 02/22/2025 9:03 PM CDT - 03/01/2025 12:33 PM CDT Hospital Encounter [facility] [address] [place] [address] Bettina Paulino MD [place], MD Sidra Banda Feiteng, MD Bipolar disorder, current episode depressed, severe, without psychotic features (HCC) Discharge Disposition: Discharged to home or Selfcare 02/22/2025 Travel from Last 3 Months Social History Tobacco Use Types Packs/Day Years Used Date Smoking Tobacco: Never Assessed [facility] Utilities Answer Date Recorded In the past 12 months has Phase III Development, gas, oil, or water company threatened to shut off services in your home? Patient declined 02/26/2025 Social Connection and Isolation Panel [NHANES] A nswer Date Recorded In a typical week, how many times do you talk on the phone with family, friends, or neighbors? Patient declined 02/26/2025 How often do you get togethe r with friends or relatives? Patient declined 02/26/2025 How often do you attend orthodox or pentecostal serv ices? Patient declined 02/26/2025 Do you belong to any clubs o r organizations such as orthodox groups, unions, fraternal or athletic groups, or school groups? Patient declined 02/26/2025 How often do you attend meet ings of the clubs or organizations you belong to? Patient declined 02/26/2025 Are you , , di vorced, , never , or living with a partner? Patient declined 02/26/2025 AUDIT-C Answer Date Recorded Q1: How often do you have a drink containing alc ohol? Patient declined 02/26/2025 Q2: How many drinks containi ng alcohol do you have on a typical day when you are drinking? Patient declined 02/26/2025 Q3: How often do you have si x or more drinks on one occasion? Patient declined 02/26/2025 Overall Financial Resource Strain (CARDIA) Answe r Date Recorded How hard is it for you to pa y for the very basics like food, housing, medical care, and heating? Patient declined 02/26/2025 [facility] - Occupational Stress Questionnaire Answer Date Recorded Do you feel stress - tense, restless, nervous, or anxious, or unable to sleep at night because your mind is troubled all the time - these days? Patient declined 02/26/2025 Exercise Vital Sign Answer Date Recorde d On average, how many days pe r week do you engage in moderate to strenuous exercise (like a brisk walk)? Patient declined Minutes of Exercise per Session Not on file 02/26/2025 Hunger Vital Sign Answer Date Recorded Within the past 12 months, y ou worried that your food would run out before you got the money to buy more. Patient declined Within the past 12 months, t he food you bought just didn't last and you didn't have money to get more. Patient declined PRAPARE - Transportation Answer Date Re corded In the past 12 months, has l ack of transportation kept you from medical appointments or from getting medications? Patient declined 02/26/2025 In the past 12 months, has l ack of transportation kept you from meetings, work, or from getting things needed for daily living? Patient declined 02/26/2025 Housing Stability Vital Sign Answer Luis e Recorded In the last 12 months, was t here a time when you were not able to pay the mortgage or rent on time? Patient declined 02/27/20 25 In the past 12 months, how m any times have you moved where you were living? 0 02/26/2025 At any time in the past 12 m [place], were you homeless or living in a usp (including now)? Patient declined 02/26/2025 Sex and Gender Information Value Date Recorded Sex Assigned at Not on file Legal Sex Male 9:03 PM CDT Gender Identity Not on file Sexual Orientation Not on file Last Filed Vital Signs Vital Sign Reading Time Taken Comments Blood Pressure 145/70 03/01/2025 9:00 AM CDT Pulse 76 03/01/2025 9:00 AM CDT Temperature 36.2 C (97.2 F) 03/01/2025 9:00 AM CDT Respiratory Rate 18 03/01/2025 9:00 AM CDT Oxygen Saturation 97% 02/28/2025 7:25 PM CDT Inhaled Oxygen Concentration - - Weight 99.8 kg (220 lb) 02/22/2025 9:14 PM CDT Height 175.3 cm (5' 9 ) 02/22/2025 9:14 PM CDT Body Mass Index 32.49 02/22/2025 9:14 PM CDT Plan of Treatment Not on file Procedures Procedure Name Priority Date/Time Associated Diagnosis Comments POCT GLUCOSE Routine 03/01/2025 5:56 AM CDT POCT GLUCOSE Routine 02/28/2025 8:38 PM CDT POCT GLUCOSE Routine 02/28/2025 4:32 PM CDT POCT GLUCOSE Routine 02/28/2025 11:39 AM CDT POCT GLUCOSE Routine 02/28/2025 7:02 AM CDT POCT GLUCOSE Routine 02/27/2025 7:50 PM CDT POCT GLUCOSE Routine 02/27/2025 4:46 PM CDT POCT GLUCOSE Routine 02/27/2025 11:53 AM CDT CBC WITH AUTO DIFFERENTIAL Routine 02/27/2025 8:18 AM CDT HEMOGLOBIN A1C W/ ESTIMATED GLUCOSE Routine 02/27/2025 8:18 AM CDT CMP (COMPREHENSIVE METABOLIC PANEL) Routine 02/27/2025 8:18 AM CDT COMPLETE BLOOD COUNT (CBC) WITH DIFF Routine 02/27/2025 8:18 AM CDT VALPROIC ACID (DEPAKENE) Routine 02/27/2025 8:18 AM CDT POCT GLUCOSE Routine 02/27/2025 5:55 AM CDT POCT GLUCOSE Routine 02/26/2025 8:19 PM CDT POCT GLUCOSE Routine 02/26/2025 11:17 AM CDT POCT GLUCOSE Routine 02/26/2025 6:47 AM CDT POCT GLUCOSE Routine 02/25/2025 7:54 PM CDT POCT GLUCOSE Routine 02/25/2025 4:44 PM CDT POCT GLUCOSE Routine 02/25/2025 6:24 AM CDT POCT GLUCOSE Routine 02/24/2025 8:33 PM CDT POCT GLUCOSE Routine 02/24/2025 4:22 PM CDT POCT GLUCOSE Routine 02/24/2025 11:33 AM CDT POCT GLUCOSE Routine 02/24/2025 6:38 AM CDT POCT GLUCOSE Routine 02/23/2025 8:34 PM CDT POCT GLUCOSE Routine 02/23/2025 4:41 PM CDT POCT GLUCOSE Routine 02/23/2025 12:30 PM CDT POCT GLUCOSE Routine 02/23/2025 6:39 AM CDT from Last 3 Months Results * (ABNORMAL) POCT Glucose (03/01/2025 5:56 AM CDT) Only the most recent of23 resultswithin the time period is included. GLUCOSE,BEDSID E POCT 197(H) 70 - 99 mg/dL 03/01/2025 5:[address] [facility] Blood 03/01/2025 5:56 AM CDT 03/01/2025 5:59 AM CDT us None Provider POINT OF CARE TESTING Final Resu lt [facility] [address] [place] [address], [place] [phone] * (ABNORMAL) Hemoglobin A1C w/ Estimated Glucose (02/27/2025 8:18 AM CDT) [facility] HGB-A1C 6.5(H) 4.0 - 6.0 % 02/27/2025 6:44 PM CDT [facility] Est Average Glucose 139.9 mg/dL 02/27/2025 6:44 PM CDT [facility] Blood Venipuncture / Unknown 02/27/2025 8:18 AM CDT 02/27/2025 8:29 AM CDT Narrative [facility] - 02/27/2025 6:44 PM CDT Specimens containing greater than 5% of Hemoglobin F may result in lower than expected % HbA1c results. us Earl Valente MD CHEMISTRY ORDERABLES Final Resul t [facility] [address] [place] [address], [place] * (ABNORMAL) CBC with Auto Differential (02/27/2025 8:18 AM CDT) Pathologist [facility] WBC 6.40 4.00 - 12.00 10(3)/mcL 02/27/2025 8:49 AM CDT [facility] RBC 5.28 4.40 - 5.80 10(6)/mcL 02/27/2025 8:[address] [facility] HEMOGLOBIN (HGB) 16.2 13.0 - 16.5 g/dL 02/27/2025 8:[address] [facility] HEMATOCRIT (HCT) 48.3 38.0 - 50.0 % 02/27/2025 8:49 AM CDT [facility] MCV 91.6 82.0 - 96.0 fL 02/27/2025 8:49 AM CDT [facility] MCH 30.8 26.0 - 32.0 pg 02/27/2025 8:[address] [facility] MCHC 33.6 31.0 - 36.0 g/dL 02/27/2025 8:[address] [facility] PLATELET COUNT 92(L) 140 - 440 10(3)/mcL 02/27/2025 8:[address] [facility] RDW 13.8 11.8 - 15.5 % 02/27/2025 8:[address] [facility] MPV 9.4 8.0 - 12.6 fL 02/27/2025 8:[address] [facility] NEUTROPHILS 79.6(H) 40.0 - 68.0 % 02/27/2025 8:[address] [facility] LYMPHOCYTES 10.4(L) 19.0 - 49.0 % 02/27/2025 8:[address] [facility] MONOCYTES 8.2 3.0 - 13.0 % 02/27/2025 8:[address] [facility] EOSINOPHILS 1.3 0.0 - 8.0 % 02/27/2025 8:[address] [facility] BASOPHILS 0.5 0.0 - 1.0 % 02/27/2025 8:[address] [facility] ABSOLUTE NEUTROPHILS 5.10 1.40 - 5.30 10(3)/mcL 02/27/2025 8:[address] [facility] ABSOLUTE LYMPHOCYTES 0.70(L) 0.90 - 3.30 10(3)/mcL 02/27/2025 8:[address] [facility] ABSOLUTE MONOCYTES 0.50 0.10 - 0.90 10(3)/mcL 02/27/2025 8:[address] [facility] ABSOLUTE EOSINOPHIL 0.10 0.00 - 0.50 10(3)/[facility] 02/27/2025 8:[address] [facility] ABSOLUTE BASOPHILS 0.00 0.00 - 0.10 10(3)/[facility] 02/27/2025 8:[address] [facility] NRBC PER 100 WBC 0 02/28/20 8:[address] [facility] Blood Venipuncture / Unknown 02/27/2025 8:18 AM CDT 02/27/2025 8:29 AM CDT us Earl Valente MD HEMATOLOGY ORDERABLES Final Resu lt [facility] [address] [place] [address], [place] [phone] * (ABNORMAL) Valproic Acid (Depakene) (02/27/2025 8:18 AM CDT) [facility] VALPROIC ACID TOTAL 38(L) 50 - 100 mcg/mL 02/27/2025 10:00 AM CDT [facility] Blood Venipuncture / Unknown 02/27/2025 8:18 AM CDT 02/27/2025 8:29 AM CDT us Earl Valente MD CHEMISTRY ORDERABLES Final Resul t [facility] [address] [place] [address], [place] [phone] * (ABNORMAL) CMP (Comprehensive Metabolic Panel) (02/27/2025 8:18 AM CDT) [facility] SODIUM 142 136 - 145 mmol/L 02/27/2025 9:[address] [facility] POTASSIUM 3.7 3.5 - 5.1 mmol/L 02/27/2025 9:[address] [facility] CHLORIDE 103 98 - 107 mmol/L 02/27/2025 9:[address] [facility] CO2, VENOUS 26 22 - 30 mmol/L 02/27/2025 9:[address] [facility] ANION GAP 13.0 <18.0 mmol/L 02/27/2025 9:[address] [facility] GLUCOSE 314(H) 70 - 99 mg/dL 02/27/2025 9:[address] [facility] BUN 12 8 - 26 mg/dL 02/27/2025 9:38 AM CDT [facility] CREATININE, BLOOD 0.71 0.70 - 1.30 mg/dL 02/27/2025 9:38 AM CDT [facility] BUN/CREATININE RATIO 17 12 - 20 ratio 02/27/2025 9:38 AM CDT [facility] TOTAL PROTEIN 7.0 6.0 - 8.0 g/dL 02/27/2025 9:38 AM CDT [facility] ALBUMIN 3.8 3.5 - 5.0 g/dL 02/27/2025 9:38 AM CDT [facility] A/G RATIO 1.2 1.0 - 2.2 02/27/2025 9:38 AM CDT [facility] CALCIUM 8.9 8.7 - 10.5 mg/dL 02/27/2025 9:38 AM CDT [facility] T BILI 0.8 0.2 - 1.2 mg/dL 02/27/2025 9:38 AM CDT [facility] SGOT (AST) 29 <43 U/L 02/27/2025 9:38 AM CDT [facility] SGPT (ALT) 25 <56 U/L 02/27/2025 9:38 AM CDT [facility] ALKALINE PHOSPHATASE 147 40 - 150 U/L 02/27/2025 9:[address] [facility] GFR, ESTIMATED >60 >=60 02/27/2025 9:[address] [facility] Comment: Creatinine Clearance is the preferred criteria for selecting drug dose adjustments in renally impaired patients. The GFR is provided as additional pertinent clinical information. GFR is reported in mL/min/1.73 sq m. Calculation based on the Chronic Kidney Disease Epidemiology Collaboration (CKD- EPI) equation refit without adjustment for race. GFR, EST. >60 >=60 025 9:[address] [facility] GFR, EST. NONAFRICAN >60 >=60 02/27/2025 9:[address] [facility] Blood Venipuncture / Unknown 02/27/2025 8:18 AM CDT 02/27/2025 8:29 AM CDT us Earl Valente MD CHEMISTRY ORDERABLES Final Resul t Performing Organization Address City/State/[facility] Co de Phone Number [facility] [address] [place] [address], [place] [phone] from Last 3 Months Insurance MEDICARE C [employer] Advance Directives * Full Code (Latest Code Status on File) Date Activated Date Inactivated Comments 02/23/2025 9:34 AM CPR-Full Treat ment: FULL ARREST: Attempt Resuscitation/CPR wit intubation and mechanical ventilation. PRE-ARREST: Use entire range of life support measures to stabilize the patient. Care Teams Admissions Assistant Relationship Specialty Start Date End Date Provider, None [place] PCP - General 02/23/25
--- OUTSIDE RECORDS SUMMARY | 2025-03-04 16:11 | XMS_ITS | Encounter Summary ---
Author Organization [facility] Address [address] [place] [address] Care Team Providers Care Senior Staff Accountant Name Role Phone Raffy Ziegler MD Unavailable [phone] Evert Welch SALES SUPPORT SPECIALIST Unavailable [phone] Mark Holbrook MD Unavailable [phone] Mikey Avendano DO Unavailable [phone] Lucia Paredes STRUCTURAL STEEL IRONWORKER Unavailable [phone] Lucia Paredes STRUCTURAL STEEL IRONWORKER Primary Care Provider [phone] Karina PIERSON MD, Gold Murphy Unavailable + [phone] Encounter Details Date Type Department Care Team (Late st Contact Info) Description 04/09/2019 Abstract [facility]VERSION [address] [place] [address] , Generic MD Yoanna Social History Tobacco Use Types Packs/Day Years Used Date Smoking Tobacco: Never Smokeless Tobacco: Never Alcohol Use Standard Drinks/Week Comments No 0 (1 standard drink = 0.6 oz pur e alcohol) Sex and Gender Information Value Date Recorded Sex Assigned at Male 12/13/2024 9:48 AM INVENTORY SPECIALIST Legal Sex Male 6:15 PM CDT Gender [...] Assessment Author Status No 12/15/2018 1:05 AM INVENTORY SPECIALIST Activ e * RETIRED Are you blind or do you have serious difficulty seeing, even when wearing glasses? Answer Date of Assessment Author Status No 12/15/2018 1:05 AM INVENTORY SPECIALIST Activ e * Do you have serious [...] on filedocumented in this encounter Care Teams Senior Staff Accountant Relationship Specialty Start Date End Date Mark Holbrook MD [address] [place] [address] PCP - Med Group - [facility] Attributed Provider 08/02/17 Lucia Paredes FNP [address] [place] [address] PCP - General NURSE PRACTITIONER 09/11/21 Raffy Ziegler MD CARDIOVASCULAR DISEASE 05/07/16 Evert Welch APRN Nurse Practitioner NURSE PRACTITIONER 04/27/19 Mikey Avendano DO [address] [place] [address] UROLOGY 06/18/20 Lucia Paredes FNP [address] [place] [address] NURSE PRACTITIONER 07/18/20 Gold Collins III, MD [address] [place] [address] Consulting Physician Pain Medicine 02/15/24 documented as of this encounter
--- OUTSIDE RECORDS SUMMARY | 2025-03-04 16:11 | XMS_ITS ---
Author Organization [facility] Address [address] [facility] [address] [place] [address] Care Team Providers Care Edger Machine Helper Name Role Phone Jose Caballero [phone] Encounters Encounter Location Date Provider Diagnosis [facility] [address] [place] [address] 05/18/2024 Jose Ada Plan Of Treatment Next Appt Details Provider Name:Jose Caballero, 0 03/15/2025 11:45:00 AM, [address], [place], [address], Provider Name:Jose Caballero, 0 04/06/2025 09:30:00 AM, [address], [place], [address], Progress Notes * JOI PATDOB:[birth year] (69 yo F)Acc No.[id number]:05/18/2024 Patient: JOI ADEN Provider: Anastasia Caballero MD :1955 A ge:68 Y S ex:Female Date:05/18/2024 Address:[address] [facility], [place] Subjective: * Chief Complaints: * * Medical History: Objective: * Vitals: Assessment: Plan: * Treatment: * * Electronic signature of Jose Caballero MD on 03/04/2025 at 05:10 PM EDT Sign off status: Pending * Provider: Anastasia Caballero MD Date: 0 05/18/2024 Generated for Printi ng/Faxing/eTransmitting on: 0 03/04/2025 05:10 PM EDT
--- OUTSIDE RECORDS SUMMARY | 2025-03-04 16:11 | XMS_ITS | Patient Health Record ---
Author Organization [facility] Address [address] [facility] [address] [place] [address] Care Team Providers Care Drug Worker Name Role Phone Jose Caballero Unavailable [phone] Reason For Referral No Information Encounters Encounter Location Date Provider Diagnosis [facility] [address] [address] [place] [address] 11/18/2024 Jose Caballero Plan Of Treatment Next Appt Details Provider Name:Jose Irlandakane, 0 03/15/2025 11:45:00 AM, [address], [place], [address], Provider Name:Jose Caballero, 0 04/06/2025 09:30:00 AM, [address] [place] [address], [address], [place], [address],
== END 2025-03-04 09:46 | disposition home or self-care (01) ==
LOC: CHSLAB 09:46
PROVIDERS: PCP Family Medicine; Visit Provider Nurse Practitioner Family
DX: E87.0 Hyperosmolality and hypernatremia (principal)
CPT/HCPCS: 36415; 80048

== ENCOUNTER 2025-03-08 09:59 | Outpatient (CLI) | payer MEDICARE, MEDICAID, SELFPAY ==
--- NOTE | ~2025-03-08 | XR_ITS ---
Clinical Indication: Congestion PA and lateral views of the chest: Comparison: 06/10/2023 Findings: Stable calcified right perihilar granuloma. The lungs are otherwise clear, without evidence of focal consolidation or pleural effusion. Cardiomediastinal silhouette is within normal limits. B ones and soft tissues are unremarkable. Impression: No acute abnormality. Reviewed, dictated and finalized at location . Impression: No acute abnormality.
--- OUTSIDE RECORDS SUMMARY | 2025-03-08 10:45 | XMS_ITS | Encounter Summary ---
Author Organization [facility] Address [address] [place] [address] Care Team Providers Care Senior Project Manager Engineering Name Role Phone Raffy Ziegler MD Unavailable [phone] Evert Welch SENIOR MILITARY ANALYST Unavailable [phone] Mark Holbrook MD Unavailable [phone] Mikey Avendano DO Unavailable [phone] Lucia Paredes TELLER SUPERVISOR Unavailable [phone] Lucia Paredes TELLER SUPERVISOR Primary Care Provider [phone] Karina PIERSON MD, Gold Murphy Unavailable + [phone] Encounter Details Date Type Department Care Team (Late st Contact Info) Description 04/09/2019 Abstract [facility]FL CONVERSION [address] [place] [address] , Generic MD Yoanna Social History Tobacco Use Types Packs/Day Years Used Date Smoking Tobacco: Never Smokeless Tobacco: Never Alcohol Use Standard Drinks/Week Comments No 0 (1 standard drink = 0.6 oz pur e alcohol) Sex and Gender Information Value Date Recorded Sex Assigned at Male 12/13/2024 9:48 AM UTILITY WORKER Legal Sex Male 6:15 PM CDT Gender [...] Assessment Author Status No 12/15/2018 1:05 AM UTILITY WORKER Activ e * RETIRED Are you blind or do you have serious difficulty seeing, even when wearing glasses? Answer Date of Assessment Author Status No 12/15/2018 1:05 AM UTILITY WORKER Activ e * Do you have serious [...] Care Team (Late st Contact Info) Description 05/02/2025 9:00 AM CDT Appointment [facility] [address] [facility] [place] [address] Mikey Avendano, DO [address] [place] [address] documented as of this encounter Visit Diagnoses Not on filedocumented in this encounter Care Teams Senior Project Manager Engineering Relationship Specialty Start Date End Date Mark Holbrook MD [address] [place] [address] PCP - Med Group - [facility] Attributed Provider 08/02/17 Lucia Paredes FNP [address] [place] [address] PCP - General NURSE PRACTITIONER 09/11/21 Raffy Ziegler MD CARDIOVASCULAR DISEASE 05/07/16 Evert Welch APRN Nurse Practitioner NURSE PRACTITIONER 04/27/19 Mikey Avendano DO [address] [place] [address] UROLOGY 06/18/20 Lucia Paredes, TELLER SUPERVISOR [address] [place] [address] NURSE PRACTITIONER 07/18/20 Gold Collins III, MD [address] [place] [address] Consulting Physician Pain Medicine 02/15/24 documented as of this encounter
--- OUTSIDE RECORDS SUMMARY | 2025-03-08 10:45 | XMS_ITS | Encounter Summary ---
Author Organization [facility] Address [address] [place] [address] Care Team Providers Care Paint Grinder Stone Mill Name Role Phone Raffy Ziegler MD Unavailable + [phone] Evert Welch PIPELINE MAINTENANCE SUPERVISOR Unavailable [phone] Mark Holbrook MD Unavailable [phone] Mikey Avendano DO Unavailable +[phone] Lucia Paredes PIPE ORGAN MECHANIC Unavailable +[phone] Lucia Paredes PIPE ORGAN MECHANIC Primary Care Provider [phone] Karina PIERSON MD, Gold Murphy Unavailable + [phone] Encounter Details Date Type Department Care Team (Late st Contact Info) Description 12/01/2022 Abstract [facility] [address] [place] [address] Evert Welch, PIPELINE MAINTENANCE SUPERVISOR [address] [place] [address] Social History Tobacco Use Types Packs/Day Years Used Date Smoking Tobacco: Never Smokeless Tobacco: Never Alcohol Use Standard Drinks/Week Comments No 0 (1 standard drink = 0.6 oz pur e alcohol) Sex and Gender Information Value Date Recorded Sex Assigned at Male 12/13/2024 9:48 AM YARN SIZER Legal Sex Male 6:15 PM CDT Gender [...] Assessment Author Status No 12/15/2018 1:05 AM YARN SIZER Activ e * RETIRED Are you blind or do you have serious difficulty seeing, even when wearing glasses? Answer Date of Assessment Author Status No 12/15/2018 1:05 AM YARN SIZER Activ e * Do you have serious [...] Info) Description 05/02/2025 9:[address] [place] [address] [facility] [place] [address] Mikey Avendano F, DO [address] [place] [address] documented as of this encounter Procedures Procedure [...] Final Result * LIPID PANEL (11/12/2022) Pathologist [facility] CHOLESTEROL 292 0 - 200 HDL 34 40 - 60 TRIGLYCERIDES 643 0 - 150 NON HDL CHOLESTEROL - - CHOL/HDL RATIO - - LDL (CALCULATED) 129 <130 VLDL CALCULATION - - 11/12/2022 us Default History Genericprovider LABORATORY Final Result * CMP (ABSTRACTED LAB) (11/12/2022) Pathologist [facility] SODIUM S/P/B 136 136 - 145 POTASSIUM [...] on filedocumented in this encounter Care Teams Paint Grinder Stone Mill Relationship Specialty Start Date End Date Mark Holbrook MD [address] [place] [address] PCP - Med Group - MSSP Attributed Provider 08/02/17 Lucia Paredes FNP [address] [place] [address] PCP - General NURSE PRACTITIONER 09/11/21 Raffy Ziegler MD CARDIOVASCULAR DISEASE 05/07/16 Evert Welch APRN Nurse Practitioner NURSE PRACTITIONER 04/27/19 Mikey Avendano DO [address] [place] [address] UROLOGY 06/18/20 Lucia Paredes FNP [address] [place] [address] NURSE PRACTITIONER 07/18/20 Gold Collins III, MD [address] [place] [address] Consulting Physician Pain Medicine 02/15/24 documented as of this encounter
--- OUTSIDE RECORDS SUMMARY | 2025-03-08 10:45 | XMS_ITS | Clinical Summary ---
Author Organization [facility] Address [address] [place] [address] Phone Care Team Providers Care Wool And Pelt Grader Name Role Phone Provider, None Primary Care [...] 12:33 PM CDT Hospital Encounter [facility] [address] [place] [phone] Bettina Paulino MD [place], MD Sidra Banda Feiteng, MD Bipolar disorder, current episode depressed, severe, without psychotic features (HCC) Discharge Disposition: Discharged to home or Selfcare 02/22/2025 Travel from Last 3 Months Social History Tobacco Use Types Packs/Day Years Used Date Smoking Tobacco: Never Assessed [facility] Utilities Answer Date Recorded In the past 12 months has [employer], gas, oil, or water company threatened to [...] declined 02/26/2025 How often do you attend buddhism or anabaptist serv ices? Patient declined 02/26/2025 Do you belong to any clubs o r organizations such as buddhism groups, unions, fraternal or athletic groups, or [...] medical care, and heating? Patient declined 02/26/2025 [facility] - Occupational Stress [...] any time in the past 12 m [facility], were you homeless or living in a alf (including now)? Patient declined 02/26/2025 Sex and [...] - 99 mg/dL 03/01/2025 5:59 AM CDT [facility] Blood 03/01/2025 5:56 AM CDT 03/01/2025 5:59 AM CDT us None Provider POINT OF CARE TESTING Final Resu lt [facility] [address] [place] [address], [place] [phone] * (ABNORMAL) Hemoglobin A1C w/ Estimated Glucose (02/27/2025 8:18 AM CDT) [facility] HGB-A1C 6.5(H) 4.0 - 6.0 % 02/27/2025 6:44 PM CDT [facility] Est Average Glucose 139.9 mg/dL 02/27/2025 6:44 PM CDT [facility] Blood Venipuncture / Unknown 02/27/2025 8:18 AM CDT 02/27/2025 8:29 AM CDT Narrative [facility] - 02/27/2025 6:44 PM CDT Specimens containing greater than 5% of Hemoglobin F may result in lower than expected % HbA1c results. us Earl Valente MD CHEMISTRY ORDERABLES Final Resul t [facility] [address] [place] [address], [place] * (ABNORMAL) CBC with Auto Differential (02/27/2025 8:18 AM CDT) Pathologist [facility] WBC 6.40 4.00 - 12.00 10(3)/mcL 02/27/2025 8:49 AM CDT [facility] RBC 5.28 4.40 - 5.80 10(6)/mcL 02/27/2025 8:49 AM CDT [facility] HEMOGLOBIN (HGB) 16.2 13.0 - 16.5 g/dL 02/27/2025 8:49 AM CDT [facility] HEMATOCRIT (HCT) 48.3 38.0 - 50.0 % 02/27/2025 8:49 AM CDT [facility] MCV 91.6 82.0 - 96.0 fL 02/27/2025 8:49 AM CDT [facility] MCH 30.8 26.0 - 32.0 pg 02/27/2025 8:49 AM CDT [facility] MCHC 33.6 31.0 - 36.0 g/dL 02/27/2025 8:49 AM CDT [facility] PLATELET COUNT 92(L) 140 - 440 10(3)/mcL 02/27/2025 8:49 AM CDT [facility] RDW 13.8 11.8 - 15.5 % 02/27/2025 8:49 AM CDT [facility] MPV 9.4 8.0 - 12.6 fL 02/27/2025 8:49 AM CDT [facility] NEUTROPHILS 79.6(H) 40.0 - 68.0 % 02/27/2025 8:49 AM CDT [facility] LYMPHOCYTES 10.4(L) 19.0 - 49.0 % 02/27/2025 8:49 AM CDT [facility] MONOCYTES 8.2 3.0 - 13.0 % 02/27/2025 8:49 AM CDT [facility] EOSINOPHILS 1.3 0.0 - 8.0 % 02/27/2025 8:49 AM CDT [facility] BASOPHILS 0.5 0.0 - 1.0 % 02/27/2025 8:49 AM CDT [facility] ABSOLUTE NEUTROPHILS 5.10 1.40 - 5.30 10(3)/mcL 02/27/2025 8:49 AM CDT [facility] ABSOLUTE LYMPHOCYTES 0.70(L) 0.90 - 3.30 10(3)/mcL 02/27/2025 8:49 AM CDT [facility] ABSOLUTE MONOCYTES 0.50 0.10 - 0.90 10(3)/mcL 02/27/2025 8:49 AM CDT [facility] ABSOLUTE EOSINOPHIL 0.10 0.00 - 0.50 10(3)/[facility] 02/27/2025 8:49 AM CDT [facility] ABSOLUTE BASOPHILS 0.00 0.00 - 0.10 10(3)/[facility] 02/27/2025 8:49 AM CDT [facility] NRBC PER 100 WBC 0 02/28/20 8:49 AM CDT [facility] Blood Venipuncture / Unknown 02/27/2025 8:18 AM CDT 02/27/2025 8:29 AM CDT us Earl Valente MD HEMATOLOGY ORDERABLES Final Resu lt [facility] [address] [place] [address], [place] [phone] * (ABNORMAL) Valproic Acid (Depakene) (02/27/2025 8:18 AM CDT) [facility] VALPROIC ACID TOTAL 38(L) 50 - 100 mcg/mL 02/27/2025 10:00 AM CDT [facility] Blood Venipuncture / Unknown 02/27/2025 8:18 AM CDT 02/27/2025 8:29 AM CDT us Earl Valente MD CHEMISTRY ORDERABLES Final Resul t [facility] [address] [place] [address], [place] [phone] * (ABNORMAL) CMP (Comprehensive Metabolic Panel) (02/27/2025 8:18 AM CDT) [facility] SODIUM 142 136 - 145 mmol/L 02/27/2025 9:38 AM CDT [facility] POTASSIUM 3.7 3.5 - 5.1 mmol/L 02/27/2025 9:38 AM CDT [facility] CHLORIDE 103 98 - 107 mmol/L 02/27/2025 9:38 AM CDT [facility] CO2, VENOUS 26 22 - 30 mmol/L 02/27/2025 9:38 AM CDT [facility] ANION GAP 13.0 <18.0 mmol/L 02/27/2025 9:38 AM CDT [facility] GLUCOSE 314(H) 70 - 99 mg/dL 02/27/2025 9:38 AM CDT [facility] BUN 12 8 - 26 mg/dL 02/27/2025 9:38 AM CDT [facility] CREATININE, BLOOD 0.71 0.70 - 1.30 mg/dL 02/27/2025 9:38 AM CDT [facility] BUN/CREATININE RATIO 17 12 - 20 ratio 02/27/2025 9:38 AM CDT [facility] TOTAL PROTEIN 7.0 6.0 - 8.0 g/dL 02/27/2025 9:38 AM CDT [facility] ALBUMIN 3.8 3.5 - 5.0 g/dL 02/27/2025 9:38 AM CDT [facility] A/G RATIO 1.2 1.0 - 2.2 02/27/2025 9:38 AM CDT [facility] CALCIUM 8.9 8.7 - 10.5 mg/dL 02/27/2025 9:38 AM CDT [facility] T BILI 0.8 0.2 - 1.2 mg/dL 02/27/2025 9:38 AM CDT [facility] SGOT (AST) 29 <43 U/L 02/27/2025 9:38 AM CDT [facility] SGPT (ALT) 25 <56 U/L 02/27/2025 9:38 AM CDT [facility] ALKALINE PHOSPHATASE 147 40 - 150 U/L 02/27/2025 9:38 AM CDT [facility] GFR, ESTIMATED >60 >=60 02/27/2025 9:38 AM CDT [facility] Comment: Creatinine Clearance is the preferred criteria for selecting drug dose adjustments in renally impaired patients. The GFR is provided as additional pertinent clinical information. GFR is reported in mL/min/1.73 sq m. Calculation based on the Chronic Kidney Disease Epidemiology Collaboration (CKD- EPI) equation refit without adjustment for race. GFR, EST. >60 >=60 025 9:38 AM CDT [facility] GFR, EST. NONAFRICAN >60 >=60 02/27/2025 9:38 AM CDT [facility] Blood Venipuncture / Unknown 02/27/2025 8:18 AM CDT 02/27/2025 8:29 AM CDT us Earl Valente MD CHEMISTRY ORDERABLES Final Resul t Performing Organization Address City/State/[facility] Co de Phone Number [facility] [address] [place] [address], [place] [phone] from Last 3 Months Insurance [facility]IC[facility] Advance Directives * Full Code (Latest Code Status on File) Date Activated Date Inactivated Comments 02/23/2025 9:34 AM CPR-Full Treat ment: FULL ARREST: Attempt Resuscitation/CPR wit intubation and mechanical ventilation. PRE-ARREST: Use entire range of life support measures to stabilize the patient. Care Teams Wool And Pelt Grader Relationship Specialty Start Date End Date Provider, None [place] PCP - General 02/23/25
--- OUTSIDE RECORDS SUMMARY | 2025-03-08 10:45 | XMS_ITS | Encounter Summary ---
Author Organization [facility] Address [address] [place] [address] Care Team Providers Care Specification Manager Name Role Phone Raffy Ziegler MD Unavailable + [phone] Evert Welch CANNERY WORKER Unavailable [phone] Mark Holbrook MD Unavailable +[phone] Mikey Avendano DO Unavailable +[phone] Lucia Paredes CHALK EXTRUDING MACHINE OPERATOR Unavailable +[phone] Lucia Paredes CHALK EXTRUDING MACHINE OPERATOR Primary Care Provider +[phone] Karina PIERSON MD, Gold Murphy Unavailable + [phone] Encounter Details Date Type Department Care Team (Late st Contact Info) Description 12/03/2021 Abstract [facility] [address] [place] [address] Evert Welch, CANNERY WORKER [address] [place] [address] Social History Tobacco Use Types Packs/Day Years Used Date Smoking Tobacco: Never Smokeless Tobacco: Never Alcohol Use Standard Drinks/Week Comments No 0 (1 standard drink = 0.6 oz pur e alcohol) Sex and Gender Information Value Date Recorded Sex Assigned at Male 12/13/2024 9:48 AM ELECTROPHYSIOLOGY TECHNOLOGIST Legal Sex Male 6:15 PM CDT Gender [...] COVID-19? No / Unsure 11/13/2021 2:42 PM ELECTROPHYSIOLOGY TECHNOLOGIST documented as of this encounter Functional Status * RETIRED Are you deaf or do you have serious difficulty hearing Answer Date of Assessment Author Status No 12/15/2018 1:05 AM ELECTROPHYSIOLOGY TECHNOLOGIST Activ e * RETIRED Are you blind or do you have serious difficulty seeing, even when wearing glasses? Answer Date of Assessment Author Status No 12/15/2018 1:05 AM ELECTROPHYSIOLOGY TECHNOLOGIST Activ e * Do you have serious [...] 05/02/2025 9:[address] [place] [address] [facility] [place] [address] Mikey Avendano, DO [address] [place] [address] documented as of this encounter Procedures Procedure [...] on filedocumented in this encounter Care Teams Specification Manager Relationship Specialty Start Date End Date Mark Holbrook MD [address] [place] [address] PCP - Med Group - MSSP Attributed Provider 08/02/17 Lucia Paredes FNP [address] [place] [address] PCP - General NURSE PRACTITIONER 09/11/21 Raffy Ziegler MD CARDIOVASCULAR DISEASE 05/07/16 Evert Welch, CANNERY WORKER Nurse Practitioner NURSE PRACTITIONER 04/27/19 Mikey Avendano DO [address] [place] [address] UROLOGY 06/18/20 Lucia Paredes FNP [address] [place] [address] NURSE PRACTITIONER 07/18/20 Gold Collins III, MD [address] [place] [phone] Consulting Physician Pain Medicine 02/15/24 documented as of this encounter
--- OUTSIDE RECORDS SUMMARY | 2025-03-08 10:45 | XMS_ITS | Encounter Summary ---
Author Organization [facility] Address [address] [place] [address] Care Team Providers Care Wireless Cellular Technician Name Role Phone Raffy Ziegler MD Unavailable + [phone] Evert Welch REFRIGERATED NATIONAL TRUCK DRIVER Unavailable [phone] Mark Holbrook MD Unavailable [phone] Mikey Avendano DO Unavailable [phone] Lucia Paredes SENIOR ENGINEERING TECHNICIAN Unavailable +[phone] Lucia Paredes SENIOR ENGINEERING TECHNICIAN Primary Care Provider +[phone] Karina PIERSON MD, Gold Murphy Unavailable + [phone] Encounter Details Date Type Department Care Team (Late st Contact Info) Description 01/10/2016 Abstract [facility] [address] [place] [id number] Shelli Coronel NP [address] [place] [address] Social History Tobacco Use Types Packs/Day Years Used Date Smoking Tobacco: Never Alcohol Use Standard Drinks/Week Comments No 0 (1 standard drink = 0.6 oz pur e alcohol) Sex and Gender Information Value Date Recorded Sex Assigned at Male 12/13/2024 9:48 AM SQL REPORT DEVELOPER Legal Sex Male 6:15 PM CDT Gender Identity Not on file Sexual Orientation Not on file Occupation Industry Job Start Date Job End Date Retired Not on file Not on file Not on file documented as of this encounter Plan of Treatment Upcoming Encounters Date Type Department Care Team (Late st Contact Info) Description 05/02/2025 9:00 AM CDT Appointment [place] [address] [place] [address] Mikey Avendano DO [address] [place] [address] documented as of this encounter Visit Diagnoses Not on filedocumented in this encounter Care Teams Wireless Cellular Technician Relationship Specialty Start Date End Date Mark Holbrook MD [address] [place] [address] PCP - Med Group - MSSP Attributed Provider 08/02/17 Lucia Paredes FNP [address] [place] [address] PCP - General NURSE PRACTITIONER 09/11/21 Raffy Ziegler MD CARDIOVASCULAR DISEASE 05/07/16 Evert Welch APRN Nurse Practitioner NURSE PRACTITIONER 04/27/19 Mikey Avendano DO [address] [place] [address] UROLOGY 06/18/20 Lucia Paredes FNP [address] [place] [address] NURSE PRACTITIONER 07/18/20 Gold Collins III, MD [address] [place] [address] Consulting Physician Pain Medicine 02/15/24 documented as of this encounter
--- OUTSIDE RECORDS SUMMARY | 2025-03-08 10:45 | XMS_ITS | Encounter Summary ---
Author Organization [facility] Address [address] [place] [address] Care Team Providers Care Fixed Income Manager Name Role Phone Raffy Ziegler MD Unavailable + [phone] Evert Welch HEAD NECK SURGEON Unavailable [phone] Mark Holbrook MD Unavailable [phone] Mikey Avendano DO Unavailable [phone] Lucia Paredes TELEPHONE OPERATORS SUPERVISOR Unavailable [phone] Lucia Paredes TELEPHONE OPERATORS SUPERVISOR Primary Care Provider [phone] Karina PIERSON MD, Gold Murphy Unavailable + [phone] Encounter Details Date Type Department Care Team (Late st Contact Info) Description 01/16/2018 Abstract [facility] [address] [place] [address] , Rose Mary Lenz MD Social History Tobacco Use Types Packs/Day Years Used Date Smoking Tobacco: Never Smokeless Tobacco: Never Alcohol Use Standard Drinks/Week Comments No 0 (1 standard drink = 0.6 oz pur e alcohol) Sex and Gender Information Value Date Recorded Sex Assigned at Male 12/13/2024 9:48 AM FOOD BROKER Legal Sex Male 6:15 PM CDT Gender [...] 05/02/2025 9:[address] [place] [address] [place] [address] Mikey Avendano DO [address] [place] [address] documented as of this encounter Visit Diagnoses Not on filedocumented in this encounter Care Teams Fixed Income Manager Relationship Specialty Start Date End Date Mark Holbrook MD [address] [place] [address] PCP - Med Group - MSSP Attributed Provider 08/02/17 Lucia Paredes FNP [address] [place] [address] PCP - General NURSE PRACTITIONER 09/11/21 Raffy Ziegler MD CARDIOVASCULAR DISEASE 05/07/16 Evert Welch, HEAD NECK SURGEON Nurse Practitioner NURSE PRACTITIONER 04/27/19 Mikey Avendano DO [address] [place] [address] UROLOGY 06/18/20 Lucia Paredes FNP [address] [place] [address] NURSE PRACTITIONER 07/18/20 Gold Collins III, MD [address] [place] [address] Consulting Physician Pain Medicine 02/15/24 documented as of this encounter
--- OUTSIDE RECORDS SUMMARY | 2025-03-08 10:45 | XMS_ITS | Encounter Summary ---
Author Organization [facility] Address [address] [place] [address] Care Team Providers Care Spreader Operator Automatic Name Role Phone Raffy Ziegler MD Unavailable + [phone] Evert Welch GOLF SUPERINTENDENT Unavailable + [phone] Mark Holbrook MD Unavailable [phone] Mikey Avendano DO Unavailable [phone] Lucia Paredes FLAT SORTER PROCESSOR Unavailable [phone] Lucia Paredes FLAT SORTER PROCESSOR Primary Care Provider [phone] Karina PIERSON MD, Gold Murphy Unavailable +[phone] Encounter Details Date Type Department Care Team (Latest Contact Info) Description 06/30/2018 Abstract [facility] Mark Holbrook MD [address] [place] [address] Social History Tobacco Use Types Packs/Day Years Used Date Smoking Tobacco: Never Smokeless Tobacco: Never Alcohol Use Standard Drinks/Week Comments No 0 (1 standard drink = 0.6 oz pur e alcohol) Sex and Gender Information Value Date Recorded Sex Assigned at Male 12/13/2024 9:48 AM SOLE TIER Legal Sex Male 6:15 PM CDT Gender [...] Care Team ( st Contact Info) Description 05/02/2025 9:[address] [place] [address] [facility] [place] [address] Mikey Avendano DO [address] [place] [address] documented as of this encounter Visit Diagnoses Not on filedocumented in this encounter Care Teams Spreader Operator Automatic Relationship Specialty Start Date End Date Mark Holbrook MD [address] [place] [address] PCP - Med Group - MSSP Attributed Provider 08/02/17 Lucia Paredes FNP [address] [place] [address] PCP - General NURSE PRACTITIONER 09/11/21 Raffy Ziegler MD CARDIOVASCULAR DISEASE 05/07/16 Evetr Welch APRN Nurse Practitioner NURSE PRACTITIONER 04/27/19 Mikye Avendano DO [address] [place] [address] UROLOGY 06/18/20 Lucia Paredes FNP [address] [place] [address] NURSE PRACTITIONER 07/18/20 Gold Collins III, MD [address] [place] [address] Consulting Physician Pain Medicine 02/15/24 documented as of this encounter
--- OUTSIDE RECORDS SUMMARY | 2025-03-08 10:45 | XMS_ITS | Clinical Summary ---
Author Organization [facility] Address [address] [place] [address] Care Team Providers Care Repairer Veneer Sheet Name Role Phone Raffy Ziegler MD Unavailable [phone] Evert Welch DIRECTOR OF LOSS PREVENTION Unavailable [phone] Mark Holbrook MD Unavailable [phone] Mikey Avendano DO Unavailable [phone] Lucia Paredes [employer] Unavailable [phone] Lucia Paredes [employer] Primary Care Provider [phone] Karina PIERSON MD, Gold Murphy Unavailable [phone] Allergies Active Allergy Reactions Criticality Noted Date [...] combined systolic and diastolic congestive heart failure ([facility]) Patient says he gets oxygen [...] 07/28/2022 COPD (chronic obstructive pu lmonary disease) ([facility]) 01/31/2021 GERD (gastroesophageal reflux disease) Hyperlipidemia 01/31/2021 Type 2 diabetes mellitus ([facility]) 01/31 Spondylosis without myelopat hy or radiculopathy, lumbar region 01/11/2021 Lumbar spondylosis 06/14/2020 Diastolic dysfunction 06/01/2019 Pulmonary hypertension ([facility]) 019 Physical deconditioning 06/01/2019 Adult BMI 40.0-44.9 kg/sq m 06/01/2019 Noncompliance with CPAP treatment 06/01/2019 Lateral epicondylitis of left elbow 04/21/2019 Sepsis ([facility]) 12/15/2018 SARBJIT (acute kidney injury) 12/15/2018 Orthostasis 12/15/2018 Acute encephalopathy 12/15/2018 Obstructive sleep apnea (adult) (pediatric) 11/04 Cor pulmonale (chronic) ([facility]) 2018 Stiffness of left hip, not elsewhere classified 08/11/2018 Chronic respiratory failure with hypoxia, on home O2 therapy ([facility]) 07/07/2018 Excessive daytime sleepiness 06/02/2018 [...] hand, left 07/01/2016 DVT (deep venous thrombosis) ([facility]) 0 05/28/2016 Overview (11/06/2023): Transitioned [...] heart failure with pres erved LV function ([facility]) 06/01/2019 07/11/2024 Intolerance of continuous po sitive airway pressure (CPAP) ventilation 06/01/2019 07/13/2020 Chronic systolic heart failu re ([facility]) 12/01/2018 07/11/2024 Encounter for counseling on use of CPAP 12/01/2018 07/13/2020 Difficulty with CPAP use 07/07/201806/2024 CHF (congestive heart failur e) ([facility]) 07/11/2024 Carotid artery disease 07/11 Encounters Date Type Department Care Team Description 12/20/2024 Telephone [facility] [address] [place] [address] Evert Welch, DIRECTOR OF LOSS PREVENTION Appointment Request 12/13/2024 10:00 AM DENTAL OFFICE ASSISTANT Office [facility] [address] [place] [address] Evert Welch, DIRECTOR OF LOSS PREVENTION Follow Up (CAD, HTN, DLD) 12/13/2024 Travel [...] Sex Assigned at Male 12/13/2024 9:48 AM DENTAL OFFICE ASSISTANT Legal Sex Male 6:15 PM CDT Gender Identity Not on file Sexual Orientation Not on file Occupation Industry Job Start Date Job End Date Retired Not on file Not on file Not on file Not on file Not on file Not on file Not on file Last Filed Vital Signs Vital Sign Reading Time Taken Comments Blood Pressure 122/72 12/13/2024 10:36 AM DENTAL OFFICE ASSISTANT Pulse 77 12/13/2024 9:59 AM DENTAL OFFICE ASSISTANT Temperature 36.2 C (97.2 F) 01/01/2024 4:07 PM DENTAL OFFICE ASSISTANT Respiratory Rate 18 12/13/2024 9:59 AM DENTAL OFFICE ASSISTANT Oxygen Saturation 98% 12/13/2024 9:59 AM DENTAL OFFICE ASSISTANT Inhaled Oxygen Concentration - - Weight 101.6 kg (224 lb) 12/13/2024 9:59 AM DENTAL OFFICE ASSISTANT Height 175.3 cm (5' 9 ) 12/13/2024 9:59 AM DENTAL OFFICE ASSISTANT Body Mass Index 33.08 12/13/2024 9:59 AM DENTAL OFFICE ASSISTANT Plan of Treatment Upcoming Encounters Date Type Department Care Team (Late st Contact Info) Description 05/02/2025 9:[address] [facility] [address] [place] [address] Mikey Avendano, DO [address] [place] [address] Health Maintenance Due Date Last Done Comments [...] 2021 COVID-19 Vaccine ( - season) 2024 PHQ-2 (Physician [place]) 11/02/2024 Lipid Panel 07/16/2025 07/16/2024, 11/02, 11/25/2021, [...] (ABNORMAL) LIPID PANEL (07/16/2024 9:58 AM CDT) [facility] CHOLESTEROL 120 MG/DL 07/17/2024 11:54 AM CDT [facility] Comment:DESIRABLE: <200 TRIGLYCERIDES 122 MG/DL 07/17/2024 11:54 AM CDT [facility] Comment:<150 NORMAL HDL 37(L) >39 MG/DL 07/17/2024 11:54 AM CDT [facility] LDL-C 59 MG/DL 07/17/2024 11:54 AM CDT [facility] Comment:<100 OPTIMAL VLDL CALCULATION 24 MG/DL 07/17/20 24 11:54 AM CDT [facility] Comment:REFERENCE RANGE NOT ESTABLISHED CHOL/HDL RATIO 3.2 07/17/2024 11:54 AM CDT [facility] Comment:REFERENCE RANGE NOT ESTABLISHED LDL/HDL 1.6 07/17/2024 11:54 AM CDT [facility] Comment:REFERENCE RANGE NOT ESTABLISHED NON HDL CHOLESTEROL 83 MG/DL 07/17/2024 11:54 AM CDT [facility] Comment:REFERENCE RANGE NOT ESTABLISHED 07/16/2024 9:58 AM CDT Evert Welch APRN LABORATORY Final R esult [facility] [address] [place] [address], [place] [phone] [id number] * (ABNORMAL) HEMOGLOBIN, GLYCOSYLATED (03/10/2019 11:55 AM CDT) HGB A1C 7.7(H) <5.7 % 03/10/2019 12:12 PM CDT [facility] Comment: 5.7 TO 6.4% INCREASED RISK OF DIABETES> OR = 6.5% CONSISTENT WITH DIABETESPER ADA GUIDELINES ESTIMATED AVG GLUCOSE 174(H) 70 - 140 MG/DL 03/10/2019 12:12 PM CDT [facility] 03/10/2019 11:5 5 AM CDT 03/10/2019 11:56 AM CDT us Generic Conversion Md [facility] Final R esult Performing Organization Address City/[facility]/ZIP Co de Phone Number [facility] [address] [place] [address], * HEPATITIS PANEL,ACUTE (08/27/2018 2:36 PM CDT) Pathologist [facility] HEPATITIS B SURFACE AG NON-REACT BEHZAD NON-REACT BEHZAD 08/30/2018 11:34 AM CDT [facility] Comment:HBsAg NOT DETECTED. HEP B CORE IGM NON-REACT BEHZAD NON-REACT BEHZAD 08/30/2018 11:34 AM CDT [facility] Comment: IgM ANTI HBc NOT DETECTED. DOES NOT EXCLUDE THE POSSIBILITY OF EXPOSURE TO OR INFECTION WITH HBV. NO RETEST REQUIRED.HIGH DOSES OF BIOTIN MAY INTERFERE WITH THIS TEST RESULT. CORRELATION TO CLINICAL HISTORY AND PRESENTATION RECOMMENDED. HAV IGM NON-REACT BEHZAD NON-REACT BEHZAD 08/30/2018 11:34 AM CDT [facility] Comment: IgM ANTI HAV NOT DETECTED. DOES NOT EXCLUDE THE POSSIBILITY OF EXPOSURE TO OR INFECTION WITH HAV. LEVELS OF IgM ANTI HAV MAY BE BELOW THE CUTOFF IN EARLY INFECTION. HEPATITIS C AB NON-REACT BEHZAD NON-REACT BEHZAD 08/30/2018 11:34 AM CDT [facility] Comment: ANTIBODIES TO HCV NOT DETECTED. DOES NOT EXCLUDE THE POSSIBILITY OF EXPOSURE TO HCV. 08/27/2018 2:36 PM CDT 08/27/2018 2:46 PM CDT us Generic Conversion Md [facility] Final R esult [facility] [address] [place] [address], [id number] from Last 3 Months or Most Recently Relevant to Health Maintenance Insurance [facility] [place] [address] Advance Directives * Full Code (Latest Code Status on File) Date Activated Date Inactivated Comments 12/15/2018 7:36 AM 12/18/2018 12:18 AM Care Teams Repairer Veneer Sheet Relationship Specialty Start Date End Date Mark Holbrook MD [address] [place] [id number] PCP - Med Group - MSSP Attributed Provider 08/02/17 Lucia Paredes FNP [address] [place] [address] PCP - General NURSE PRACTITIONER 09/11/21 Raffy Ziegler MD CARDIOVASCULAR DISEASE 05/07/16 Evert Welch, DIRECTOR OF LOSS PREVENTION Nurse Practitioner NURSE PRACTITIONER 04/27/19 Mikey Avendano DO [address] [place] [address] [id number] UROLOGY 06/18/20 Lucia Paredes, [employer] [address] [place] [address] NURSE PRACTITIONER 07/18/20 Gold Collins III, MD [address] [place] [address] Consulting Physician Pain Medicine 02/15/24
== END 2025-03-08 10:00 | disposition home or self-care (01) ==
LOC: CHSIMG 10:03
PROVIDERS: PCP Nurse Practitioner Family; Visit Provider Nurse Practitioner Family
DX: R09.89 Other specified symptoms and signs involving the circulatory and respiratory systems (principal)
CPT/HCPCS: 71046

== ENCOUNTER 2025-04-20 07:29 | Outpatient (CLI) | payer MEDICARE, MEDICAID, SELFPAY ==
--- NOTE | ~2025-04-20 | US_ITS ---
Limited Abdominal Sonogram: Real-time sonographic imaging of the right upper quadrant was performed. Clinical History: HCC screening Findings: The liver appears echogenic, with no evidence of mass lesion or bile duct dilatation. Main portal vein demonstrates normal direction of flow. The gallbladder is absent, compatible prior abelino cystectomy. The common bile duct measures 6 mm. The pancreas is largely obscured by bowel gas shadow ing. Impression: Probable fatty infiltration of liver or other chronic liver disease. No focal hepatic mass seen. Reviewed, dictated and finalized at location M. Impression: Probable fatty infiltration of liver or other chronic liver disease. No focal h epatic mass seen.
--- OUTSIDE RECORDS SUMMARY | 2025-04-20 07:37 | XMS_ITS ---
Author Organization [facility] Address [address] [facility] [place] [address] [place] [address] Care Team Providers Care Enlisted Advisor Name Role Phone Ada Jose Unavailable [phone] Encounters Encounter Location Date Provider Diagnosis [facility] [address] [facility] [place] [address] [place] [address] 11/18/2024 Jose Caballero Plan Of Treatment No Information Progress Notes * JOI PATDOB:[birth year] (69 yo F)Acc No.[id number]:11/18/2024 Patient: JOI ADEN Provider: Anastasia Caballero MD :1955 A ge:69 Y S ex:Female Date:11/18/2024 Address:[address] [facility], [address] Subjective: * Chief Complaints: * * Medical History: Objective: * Vitals: Assessment: Plan: * Treatment: * * Electronic signature of Jose Caballero MD on 04/20/2025 at 08:37 AM EDT Sign off status: Pending * Provider: Anastasia Caballero MD Date: 0 11/18/2024 Generated for Newton gonzalez/N[place]/eTransmitting on: 0 04/20/2025 08:37 AM EDT
--- OUTSIDE RECORDS SUMMARY | 2025-04-20 07:37 | XMS_ITS ---
Author Organization [facility] Address [address] [facility] [place] [address] [place] [address] Care Team Providers Care Core Setter Name Role Phone Ada Jose Unavailable [phone] Encounters Encounter Location Date Provider Diagnosis [facility] Metabolism [address] [facility] [address] [place] [address] 04/06/2025 Jose Caballero Plan Of Treatment No Information Progress Notes * JOI PATDOB:[birth year] (69 yo F)Acc No.[id number]:04/06/2025 Patient: JOI ADEN Provider: Anastasia Caballero MD :1955 A ge:69 Y S ex:Female Date:04/06/2025 Address:[address] [facility] [address] Subjective: * Chief Complaints: * * Medical History: Objective: * Vitals: Assessment: Plan: * Treatment: * * Electronic signature of Jose Caballero MD on 04/20/2025 at 08:37 AM EDT Sign off status: Pending * Provider: Anastasia Caballero MD Date: 04/06/2025 Generated for Newton gonzalez/[place]/eTransmitting on: 04/20/2025 08:37 AM EDT
--- OUTSIDE RECORDS SUMMARY | 2025-04-20 07:37 | XMS_ITS | Patient Health Record ---
Author Organization [facility] Address [address] [facility] [address] [place] [address] Care Team Providers Care Powerhouse Mechanic Supervisor Name Role Phone Jose Caballero Unavailable [phone] Reason For Referral No Information Encounters Encounter Location Date Provider Diagnosis [facility] Diabetes & Met[facility] [address] [facility] [address] [address] [place] [address] 11/18/2024 Jose Caballero [facility] Diabetes & Metabolism [address] [facility] [address] [place] [address] 03/15/2025 Jose Caballero [facility] Diabetes & Metabolism [address] [facility] [address] [place] [address] 04/06/2025 Jose Caballero Plan Of Treatment No Information
--- OUTSIDE RECORDS SUMMARY | 2025-04-20 07:38 | XMS_ITS ---
Author Organization [facility] Address [address] [facility] [address] [place] [address] Care Team Providers Care Chemist Pharmaceutical Name Role Phone Ada Jose Unavailable [phone] Encounters Encounter Location Date Provider Diagnosis [facility] & Metabolism [address] [facility] [address] [place] [address] 03/15/2025 Jose Caballero Plan Of Treatment No Information Progress Notes * JOI PATDOB:[birth year] (69 yo F)Acc No.[id number]:03/15/2025 Patient: JOI ADEN Provider: Anastasia Caballero MD :1955 A ge:69 Y S ex:Female Date:03/15/2025 Address:[address] [facility] [address] Subjective: * Chief Complaints: * * Medical History: Objective: * Vitals: Assessment: Plan: * Treatment: * * Electronic signature of Jose Caballero MD on 04/20/2025 at 08:37 AM EDT Sign off status: Pending * Provider: Anastasia Caballero MD Date: 03/15/2025 Generated for Newton gonzalez/[place]/eTransmitting on: 0 04/20/2025 08:37 AM EDT
== END 2025-04-20 07:30 | disposition home or self-care (01) ==
PROVIDERS: PCP Nurse Practitioner Family; Visit Provider Nurse Practitioner
DX: K74.60 Unspecified cirrhosis of liver (principal)
CPT/HCPCS: 76705

== ENCOUNTER 2025-06-27 14:56 | Outpatient (NON) | payer MEDICARE, MEDICAID, SELFPAY ==
--- OUTSIDE RECORDS SUMMARY | 2025-06-27 15:05 | XMS_ITS | Clinical Summary ---
Author Organization [facility] Address [address] [place] [address] Phone Care Team Providers Care Business Development Engineer Name Role Phone Provider, None Primary Care Provider Unavailabl e Allergies Active Allergy Reactions Criticality Noted Date Comments Fish Oil Unknown 02/23/2025 Per PCP Medications Dulaglutide (TRULICITY SC) 4.5 mg by Subcutaneous route once a week. Active aspirin 81 MG Chewable Tablet Take 81 mg by mouth daily. 1 Active atorvastatin (LIPITOR) 80 MG Tablet Take 80 mg by mouth daily. Active carvedilol (COREG) 12.5 MG Tablet Take 12.5 mg by mouth 2 times daily. 4 Active ferrous sulfate 325 (65 Fe) MG Tablet Take 325 mg by mouth 2 times daily. 7 Active empagliflozin (JARDIANCE) 25 MG Tablet Take 25 mg by mouth daily. Active pantoprazole (PROTONIX) 40 MG Tablet Delayed Response Take 40 mg by mouth 2 times daily. 7 Active docusate sodium (COLACE) 100 MG Capsule Take 100 mg by mouth daily. Active divalproex (DEPAKOTE) 250 MG Tablet Delayed Response Take 1 tablet in the morning and 2 tablets in the evening 90 Tablet 5 Active insulin glargine (LANTUS) 100 UNIT/ML Solution 70 Units by Subcutaneous route nightly. 21 mL 5 Active Active Problems Problem Noted Date Diagnosed Date Suicidal ideation 02/23/2025 Bipolar disorder, current ep isode depressed, severe, without psychotic features 02/23/2025 Social History Tobacco Use Types Packs/Day Years Used Date Smoking Tobacco: Never Assessed [facility] Utilities Answer Date Recorded In the past 12 months has th e electric, gas, oil, or water company threatened to shut off services in your home? Patient declined 02/26/2025 Social Connection and Isolation Panel Answer Date Recorded In a typical week, how many times do you talk on the phone with family, friends, or neighbors? Patient declined 02/26/2025 How often do you get togethe r with friends or relatives? Patient declined 02/26/2025 How often do you attend amish or alevism serv ices? Patient declined 02/26/2025 Do you belong to any clubs o r organizations such as amish groups, unions, fraternal or athletic groups, or [...] medical care, and heating? Patient declined 02/26/2025 [facility] [...] time in the past 12 m [facility], were you homeless or living in a senior care (including now)? Patient declined 02/26/2025 Sex and [...] 9:14 PM CDT Height 175.3 cm (5' 9) 02/22/2025 9:14 PM CDT Body Mass Index 32.49 02/22/2025 9:14 PM CDT Plan of Treatment Not on file Insurance MEDICARE C [facility] Advance Directives * Full Code (Latest Code Status on File) Date Activated Date Inactivated Comments 02/23/2025 9:34 AM CPR-Full Treat ment: FULL ARREST: Attempt Resuscitation/CPR wit intubation and mechanical ventilation. PRE-ARREST: Use entire range of life support measures to stabilize the patient. Care Teams Business Development Engineer Relationship Specialty Start Date End Date Provider, None [place] PCP - General 02/23/25
[2025-06-27 15:08] LABS: Add Urine Microscopic? YES; Glucose Urine UA 3+ (Negative); Leukocyte Esterase Ur 1+ LEU/UL (Negative); Nitrate Urine Negative (Negative); Specific Grav Ur 1.015 (1.010-1.020)
[2025-06-27 15:17] LABS: Appearance Urine Cloudy (Clear)
== END 2025-06-27 14:57 | disposition home or self-care (01) ==
LOC: CHSLAB 15:01
PROVIDERS: PCP Nurse Practitioner Family; Visit Provider Nurse Practitioner Family
DX: R32 Unspecified urinary incontinence (principal)
CPT/HCPCS: 81001

== ENCOUNTER 2025-07-11 15:14 | Outpatient (NON) | payer MEDICARE, MEDICAID, SELFPAY ==
[2025-07-11 15:25] LABS: Add Urine Microscopic? NO; Appearance Urine Clear (Clear); Glucose Urine UA 3+ (Negative); Leukocyte Esterase Ur Negative LEU/UL (Negative); Nitrate Urine Negative (Negative); Specific Grav Ur 1.010 (1.010-1.020)
--- OUTSIDE RECORDS SUMMARY | 2025-07-11 16:33 | XMS_ITS | Encounter Summary ---
Author Organization [facility] Address [address] [place] [address] Care Team Providers Care Billing Adjudicator Name Role Phone Raffy Ziegler MD Unavailable [phone] Evert Welch APRN Unavailable [phone] aMrk Holbrook MD Unavailable [phone] Mikey Avendano DO Unavailable [phone] Lucia Paredes SOFTWARE CONFIGURATION ANALYST Unavailable [phone] Lucia Paredes SOFTWARE CONFIGURATION ANALYST Primary Care Provider [phone] Karina PIERSON MD, Gold Murphy Unavailable [phone] Radha Viramontes MD Unavailable Encounter Details Date Type Department Care Team (Latest Contact Info) Description 06/30/2018 Abstract [facility] Medical Group Mark Holbrook MD [address] [place], [place] [phone] Social History Tobacco Use Types Packs/Day Years Used Date Smoking Tobacco: Never Smokeless Tobacco: Never Alcohol Use Standard Drinks/Week Comments No 0 (1 standard drink = 0.6 oz pur e alcohol) Sex and Gender Information Value Date Recorded Sex Assigned at Male 12/13/2024 9:48 AM TIPPING MACHINE OPERATOR AUTOMATIC Legal Sex Male 6:15 PM CDT Gender [...] Care Team (Late st Contact Info) Description 07/27/2025 4:30 PM CDT Appointment [facility] [place] [address] Radha Viramontes MD [address] [place] [address] 01/03/2026 10:30 AM TIPPING MACHINE OPERATOR AUTOMATIC Office Visit [facility] [address] [place] [phone] Radha Viramontes MD [address] [place] [address] documented as of this encounter Visit Diagnoses Not on filedocumented in this encounter Care Teams Billing Adjudicator Relationship Specialty Start Date End Date Mark Holbrook MD [address] [place] [address] PCP - Med Group - MSSP Attributed Provider 08/02/17 Lucia Paredes FNP [address] [place], [place] [phone] PCP - General NURSE PRACTITIONER 09/11/21 Raffy Ziegler MD CARDIOVASCULAR DISEASE 05/07/16 5 Evert Welch APRN Nurse Practitioner NURSE PRACTITIONER 04/27/19 04/13/25 Mikey Avendano DO [address] [place] [address] UROLOGY 06/18/20 Lucia Paredes FNP [address] [place] [address] NURSE PRACTITIONER 07/18/20 04/13/25 Gold Collins III, MD [facility] [place] [address] Consulting Physician Pain Medicine 02/15/24 Radha Viramontes MD [address] [place] [address] [place] Employment Adjudicator CARDIOVASCULAR DISEASE 04/14/25 documented as of this encounter
--- OUTSIDE RECORDS SUMMARY | 2025-07-11 16:33 | XMS_ITS | Encounter Summary ---
Author Organization [facility] Address [address] [place] [address] Care Team Providers Care Garment Supervisor Name Role Phone Raffy Ziegler MD Unavailable [phone] Evert Welch ARTIFICIAL FLOWERS STARCHER Unavailable [phone] Mark Holbrook MD Unavailable [phone] Mikey Avendano DO Unavailable +[phone] Lucia Paredes RAISIN WASHER Unavailable [phone] Lucia Paredes RAISIN WASHER Primary Care Provider [phone] Karina PIERSON MD, Gold Murphy Unavailable [phone] Radha Viramontes MD Unavailable Encounter Details Date Type Department Care Team (Late st Contact Info) Description 12/03/2021 Abstract [facility] [address] [place], [place] [address] Evert Welch, ARTIFICIAL FLOWERS STARCHER [address] [place] [phone] Social History Tobacco Use Types Packs/Day Years Used Date Smoking Tobacco: Never Smokeless Tobacco: Never Alcohol Use Standard Drinks/Week Comments No 0 (1 standard drink = 0.6 oz pur e alcohol) Sex and Gender Information Value Date Recorded Sex Assigned at Male 12/13/2024 9:48 AM BILINGUAL INTERPRETER Legal Sex Male 6:15 PM CDT Gender [...] COVID-19? No / Unsure 11/13/2021 2:42 PM BILINGUAL INTERPRETER documented as of this encounter Functional Status * RETIRED Are you deaf or do you have serious difficulty hearing Answer Date of Assessment Author Status No 12/15/2018 1:05 AM BILINGUAL INTERPRETER Activ e * RETIRED Are you blind or do you have serious difficulty seeing, even when wearing glasses? Answer Date of Assessment Author Status No 12/15/2018 1:05 AM BILINGUAL INTERPRETER Activ e * Do you have serious [...] Info) Description 07/27/2025 4:30 PM CDT Appointment [facility] [address] [place] [address] Radha Viramontes MD [address] [place], [place] [phone] 01/03/2026 10:30 AM BILINGUAL INTERPRETER Office Visit [facility] [address] [place] [address] Radha Viramontes MD [address] [place], [place] [phone] documented as of this encounter Procedures Procedure [...] on filedocumented in this encounter Care Teams Garment Supervisor Relationship Specialty Start Date End Date Mark Holbrook MD [address] [place] [address] PCP - [facility] Attributed Provider 08/02/17 Lucia Paredes FNP [address] [place], [place] [phone] PCP - General NURSE PRACTITIONER 09/11/21 Raffy Ziegler MD CARDIOVASCULAR DISEASE 05/07/16 5 Evert Welch APRN Nurse Practitioner NURSE PRACTITIONER 04/27/19 04/13/25 Mikey Avendano DO [address] [place] [address] UROLOGY 06/18/20 Lucia Paredes FNP [address] [place] [address] NURSE PRACTITIONER 07/18/20 04/13/25 Gold Collins III, MD [facility] [place] [address] Consulting Physician Pain Medicine 02/15/24 Radha Viramontes MD [address] [place] [address] [place] Technical Director CARDIOVASCULAR DISEASE 04/14/25 documented as of this encounter
--- OUTSIDE RECORDS SUMMARY | 2025-07-11 16:33 | XMS_ITS | Encounter Summary ---
Author Organization [facility] Address [address] [place] [address] Care Team Providers Care Paper Roll Machine Operator Name Role Phone Raffy Ziegler MD Unavailable [phone] Evert Welch APRN Unavailable [phone] Mark Holbrook MD Unavailable [phone] Mikey Avendano DO Unavailable [phone] Lucia Paredes LOCOMOTIVE MECHANIC Unavailable +[phone] Lucia Paredes LOCOMOTIVE MECHANIC Primary Care Provider [phone] Karina PIERSON MD, Gold Murphy Unavailable +[phone] Radha Viramontes MD Unavailable Encounter Details Date Type Department Care Team (Late st Contact Info) Description 01/16/2018 Abstract [facility] [address] [place] [address] , Generic [facility]version[facility] Social History Tobacco Use Types Packs/Day Years Used Date Smoking Tobacco: Never Smokeless Tobacco: Never Alcohol Use Standard Drinks/Week Comments No 0 (1 standard drink = 0.6 oz pur e alcohol) Sex and Gender Information Value Date Recorded Sex Assigned at Male 12/13/2024 9:48 AM SPIRAL WINDER Legal Sex Male 6:15 PM CDT Gender [...] Info) Description 07/27/2025 4:30 PM CDT Appointment [facility] [address] [facility] [place] [address] Radha Viramontes MD [address] [place], [place] [phone] 01/03/2026 10:30 AM SPIRAL WINDER Office Visit [facility] [address] [facility] [place] [phone] Radha Viramontes MD [address] [place] [address] documented as of this encounter Visit Diagnoses Not on filedocumented in this encounter Care Teams Paper Roll Machine Operator Relationship Specialty Start Date End Date Mark Holbrook MD [address] [place] [address] PCP - Med Group - [facility] Attributed Provider 08/02/17 Lucia Paredes FNP [address] [place] [address] PCP - General NURSE PRACTITIONER 09/11/21 Raffy Ziegler MD CARDIOVASCULAR DISEASE 05/07/16 5 Evert Welch APRN Nurse Practitioner NURSE PRACTITIONER 04/27/19 04/13/25 Mikey Avendano DO [address] [place] [address] UROLOGY 06/18/20 Lucia Paredes FNP [address] [place] [address] NURSE PRACTITIONER 07/18/20 04/13/25 Gold Collins III, MD [facility] [place] [address] Consulting Physician Pain Medicine 02/15/24 Radha Viramontes MD [address] [place] [address] [place] Dial Brusher CARDIOVASCULAR DISEASE 04/14/25 documented as of this encounter
--- OUTSIDE RECORDS SUMMARY | 2025-07-11 16:33 | XMS_ITS | Encounter Summary ---
Author Organization [facility] Address [address] [place] [address] Care Team Providers Care Sales Contractor Name Role Phone Raffy Ziegler MD Unavailable [phone] Evert Welch CURTAIN WORKER Unavailable [phone] Mark Holbrook MD Unavailable [phone] Mikey Avendano DO Unavailable +[phone] Lucia Paredes LABOR ECONOMICS PROFESSOR Unavailable [phone] Lucia Paredes LABOR ECONOMICS PROFESSOR Primary Care Provider [phone] Karina PIERSON MD, Gold Murphy Unavailable [phone] Radha Viramontes MD Unavailable Encounter Details Date Type Department Care Team (Late st Contact Info) Description 12/01/2022 Abstract [facility] [address] [place], [place] [address] Evert Welch, CURTAIN WORKER [address] [place] [phone] Social History Tobacco Use Types Packs/Day Years Used Date Smoking Tobacco: Never Smokeless Tobacco: Never Alcohol Use Standard Drinks/Week Comments No 0 (1 standard drink = 0.6 oz pur e alcohol) Sex and Gender Information Value Date Recorded Sex Assigned at Male 12/13/2024 9:48 AM DIRECTOR OF RESTAURANT Legal Sex Male 6:15 PM CDT Gender [...] Assessment Author Status No 12/15/2018 1:05 AM DIRECTOR OF RESTAURANT Activ e * RETIRED Are you blind or do you have serious difficulty seeing, even when wearing glasses? Answer Date of Assessment Author Status No 12/15/2018 1:05 AM DIRECTOR OF RESTAURANT Activ e * Do you have serious [...] Info) Description 07/27/2025 4:30 PM CDT Appointment [facility] [address] [place] [address] Radha Viramontes MD [address] [place] [address] 01/03/2026 10:30 AM DIRECTOR OF RESTAURANT Office Visit [facility] [address] [place] [address] Radha Viramontes MD [address] [place] [address] documented as of this encounter Procedures Procedure [...] Final Result * LIPID PANEL (11/12/2022) Pathologist [facility] CHOLESTEROL 292 0 - 200 HDL 34 40 - 60 TRIGLYCERIDES 643 0 - 150 NON HDL CHOLESTEROL - - CHOL/HDL RATIO - - LDL (CALCULATED) 129 <130 VLDL CALCULATION - - 11/12/2022 us Default History Genericprovider LABORATORY Final Result * CMP (ABSTRACTED LAB) (11/12/2022) Pathologist [facility] SODIUM S/P/B 136 136 - 145 POTASSIUM [...] on filedocumented in this encounter Care Teams Sales Contractor Relationship Specialty Start Date End Date Mark Holbrook MD [address] [place] [address] PCP - Med Group - [facility] Attributed Provider 08/02/17 Lucia Paredes FNP [address] [place] [address] PCP - General NURSE PRACTITIONER 09/11/21 Raffy Ziegler MD CARDIOVASCULAR DISEASE 05/07/16 5 Evert Welch APRN Nurse Practitioner NURSE PRACTITIONER 04/27/19 04/13/25 Mikey Avendano DO [address] [place] [address] UROLOGY 06/18/20 Lucia Paredes FNP [address] [place] [address] NURSE PRACTITIONER 07/18/20 04/13/25 Gold Collins III, MD [address] [place] [phone] Consulting Physician Pain Medicine 02/15/24 Radha Viramontes MD [address] [place] [address] [place] Collection Supervisor CARDIOVASCULAR DISEASE 04/14/25 documented as of this encounter
--- OUTSIDE RECORDS SUMMARY | 2025-07-11 16:33 | XMS_ITS | Clinical Summary ---
Author Organization [facility] Address [address] [place] [address] Phone Care Team Providers Care Offensive Coordinator Name Role Phone Provider, None Primary Care [...] Years Used Date Smoking Tobacco: Never Assessed [facility] Utilities Answer Date Recorded In the past [...] declined 02/26/2025 How often do you attend jehovah's witness or yarsani serv ices? Patient declined 02/26/2025 Do you belong to any clubs o r organizations such as jehovah's witness groups, unions, fraternal or athletic groups, or [...] medical care, and heating? Patient declined 02/26/2025 [facility] - Occupational [...] any time in the past 12 m [facility], were you homeless or living in a nursing home (including now)? Patient declined 02/26/2025 Sex and [...] Not on file Insurance MEDICARE C [facility] Advance Directives * Full Code (Latest Code Status on File) Date Activated Date Inactivated Comments 02/23/2025 9:34 AM CPR-Full Treat ment: FULL ARREST: Attempt Resuscitation/CPR wit intubation and mechanical ventilation. PRE-ARREST: Use entire range of life support measures to stabilize the patient. Care Teams Offensive Coordinator Relationship Specialty Start Date End Date Provider, None [facility] PCP - General 02/23/25
--- OUTSIDE RECORDS SUMMARY | 2025-07-11 16:33 | XMS_ITS | Clinical Summary ---
Author Organization [facility] Address [address] [place] [address] Care Team Providers Care Lubricating Machine Tender Name Role Phone Mark Holbrook MD Unavailable [phone] Cinthia Avendano DO Unavailable [phone] Lucia Paredes A AUXILIARY Primary Care Provider [phone] Karina PIERSON MD, Frank J Unavailable [phone] Asuncion Blas MD Unavailable Allergies Active Allergy Reactions Criticality Noted Date [...] tablet every 6 hour while awake 01/18/20 Active aspirin 325 MG tablet Take 1 tablet (325 mg total) by mouth daily. Active acetaminophen 325 MG tabletIndicatio ns:pain Take 500 mg by mouth every 6 (six) hours as needed for Pain. 12/19/19 Active betamethasone valerate cream 0.1 % cream [...] 2 (two) times daily. 12 pen 12/17/19 Active Additional Information Patient taking differently: 50 UnitsSubcutaneous 2 times daily,(No indications reported), Reported on 06/26/2025 insulin lispro 100 UNIT/ML injection (PEN)Indication s:70 units with breakfast, 70 units with lunch, 60 units with dinner Inject 40 Units into the skin 3 (three) times daily before meals. 12 pen 12/17/19 Active senna-docusate (SENOKOT-S) 8.6-50 MG tablet Take [...] BiPAP machine. 1 Units 07/14/20 21 Active Additional Information Patient not taking.Reason: Other (broken), Reported on 06/26/2025 OXYGEN CONCENTRATOR SUPPLY, DME,Indications :Chronic combined systolic and diastolic congestive heart failure ([facility]) Patient says he gets oxygen from [...] capsule by mouth daily. 11/03/19 24 Active CPAP DEVICE [place], DME,Indications :Obstructive sleep apnea Patient says BiPAP machine quit working on him. He may have a defective machine. Please check patient's machine and provide him with an alternative machine if needed. Obstructive sleep apnea. G47.33. 1 Device 04/15/20 25 Active Active Problems Problem Noted Date Diagnosed Date Chest discomfort 04/06/2024 Morbid (severe) obesity due to excess calories 0 12/11/2022 Dependence on supplemental oxygen 07/28/2022 COPD (chronic obstructive pu lmonary disease) ([facility]) 01/31/2021 GERD (gastroesophageal reflux disease) Hyperlipidemia 01/31/2021 Type 2 diabetes mellitus ([facility]) 01/31 Spondylosis without myelopat hy or radiculopathy, lumbar region 01/11/2021 Lumbar spondylosis 06/14/2020 Diastolic dysfunction 06/01/2019 Pulmonary hypertension ([facility]) 019 Physical deconditioning 06/01/2019 Adult BMI 40.0-44.9 kg/sq m 06/01/2019 Noncompliance with CPAP treatment 06/01/2019 Lateral epicondylitis of left elbow 04/21/2019 Sepsis ([facility]) 12/15/2018 SARBJIT (acute kidney injury) 12/15/2018 Orthostasis 12/15/2018 Acute encephalopathy 12/15/2018 Obstructive sleep apnea (adult) (pediatric) 11/04 Cor pulmonale (chronic) ([facility]) 2018 Stiffness of left hip, not elsewhere classified 08/11/2018 Chronic respiratory failure with hypoxia, on home O2 therapy ([facility]) 07/07/2018 Excessive daytime sleepiness 06/02/2018 Nocturnal [...] hand, left 07/01/2016 DVT (deep venous thrombosis) ([facility]) 0 05/28/2016 Overview (11/06/2023): Transitioned From: [...] heart failure with pres erved LV function ([facility]) 06/01/2019 07/11/2024 Intolerance of continuous po sitive airway pressure (CPAP) ventilation 06/01/2019 07/13/2020 Chronic systolic heart failu re ([facility]) 12/01/2018 07/11/2024 Encounter for counseling on use of CPAP 12/01/2018 07/13/2020 Difficulty with CPAP use 07/07/201806/2024 CHF (congestive heart failur e) ([facility]) 07/11/2024 Carotid artery disease 07/11 Encounters Date Type Department Care Team Description 06/26/2025 10:30 AM CDT Office Visit [facility] [address] [place] [address] Asuncion Blas MD Heart Problem 06/26/2025 9:40 AM CDT - 06/26/2025 11:59 PM CDT Hospital Encounter [facility] [address] [place] [address] Asuncion Blas MD Discharge Disposition: Home or Self Care (Routine Discharge) 06/26/2025 Travel 06/23/2025 Telephone [facility] [address] [place] [address] Asuncion Blas MD Appointment Reminder 06/14/2025 Orders Only [facility] [address] [place] [address] Asuncion Blas MD 05/18/2025 11:15 AM CDT - 05/18/2025 11:59 PM CDT Hospital Encounter [facility] [address] [place] [address] Sultana Vogt FNP Discharge Disposition: Home or Self Care (Routine Discharge) 05/18/2025 Travel 05/02/2025 8:58 AM CDT - 05/02/2025 11:59 PM CDT Hospital Encounter [facility] [address] [place] [address] Avendano, Cinthia F, DO Discharge Disposition: Home or Self Care (Routine Discharge) 05/02/2025 Travel 04/15/2025 Telephone [facility] [address] [place] [address] Christian Schaefer MD Advice 04/14/2025 Telephone [facility] [address] [place] [address] Asuncion Blas MD Appointment Request from Last 3 Months Immunizations Immunization Administration [...] Sex Assigned at Male 12/13/2024 9:48 AM BOBBIN PAINTER Legal Sex Male 6:15 PM CDT Gender Identity Not on file Sexual Orientation Not on file Occupation Industry Job Start Date Job End Date Retired Not on file Not on file Not on file Not on file Not on file Not on file Not on file Last Filed Vital Signs Vital Sign Reading Time Taken Comments Blood Pressure 136/77 06/26/2025 10:45 AM CDT Pulse 95 06/26/2025 10:45 AM CDT Temperature 36.2 C (97.2 F) 01/01/2024 4:07 PM BOBBIN PAINTER Respiratory Rate 20 06/26/2025 10:4 5 AM CDT Oxygen Saturation 94% 06/26/2025 10: 45 AM CDT Inhaled Oxygen Concentration - - Weight 109.5 kg (241 lb 6.4 oz) 025 10:45 AM CDT Height 175.3 cm (5' 9) 06/26/2025 10:4 5 AM CDT Body Mass Index 35.65 06/26/2025 10:45 AM CDT Plan of Treatment Upcoming Encounters Date Type Department Care Team (Late st Contact Info) Description 07/27/2025 4:[address] [facility] [address] [place] [address] Asuncion Blas MD [address] [place] [address] 01/03/2026 10:30 AM BOBBIN PAINTER Office Visit [facility] [address] [place] [address] Asuncion Blas MD [address] [place], [place] [id number] Health Maintenance Due Date Last Done Comments ASCVD Statin 1955 Colorectal Cancer Screening Colonoscopy (10 Years) 1955 Kidney Health Evaluation 1955 Diabetes: Retinopathy Eye Exam 1974 Zoster Vaccines (1 of 2) 2006 RSV Immunization or 60+ Years (1 - Risk 60-74 years 1-dose series) 2016 Annual Medicare Wellness Visit 2021 PHQ-2 (Physician [place]) 11/02/2024 COVID-19 Vaccine ( season) 2025 09/15/2022, 02/24/2022, 10/22/2021, Additional history exists Lipid Panel 07/16/2025 07/16/2024, 11/02, 11/25/2021, Additional history exists Hemoglobin A1C 08/29/2025 02/27/2025, 05/0 07/2019, 12/17/2018, Additional history exists Pneumococcal Vaccine: 50+ Years (3 of 3 - PCV20 or PCV21) 02/25/2028 02/24/2023, 12/16/2018, 09/02/2018, Additional history exists DTaP, Tdap and Td Vaccines (2 - Td or Tdap) 07/22/2034 07/22/2024 Hepatitis C Completed 02/06/2021, 08/27/2018 Meningococcal B [...] Name Priority Date/Time Associated Diagnosis Comments ECG 12-LEAD Routine 06/26/2025 9:52 AM CDT Coronary artery disease involving [facility] [place] coronary artery of [facility] heart without angina pectoris Primary hypertension Mixed hyperlipidemia Dyslipidemia XR CHEST PA+LAT Routine 05/18/2025 11:[address] CD[address] ABD WWO CON Routine 05/02/2025 10:24 AM CDT Cancer of kidney ([facility]) CREATININE STAT 05/02/2025 9:20 AM CDT LIPID PANEL Routine 07/16/2024 9:58 AM CDT Dyslipidemia HEMOGLOBIN, GLYCOSYLATED Routine 03/10/2019 11:55 AM CDT HEPATITIS PANEL,ACUTE Routine 08/27/2018 2:36 PM CDT from Last 3 Months or Most Recently Relevant to Health Maintenance Results * ECG 12 lead (HOSPITAL PERFORMED ONLY) (06/26/2025 9:52 AM CDT) 06/26/2025 9:52 AM CDT Narrative [facility] - 06/26/2025 7:57 PM CDT [place] [id number] [facility] 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1955 Requested By: ASUNCION BLAS Order Number: [id number] Reading MD: Asuncion Blas Measurements Intervals [place] Rate: 94 P: 69 SC: 197 QRS: -9 QRSD: 94 T: 73 QT: 350 QTc: 439 Interpretive Statements SINUS RHYTHM POSSIBLE ANTERIOR MYOCARDIAL INFARCTION , OF INDETERMINATE AGE [30 ms QWAVE IN V3/V4, OR R < 0.2 mV IN V4] us Asuncion Blas MD ECG ORDERABLES Final Result [facility] * XR CHEST PA+LAT (05/18/2025 11:33 AM CDT) Anatomical Region Laterality Modality Chest Radiographic Kathleen ging 05/18/2025 11:4 9 AM CDT Impressions 05/18/2025 11:50 AM CDT IMPRESSION: No significant change. No acute disease. Ordered By: SULTANA VOGT Interpreted By: Jim Casas MD, 05/18/2025 11:49 AM Narrative 05/18/2025 11:50 AM CDT [address] [place] [address] Examination: Two-view chest Exam time: 1108 hours. Clinical history: Cough for one week. Comparison: 03/23/2025. Technique: PA and lateral views Findings: The heart remains within normal limits for size. Pulmonary vascularity is within normal limits. No acute infiltrates or effusions are identified. Granulomatous scarring is again noted. The bony thorax is stable. Procedure Note Jim Casas MD - 05/18/[address] [place] [address] Examination: Two-view chest Exam time: 1108 hours. Clinical history: Cough for one week. Comparison: 03/23/2025. Technique: PA and lateral views Findings: The heart remains within normal limits for size. Pulmonaryvascularity is within normal limits. No acute infiltrates or effusions areidentified. Granulomatous scarring is again noted. The bony thorax isstable. IMPRESSION: No significant change. No acute disease. Ordered By: SULTANA VOGT Interpreted By: Jim Casas MD, 05/18/2025 11:49 AM Sultana Vogt [facility] Final Result * CT ABD WWO CON (05/02/2025 10:24 AM CDT) Anatomical Region Laterality Modality Abdomen Computed Tomogra phy 05/09/2025 3:34 PM CDT Impressions 05/09/2025 3:44 PM CDT IMPRESSION: 1. No acute intra-abdominal process identified. 2. No evidence of recurrent or metastatic disease. 3. Coronary artery disease. 4. Additional chronic/nonurgent findings as described. Ordered By: CINTHIA AVENDANO Interpreted By: Jim Casas MD, 05/09/2025 3:34 PM Narrative 05/09/2025 3:44 PM CDT [address] [place] [address] Examination: CT of the abdomen without and with contrast. Exam time: 1020 hours. Clinical history: Follow-up, status post partial left nephrectomy for cancer. Restaging. Prior cholecystectomy. Comparison: 04/11/2024. Technique: Spiral scanning was performed through the abdomen prior to and following the administration of intravenous contrast. Postcontrast scanning was performed during the arterial, nephrographic and excretory phases. Sagittal and coronal reconstructions were performed from the nephrographic and excretory phase data sets. A dose lowering technique was used for this procedure, which may include, but is not limited to, dose reduction techniques, automated exposure control, the use of iterative reconstruction and ALARA/Image Gently techniques. Findings: Granulomatous scarring at the lung bases is noted. The lung bases are otherwise clear. No pleural effusions are seen. Calcific coronary artery disease again evident. Cholecystectomy is again evident with clips in the gallbladder fossa. Incidental splenule is noted. Calcified hepatic and splenic granulomas are again evident. There is persistent mild splenomegaly (14.5 cm). The liver, spleen, pancreas, adrenals and right kidney are otherwise unremarkable. Postoperative changes in the anterior interpolar region of the left kidney are again evident. The left kidney is otherwise unremarkable. The intrarenal collecting systems and ureters, as visualized, appear unremarkable. A normal-appearing appendix is visible. There is no ascites, lymphadenopathy or bowel distention. The caliber of the abdominal aorta is normal. Stable approximately 1.3 cm splenic artery aneurysm again noted. No suspicious bony lesion is identified. Procedure Note Jim Casas MD - 05/09/2025 [facility] [address] [place] [address] Examination: CT of the abdomen without and with contrast. Exam time: 1020 hours. Clinical history: Follow-up, status post partial left nephrectomy forcancer. Restaging. Prior cholecystectomy. Comparison: 04/11/2024. Technique: Spiral scanning was performed through the abdomen prior to andfollowing the administration of intravenous contrast. Postcontrastscanning was performed during the arterial, nephrographic and excretoryphases. Sagittal and coronal reconstructions were performed from thenephrographic and excretory phase data sets. A dose lowering techniquewas used for this procedure, which may include, but is not limited to,dose reduction techniques, automated exposure control, the use ofiterative reconstruction and ALARA/Image Gently techniques. Findings: Granulomatous scarring at the lung bases is noted. The lungbases are otherwise clear. No pleural effusions are seen. Calcificcoronary artery disease again evident. Cholecystectomy is again evidentwith clips in the gallbladder fossa. Incidental splenule is noted.Calcified hepatic and splenic granulomas are again evident. There ispersistent mild splenomegaly (14.5 cm). The liver, spleen, pancreas,adrenals and right kidney are otherwise unremarkable. Postoperativechanges in the anterior interpolar region of the left kidney are againevident. The left kidney is otherwise unremarkable. The intrarenalcollecting systems and ureters, as visualized, appear unremarkable. Anormal-appearing appendix is visible. There is no ascites, lymphadenopathyor bowel distention. The caliber of the abdominal aorta is normal. Stableapproximately 1.3 cm splenic artery aneurysm again noted. No suspiciousbony lesion is identified. IMPRESSION: 1. No acute intra-abdominal process identified. 2. No evidence of recurrent or metastatic disease. 3. Coronary artery disease. 4. Additional chronic/nonurgent findings as described. Ordered By: CINTHIA AVENDANO Interpreted By: Jim Casas MD, 05/09/2025 3:34 PM us Cinthia Avendano DO CT Final Resu lt * (ABNORMAL) CREATININE (05/02/2025 9:20 AM CDT) CREATININE S/P/B 0.63(L) 0.70 - 1.30 MG/DL 05/02/2025 9:41 AM CDT [facility] GFR ESTIMATE >90 >89 ML/MIN/1. 73 M2 05/02/2025 9:41 AM CDT [facility] GFR NOTES GFR REFERENCE S: 05/02/2025 9:41 AM CDT [facility] Comment: THE ESTIMATED GFR IS CALCULATED USING THE 2020 CKD-EPI EQUATION. THE FOLLOWING CATEGORIES FOR GRADING RENAL FUNCTION ARE RECOMMENDED BY THE INTERNATIONAL SOCIETY OF NEPHROLOGY (KDIGO 2012 CLINICAL PRACTICE GUIDELINE). G1,NORMAL OR HIGH: >89 ml/min/1.73 m2 G2,MILDLY DECREASED: 60-89 ml/min/1.73 m2 G3A,MILDLY TO MODERATELY DECREASED: 45-59 ml/min/1.73 m2 G3B,MODERATELY TO SEVERELY DECREASED: 30-44 ml/min/1.73 m2 G4,SEVERELY DECREASED: 15-29 ml/min/1.73 m2 G5,KIDNEY FAILURE: <15 ml/min/1.73 m2 05/02/2025 9:20 AM CDT Cinthia Avendano DO LABORATORY Final Resu lt [facility] [place] [address], * (ABNORMAL) LIPID PANEL (07/16/2024 9:58 AM CDT) CHOLESTEROL 120 MG/DL 07/17/2024 11:[address] [facility] Comment:DESIRABLE: <200 TRIGLYCERIDES 122 MG/DL 07/17/2024 11:[address] [facility] Comment:<150 NORMAL HDL 37(L) >39 MG/DL 07/17/2024 11:[address] [facility] LDL-C 59 MG/DL 07/17/2024 11:[address] [facility] Comment:<100 OPTIMAL VLDL CALCULATION 24 MG/DL 07/17/20 11:[address] [facility] Comment:REFERENCE RANGE NOT ESTABLISHED CHOL/HDL RATIO 3.2 07/17/2024 11:[address] [facility] Comment:REFERENCE RANGE NOT ESTABLISHED LDL/HDL 1.6 07/17/2024 11:[address] [facility] Comment:REFERENCE RANGE NOT ESTABLISHED NON HDL CHOLESTEROL 83 MG/DL 07/17/2024 11:[address] [facility] Comment:REFERENCE RANGE NOT ESTABLISHED 07/16/2024 9:58 AM CDT Evert Welch CNC SPECIALIST LABORATORY Final R esult [facility] [address] [place] [address], [place] [phone] [id number] * (ABNORMAL) HEMOGLOBIN, GLYCOSYLATED (03/10/2019 11:55 AM CDT) HGB A1C 7.7(H) <5.7 % 03/10/2019 12:12 PM CDT [facility] Comment: 5.7 TO 6.4% INCREASED RISK OF DIABETES> OR = 6.5% CONSISTENT WITH DIABETESPER ADA GUIDELINES ESTIMATED AVG GLUCOSE 174(H) 70 - 140 MG/DL 03/10/2019 12:12 PM CDT [facility] 03/10/2019 11:5 5 AM CDT 03/10/2019 11:56 AM CDT us Generic Conversion Md [facility] Final R esult [facility] [address] [place] [address], [place] [phone] * HEPATITIS PANEL,ACUTE (08/27/2018 2:36 PM CDT) HEPATITIS B SURFACE AG NON-REACT BEHZAD NON-REACT BEHZAD 08/30/2018 11:[address] [facility] Comment:HBsAg NOT DETECTED. HEP B CORE IGM NON-REACT BEHZAD NON-REACT BEHZAD 08/30/2018 11:[address] [facility] Comment: IgM ANTI HBc NOT DETECTED. DOES NOT EXCLUDE THE POSSIBILITY OF EXPOSURE TO OR INFECTION WITH HBV. NO RETEST REQUIRED.HIGH DOSES OF BIOTIN MAY INTERFERE WITH THIS TEST RESULT. CORRELATION TO CLINICAL HISTORY AND PRESENTATION RECOMMENDED. HAV IGM NON-REACT BEHZAD NON-REACT BEHZAD 08/30/2018 11:[address] [facility] Comment: IgM ANTI HAV NOT DETECTED. DOES NOT EXCLUDE THE POSSIBILITY OF EXPOSURE TO OR INFECTION WITH HAV. LEVELS OF IgM ANTI HAV MAY BE BELOW THE CUTOFF IN EARLY INFECTION. HEPATITIS C AB NON-REACT BEHZAD NON-REACT BEHZAD 08/30/2018 11:[address] [facility] Comment: ANTIBODIES TO HCV NOT DETECTED. DOES NOT EXCLUDE THE POSSIBILITY OF EXPOSURE TO HCV. 08/27/2018 2:36 PM CDT 08/27/2018 2:46 PM CDT us Generic Conversion Md [facility] Final R esult [facility] [address] [place] [address], [id number] from Last 3 Months or Most Recently Relevant to Health Maintenance Insurance MEDICAID [facility] Advance Directives * Full Code (Latest Code Status on File) Date Activated Date Inactivated Comments 12/15/2018 7:36 AM 12/18/2018 12:18 AM Care Teams Lubricating Machine Tender Relationship Specialty Start Date End Date Mark Holbrook MD [address] [place] [address] PCP - Med Group - MSSP Attributed Provider 08/02/17 Lucia Paredes FNP [address] [place] [address] PCP - General NURSE PRACTITIONER 09/11/21 Cinthia Avendano DO [address] [place] [address] UROLOGY 06/18/20 Gold Collins III, MD [address] [place] [address] Consulting Physician Pain Medicine 02/15/24 Asuncion Blas MD [address] [place] [address] [employer] Mobile Phone Salesperson CARDIOVASCULAR DISEASE 04/14/25
--- OUTSIDE RECORDS SUMMARY | 2025-07-11 16:33 | XMS_ITS | Encounter Summary ---
Author Organization [facility] Address [facility] [place] [address] Care Team Providers Care Gang Drill Operator Name Role Phone Raffy Ziegler MD Unavailable [phone] Evert Welch APRN Unavailable [phone] Mark Holbrook MD Unavailable [phone] Mikey Avendano DO Unavailable [phone] Lucia Paredes EKG MONITOR Unavailable [phone] Lucia Paredes EKG MONITOR Primary Care Provider [phone] Karina PIERSON MD, Gold Murphy Unavailable [phone] Radha Viramontes MD Unavailable Encounter Details Date Type Department Care Team (Late st Contact Info) Description 04/09/2019 Abstract [facility] CON[facility] [address] [place] [address] , Generic Conversion, Social History Tobacco Use Types Packs/Day Years Used Date Smoking Tobacco: Never Smokeless Tobacco: Never Alcohol Use Standard Drinks/Week Comments No 0 (1 standard drink = 0.6 oz pur e alcohol) Sex and Gender Information Value Date Recorded Sex Assigned at Male 12/13/2024 9:48 AM MENTAL HEALTH NURSE PRACTITIONER Legal Sex Male 6:15 PM CDT Gender [...] Assessment Author Status No 12/15/2018 1:05 AM MENTAL HEALTH NURSE PRACTITIONER Activ e * RETIRED Are you blind or do you have serious difficulty seeing, even when wearing glasses? Answer Date of Assessment Author Status No 12/15/2018 1:05 AM MENTAL HEALTH NURSE PRACTITIONER Activ e * Do you have serious [...] Info) Description 07/27/2025 4:30 PM CDT Appointment [place] [address] [place] [address] Radha Viramontes MD [address] [place] [address] 01/03/2026 10:30 AM MENTAL HEALTH NURSE PRACTITIONER Office Visit [facility] [address] [place] [address] Radha Viramontes MD [address] [place] [address] documented as of this encounter Visit Diagnoses Not on filedocumented in this encounter Care Teams Gang Drill Operator Relationship Specialty Start Date End Date Mark Holbrook MD [address] [place] [address] PCP - Med Group - MSSP Attributed Provider 08/02/17 Lucia Paredes FNP [address] [place] [address] PCP - General NURSE PRACTITIONER 09/11/21 Raffy Ziegler MD CARDIOVASCULAR DISEASE 05/07/16 5 Evert Welch, ELECTRIC SCREW DRIVER OPERATOR Nurse Practitioner NURSE PRACTITIONER 04/27/19 04/13/25 Mikey Avendano DO [address] [place] [address] UROLOGY 06/18/20 Lucia Paredes FNP [address] [place] [address] NURSE PRACTITIONER 07/18/20 04/13/25 Gold Collins III, MD [facility] [place] [address] Consulting Physician Pain Medicine 02/15/24 Radha Viramontes MD [address] [place] [address] [employer] Rub[employer] Compounder Mixer CARDIOVASCULAR DISEASE 04/14/25 documented as of this encounter
--- OUTSIDE RECORDS SUMMARY | 2025-07-11 16:33 | XMS_ITS | Clinical Summary ---
Author Organization [employer] [facility] Address [address] [place] [address] Phone Care Team Providers Care Personal Lines Account Executive Name Role Phone Provider, Outside Primary Care Provider Unavaila ble Allergies Active Allergy Reactions Criticality Noted Date Comments Tuna Oil Anaphylaxis High 02/06/2021 Tuna, not just tuna oil. Medications aspirin 81 mg chewable tabletIndicati ons:myocardial infarction prevention Take 1 tablet (81 mg total) by mouth every day 30 tablet 1 Active metoprolol succinate ER (TOPROL-XL) 200 mg extended release tabletIndicati ons:hypertensi on Take 1 tablet (200 mg total) by mouth every day 30 tablet 1 Active albuterol HFA 90 mcg/actuation inhalerIndicat ions:bronchosp asm prevention Take 2 puffs inhaled by mouth every 4 (four) hours as needed for wheezing or shortness of breath 18 g 1 Active dulaglutide (TRULICITY) 3 mg/0.5 mL PnIjIndication s:type 2 diabetes mellitus Inject 3 mg subcutaneously once a week 15 mL 1 Active empagliflozin (JARDIANCE) 10 mg tabletIndicati ons:type 2 diabetes mellitus Take 1 tablet (10 mg total) by mouth every morning 30 tablet 1 Active insulin glargine (LANTUS SOLOSTAR PEN) 100 unit/mL (3 mL) penIndications :type 2 diabetes mellitus Inject 60 Units subcutaneously 2 (two) times daily 36 mL 1 Active mirtazapine (REMERON) 30 mg tabletIndicati ons:major depressive disorder Take 1 tablet (30 mg total) by mouth every day 30 tablet 1 Active atorvastatin (LIPITOR) 40 mg tabletIndicati ons:hyperlipid emia Take 1 tablet (40 mg total) by mouth every day 30 tablet 1 Active losartan (COZAAR) 50 mg tabletIndicati ons:hypertensi on Take 1 tablet (50 mg total) by mouth every day 30 tablet 1 Active gabapentin (NEURONTIN) 400 mg capsuleIndicat ions:neuropath ic pain Take 1 capsule (400 mg total) by mouth 2 (two) times daily 30 capsule 1 Active hydroCHLOROthi azide 25 mg tabletIndicati ons:hypertensi on Take 1 tablet (25 mg total) by mouth every day 30 tablet 1 Active ferrous sulfate 325 mg (65 mg iron) tabletIndicati ons:iron deficiency anemia Take 1 tablet (325 mg total) by mouth every day 30 tablet 1 Active famotidine (PEPCID) 20 mg tabletIndicati ons:gastroesop hageal reflux disease,heartb urn Take 1 tablet (20 mg total) by mouth every day as needed (heartburn) 39 tablet 1 Active pantoprazole (PROTONIX) 40 mg tabletIndicati ons:heartburn Take 1 tablet (40 mg total) by mouth 2 (two) times daily 60 tablet 1 Active Hospital, Clinic, or Other Facility Administered Medication Ordered Dose Route Frequency Start Date End Date Status EPINEPHrine PEN auto-injector 0.3 mg 0.3 mg IM ONE TIME 02/08/2021 Active Active Problems Problem Noted Date Diagnosed Date Morbid obesity 02/05/2021 Type 2 diabetes mellitus 01/31/2021 COPD (chronic obstructive pulmonary disease) 11/2020 CAD (coronary artery disease) 01/31/2021 Essential hypertension 01/31/2021 Hyperlipidemia 01/31/2021 GERD (gastroesophageal reflux disease) 1 Resolved Problems Problem Noted Date Diagnosed Date Resolved Date Sepsis 01/31/2021 02/05/2021 Lactic acidosis 01/31/2021 02/05/2021 Anaphylactic reaction 01/31/20212020 Parkinson's disease 01/31/2021 02/06/20 21 Social History Tobacco Use Types Packs/Day Years Used Date Smoking Tobacco: Never Smokeless Tobacco: Never Alcohol Use Standard Drinks/Week Comments Never 0 (1 standard drink = 0.6 oz pur e alcohol) AUDIT-C Answer Date Recorded Q1: How often do you have a drink containing alc ohol? Never 01/31/2021 Average Number of Drinks Not on file 021 Frequency of Binge Drinking Not on file 11/2020 Sex and Gender Information Value Date Recorded Sex Assigned at Not on file Legal Sex Male 1:52 PM CDT Gender Identity Not on file Sexual Orientation Not on file Last Filed Vital Signs Vital Sign Reading Time Taken Comments Blood Pressure 120/70 02/08/2021 7:44 AM CDT Pulse 69 02/08/2021 7:44 AM CDT Temperature 36.3 C (97.3 F) 02/08/2021 7:44 AM CDT Respiratory Rate 18 02/08/2021 7:44 AM CDT Oxygen Saturation 95% 02/08/2021 7:44 AM CDT Inhaled Oxygen Concentration - - Weight 127.4 kg (280 lb 12.8 oz) 02/04/2021 3:48 AM CDT Height 175.3 cm (5' 9) 01/31/2021 7:59 PM CDT Body Mass Index 41.47 01/31/2021 7:59 PM CDT Plan of Treatment Health Maintenance Due Date Last Done Comments Diagnostic Colonoscopy 1956 Lipid Panel 1956 Depression Screening 1968 DTaP/Tdap/Td Vaccines (1 - Tdap) 1975 Pneumococcal Vaccines (50+) (1 of 2 - PCV) 1975 CT Colonography 2001 Colorectal Cancer Screening 2001 FIT-DNA (Cologuard) 2001 Fecal Immunochemical Testing (FIT) 2001 Fecal Occult Blood (FOBT) 2001 Flexible Sigmoidoscopy 2001 Screening Colonoscopy 2001 HCPOA Document on File 2006 Zoster (Shingles) Vaccine (1 of 2) 2006 Prostate Cancer Screening (PSA) 2011 RSV Vaccine (60+/) (1 - Risk 60-74 years 1-dose series) 2016 Eligible for Initial Annual Medicare Wellness Exam 05/02/2017 Diabetes: Eye (Ophthalmology) Exam 01/31/2021 Diabetes: Foot Exam 01/31/2021 Diabetes: Glyco Hemoglobin A1C 01/31/2021 Diabetes: Urine Microalbumin 01/31/2021 Fall Screening 2021 Diabetes: Comprehensive [place] bolic Panel 01/31/2022 01/31/2021 COVID-19 Vaccine (1 - 2023-2 5 season) 2025 Influenza Vaccine (#1) 2025 HIB Vaccines Aged Out No longer eligi ble based on patient's age to complete this topic HPV Vaccines Aged Out No longer eligi ble based on patient's age to complete this topic Hepatitis A Vaccines Aged Out No long er eligible based on patient's age to complete this topic Hepatitis B Vaccines Aged Out No long er eligible based on patient's age to complete this topic IPV Vaccines Aged Out No longer eligi ble based on patient's age to complete this topic Meningococcal B Vaccine Aged Out No l onger eligible based on patient's age to complete this topic Meningococcal Vaccine (ACWY) Aged Out No longer eligible based on patient's age to complete this topic Rotavirus Vaccines Aged Out No longer eligible based on patient's age to complete this topic Procedures Procedure Name Priority Date/Time Associated Diagnosis Comments COMPREHENSIVE METABOLIC PANEL STAT 01/31/2021 5:05 PM CDT from Last 3 Months or Most Recently Relevant to Health Maintenance Results * (ABNORMAL) COMPREHENSIVE METABOLIC PANEL (01/31/2021 5:05 PM CDT) CALCIUM 8.1(L) 8.5 - 10.1 mg/dL [facility] GLUCOSE 233(H) 60 - 99 mg/dL [facility] BUN 23(H) 7 - 18 mg/dL [facility] CREATININE 1.20 0.70 - 1.30 mg/dL [facility] TOTAL PROTEIN 6.7 6.4 - 8.2 g/dL [facility] ALBUMIN 3.0(L) 3.4 - 5.0 g/dL [facility] BILIRUBIN, TOTAL 0.9 0.2 - 1.0 mg/dL [facility] AST 36 15 - 37 U/L [facility] ALT 39 12 - 78 U/L [facility] ALKALINE PHOSPHATASE 91 45 - 117 U/L [facility] SODIUM 142 136 - 145 mmol/L [facility] POTASSIUM 3.8 3.5 - 5.1 mmol/L [facility] CHLORIDE 111(H) 98 - 107 mmol/L [facility] CO2 21.5 21.0 - 32.0 mmol/L [facility] GFR:NON- >60 arbitrary unit [facility] GFR: >60 arbitrary unit [facility] Comment: Population mean GFR = 85 ml/min/1.73 sq.m. for ages 60-69 years. * Chronic Kidney Disease: Less than 60 ml/min/1.73 square meters End Stage Renal Disease: Less than 15 ml/min/1.73 square meters NOTE: The reported GFR estimate is calculated using the MDRD equation and is intended only for assessment of chronic kidney disease. (Note added 11-29-07.) Effective 01-26-09 the IDMS-traceable MDRD Study equation is used to calculate eGFR; creatinine is calibrated to an IDMS-traceable standard. [facility], [address] [place] [address] 01/31/2021 5:05 PM CDT 01/31/2021 5:24 PM CDT Narrative [facility] - 01/31/2021 6:48 PM CDT Chemistry specimen slightly hemolyzed; results may be subject to error. Neymar Webb MD HEM/CHEM/IMMUN-BLOOD F inal Result [facility] [address] [place] [address], from Last 3 Months or Most Recently Relevant to Health Maintenance Insurance AETNA MEDICARE ADVANTAGE AETNA MEDICARE ADVANTAGE Advance Directives For more information, please contact: [phone] * Full Code (Latest Code Status on File) Date Activated Date Inactivated Comments 01/31/2021 8:52 PM 02/08/2021 11:53 AM Care Teams Personal Lines Account Executive Relationship Specialty Start Date End Date Provider, Outside PCP - General 02/04/21
--- OUTSIDE RECORDS SUMMARY | 2025-07-11 16:33 | XMS_ITS | Encounter Summary ---
Author Organization [facility] Address [address] [place] [address] Care Team Providers Care Mine Supervisor Name Role Phone Raffy Ziegler MD Unavailable + [phone] Evert Welch APRN Unavailable [phone] Mark Holbrook MD Unavailable [phone] Mikey Avendano DO Unavailable [phone] Lucia Paredes HOME VISIT FIELD CARE MANAGER Unavailable [phone] Lucia Paredes HOME VISIT FIELD CARE MANAGER Primary Care Provider [phone] Karina PIERSON MD, Gold Murphy Unavailable [phone] Radha Viramontes MD Unavailable Encounter Details Date Type Department Care Team (Late st Contact Info) Description 01/10/2016 Abstract [facility] [address] [place] [address] Shelli Coronel, MIMI [address] [place] [address] Social History Tobacco Use Types Packs/Day Years Used Date Smoking Tobacco: Never Alcohol Use Standard Drinks/Week Comments No 0 (1 standard drink = 0.6 oz pur e alcohol) Sex and Gender Information Value Date Recorded Sex Assigned at Male 12/13/2024 9:48 AM FUR TRAPPER Legal Sex Male 6:15 PM CDT Gender Identity Not on file Sexual Orientation Not on file Occupation Industry Job Start Date Job End Date Retired Not on file Not on file Not on file documented as of this encounter Plan of Treatment Upcoming Encounters Date Type Department Care Team (Late st Contact Info) Description 07/27/2025 4:30 PM CDT [address]ment [facility] [place] [address] Radha Viramontes MD [address] [place] [address] 01/03/2026 10:30 AM FUR TRAPPER Office Visit [facility] [address] [address] Radha Viramontes MD [address] [place] [address] documented as of this encounter Visit Diagnoses Not on filedocumented in this encounter Care Teams Mine Supervisor Relationship Specialty Start Date End Date Mark Holbrook MD [address] [place] [address] PCP - Med Group - MSSP Attributed Provider 08/02/17 Lucia Paredes FNP [address] [place] [address] PCP - General NURSE PRACTITIONER 09/11/21 Raffy Ziegler MD CARDIOVASCULAR DISEASE 05/07/16 5 Evert Welch APRN Nurse Practitioner NURSE PRACTITIONER 04/27/19 04/13/25 Mikey Avendano DO [address] [place] [address] UROLOGY 06/18/20 Lucia Paredes FNP [address] [place] [address] NURSE PRACTITIONER 07/18/20 04/13/25 Gold Collins III, MD [address] [place] [phone] Consulting Physician Pain Medicine 02/15/24 Radha Viramontes MD [address] [place] [address] Phil Campbell Per Diem Registered Nurse CARDIOVASCULAR DISEASE 04/14/25 documented as of this encounter
== END 2025-07-11 15:15 | disposition home or self-care (01) ==
LOC: CHSLAB 15:15
PROVIDERS: PCP Nurse Practitioner Family; Visit Provider Nurse Practitioner Family
DX: R32 Unspecified urinary incontinence (principal)
CPT/HCPCS: 81003

== ENCOUNTER 2025-08-01 15:34 | Outpatient (CLI) | payer MEDICARE, MEDICAID, SELFPAY ==
--- OUTSIDE RECORDS SUMMARY | 2025-08-01 15:37 | XMS_ITS | Clinical Summary ---
Author Organization [facility] Address [address] [place] [address] Phone Care Team Providers Care Pull Worker Name Role Phone Provider, None Primary Care [...] Years Used Date Smoking Tobacco: Never Assessed [facility] Utilities Answer Date Recorded In [...] declined 02/26/2025 How often do you attend yazdanism or catholic serv ices? Patient declined 02/26/2025 Do you belong to any clubs o r organizations such as yazdanism groups, unions, fraternal or athletic groups, or [...] medical care, and heating? Patient declined 02/26/2025 [facility] - Occupational [...] any time in the past 12 m [facility], were you homeless or living in a snf (including now)? Patient declined 02/26/2025 Sex and [...] Treatment Not on file Insurance MEDICARE C [facility] Advance Directives * Full Code (Latest Code Status on File) Date Activated Date Inactivated Comments 02/23/2025 9:34 AM CPR-Full Treat ment: FULL ARREST: Attempt Resuscitation/CPR wit intubation and mechanical ventilation. PRE-ARREST: Use entire range of life support measures to stabilize the patient. Care Teams Pull Worker Relationship Specialty Start Date End Date Provider, None [place] PCP - General 02/23/25
--- OUTSIDE RECORDS SUMMARY | 2025-08-01 15:37 | XMS_ITS | Clinical Summary ---
Author Organization [facility] Address [address] [place] [address] Phone Care Team Providers Care Inorganic Chemistry Teacher Name Role Phone Provider, Outside Primary Care [...] Microalbumin 01/31/2021 Fall Screening 2021 Diabetes: Comprehensive [place] bolic Panel 01/31/2022 01/31/2021 COVID-19 Vaccine (1 [...] CDT) CALCIUM 8.1(L) 8.5 - 10.1 mg/dL [facility] GLUCOSE 233(H) 60 - 99 mg/dL [facility] BUN 23(H) 7 - 18 mg/dL [facility] CREATININE 1.20 0.70 - 1.30 mg/dL [facility] TOTAL PROTEIN 6.7 6.4 - 8.2 g/dL [facility] ALBUMIN 3.0(L) 3.4 - 5.0 g/dL [facility] BILIRUBIN, TOTAL 0.9 0.2 - 1.0 mg/dL [facility] AST 36 15 - 37 U/L [facility] ALT 39 12 - 78 U/L [facility] ALKALINE PHOSPHATASE 91 45 - 117 U/L [facility] SODIUM 142 136 - 145 mmol/L [facility] POTASSIUM 3.8 3.5 - 5.1 mmol/L [facility] CHLORIDE 111(H) 98 - 107 mmol/L [facility] CO2 21.5 21.0 - 32.0 mmol/L [facility] GFR:NON- >60 arbitrary unit [facility] GFR: >60 arbitrary unit [facility] Comment: Population mean GFR = 85 [...] creatinine is calibrated to an IDMS-traceable standard. [facility], [address] [place] [address] 01/31/2021 5:05 PM CDT 01/31/2021 5:24 PM CDT Narrative [facility] - 01/31/2021 6:48 PM CDT Chemistry specimen slightly hemolyzed; results may be subject to error. Neymar Webb MD HEM/CHEM/IMMUN-BLOOD F inal Result [facility] [address] [place] [address], from Last 3 Months or Most Recently Relevant to Health Maintenance Insurance AETNA MEDICARE ADVANTAGE AETNA MEDICARE ADVANTAGE Advance Directives For more information, please contact: [phone] * Full Code (Latest Code Status on File) Date Activated Date Inactivated Comments 01/31/2021 8:52 PM 02/08/2021 11:53 AM Care Teams Inorganic Chemistry Teacher Relationship Specialty Start Date End Date Provider, Outside PCP - General 02/04/21
[2025-08-01 15:51] LABS: Add Urine Microscopic? NO; Appearance Urine Clear (Clear); Glucose Urine UA 3+ (Negative); Leukocyte Esterase Ur Negative LEU/UL (Negative); Nitrate Urine Negative (Negative); Specific Grav Ur 1.010 (1.010-1.020)
[2025-08-01 15:57] LABS: Hemoglobin A1C 12.1 % (<5.7)
[2025-08-01 16:05] LABS: MALB Creatinine Ratio 32.2 mg/g (0-30)
[2025-08-01 16:19] LABS: Alanine Aminotransferase 36 U/L (6-50); Albumin Level 4.2 g/dL (3.5-5.1); Alkaline Phosphatase 162 U/L (38-126); Anion Gap 12 mmol/L (4-12); Aspartate Amino Transferase 38 U/L (17-59); Bilirubin,Total 0.7 mg/dL (0.2-1.3); Blood Urea Nitrogen 15 mg/dL (9-20); Calcium 9.6 mg/dL (8.4-10.2); Carbon Dioxide 28 mmol/L (22-30); Chloride 101 mmol/L (98-107); Cholesterol 156 mg/dL (0-200); Estimated Glomerular Filt Rate > 60; Glucose 374 mg/dL (65-110); HDL Direct 40 mg/dL; Osmolality Calculated 307 mOsm/kg (285-295); Potassium 4.7 mmol/L (3.4-5.0); Sodium 141 mmol/L (137-145); Total Protein 8.1 g/dL (6.3-8.2); Triglycerides 346 mg/dL (<150)
[2025-08-01 16:50] LABS: Prostate Specific Antigen 7.6 ng/mL (< OR = 4.0); Thyroid Stimulating Hormone Reflex 1.440 uIU/mL (0.465-4.68)
[2025-08-02 08:21] LABS: Total Protein Urine Random 11 mg/dL; Ur Ttl Prot Creatinine Ratio 0.27 mg/mg (0-0.20)
== END 2025-08-01 15:35 | disposition home or self-care (01) ==
LOC: CHSLAB 15:34
PROVIDERS: PCP Nurse Practitioner Family; Visit Provider Nurse Practitioner Family
DX: Z12.5 Encounter for screening for malignant neoplasm of prostate (principal); R32 Unspecified urinary incontinence; I48.0 Paroxysmal atrial fibrillation; K76.0 Fatty (change of) liver, not elsewhere classified; Z79.4 Long term (current) use of insulin; E11.40 Type 2 diabetes mellitus with diabetic neuropathy, unspecified
CPT/HCPCS: 36415; 80053; 80061; 81003; 82043; 82570; 83036; 84100; 84153; 84156; 84443; G0103

== ENCOUNTER 2025-09-05 18:15 | Outpatient (NON) | payer MEDICARE, MEDICAID, SELFPAY ==
--- OUTSIDE RECORDS SUMMARY | 2025-09-05 18:19 | XMS_ITS | Encounter Summary ---
Author Organization [facility] Address [address] [place] [address] Care Team Providers Care Resourcing Advisor Name Role Phone Raffy Ziegler MD Unavailable [phone] Evert Welch APRN Unavailable [phone] Mark Holbrook MD Unavailable [phone] Mikey Avendano DO Unavailable [phone] Lucia Paredes HR CONSULTANT Unavailable [phone] Lucia Paredes HR CONSULTANT Primary Care Provider [phone] Karina PIERSON MD, Gold Murphy Unavailable [phone] Radha Viramontes MD Unavailable Encounter Details Date Type Department Care Team (Late st Contact Info) Description 01/16/2018 Abstract [facility] [address] [place] [address] , Generic ConversionMD Social History Tobacco Use Types Packs/Day Years Used Date Smoking Tobacco: Never Smokeless Tobacco: Never Alcohol Use Standard Drinks/Week Comments No 0 (1 standard drink = 0.6 oz pur e alcohol) Sex and Gender Information Value Date Recorded Sex Assigned at Male 12/13/2024 9:48 AM KNITTER OPERATOR Legal Sex Male 6:15 PM CDT [...] Care Team (Late st Contact Info) Description 01/03/2026 10:30 AM KNITTER OPERATOR Office Visit [facility] [place] [phone] Radha Viramontes MD [address] [place] [address] documented as of this encounter Visit Diagnoses Not on filedocumented in this encounter Care Teams Resourcing Advisor Relationship Specialty Start Date End Date Mark Holbrook MD [address] [place] [address] PCP - Med Group - MSSP Attributed Provider 08/02/17 Lucia Paredes FNP [address] [place] [address] PCP - General NURSE PRACTITIONER 09/11/21 Raffy Ziegler MD CARDIOVASCULAR DISEASE 05/07/16 6 5 Evert Welch APRN Nurse Practitioner NURSE PRACTITIONER 04/27/19 04/13/25 Mikey Avendano DO [address] [place] [address] UROLOGY 06/18/20 Lucia Paredes FNP [address] [place] [address] NURSE PRACTITIONER 07/18/20 04/13/25 Gold Collins III, MD [address] [place] [address] Consulting Physician Pain Medicine 02/15/24 Radha Viramontes MD [address] [place] [address] [place] Child Care Coordinator CARDIOVASCULAR DISEASE 04/14/25 documented as of this encounter
--- OUTSIDE RECORDS SUMMARY | 2025-09-05 18:19 | XMS_ITS | Clinical Summary ---
Author Organization [facility] Address [address] [place] [address] Phone Care Team Providers Care Electrical Prospecting Operator Name Role Phone Provider, Outside Primary Care [...] Weight 127.4 kg (280 lb 12.8 oz) 2020 3:48 AM CDT Height 175.3 cm (5' [...] Microalbumin 01/31/2021 Fall Screening 2021 Diabetes: Comprehensive [place] bolic Panel 01/31/2022 01/31/2021 COVID-19 Vaccine (1 [...] CDT) CALCIUM 8.1(L) 8.5 - 10.1 mg/dL [facility] GLUCOSE 233(H) 60 - 99 mg/dL [facility] BUN 23(H) 7 - 18 mg/dL [facility] CREATININE 1.20 0.70 - 1.30 mg/dL [facility] TOTAL PROTEIN 6.7 6.4 - 8.2 g/dL [facility] ALBUMIN 3.0(L) 3.4 - 5.0 g/dL [facility] BILIRUBIN, TOTAL 0.9 0.2 - 1.0 mg/dL [facility] AST 36 15 - 37 U/L [facility] ALT 39 12 - 78 U/L [facility] ALKALINE PHOSPHATASE 91 45 - 117 U/L [facility] SODIUM 142 136 - 145 mmol/L [facility] POTASSIUM 3.8 3.5 - 5.1 mmol/L [facility] CHLORIDE 111(H) 98 - 107 mmol/L [facility] CO2 21.5 21.0 - 32.0 mmol/L [facility] GFR:NON- >60 arbitrary unit [facility] GFR: >60 arbitrary unit [facility] Comment: Population mean GFR = [...] creatinine is calibrated to an IDMS-traceable standard. [facility], [address] [place] [address] 01/31/2021 5:05 PM CDT 01/31/2021 5:24 PM CDT Narrative [facility] - 01/31/2021 6:48 PM CDT Chemistry specimen slightly hemolyzed; results may be subject to error. Neymar Webb MD HEM/CHEM/IMMUN-BLOOD F inal Result [facility] [address] [place] [address], from Last 3 Months or Most Recently Relevant to Health Maintenance Insurance AETNA MEDICARE ADVANTAGE AETNA MEDICARE ADVANTAGE Advance Directives For more information, please contact: [phone] * Full Code (Latest Code Status on File) Date Activated Date Inactivated Comments 01/31/2021 8:52 PM 02/08/2021 11:53 AM Care Teams Electrical Prospecting Operator Relationship Specialty Start Date End Date Provider, Outside PCP - General 02/04/21
--- OUTSIDE RECORDS SUMMARY | 2025-09-05 18:19 | XMS_ITS | Encounter Summary ---
Author Organization [facility] Address [address] [place] [address] Care Team Providers Care Olive Knocker Name Role Phone Raffy Ziegler MD Unavailable + [phone] Evert Welch APRN Unavailable [phone] Mark Holbrook MD Unavailable [phone] Mikey Avendano DO Unavailable [phone] Lucia Paredes REMELTER Unavailable [phone] Lucia Paredes REMELTER Primary Care Provider [phone] Karina PIERSON MD, Gold Murphy Unavailable [phone] Radha Viramontes MD Unavailable Encounter Details Date Type Department Care Team (Latest Contact Info) Description 06/30/2018 Abstract [facility] Mark Holbrook MD [address] [place], [place] [address] Social History Tobacco Use Types Packs/Day Years Used Date Smoking Tobacco: Never Smokeless Tobacco: Never Alcohol Use Standard Drinks/Week Comments No 0 (1 standard drink = 0.6 oz pur e alcohol) Sex and Gender Information Value Date Recorded Sex Assigned at Male 12/13/2024 9:48 AM PUTAWAY DRIVER Legal Sex Male 6:15 PM CDT Gender [...] st Contact Info) Description 01/03/2026 10:30 AM PUTAWAY DRIVER Office Visit [facility] [place] [phone] Radha Viramontes MD [address] [place] [address] documented as of this encounter Visit Diagnoses Not on filedocumented in this encounter Care Teams Olive Knocker Relationship Specialty Start Date End Date Mark Holbrook MD [address] [place] [address] PCP - Med Group - MSSP Attributed Provider 08/02/17 Lucia Paredes FNP [address] [place] [address] PCP - General NURSE PRACTITIONER 09/11/21 Raffy Ziegler MD CARDIOVASCULAR DISEASE 05/07/16 5 Evert Welch APRN Nurse Practitioner NURSE PRACTITIONER 04/27/19 04/13/25 Mikey Avendano DO [address] [place] [address] UROLOGY 06/18/20 Lucia Paredes FNP [address] [place] [address] NURSE PRACTITIONER 07/18/20 04/13/25 Gold Collins III, MD [address] [place] [phone] Consulting Physician Pain Medicine 02/15/24 Radha Viramontes MD [address] [place] [address] [place] Truck Loader CARDIOVASCULAR DISEASE 04/14/25 documented as of this encounter
--- OUTSIDE RECORDS SUMMARY | 2025-09-05 18:19 | XMS_ITS | Encounter Summary ---
Author Organization [facility] Address [facility] [place] [address] Care Team Providers Care Shanker Out Name Role Phone Raffy Ziegler MD Unavailable + [phone] Evert Welch APRN Unavailable [phone] Mark Holbrook MD Unavailable [phone] Mikey Avendano DO Unavailable +[phone] Lucia Paredes DYNAMOMETER TESTER Unavailable +[phone] Lucia Paredes DYNAMOMETER TESTER Primary Care Provider [phone] Karina PIERSON MD, Gold Murphy Unavailable + [phone] Radha Viramontes MD Unavailable Encounter Details Date Type Department Care Team (Late st Contact Info) Description 04/09/2019 Abstract [facility] [address] [place] [address] , Generic Conversion, Social History Tobacco Use Types Packs/Day Years Used Date Smoking Tobacco: Never Smokeless Tobacco: Never Alcohol Use Standard Drinks/Week Comments No 0 (1 standard drink = 0.6 oz pur e alcohol) Sex and Gender Information Value Date Recorded Sex Assigned at Male 12/13/2024 9:48 AM PHTHALIC ACID PURIFIER Legal Sex Male 6:15 PM CDT Gender [...] Assessment Author Status No 12/15/2018 1:05 AM PHTHALIC ACID PURIFIER Activ e * RETIRED Are you blind or do you have serious difficulty seeing, even when wearing glasses? Answer Date of Assessment Author Status No 12/15/2018 1:05 AM PHTHALIC ACID PURIFIER Activ e * Do you have serious [...] st Contact Info) Description 01/03/2026 10:30 AM PHTHALIC ACID PURIFIER Office Visit [facility] [place] [phone] Radha Viramontes MD [address] [place] [address] documented as of this encounter Visit Diagnoses Not on filedocumented in this encounter Care Teams Shanker Out Relationship Specialty Start Date End Date Mark Holbrook MD [address] [place] [address] PCP - Med [facility] - MSSP Attributed Provider 08/02/17 Lucia Paredes FNP [address] [place] [address] PCP - General NURSE PRACTITIONER 09/11/21 Raffy Ziegler MD CARDIOVASCULAR DISEASE 05/07/16 5 Evert Welch APRN Nurse Practitioner NURSE PRACTITIONER 04/27/19 04/13/25 Mikey Avendano DO [address] [place] [address] UROLOGY 06/18/20 Lucia Paredes FNP [address] [place] [address] NURSE PRACTITIONER 07/18/20 04/13/25 Gold [place] III, MD [facility] [place] [address] Consulting Physician Pain Medicine 02/15/24 Radha Viramontes MD [address] [place] [address] [place] Impregnator Operator CARDIOVASCULAR DISEASE 04/14/25 documented as of this encounter
--- OUTSIDE RECORDS SUMMARY | 2025-09-05 18:19 | XMS_ITS | Clinical Summary ---
Author Organization [facility] Address [address] [place] [address] Phone Care Team Providers Care Package Dye Stand Loader Name Role Phone Provider, None Primary Care [...] Years Used Date Smoking Tobacco: Never Assessed [facility] Utilities Answer Date Recorded In the [...] declined 02/26/2025 How often do you attend zoroastrianism or mormonism serv ices? Patient declined 02/26/2025 Do you belong to any clubs o r organizations such as zoroastrianism groups, unions, fraternal or athletic groups, or [...] medical care, and heating? Patient declined 02/26/2025 [facility] - Occupational Stress [...] any time in the past 12 m [facility], were you homeless or living in a chcf (including now)? Patient declined 02/26/2025 Sex and [...] Treatment Not on file Insurance MEDICARE C [facility] Advance Directives * Full Code (Latest Code Status on File) Date Activated Date Inactivated Comments 02/23/2025 9:34 AM CPR-Full Treat ment: FULL ARREST: Attempt Resuscitation/CPR wit intubation and mechanical ventilation. PRE-ARREST: Use entire range of life support measures to stabilize the patient. Care Teams Package Dye Stand Loader Relationship Specialty Start Date End Date Provider, None [place] PCP - General 02/23/25
--- OUTSIDE RECORDS SUMMARY | 2025-09-05 18:19 | XMS_ITS | Encounter Summary ---
Author Organization [facility] Address [address] [place] [address] Care Team Providers Care Teaching Artist Name Role Phone Raffy Ziegler MD Unavailable [phone] Evert Welch ASSISTANT SHIFT SUPERVISOR Unavailable [phone] Mark Holbrook MD Unavailable [phone] Mikey Avendano DO Unavailable [phone] Lucia Paredes DIRECTOR FINANCIAL PLANNING Unavailable [phone] Lucia Paredes DIRECTOR FINANCIAL PLANNING Primary Care Provider [phone] Karina PIERSON MD, Gold Murphy Unavailable [phone] Radha Viramontes MD Unavailable Encounter Details Date Type Department Care Team (Late st Contact Info) Description 12/01/2022 Abstract [facility] [address] [place], [place] [address] Evert Welch, ASSISTANT SHIFT SUPERVISOR [address] [place] [phone] Social History Tobacco Use Types Packs/Day Years Used Date Smoking Tobacco: Never Smokeless Tobacco: Never Alcohol Use Standard Drinks/Week Comments No 0 (1 standard drink = 0.6 oz pur e alcohol) Sex and Gender Information Value Date Recorded Sex Assigned at Male 12/13/2024 9:48 AM SPUD DRILLER Legal Sex Male 6:15 PM CDT Gender [...] Assessment Author Status No 12/15/2018 1:05 AM SPUD DRILLER Activ e * RETIRED Are you blind or do you have serious difficulty seeing, even when wearing glasses? Answer Date of Assessment Author Status No 12/15/2018 1:05 AM SPUD DRILLER Activ e * Do you have serious [...] st Contact Info) Description 01/03/2026 10:30 AM SPUD DRILLER Office Visit [facility] [place] [phone] Radha Viramontes MD [address] [place] [address] documented as of this encounter Procedures Procedure [...] LABORATORY Final Result * LIPID PANEL (11/12/2022) [facility] CHOLESTEROL 292 0 - 200 HDL 34 40 - 60 TRIGLYCERIDES 643 0 - 150 NON HDL CHOLESTEROL - - CHOL/HDL RATIO - - LDL (CALCULATED) 129 <130 VLDL CALCULATION - - 11/12/2022 us Default History Genericprovider LABORATORY Final Result * CMP (ABSTRACTED LAB) (11/12/2022) Pathologist [facility] SODIUM S/P/B 136 136 - 145 [...] on filedocumented in this encounter Care Teams Teaching Artist Relationship Specialty Start Date End Date Mark Holbrook MD [address] [place] [address] PCP - Med Group - MSSP Attributed Provider 08/02/17 Lucia Paredes FNP [address] [place] [address] PCP - General NURSE PRACTITIONER 09/11/21 Raffy Ziegler MD CARDIOVASCULAR DISEASE 05/07/16 6 5 Evert Welch APRN Nurse Practitioner NURSE PRACTITIONER 04/27/19 04/13/25 Mikey Avendano DO [address] [place] [address] UROLOGY 06/18/20 Lucia Paredes FNP [address] [place] [address] NURSE PRACTITIONER 07/18/20 04/13/25 Gold [place] III, MD [address] [place] [address] Consulting Physician Pain Medicine 02/15/24 Radha Viramontes MD [address] [place] [address] [place] Maintenance Manager CARDIOVASCULAR DISEASE 04/14/25 documented as of this encounter
--- OUTSIDE RECORDS SUMMARY | 2025-09-05 18:19 | XMS_ITS | Encounter Summary ---
Author Organization [facility] Address [address] [place] [address] Care Team Providers Care Flight Communications Operator Name Role Phone Raffy Ziegler MD Unavailable [phone] Evert Welch APRN Unavailable [phone] Mark Holbrook MD Unavailable [phone] Mikey Avendano DO Unavailable [phone] Lucia Paredes MULTIPLE KNIFE EDGE TRIMMER OPERATOR Unavailable +[phone] Lucia Paredes MULTIPLE KNIFE EDGE TRIMMER OPERATOR Primary Care Provider [phone] Karina PIERSON MD, Gold Murphy Unavailable [phone] Radha Viramontes MD Unavailable Encounter Details Date Type Department Care Team (Late st Contact Info) Description 01/10/2016 Abstract [facility] [address] [place] [address] Shelli Croonel, MIMI [address] [place] [address] Social History Tobacco Use Types Packs/Day Years Used Date Smoking Tobacco: Never Alcohol Use Standard Drinks/Week Comments No 0 (1 standard drink = 0.6 oz pur e alcohol) Sex and Gender Information Value Date Recorded Sex Assigned at Male 12/13/2024 9:48 AM INFANTRY WEAPONS CREWMEMBER Legal Sex Male 6:15 PM CDT Gender Identity Not on file Sexual Orientation Not on file Occupation Industry Job Start Date Job End Date Retired Not on file Not on file Not on file documented as of this encounter Plan of Treatment Upcoming Encounters Date Type Department Care Team (Late st Contact Info) Description 01/03/2026 10:30 AM INFANTRY WEAPONS CREWMEMBER Office Visit [facility] [place] [address] Radha Viramontes MD [address] [place] [address] documented as of this encounter Visit Diagnoses Not on filedocumented in this encounter Care Teams Flight Communications Operator Relationship Specialty Start Date End Date Mark Holbrook MD [address] [place] [address] PCP - Med Group - MSSP Attributed Provider 08/02/17 Lucia Paredes FNP [address] [place] [address] PCP - General NURSE PRACTITIONER 09/11/21 Raffy Ziegler MD CARDIOVASCULAR DISEASE 05/07/16 5 Evert Welch APRN Nurse Practitioner NURSE PRACTITIONER 04/27/19 04/13/25 Mikey Avendano DO [address] [place] [address] UROLOGY 06/18/20 Lucia Paredes FNP [address] [place] [address] NURSE PRACTITIONER 07/18/20 04/13/25 Gold [place] III, MD [address] [place] [address] Consulting Physician Pain Medicine 02/15/24 Radha Viramontes MD [address] [place] [address] [place] [employer] English Literature Professor CARDIOVASCULAR DISEASE 04/14/25 documented as of this encounter
--- OUTSIDE RECORDS SUMMARY | 2025-09-05 18:19 | XMS_ITS | Encounter Summary ---
Author Organization [facility] Address [address] [place] [address] Care Team Providers Care Stationary Engineer Apprentice Name Role Phone Raffy Ziegler MD Unavailable [phone] Evert Welch GARLAND MACHINE OPERATOR Unavailable [phone] Mark Holbrook MD Unavailable [phone] Mikey Avendano DO Unavailable [phone] Lucia Paredes FLAKE CUTTER OPERATOR Unavailable [phone] Lucia Paredes FLAKE CUTTER OPERATOR Primary Care Provider [phone] Karina PIERSON MD, Gold Murphy Unavailable [phone] Radha Viramontes MD Unavailable Encounter Details Date Type Department Care Team (Late st Contact Info) Description 12/03/2021 Abstract [facility] [address] [place], [place] [address] Evert Welch, GARLAND MACHINE OPERATOR [address] [place] [phone] Social History Tobacco Use Types Packs/Day Years Used Date Smoking Tobacco: Never Smokeless Tobacco: Never Alcohol Use Standard Drinks/Week Comments No 0 (1 standard drink = 0.6 oz pur e alcohol) Sex and Gender Information Value Date Recorded Sex Assigned at Male 12/13/2024 9:48 AM SENIOR COUNSEL COMMERCIAL Legal Sex Male 6:15 PM CDT Gender [...] COVID-19? No / Unsure 11/13/2021 2:42 PM SENIOR COUNSEL COMMERCIAL documented as of this encounter Functional Status * RETIRED Are you deaf or do you have serious difficulty hearing Answer Date of Assessment Author Status No 12/15/2018 1:05 AM SENIOR COUNSEL COMMERCIAL Activ e * RETIRED Are you blind or do you have serious difficulty seeing, even when wearing glasses? Answer Date of Assessment Author Status No 12/15/2018 1:05 AM SENIOR COUNSEL COMMERCIAL Activ e * Do you have serious [...] st Contact Info) Description 01/03/2026 10:30 AM SENIOR COUNSEL COMMERCIAL Office Visit [facility] [place] [address] Radha Viramontes MD [address] [place] [address] documented as of this encounter Procedures Procedure [...] on filedocumented in this encounter Care Teams Stationary Engineer Apprentice Relationship Specialty Start Date End Date Mark Holbrook MD [address] [place] [address] PCP - Med Group - MSSP Attributed Provider 08/02/17 Lucia Paredes FNP [address] [place] [address] PCP - General NURSE PRACTITIONER 09/11/21 Raffy Ziegler MD CARDIOVASCULAR DISEASE 05/07/16 5 Evert Welch APRN Nurse Practitioner NURSE PRACTITIONER 04/27/19 04/13/25 Mikey Avendano DO [address] [place] [address] UROLOGY 06/18/20 Lucia Paredes FNP [address] [place] [address] NURSE PRACTITIONER 07/18/20 04/13/25 Gold Collins III, MD [address] [place] [address] Consulting Physician Pain Medicine 02/15/24 Radha Viramontes MD [address] [place] [address] [place] Board Certified Music Therapist CARDIOVASCULAR DISEASE 04/14/25 documented as of this encounter
[2025-09-05 18:29] LABS: Add Urine Microscopic? NO; Appearance Urine Clear (Clear); Glucose Urine UA 3+ (Negative); Leukocyte Esterase Ur Negative LEU/UL (Negative); Nitrate Urine Negative (Negative); Specific Grav Ur <= 1.005 (1.010-1.020)
== END 2025-09-05 18:16 | disposition home or self-care (01) ==
LOC: CHSLAB 18:16
PROVIDERS: PCP Nurse Practitioner Family; Visit Provider Nurse Practitioner Family
DX: R32 Unspecified urinary incontinence (principal)
CPT/HCPCS: 81003

== ENCOUNTER 2025-10-17 08:40 | Outpatient (CLI) | payer MEDICARE, MEDICAID, SELFPAY ==
--- OUTSIDE RECORDS SUMMARY | 2024-05-18 08:15 | XMS_ITS ---
Author Organization [facility] Address [address] [facility] [place] [place] [id number] Care Team Providers Care Proofreader Name Role Phone Ada Jose Unavailable [phone] Encounters Encounter Location Date Provider Diagnosis [facility] & Metabolism [address] [facility] [address] [place] [address] 05/18/2024 Jose Caballero Plan Of Treatment No Information Progress Notes * JOI PATDOB:[birth year] (70 yo F)Acc No.[id number]:05/18/2024 Patient: JOI ADEN Provider: Anastasia Caballero MD :1955 A ge:68 Y S ex:Female Date:05/18/2024 Address:[address] [facility], [place] [address] Subjective: * Chief Complaints: * * Medical History: Objective: * Vitals: Assessment: Plan: * Treatment: * * Electronic signature of Jose Caballero MD on 10/17/2025 at 10:14 AM EST Sign off status: Pending * Provider: Anastasia Caballero MD Date: 0 05/18/2024 Generated for Newton gonzalez/Neville/eTransmitting on: 1 12/18/2024 10:14 AM EST
--- OUTSIDE RECORDS SUMMARY | 2024-09-28 08:30 | XMS_ITS ---
Author Organization [facility] Address [address] [facility] [address] [address] [place] [phone] Care Team Providers Care Clam Dredger Name Role Phone Ada Jose Unavailable [phone] Encounters Encounter Location Date Provider Diagnosis [facility] Diabetes & Metabolism [address] [facility] [address] [place] [address] 09/28/2024 Jose Caballero Plan Of Treatment No Information Progress Notes * JOI PATDOB:[birth year] (70 yo F)Acc No.[id number]:09/28/2024 Patient: JOI ADEN Provider: Anastasia Caballero MD :1955 A ge:69 Y S ex:Female Date:09/28/2024 Address:[address] [facility], [place] [address] Subjective: * Chief Complaints: * * Medical History: Objective: * Vitals: Assessment: Plan: * Treatment: * * Electronic signature of Jose Caballero MD on 10/17/2025 at 10:14 AM EST Sign off status: Pending * Provider: Anastasia Caballero MD Date: 11/28/2023 Generated for Newton gonzalez/Neville/eTransmitting on: 12/18/2024 10:14 AM EST
--- OUTSIDE RECORDS SUMMARY | 2024-11-18 03:30 | XMS_ITS ---
Author Organization [facility] Address [address] [facility] [address] [place] [phone] Care Team Providers Care Photographer Still Name Role Phone Ada Jose Unavailable [phone] Encounters Encounter Location Date Provider Diagnosis [facility] Diabetes & Metabolism [address] [facility] [address] [address] [place] [address] 11/18/2024 Jose Caballero Plan Of Treatment No Information Progress Notes * JOI PATDOB:[birth year] (70 yo F)Acc No.[id number]:11/18/2024 Patient: JOI ADEN Provider: Anastasia Caballero MD :1955 A ge:69 Y S ex:Female Date:11/18/2024 Address:[address] [facility], [address] Subjective: * Chief Complaints: * * Medical History: Objective: * Vitals: Assessment: Plan: * Treatment: * * Electronic signature of Jose Caballero MD on 10/17/2025 at 10:14 AM EST Sign off status: Pending * Provider: Anastasia Caballero MD Date: 0 11/18/2024 Generated for Newton gonzalez/Neville/eTransmitting on: 1 12/18/2024 10:14 AM EST
--- OUTSIDE RECORDS SUMMARY | 2025-03-15 05:45 | XMS_ITS ---
Author Organization [facility] Address [address] [facility] [place] [address] [place] [address] Care Team Providers Care Ski Binding Fitter And Repairer Name Role Phone Ada Jose Unavailable [phone] Encounters Encounter Location Date Provider Diagnosis [facility] Met[facility] [address] [facility] [place] [address] [place] [address] 03/15/2025 Jose Caballero Plan Of Treatment No Information Progress Notes * JOI PATDOB:[birth year] (70 yo F)Acc No.[id number]:03/15/2025 Patient: JOI ADEN Provider: Anastasia Caballero MD :1955 A ge:69 Y S ex:Female Date:03/15/2025 Address:[address] [facility] [place] [address] Subjective: * Chief Complaints: * * Medical History: Objective: * Vitals: Assessment: Plan: * Treatment: * * Electronic signature of Jose Caballero MD on 10/17/2025 at 10:15 AM EST Sign off status: Pending * Provider: Anastasia Caballero MD Date: 0 03/15/2025 Generated for Newton gonzalez/[place]/eTransmitting on: 1 12/18/2024 10:15 AM EST
--- OUTSIDE RECORDS SUMMARY | 2025-04-06 03:30 | XMS_ITS ---
Author Organization [facility] Address [address] [facility] [place] [address] [place] [address] Care Team Providers Care Lithographic General Worker Name Role Phone Ada Jose Unavailable [phone] Encounters Encounter Location Date Provider Diagnosis [facility] [address] [facility] [address] [address] [place] [address] 04/06/2025 Jose Caballero Plan Of Treatment No Information Progress Notes * JOI PATDOB:[birth year] (70 yo F)Acc No.[id number]:04/06/2025 Patient: JOI ADEN Provider: Anastasia Caballero MD :1955 A ge:69 Y S ex:Female Date:04/06/2025 Address:[address] [facility] [address] Subjective: * Chief Complaints: * * Medical History: Objective: * Vitals: Assessment: Plan: * Treatment: * * Electronic signature of Jose Caballero MD on 10/17/2025 at 10:13 AM EST Sign off status: Pending * Provider: Anastasia Caballero MD Date: 0 04/06/2025 Generated for Newton gonzalez/[place]/eTransmitting on: 1 12/18/2024 10:13 AM EST
--- NOTE | ~2025-10-17 | US_ITS ---
ULTRASOUND ABDOMEN LIMITED (RIGHT UPPER QUADRANT) Clinical History: Cirrhosis, HCC screening Comparison: 04/20/2025 ultrasound Technique: Right upper quadrant sonography Findings: Liver: Enlarged. Nodular contour. Normal echotexture. No intrahepatic biliary ductal dilatation. Normal hepatopedal flow main portal vein. No discrete hepatic mass identified. Common Duct: Normal caliber. 4 mm. Gallbladder: Removed. Pancreas: Obscured by bowel gas. IMPRESSION: 1. No liver mass identified. Reviewed, dictated and finalized at location R. R TENDER [facility]
[2025-10-17 09:00] LABS: Hematocrit 52.2 % (37.0-46.0); Hemoglobin 17.1 g/dL (12.4-15.3); Immature Platelet Fraction Pct 3.0 % (1.0-7.0); Mean Corpuscular HGB Conc 32.8 g/dL (32-36); Mean Corpuscular Hemoglobin 29.4 pg (27.0-31.0); Mean Corpuscular Volume 89.7 fL (78.0-102.0); Platelet Count Result 124 K/mm3 (150-420); Red Blood Count 5.82 M/mm3 (4.70-6.10); White Blood Count 8.2 K/mm3 (4.8-10.8)
[2025-10-17 09:11] LABS: INR 1.1; Prothrombin Time 12.4 Seconds (9.50-12.1)
--- OUTSIDE RECORDS SUMMARY | 2025-10-17 09:13 | XMS_ITS | Clinical Summary ---
Author Organization [facility] Address [address] [place] [address] Phone Care Team Providers Care Nps Name Role Phone Provider, Outside Primary Care [...] Prostate Cancer Screening (PSA) 2011 RSV Vaccine (50+/) (1 - Risk 60-74 years 1-dose series) 2016 Eligible for Initial Annual Medicare Wellness Exam 05/02/2017 Diabetes: Eye (Ophthalmology) Exam 01/31/2021 Diabetes: Foot Exam 01/31/2021 Diabetes: Glyco Hemoglobin A1C 01/31/2021 Diabetes: Urine Microalbumin 01/31/2021 Fall Screening 2021 Diabetes: Comprehensive [place] bolic Panel 01/31/2022 01/31/2021 COVID-19 Vaccine (1 [...] CDT) CALCIUM 8.1(L) 8.5 - 10.1 mg/dL [facility] GLUCOSE 233(H) 60 - 99 mg/dL [facility] BUN 23(H) 7 - 18 mg/dL [facility] CREATININE 1.20 0.70 - 1.30 mg/dL [facility] TOTAL PROTEIN 6.7 6.4 - 8.2 g/dL [facility] ALBUMIN 3.0(L) 3.4 - 5.0 g/dL [facility] BILIRUBIN, TOTAL 0.9 0.2 - 1.0 mg/dL [facility] AST 36 15 - 37 U/L [facility] ALT 39 12 - 78 U/L [facility] ALKALINE PHOSPHATASE 91 45 - 117 U/L [facility] SODIUM 142 136 - 145 mmol/L [facility] POTASSIUM 3.8 3.5 - 5.1 mmol/L [facility] CHLORIDE 111(H) 98 - 107 mmol/L [facility] CO2 21.5 21.0 - 32.0 mmol/L [facility] GFR:NON- >60 arbitrary unit [facility] GFR: >60 arbitrary unit [facility] Comment: Population mean GFR = 85 [...] creatinine is calibrated to an IDMS-traceable standard. [facility], [address] [place] [id number] 01/31/2021 5:05 PM CDT 01/31/2021 5:24 PM CDT Narrative [facility] - 01/31/2021 6:48 PM CDT Chemistry specimen slightly hemolyzed; results may be subject to error. Neymar Webb MD HEM/CHEM/IMMUN-BLOOD F inal Result [facility] [address] [place] [address], from Last 3 Months or Most Recently Relevant to Health Maintenance Insurance [employer] MEDICARE ADVANTAGE A[employer] MEDICARE ADVANTAGE Advance Directives For more information, please contact: [phone] * Full Code (Latest Code Status on File) Date Activated Date Inactivated Comments 01/31/2021 8:52 PM 02/08/2021 11:53 AM Care Teams Nps Relationship Specialty Start Date End Date Provider, Outside PCP - General 02/04/21
--- OUTSIDE RECORDS SUMMARY | 2025-10-17 09:14 | XMS_ITS | Patient Health Record ---
Author Organization [facility] Address [address] [facility] [address] [address] [place] [address] Care Team Providers Care Deckhand Name Role Phone Jose Caballero Unavailable [phone] Reason For Referral No Information Encounters Encounter Location Date Provider Diagnosis [facility] Endocrinology Diabetes & Metabolism [address] [facility] [address] [address] [place] [address] 11/18/2024 Jose Caballero [facility] Endocrinology Diabetes & Metabolism [address] [facility] [address] [address] [place] [address] 03/15/2025 Jose Caballero [facility] Endocrinology Diabetes & Metabolism [address] [facility] [address] [address] [place] [address] 04/06/2025 Jose Caballero Plan Of Treatment No Information
--- OUTSIDE RECORDS SUMMARY | 2025-10-17 09:14 | XMS_ITS | Clinical Summary ---
Author Organization [facility] Address [address] [place] [address] Phone Care Team Providers Care Youth Nutritional Monitor Name Role Phone Provider, None Primary Care [...] Years Used Date Smoking Tobacco: Never Assessed [facility] Utilities Answer Date Recorded In the [...] declined 02/26/2025 How often do you attend sabianist or mandaen serv ices? Patient declined 02/26/2025 Do you belong to any clubs o r organizations such as sabianist groups, unions, fraternal or athletic groups, or [...] medical care, and heating? Patient declined 02/26/2025 [facility] Occupat ional Health - [...] time in the past 12 m [facility], were you homeless or living in a correction (including now)? Patient declined 02/26/2025 Sex and [...] Treatment Not on file Insurance MEDICARE C [facility] Advance Directives * Full Code (Latest Code Status on File) Date Activated Date Inactivated Comments 02/23/2025 9:34 AM CPR-Full Treat ment: FULL ARREST: Attempt Resuscitation/CPR wit intubation and mechanical ventilation. PRE-ARREST: Use entire range of life support measures to stabilize the patient. Care Teams Youth Nutritional Monitor Relationship Specialty Start Date End Date Provider, None [place] PCP - General 02/23/25
[2025-10-17 09:23] LABS: Alanine Aminotransferase 37 U/L (6-50); Albumin Level 4.6 g/dL (3.5-5.1); Alkaline Phosphatase 166 U/L (38-126); Anion Gap 12 mmol/L (4-12); Aspartate Amino Transferase 37 U/L (17-59); Bilirubin,Total 0.9 mg/dL (0.2-1.3); Blood Urea Nitrogen 15 mg/dL (9-20); Calcium 9.7 mg/dL (8.4-10.2); Carbon Dioxide 27 mmol/L (22-30); Chloride 105 mmol/L (98-107); Estimated Glomerular Filt Rate > 60; Glucose 211 mg/dL (65-110); Osmolality Calculated 304 mOsm/kg (285-295); Potassium 4.8 mmol/L (3.4-5.0); Sodium 144 mmol/L (137-145); Total Protein 7.5 g/dL (6.3-8.2)
== END 2025-10-17 08:41 | disposition home or self-care (01) ==
LOC: CHSIMG 08:41
PROVIDERS: PCP Nurse Practitioner Family; Visit Provider Nurse Practitioner
DX: K74.60 Unspecified cirrhosis of liver (principal); K75.81 Nonalcoholic steatohepatitis (NASH)
CPT/HCPCS: 36415; 76705; 80053; 82105; 85027; 85055; 85610